=== PATIENT | female | born 1965 | race Caucasian/White ===

== ENCOUNTER → 2017-08-23 09:25 | Outpatient (REF) | payer MEDICARE, MEDICAID, SELFPAY ==
[2017-08-23 14:19] LABS: Amphetamine/Metha Screen,Urine Negative ng/mL (<1000); Barbiturates Screen,Urine Negative ng/mL (<200); Benzodiazepines Screen,Urine Positive ng/mL (200); Cannabinoid Screen,Urine Negative ng/mL (<50); Cocaine Screen,Urine Negative ng/g (<300); Methadone Screen,Urine Negative ng/mL (<300); Opiate Screen,Urine Negative ng/mL (<300); Phencyclidine Screen,Urine Negative ng/mL (<25)
== END ==
LOC: LAB 09:25
PROVIDERS: Visit Provider Nurse Practitioner Family
DX: Z79.899 Other long term (current) drug therapy (principal)
CPT/HCPCS: 80305

== ENCOUNTER 2017-09-03 10:09 | Emergency (ER) | payer MEDICARE, MEDICAID, SELFPAY ==
[2017-09-03 10:27] VITALS: BP 138/75; PULSE 74; RESP 18; TEMP 37; O2SAT 98; BMI 36.0
--- NOTE | 2017-09-03 10:56 | HMH.EDUTC ---
[facility] [place] Clinical Impression: URI (upper respiratory infection) Qualifiers: URI type: unspecified URI Qualified Code(s): J06.9 - Acute upper respiratory infection, unspecified Disposition: Home, Self-Care Condition on Discharge: Good Instructions: DI for Cough -- Adult, DI for Sinusitis, Sore Throat, DI for Ear Pain-Adult Additional Instructions: * Monitor Temp. Tylenol and/or Ibuprofen as needed. ER if fever is no less than 101 despite alternating Tylenol and Ibuprofen * Encourage fluids, water, Gatorade, powerade, pedialyte if infant/toddler/or child * Warm salt water gargles for throat irritation *Warm fluids *Sore throat lozenges *Sleep elevated *humidifier or vaporizer Lots of rest Increase fluids, water, Gatorade, powerade *Your throat swab was sent to lab for culture. Those results area typically sent to your primary care physician. Be sure to follow up in 2-3 days if no improvement so they can review those results and treat if necessary If you dont have primary care I recommend you get one, but in the mean time you will have to return to a walk in clinic Follow up IMMEDIATELY for new or worsening of symptoms OR no noticeable improvement over the next 48-72 hours. 911 immediately for any life threatening symptoms such as chest pain or difficulty breathing Prescriptions: Dextromethorphan Polistirex [Delsym] 10 ml PO Q12H PRN #250 josesito.er.12h PRN Reason: Cough Guaifenesin/Dextromethorphan [Mucinex Dm ER 1,200-60 mg Tab] 1 each PO Q12H #20 tab.er.12h Referrals: Keith Santana MD [Primary Care Provider] - Time of Disposition: 11:07 Medical Decision Making - Medical Records Medical records reviewed: Yes: I reviewed the patient's medical records. Vital Signs: 09/03/17 10:27 Temperature 98.6 F Temperature Source Temporal Artery Scan Pulse Rate [Right] 74 Respiratory Rate 18 Blood Pressure [Right Arm] 138/75 Blood Pressure Mean [Right Arm] 96 Blood Pressure Source [Right Arm] Automatic Cuff Blood Pressure Position [Right Arm] Sitting 02 Sat by Pulse Oximetry 98 Oxygen Delivery Method Room Air - Abdirashid Inquiry Pt receiving controlled substance: No Abdirashid was queried for this patient: No [facility] [place] - General Stated complaint: sinus problems Mode of Arrival: Ambulatory Source of Information: Patient Limitations: No Limitations Description of Symptoms (Recalled from Triage Doc. by RN): SINUS CONGESTION, RECENT ABX FOR SAME HEENT Symptoms (Recalled from RN notes): Yes Resp Symptoms (Recalled from RN notes): No Skin Symptoms (Recalled from RN notes): No MS Symptoms (Recalled from RN notes): No Functional Status (Recalled from RN notes): N - History of Present Illness Provider Complaint: Patient state that was recently seen and treated for sinus infection State that she is having thick yellowish green drainage from her sinuses, earache, sore throat and not feeling well State that she was worried that it was coming back and she wanted to get in before it got bad - Related Data Home Medications Medication Instructions Recorded Confirmed aspirin 81 mg chewable tablet 81 mg PO QDAY 08/23/17 atorvastatin 80 mg tablet 80 mg PO QDAY 08/23/17 cholecalciferol (vitamin D3) 50,000 unit PO QWEEK 08/23/17 50,000 unit capsule multivitamin tablet 1 tab PO QAM 08/23/17 Previous Rx's Medication Instructions Recorded alprazolam 1 mg tablet 1 mg PO TID #90 tab 08/23/17 atenolol 50 mg tablet 50 mg PO QDAY #30 tab 08/23/17 atorvastatin 80 mg tablet 80 mg PO QDAY #30 tab 08/23/17 escitalopram 10 mg tablet 20 mg PO QDAY #30 tab 08/23/17 estradiol 0.075 mg/24 hr 1 patch TRANSDERMA QWEEK #4 patch 08/23/17 semiweekly transdermal patch fluticasone 50 mcg/actuation nasal 1 spray INTRANASAL QDAY 30 Days 08/23/17 spray,suspension #9.9 g omeprazole 40 mg capsule,delayed 40 mg PO QDAY #30 cap 08/23/17 release polyethylene glycol 3350 17 17 g PO QDAY PRN #30 each 08/23/17 gram/dose oral powder
--- NOTE | 2017-09-03 11:04 | ED_ITS ---
[facility] [place]position Clinical Impression: URI (upper respiratory infection) Qualifiers: URI type: unspecified URI Qualified Code(s): J06.9 - Acute upper respiratory infection, unspecified Disposition: Home, Self-Care Condition on Discharge: Good Instructions: DI for Cough -- Adult, DI for Sinusitis, Sore Throat, DI for Ear Pain-Adult Additional Instructions: * Monitor Temp. Tylenol and/or Ibuprofen as needed. ER if fever is no less than 101 despite alternating Tylenol and Ibuprofen * Encourage fluids, water, Gatorade, powerade, pedialyte if infant/toddler/or child * Warm salt water gargles for throat irritation *Warm fluids *Sore throat lozenges *Sleep elevated *humidifier or vaporizer Lots of rest Increase fluids, water, Gatorade, powerade *Your throat swab was sent to lab for culture. Those results area typically sent to your primary care physician. Be sure to follow up in 2-3 days if no improvement so they can review those results and treat if necessary If you don? t have primary care I recommend you get one, but in the mean time you will have to return to a walk in clinic Follow up IMMEDIATELY for new or worsening of symptoms OR no noticeable improvement over the next 48-72 hours. 911 immediately for any life threatening symptoms such as chest pain or difficulty breathing Prescriptions: Dextromethorphan Polistirex [Delsym] 10 ml PO Q12H PRN #250 josesito.er.12h PRN Reason: Cough Guaifenesin/Dextromethorphan [Mucinex Dm ER 1,200-60 mg Tab] 1 each PO Q12H #20 tab.er.12h Referrals: Keith Santana MD [Primary Care Provider] - Time of Disposition: 11:07 Medical Decision Making - Medical Records Medical records reviewed: Yes: I reviewed the patient's medical records. Vital Signs: 09/03/17 10:27 Temperature 98.6 F Temperature Source Temporal Artery Scan Pulse Rate [Right] 74 Respiratory Rate 18 Blood Pressure [Right Arm] 138/75 Blood Pressure Mean [Right Arm] 96 Blood Pressure Source [Right Arm] Automatic Cuff Blood Pressure Position [Right Arm] Sitting 02 Sat by Pulse Oximetry 98 Oxygen Delivery Method Room Air - Abdirashid Inquiry Pt receiving controlled substance: No Abdirashid was queried for this patient: No [facility] [place] HPI - General Stated complaint: sinus problems Mode of Arrival: Ambulatory Source of Information: Patient Limitations: No Limitations Description of Symptoms (Recalled from Triage Doc. by RN): SINUS CONGESTION, RECENT ABX FOR SAME HEENT Symptoms (Recalled from RN notes): Yes Resp Symptoms (Recalled from RN notes): No Skin Symptoms (Recalled from RN notes): No MS Symptoms (Recalled from RN notes): No Functional Status (Recalled from RN notes): N - History of Present Illness Provider Complaint: Patient state that was recently seen and treated for sinus infection State that she is having thick yellowish green drainage from her sinuses, earache, sore throat and not feeling well State that she was worried that it was coming back and she wanted to get in before it got bad - Related Data Home Medications Medication Instructions Recorded Confirmed aspirin 81 mg chewable tablet 81 mg PO QDAY 08/23/17 atorvastatin 80 mg tablet 80 mg PO QDAY 08/23/17 cholecalciferol (vitamin D3) 50,000 unit PO QWEEK 08/23/17 50,000 unit capsule multivitamin tablet 1 tab PO QAM 08/23/17 Previous Rx's Medication Instructions Recorded alprazolam 1 mg ta
[2017-09-03 11:30] VITALS: BP 142/90; PULSE 82; RESP 18; TEMP 37
== END 2017-09-03 11:33 | disposition home or self-care (01) ==
PROVIDERS: Emergency Provider Nurse Practitioner; Family Provider Emergency Medicine; PCP Emergency Medicine
DX: J06.9 Acute upper respiratory infection, unspecified (principal); Z72.0 Tobacco use
CPT/HCPCS: 96372; 99201

== ENCOUNTER 2017-10-12 17:35 | Emergency (ER) | payer MEDICARE, MEDICAID, SELFPAY ==
[2017-10-12 17:54] VITALS: BP 121/85; PULSE 78; RESP 20; TEMP 37.1; O2SAT 96; BMI 31.3
--- NOTE | 2017-10-12 18:07 | HMH.EDUTC ---
[facility] – [place] Disposition Referrals: Keith Santana MD [Primary Care Provider] - Medical Decision Making Vital Signs: 10/12/17 17:54 Temperature 98.8 F Temperature Source Temporal Artery Scan Pulse Rate [Left Radial] 78 Respiratory Rate 20 Blood Pressure [Right Arm] 121/85 Blood Pressure Mean [Right Arm] 97 02 Sat by Pulse Oximetry 96 Oxygen Delivery Method Room Air [facility] [place] HPI - General Stated complaint: ao [id number] @0930@home Injured r side Mode of Arrival: Family Vehicle Source of Information: Patient Limitations: No Limitations Description of Symptoms (Recalled from Triage Doc. by RN): PT STATES SHE FELL YESTERDAY DOWN STEPS AND INJURED RIGHT ANKLE,KNEE,BACK, NECK, AND FACE. HEENT Symptoms (Recalled from RN notes): No Resp Symptoms (Recalled from RN notes): No Skin Symptoms (Recalled from RN notes): No MS Symptoms (Recalled from RN notes): Yes (RIGHT ANKLE, KNEE,BACK, NECK AND FACE PAIN FROM FALL) Functional Status (Recalled from RN notes): NA - Related Data Home Medications Medication Instructions Recorded Confirmed aspirin 81 mg chewable tablet 81 mg PO QDAY 08/23/17 atorvastatin 80 mg tablet 80 mg PO QDAY 08/23/17 cholecalciferol (vitamin D3) 50,000 unit PO QWEEK 08/23/17 50,000 unit capsule multivitamin tablet 1 tab PO QAM 08/23/17 Previous Rx's Medication Instructions Recorded alprazolam 1 mg tablet 1 mg PO TID #90 tab 08/23/17 atenolol 50 mg tablet 50 mg PO QDAY #30 tab 08/23/17 atorvastatin 80 mg tablet 80 mg PO QDAY #30 tab 08/23/17 escitalopram 10 mg tablet 20 mg PO QDAY #30 tab 08/23/17 estradiol 0.075 mg/24 hr 1 patch TRANSDERMA QWEEK #4 patch 08/23/17 semiweekly transdermal patch omeprazole 40 mg capsule,delayed 40 mg PO QDAY #30 cap 08/23/17 release polyethylene glycol 3350 17 17 g PO QDAY PRN #30 each 08/23/17 gram/dose oral powder tizanidine 4 mg capsule 4 mg PO Q8H #90 cap 08/23/17 trazodone 100 mg tablet 100 mg PO BID #60 tab 08/23/17 Dextromethorphan Polistirex 10 ml PO Q12H PRN #250 josesito.er.12h 09/03/17 [Delsym] Guaifenesin/Dextromethorphan 1 each PO Q12H #20 tab.er.12h 09/03/17 [Mucinex Dm ER 1,200-60 mg Tab] hydrochlorothiazide 12.5 mg tablet 12.5 mg PO QAM #30 tab 10/01/17 Allergies Allergy/AdvReac Type Severity Reaction Status Date / Time No Known Allergies Allergy Verified 10/01/17 09:05 - Worker's Comp Is this a Worker's Comp case?: No [facility] History Medical History: Reports:: Anxiety, Hyperlipidemia, Hypertension Denies:: Cancer, Diabetes Mellitus Type 1, Diabetes Mellitus Type 2, MRSA Other Surgeries: Yes: Cancer Surgery, Colonoscopy, , Hysterectomy-Total Amputation: No Fractures: No Comment: Eye surgery for glycoma, Heart Cath, Breast Biopsy - Social History Smoking Status: Current every day smoker Tobacco Type: cigarettes Alcohol Intake: never Substance Use Type: denies use Occupational Status: disabled - Psychiatric History Expresses thoughts of harming self/others: None Suicide Plan Description: No Plan Pschychiatric History:: Reports:: Anxiety Family Hx:: Stroke, Heart Attack Comment: Osteoporosis
--- NOTE | 2017-10-12 18:14 | ED_ITS ---
[facility] [place] Referrals: Keith Santana MD [Primary Care Provider] - Medical Decision Making Vital Signs: 10/12/17 17:54 Temperature 98.8 F Temperature Source Temporal Artery Scan Pulse Rate [Left Radial] 78 Respiratory Rate 20 Blood Pressure [Right Arm] 121/85 Blood Pressure Mean [Right Arm] 97 02 Sat by Pulse Oximetry 96 Oxygen Delivery Method Room Air [facility] [place] - General Stated complaint: ao [id number] @0930@home Injured r side Mode of Arrival: Family Vehicle Source of Information: Patient Limitations: No Limitations Description of Symptoms (Recalled from Triage Doc. by RN): PT STATES SHE FELL YESTERDAY DOWN STEPS AND INJURED RIGHT ANKLE,KNEE,BACK, NECK, AND FACE. HEENT Symptoms (Recalled from RN notes): No Resp Symptoms (Recalled from RN notes): No Skin Symptoms (Recalled from RN notes): No MS Symptoms (Recalled from RN notes): Yes (RIGHT ANKLE, KNEE,BACK, NECK AND FACE PAIN FROM FALL) Functional Status (Recalled from RN notes): NA - Related Data Home Medications Medication Instructions Recorded Confirmed aspirin 81 mg chewable tablet 81 mg PO QDAY 08/23/17 atorvastatin 80 mg tablet 80 mg PO QDAY 08/23/17 cholecalciferol (vitamin D3) 50,000 unit PO QWEEK 08/23/17 50,000 unit capsule multivitamin tablet 1 tab PO QAM 08/23/17 Previous Rx's Medication Instructions Recorded alprazolam 1 mg tablet 1 mg PO TID #90 tab 08/23/17 atenolol 50 mg tablet 50 mg PO QDAY #30 tab 08/23/17 atorvastatin 80 mg tablet 80 mg PO QDAY #30 tab 08/23/17 escitalopram 10 mg tablet 20 mg PO QDAY #30 tab 08/23/17 estradiol 0.075 mg/24 hr 1 patch TRANSDERMA QWEEK #4 patch 08/23/17 semiweekly transdermal patch omeprazole 40 mg capsule,delayed 40 mg PO QDAY #30 cap 08/23/17 release polyethylene glycol 3350 17 17 g PO QDAY PRN #30 each 08/23/17 gram/dose oral powder tizanidine 4 mg capsule 4 mg PO Q8H #90 cap 08/23/17 trazodone 100 mg tablet 100 mg PO BID #60 tab 08/23/17 Dextromethorphan Polistirex 10 ml PO Q12H PRN #250 josesito.er.12h 09/03/17 [Delsym] Guaifenesin/Dextromethorphan 1 each PO Q12H #20 tab.er.12h 09/03/17 [Mucinex Dm ER 1,200-60 mg Tab] hydrochlorothiazide 12.5 mg tablet 12.5 mg PO QAM #30 tab 10/01/17 Allergies Allergy/AdvReac Type Severity Reaction Status Date / Time No Known Allergies Allergy Verified 10/01/17 09:05 - Worker's Comp Is this a Worker's Comp case?: No [facility] History Medical History: Reports:: Anxiety, Hyperlipidemia, Hypertension Denies:: Cancer, Diabetes Mellitus Type 1, Diabetes Mellitus Type 2, MRSA Other Surgeries: Yes: Cancer Surgery, Colonoscopy, , Hysterectomy-Total Amputation: No Fractures: No Comment: Eye surgery for glycoma, Heart Cath, Breast Biopsy - Social History Smoking Status: Current every day smoker Tobacco Type: cigarettes Alcohol Intake: never Substance Use Type: denies use Occupational Status: disabled - Psychiatric History Expresses thoughts of harming self/others: None Suicide Plan Description: No Plan Pschychiatric History:: Reports:: Anxiety Family Hx:: Stroke, Heart Attack Comment: Osteoporosis
--- NOTE | 2017-10-12 18:14 | PC.NURSE ---
Pt reporting she fell down approx 8-10 hardwood steps yesterday. Not sure how she fell. + LOC I believe . Doesn't know how long she was on the floor at the bottom of the steps just remember coming too, wondering how I got there and not being able to get up. I called my kids . Kids were 7 miles away and when they got there, she was still on the floor with right ankle and knee swollen and painful. Son wrapped both. today severe headache, posterior neck pain, back pain, right knee pain and right ankle pain. Pt aware of my concerns regarding extent of injuries and LOC. Agreeable to transfer to ER. I wanted to start there and they told me to come here at registration . Report called to CC in ER. Bed 10 available.
[2017-10-12 18:17] VITALS: BP 153/91; PULSE 68; RESP 16; TEMP 36.9; O2SAT 97; BMI 31.3
--- NOTE | 2017-10-12 18:29 | XR_ITS ---
XR ankle RT min 3V COMPARISON: None HISTORY: Right ankle pain after a fall TECHNIQUE: AP lateral and oblique views FINDINGS: There is no fracture or dislocation. The ankle mortise appears normal. The soft tissues are normal. There is a small spur of the calcaneus at insertion of plantar tendon. IMPRESSION: Right ankle negative for fracture
--- NOTE | 2017-10-12 18:29 | CT_ITS ---
CT cervical spine wo con COMPARISON: None HISTORY: Neck pain after a fall TECHNIQUE: Multiple axial scans of cervical spine were obtained. Sagittal and coronal reformats were evaluated as well. FINDINGS: There is some slight straightening of normal curvature suggesting mild muscle spasm. C1-C7 appear intact and is no significant degenerative change seen. There is no fracture or subluxation. The spinal canal is normal size throughout. The prevertebral soft tissues are normal. There is mild arthritic change of the atlantooccipital joint. IMPRESSION: Negative for acute fracture, question mild muscle spasm basically agree with the [facility] report
--- NOTE | 2017-10-12 18:29 | XR_ITS ---
XR pelvis 1-2V COMPARISON: None HISTORY: Pelvic pain after a fall TECHNIQUE: AP pelvis FINDINGS: The iliac bones and pubic bones appear intact. Both hips are normally articulated with no evidence of fracture. The SI joints and symphysis pubis per normal. IMPRESSION: Negative AP pelvis
--- NOTE | 2017-10-12 18:29 | CT_ITS ---
CT head/brain wo con INDICATION: Patient fell down stairs yesterday but has no memory of the fall Routine axial images for brain followed by additional post-processing axial bone window images. Axial CT scanning from the base of the skull through the vertex to evaluate the brain was performed. Subsequent post processing 2-D CT bone windows were submitted to PACS and are useful to evaluate calvarium, visualize portions of paranasal sinuses, mastoids and base of skull. Multiaxial scans are obtained from the base of the skull to the vertex and performed without contrast. The base of the skull appeared normal. The ventricular system was normal. There was no ischemic infarct or bleed and there were no extra-axial fluid collections. The bony calvarium appeared intact. IMPRESSION: Negative noncontrast CT scan of the brain.
--- NOTE | 2017-10-12 18:29 | XR_ITS ---
XR knee RT 3V COMPARISON: None HISTORY: Right knee pain after a fall TECHNIQUE: AP lateral and oblique views FINDINGS: There is no fracture or dislocation and is no degenerative change. The soft tissues are normal and is no effusion. IMPRESSION: Negative right knee
--- NOTE | 2017-10-12 18:42 | XR_ITS ---
XR ribs RT min 3V w CXR1V COMPARISON: PA and lateral chest same date HISTORY: Right chest wall pain after a fall TECHNIQUE: Oblique views right rib FINDINGS: All the right ribs 1 through 12 are visualized and appear intact with no fracture seen. Right lung field is clear and there is no pneumothorax. IMPRESSION: Negative right ribs 1 through 12
--- NOTE | 2017-10-12 18:45 | HMH.EDFALL ---
ED Disposition Clinical Impression: Fracture of spinous process of cervical vertebra, Knee contusion, Contusion of ankle, right, Maxillary sinusitis, acute, Tobacco use Disposition: Home, Self-Care Condition on Discharge: Fair Instructions: Sinusitis Additional Instructions: 1- stop smoking. 2- start abx 3- mobic prn. 4- follow up with pcp on final x ray reports and untill you feel better. Prescriptions: Amoxicillin [Amoxicillin 500mg Cap] 500 mg PO TID #30 cap Meloxicam [Mobic 7.5mg Tab] 7.5 mg PO BID PRN #20 tab PRN Reason: Moderate To Severe Pain Referrals: Keith Santana MD [Primary Care Provider] - - Critical Care Critical Care Time: No Attestation: On 10/12/17, the high probability of a clinically significant, sudden or life threatening deterioration of the following system(s) required my full and direct attention, intervention and personal management. The time I documented below is in addition to time spent performing reported procedures but includes the following listed in this critical care notation. Medical Decision Making - Abdirashid Inquiry Pt receiving controlled substance: No Abdirashid was queried for this patient: No Vital Signs: 10/12/17 17:54 10/12/17 18:17 10/12/17 20:19 Temperature 98.8 F 98.4 F Temperature Source Temporal Artery Scan Oral Pulse Rate 81 Pulse Rate [Left Radial] 78 68 Respiratory Rate 20 16 Blood Pressure [Right Arm] 121/85 153/91 Blood Pressure Mean [Right Arm] 97 111 Blood Pressure Source [Right Arm] Automatic Cuff Blood Pressure Position [Right Arm] Supine 02 Sat by Pulse Oximetry 96 97 Oxygen Delivery Method Room Air 10/12/17 20:21 Temperature Temperature Source Pulse Rate 83 Pulse Rate [Left Radial] Respiratory Rate Blood Pressure [Right Arm] Blood Pressure Mean [Right Arm] Blood Pressure Source [Right Arm] Blood Pressure Position [Right Arm] 02 Sat by Pulse Oximetry Oxygen Delivery Method Orders (Tests/Meds): ED MEDICATIONS Discontinued Medications Generic Name Dose Route Start Last Admin Trade Name Freq PRN Reason Stop Dose Admin Albuterol Sulfate 2.5 mg 10/12/17 18:52 10/12/17 19:10 Albuterol 0.083% 2.5mg/3ml Neb IH 10/12/17 18:53 2.5 mg ONCE ONE Administration Ketorolac Tromethamine 60 mg 10/12/17 18:52 10/12/17 19:40 Toradol 60mg/2ml Vial IM 10/12/17 18:53 60 mg ONCE ONE Administration - Radiology Data #1 Image(s): Chest, Knee, Ankle Image Reviewed: Yes I reviewed the patient's radiology image Preliminary Findings: Normal/NAD - CT Data CT Scan: Head, C-Spine, L-Spine Time Received: 20:[address] Reviewed: Yes: I have viewed the radiologist's interpretation Preliminary Findings: Abnormal Findings Narrative: The patient did have a questionable subtle stable oblique fracture of the spinous process of C6, no retropulsion. Medical Decision Narrative: I discussed the CT reports finding with the patient I told her that the fractures are stable and there is no compromise of the spinal cord as per the radiology report. He did not have any other injuries including ribs knee or ankle. Did feel better after Toradol injection. Fall HPI - General Chief Complaint: Fall Stated Complaint: ao [id number] @0930@home Injured r side Time Seen by Provider: 10/12/17 18:00 Mode of Arrival: Ambulatory Source of Information: Patient Limitations: Physical Limitations Description of Symptoms (Recalled from ER Triage Doc. by RN): REPORTS FALLING DOWN STAIRS YESTERDAY. REPORTS PAIN IN RIGHT ANKLE, RIGHT KNEE, LUMBAR SPINE, RIGHT HIP, C SPINE, RIGHT SHOULDER. PT ALSO WANTS TO BE SEEN FO R . SINUS PROBLEMS. REPORTS RODRIGUEZ. - History of Present Illness HPI Narrative: 52 years old white female smoker with degenerative joint disease. She claims that on October 11 at 9:30 PM she slipped on 7 steps covered with carpet at home, landed on the right side of the body with no direct head injury
--- NOTE | 2017-10-12 18:48 | ED_ITS ---
ED Disposition Clinical Impression: Fracture of spinous process of cervical vertebra, Knee contusion, Contusion of ankle, right, Maxillary sinusitis, acute, Tobacco use Disposition: Home, Self-Care Condition on Discharge: Fair Instructions: Sinusitis Additional Instructions: 1- stop smoking. 2- start abx 3- mobic prn. 4- follow up with pcp on final x ray reports and untill you feel better. Prescriptions: Amoxicillin [Amoxicillin 500mg Cap] 500 mg PO TID #30 cap Meloxicam [Mobic 7.5mg Tab] 7.5 mg PO BID PRN #20 tab PRN Reason: Moderate To Severe Pain Referrals: Keith Santana MD [Primary Care Provider] - - Critical Care Critical Care Time: No Attestation: On 10/12/17, the high probability of a clinically significant, sudden or life threatening deterioration of the following system(s) required my full and direct attention, intervention and personal management. The time I documented below is in addition to time spent performing reported procedures but includes the following listed in this critical care notation. Medical Decision Making - Abdirashid Inquiry Pt receiving controlled substance: No Abdirashid was queried for this patient: No Vital Signs: 10/12/17 17:54 10/12/17 18:17 10/12/17 20:19 Temperature 98.8 F 98.4 F Temperature Source Temporal Artery Scan Oral Pulse Rate 81 Pulse Rate [Left Radial] 78 68 Respiratory Rate 20 16 Blood Pressure [Right Arm] 121/85 153/91 Blood Pressure Mean [Right Arm] 97 111 Blood Pressure Source [Right Arm] Automatic Cuff Blood Pressure Position [Right Arm] Supine 02 Sat by Pulse Oximetry 96 97 Oxygen Delivery Method Room Air 10/12/17 20:21 Temperature Temperature Source Pulse Rate 83 Pulse Rate [Left Radial] Respiratory Rate Blood Pressure [Right Arm] Blood Pressure Mean [Right Arm] Blood Pressure Source [Right Arm] Blood Pressure Position [Right Arm] 02 Sat by Pulse Oximetry Oxygen Delivery Method Orders (Tests/Meds): ED MEDICATIONS Discontinued Medications Generic Name Dose Route Start Last Admin Trade Name Freq PRN Reason Stop Dose Admin Albuterol Sulfate 2.5 mg 10/12/17 18:52 10/12/17 19:10 Albuterol 0.083% 2.5mg/3ml Neb IH 10/12/17 18:53 2.5 mg ONCE ONE Administration Ketorolac Tromethamine 60 mg 10/12/17 18:52 10/12/17 19:40 Toradol 60mg/2ml Vial IM 10/12/17 18:53 60 mg ONCE ONE Administration - Radiology Data #1 Image(s): Chest, Knee, Ankle Image Reviewed: Yes I reviewed the patient's radiology image Preliminary Findings: Normal/NAD - CT Data CT Scan: Head, C-Spine, L-Spine Time Received: 20:[address] Reviewed: Yes: I have viewed the radiologist's interpretation Preliminary Findings: Abnormal Findings Narrative: The patient did have a questionable subtle stable oblique fracture of the spinous process of C6, no retropulsion. Medical Decision Narrative: I discussed the CT reports finding with the patient I told her that the fractures are stable and there is no compromise of the spinal cord as per the radiology report. He did not have any other injuries including ribs knee or ankle. Did feel better after Toradol injection. Fall HPI - Genera
--- NOTE | 2017-10-12 18:50 | PC.NURSE ---
PATIENT TAKEN TO CT.
--- NOTE | 2017-10-12 18:52 | XR_ITS ---
XR chest 2V INDICATION: Chest pain after a fall COMPARISON: PA and lateral chest 04/06/2015 FINDINGS: The cardiovascular structures are unremarkable. No mediastinal shift or hilar mass is evident. The lungs are well expanded and clear bilaterally. The costophrenic sulci are sharp. No significant bony anomalies are apparent. IMPRESSION: Negative chest.
--- NOTE | 2017-10-12 19:04 | CT_ITS ---
CT lumbar spine wo con COMPARISON: None HISTORY: Low back pain after a fall TECHNIQUE: Multiple axial scans of the lumbar spine were obtained. Sagittal and coronal reformats were evaluated as well. FINDINGS: There is normal curvature and alignment. All lumbar vertebrae appear intact. Disc spaces are well maintained throughout. The spinal canal is normal in size throughout and is no abnormal disc protrusion. There are prominent hypertrophic facet changes at the L4-5 level bilaterally. The transverse processes all appear intact. IMPRESSION Hypertrophic facet changes L4-4-5, no acute pathology identified.
[2017-10-12 20:19] VITALS: PULSE 81
[2017-10-12 20:21] VITALS: PULSE 83
[2017-10-12 21:01] VITALS: BP 148/94; PULSE 92; RESP 16; TEMP 37; O2SAT 94
== END 2017-10-12 21:06 | disposition home or self-care (01) ==
LOC: UTC 17:45 → ER 18:14
PROVIDERS: Emergency Provider Nurse Practitioner Family; Family Provider Emergency Medicine; PCP Emergency Medicine
DX: S12.9XXA Fracture of neck, unspecified, initial encounter (principal); S80.01XA Contusion of right knee, initial encounter; S90.01XA Contusion of right ankle, initial encounter; J01.00 Acute maxillary sinusitis, unspecified; E78.5 Hyperlipidemia, unspecified; I10 Essential (primary) hypertension; F17.210 Nicotine dependence, cigarettes, uncomplicated; Z79.82 Long term (current) use of aspirin; W10.9XXA Fall (on) (from) unspecified stairs and steps, initial encounter; Y92.019 Unspecified place in single-family (private) house as the place of occurrence of the external cause
CPT/HCPCS: 70450; 71046; 71101; 72125; 72131; 72170; 73562; 73610; 96372; 99283

== ENCOUNTER → 2017-10-17 09:41 | Outpatient (REF) | payer MEDICARE, MEDICAID, SELFPAY ==
[2017-10-17 13:39] LABS: Amphetamine/Metha Screen,Urine Negative ng/mL (<1000); Barbiturates Screen,Urine Negative ng/mL (<200); Benzodiazepines Screen,Urine Positive ng/mL (200); Cannabinoid Screen,Urine Negative ng/mL (<50); Cocaine Screen,Urine Negative ng/g (<300); Methadone Screen,Urine Negative ng/mL (<300); Opiate Screen,Urine Negative ng/mL (<300); Phencyclidine Screen,Urine Negative ng/mL (<25)
== END ==
LOC: LAB 09:41
PROVIDERS: Visit Provider Nurse Practitioner Family
DX: Z79.899 Other long term (current) drug therapy (principal)
CPT/HCPCS: 80305

== ENCOUNTER 2017-12-05 08:30 | Outpatient (RCR) | payer MEDICARE, MEDICAID, SELFPAY ==
--- NOTE | 2017-11-05 15:08 | HMH.PTOPEV ---
Rehab Outpatient Evaluation Rehab OP Evaluation Start: 11/05/17 14:26 Freq: Status: Active Protocol: Document 11/05/17 14:27 FARAZ (Rec: 11/05/17 15:08 FARAZ [id number]) Electronically Signed By Rufino Dee, PT 11/05/17 14:27 Outpatient Therapy Subjective History Subjective History Pt reports acute injury to neck and low back on 10/11/17. Pt reports 'blacking out' while walking up steps, falling down, and 'coming to' at the bottom of the steps. Pt reports significant R sided neck pain and RODRIGUEZ's, with radicular s/s into R SH area since the fall. Pt also reports h/o DDD in the lumbar spine was severely exacerbated with fall as well, causing constant bilateral LBP. Chief Complaint Pain Spasms Stiff Clicks Symptom Type Ache Throb Sharp Dull Stabbing Burning Symptoms Relieved By Rest/Positioning Heat Symptoms Aggravated By Physical Activity Lifting Prior Functional Limitations None Current Functional Limitations Reaching Lifting Housework Standing Sitting Walking Stairs Symptom Description Constant but Variable Level of pain today (0-10) 5 Pain scale - at its best (0-10) 4 Pain scale - at its worst (0-10) 10 Cervical Eval Palpation Cervical Muscles R Cervical Paraspinal R Suboccipital R SCM R CT Junction L CT Junction R Upper Trapezius Cervical/Thoracic Palpation Findings Tenderness Spasm Trigger Point Muscle Guarding Posture Head/C-Spine Posture Sitting Position Flexed Head/C-Spine Posture Standing Position Flexed Flexibility Deficits Upper Trapezius Muscle Length (R) Moderate Tightness Scalene Lima
== END 2017-12-05 08:31 | disposition home or self-care (01) ==
LOC: PT 08:30
PROVIDERS: Family Provider Emergency Medicine; PCP Emergency Medicine; Visit Provider Nurse Practitioner Family
DX: M54.2 Cervicalgia (principal); M54.9 Dorsalgia, unspecified
CPT/HCPCS: 97010; 97014; 97035; 97110; 97140; G0283

== ENCOUNTER → 2017-12-31 12:46 | Outpatient (CLI) | payer MEDICARE, MEDICAID, SELFPAY ==
[2017-12-31 15:15] LABS: Anion Gap 14.3 mEq/L (5-15); Blood Urea Nitrogen 18 mg/dL (7-18); Calcium 9.7 mg/dL (8.5-10.1); Carbon Dioxide 27 mmol/L (21.0-32.0); Chloride 102 mmol/L (98-107); Creatinine,Serum 1.04 mg/dL (0.55-1.02); Estimated Glomerular Filt Rate 56 ml/min (>60); GFR (African American) 67 ML/MIN (>60); Glucose 105 mg/dL (74-106); Potassium 3.3 mmoL/L (3.5-5.1); Sodium 140 mmol/L (136-145)
== END ==
PROVIDERS: Visit Provider Physician Assistant
DX: I10 Essential (primary) hypertension (principal); I45.10 Unspecified right bundle-branch block
CPT/HCPCS: 36415; 80048

== ENCOUNTER → 2018-01-08 12:24 | Outpatient (CLI) | payer MEDICARE, MEDICAID, SELFPAY ==
[2018-01-08 14:07] LABS: Anion Gap 14.4 mEq/L (5-15); Blood Urea Nitrogen 22 mg/dL (7-18); Calcium 9.7 mg/dL (8.5-10.1); Carbon Dioxide 31 mmol/L (21.0-32.0); Chloride 99 mmol/L (98-107); Creatinine,Serum 1.08 mg/dL (0.55-1.02); Estimated Glomerular Filt Rate 53 ml/min (>60); GFR (African American) 64 ML/MIN (>60); Glucose 171 mg/dL (74-106); Potassium 3.4 mmoL/L (3.5-5.1); Sodium 141 mmol/L (136-145)
== END ==
PROVIDERS: Visit Provider Physician Assistant
DX: I20.9 Angina pectoris, unspecified (principal); I45.10 Unspecified right bundle-branch block; E78.5 Hyperlipidemia, unspecified; I10 Essential (primary) hypertension
CPT/HCPCS: 36415; 80048

== ENCOUNTER → 2018-01-14 09:27 | Outpatient (REF) | payer MEDICARE, MEDICAID, SELFPAY ==
[2018-01-14 23:02] LABS: Amphetamine/Metha Screen,Urine Negative ng/mL (<1000); Barbiturates Screen,Urine Negative ng/mL (<200); Benzodiazepines Screen,Urine Positive ng/mL (200); Cannabinoid Screen,Urine Negative ng/mL (<50); Cocaine Screen,Urine Negative ng/g (<300); Methadone Screen,Urine Negative ng/mL (<300); Opiate Screen,Urine Negative ng/mL (<300); Phencyclidine Screen,Urine Negative ng/mL (<25)
== END ==
LOC: LAB 09:27
PROVIDERS: Visit Provider Nurse Practitioner Family
DX: Z79.899 Other long term (current) drug therapy (principal); R53.83 Other fatigue
CPT/HCPCS: 80305

== ENCOUNTER → 2018-01-22 09:20 | Outpatient (CLI) | payer MEDICARE, MEDICAID, SELFPAY ==
[2018-01-22 11:14] LABS: Anion Gap 14.8 mEq/L (5-15); Blood Urea Nitrogen 17 mg/dL (7-18); Calcium 9.2 mg/dL (8.5-10.1); Carbon Dioxide 26 mmol/L (21.0-32.0); Chloride 103 mmol/L (98-107); Creatinine,Serum 1.15 mg/dL (0.55-1.02); Estimated Glomerular Filt Rate 50 ml/min (>60); GFR (African American) 60 ML/MIN (>60); Glucose 106 mg/dL (74-106); Potassium 3.8 mmoL/L (3.5-5.1); Sodium 140 mmol/L (136-145)
== END ==
PROVIDERS: Visit Provider Internal Medicine
DX: I10 Essential (primary) hypertension (principal)
CPT/HCPCS: 36415; 80048

== ENCOUNTER → 2018-01-30 11:10 | Outpatient (REF) | payer MEDICARE, MEDICAID, SELFPAY | LOC: LAB 11:10 | PROVIDERS: Visit Provider Physician Assistant | DX: R10.9 Unspecified abdominal pain (principal) | CPT/HCPCS: 87086 ==

== ENCOUNTER → 2018-02-06 09:43 | Outpatient (REF) | payer MEDICARE, MEDICAID, SELFPAY | LOC: LAB 09:43 | PROVIDERS: Visit Provider Physician Assistant | DX: N39.0 Urinary tract infection, site not specified (principal) | CPT/HCPCS: 87086; 87088; 87186 ==

== ENCOUNTER → 2018-02-10 09:55 | Outpatient (CLI) | payer MEDICARE, MEDICAID, SELFPAY ==
--- NOTE | 2018-02-10 09:56 | CT_ITS ---
CT abdomen pelvis wo/w con CLINICAL HISTORY: Hematuria for 2 months TECHNIQUE: Axial images obtained with sagittal and coronal reformats. All CT scans at this facility use one or more dose reduction techniques, viz.: automated exposure control; ma/kV adjustment per patient size (including targeted exams where dose is matched to indication; i.e. head) or iterative reconstruction technique. COMPARISON: None PROCEDURE: Precontrast scans were obtained following the repeat scans after injection of IV contrast. No oral contrast was given.. FINDINGS: Lung bases: Clear and is no pleural fluid ABDOMEN: Liver: No masses or biliary dilatation. Gallbladder: Nondistended. No radio opaque stones. Pancreas: No masses or peripancreatic fluid collections. Spleen: Unremarkable. Adrenals: Both adrenal glands are slightly enlarged but maintain their adreniform shape suggesting possible mild adrenal hyperplasia. Kidneys/ureters: No renal calculi. No hydronephrosis. No perinephric fluid collections. No ureteral dilatation or obvious ureteral calculi. The kidneys show symmetrical function following injection of IV contrast. Is a tiny benign-appearing exophytic cortical cyst midpole left kidney. 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 PELVIS: Reproductive: The patient is post hysterectomy Bladder: The urinary bladder is partially collapsed showing a diffusely thickened wall likely due to lack of distention, but bladder not adequately evaluated due to the almost complete decompression. Appendix: A do not definite identify the appendix but there are no pericecal inflammatory changes. ABDOMEN & PELVIS: Stomach bowel: Nondistended. No obvious mass or thickening. The small bowel appears grossly normal. There is scattered stool and gas throughout the colon. Peritoneum: No abnormal fluid collections. No obvious inflammatory changes. Lymph nodes: No enlarged lymph nodes apparent. Vasculature: No evidence of abdominal aortic aneurysm. No retroperitoneal hemorrhage evident. Bones: Unremarkable appearing bony structures. No lytic or blastic changes. No obvious fractures. IMPRESSION: Grossly normal-appearing kidneys bilaterally, urinary bladder not adequately evaluated due to the decompression but no obvious bladder masses identified. No other significant abdominal or pelvic pathology identified.
== END ==
PROVIDERS: Family Provider Emergency Medicine; PCP Emergency Medicine; Visit Provider Physician Assistant
DX: R10.9 Unspecified abdominal pain (principal); R31.9 Hematuria, unspecified; N30.01 Acute cystitis with hematuria
CPT/HCPCS: 74170; 74178; Q9967

== ENCOUNTER → 2018-04-15 09:09 | Outpatient (REF) | payer MEDICARE, MEDICAID, SELFPAY ==
[2018-04-15 14:17] LABS: Amphetamine/Metha Screen,Urine Negative ng/mL (<1000); Barbiturates Screen,Urine Negative ng/mL (<200); Benzodiazepines Screen,Urine Positive ng/mL (<200); Cannabinoid Screen,Urine Negative ng/mL (<50); Cocaine Screen,Urine Negative ng/mL (<300); Methadone Screen,Urine Negative ng/mL (<300); Opiate Screen,Urine Negative ng/mL (<300); Phencyclidine Screen,Urine Negative ng/mL (<25)
== END ==
LOC: LAB 09:09
PROVIDERS: PCP Nurse Practitioner Family; Visit Provider Nurse Practitioner Family
DX: Z79.899 Other long term (current) drug therapy (principal); R31.9 Hematuria, unspecified
CPT/HCPCS: 80305; 87086; 87210

== ENCOUNTER → 2018-05-02 11:09 | Outpatient (REF) | payer MEDICARE, MEDICAID, SELFPAY | LOC: LAB 11:09 | PROVIDERS: Visit Provider Nurse Practitioner Family | DX: R30.0 Dysuria (principal) | CPT/HCPCS: 87086 ==

== ENCOUNTER → 2018-07-14 13:23 | Outpatient (CLI) | payer MEDICARE, MEDICAID, SELFPAY ==
[2018-07-14 14:14] LABS: Amphetamine/Metha Screen,Urine Negative ng/mL (<1000); Barbiturates Screen,Urine Negative ng/mL (<200); Benzodiazepines Screen,Urine Positive ng/mL (<200); Cannabinoid Screen,Urine Negative ng/mL (<50); Cocaine Screen,Urine Negative ng/mL (<300); Methadone Screen,Urine Negative ng/mL (<300); Opiate Screen,Urine Negative ng/mL (<300); Phencyclidine Screen,Urine Negative ng/mL (<25)
== END ==
PROVIDERS: Visit Provider Physician Assistant
DX: M54.5 Low back pain (principal)
CPT/HCPCS: 80305

== ENCOUNTER → 2018-10-08 13:53 | Outpatient (CLI) | payer MEDICARE, MEDICAID, SELFPAY ==
[2018-10-08 14:06] LABS: Basophils # 0.1 K/mm3 (0-0.2); Basophils % 0.7 % (0.1-2.0); Eosinophils # 0.1 K/mm3 (0.0-0.4); Eosinophils % 1.5 % (0.1-12.0); Monocytes # 0.6 K/mm3 (0.1-1.0)
[2018-10-08 14:14] LABS: Hematocrit 54.3 % (37.0-47.0); Lymphocytes % 34.9 % (10-50); Mean Corpuscular HGB Conc 33.5 g/dL (31.8-35.4); Mean Corpuscular Volume 92.5 fl (81-99); Mean Platelet Volume 10.1 fl (7.4-10.4); Monocytes % 6.7 % (1.7-9.3); Neutrophils # 4.8 K/mm3 (1.8-7.8); Neutrophils % 56.2 % (37.0-80.0); Platelet Count 212 K/mm3 (142-424); Red Blood Count 5.88 M/mm3 (4.20-5.40); White Blood Count 8.6 K/mm3 (4.8-10.8)
[2018-10-08 14:26] LABS: Hemoglobin 18.2 g/dL (12.2-16.2)
[2018-10-08 16:18] LABS: Alanine Aminotransferase 37 U/L (12-78); Albumin Level 3.9 gm/dL (3.4-5.0); Albumin/Globulin Ratio 1.1 (1.1-1.8); Alkaline Phosphatase 74 U/L (46-116); Anion Gap 12.4 mEq/L (5-15); Aspartate Amino Transferase 20 U/L (15-37); Bilirubin,Total 0.3 mg/dL (0.2-1.0); Blood Urea Nitrogen 15 mg/dL (7-18); Calcium 9.6 mg/dL (8.5-10.1); Carbon Dioxide 30 mmol/L (21.0-32.0); Chloride 103 mmol/L (98-107); Chol/HDL Ratio 4.1 (1-3.5); Cholesterol 147 mg/dL (140-200); Creatinine,Serum 1.08 mg/dL (0.55-1.02); Estimated Glomerular Filt Rate 53 ml/min (>60); GFR (African American) 64 ML/MIN (>60); Globulin 3.4 gm/dl (1.3-3.2); Glucose 106 mg/dL (74-106); HDL Cholesterol 36 mg/dL (29-89); LDL Cholesterol 78 mg/dL (0-130); Potassium 4.4 mmoL/L (3.5-5.1); Sodium 141 mmol/L (136-145); T4 (Thyroxine) 6.7 ug/dl (4.7-13.3); Thyroid Stimulating Hormone 1.88 uIU/ml (0.358-3.740); Total Protein,Serum 7.3 gm/dL (6.4-8.2); Triglycerides 165 mg/dL (30-200); VLDL Cholesterol 33 mg/dL (0-40)
[2018-10-09 09:23] LABS: Vitamin D 25 Hydroxy 65.6 ng/mL (30.0-100.0)
== END ==
PROVIDERS: Visit Provider Physician Assistant
DX: I10 Essential (primary) hypertension (principal); E78.5 Hyperlipidemia, unspecified; F17.210 Nicotine dependence, cigarettes, uncomplicated
CPT/HCPCS: 80053; 80061; 82652; 84436; 84443; 85025

== ENCOUNTER → 2018-10-28 12:13 | Outpatient (CLI) | payer MEDICARE, MEDICAID, SELFPAY ==
--- NOTE | 2018-10-28 12:19 | XR_ITS ---
XR chest 2V HISTORY: ITS.REASON: Near syncope, Tobacco use ORDERING PHYSICIAN: SUSAN Ewing PATIENT AGE: 53 years COMPARISON: PA and lateral chest 10/12/2017 FINDINGS: The cardiomediastinal silhouette and pulmonary vascularity are within normal limits. The lungs are clear without infiltrates, suspicious nodules, or pleural effusions. No acute bony abnormalities. Is a tiny calcified granuloma right lower lobe IMPRESSION: Negative chest, no acute finding
[2018-10-28 12:57] LABS: Basophils # 0.1 K/mm3 (0-0.2); Basophils % 0.6 % (0.1-2.0); Eosinophils # 0.1 K/mm3 (0.0-0.4); Eosinophils % 1.3 % (0.1-12.0); Hemoglobin 17.7 g/dL (12.2-16.2); Lymphocytes # 3.2 K/mm3 (0.7-4.5); Lymphocytes % 31.8 % (10-50); Mean Corpuscular HGB Conc 34.6 g/dL (31.8-35.4); Mean Corpuscular Hemoglobin 30.9 pg (27.0-31.2); Mean Corpuscular Volume 89.2 fl (81-99); Mean Platelet Volume 8.6 fl (7.4-10.4); Monocytes # 0.6 K/mm3 (0.1-1.0); Monocytes % 6.4 % (1.7-9.3); Neutrophils % 59.8 % (37.0-80.0); Platelet Count 222 K/mm3 (142-424); Red Blood Count 5.71 M/mm3 (4.20-5.40); Red Cell Distribution Width 13.8 % (11.5-17.5)
[2018-10-28 13:45] VITALS: BP 132/80; PULSE 55; RESP 18; TEMP 36.7; O2SAT 98
[2018-10-28 14:20] VITALS: BP 129/86; PULSE 52; RESP 18; O2SAT 98
== END ==
PROVIDERS: PCP Emergency Medicine; Visit Provider Physician Assistant
DX: I45.10 Unspecified right bundle-branch block (principal); J44.9 Chronic obstructive pulmonary disease, unspecified; R55 Syncope and collapse; D75.1 Secondary polycythemia
CPT/HCPCS: 36415; 71046; 85025; 99195

== ENCOUNTER → 2018-11-04 11:16 | Outpatient (CLI) | payer MEDICARE, MEDICAID, SELFPAY ==
--- NOTE | 2018-11-04 11:22 | CA_ITS ---
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 Left atrium is normal size, left ventricle is normal size, there is no concentric left ventricular hypertrophy, visually estimated ejection fraction of 55% with no regional wall motion abnormality. 2. Right atrium and right ventricle are normal size and contractility. 3. The aortic valve is minimally thickened and fibrosed. 4. The mitral and tricuspid valvular grossly normal. 5. The pulmonic valve is poorly present. 6. No significant pericardial effusion noted. DOPPLER INTERROGATION: Doppler interrogation of the aortic, mitral and tricuspid valvular presence of mild mitral and tricuspid regurgitation, tricuspid regurgitation jet velocity is inadequate for calculation of the right ventricular systolic pressure, diastolic parameters are within normal range. CONCLUSION: 1. Normal left ventricular size, preserved left ventricular systolic function, visually estimated ejection fraction 55% with no regional wall motion abnormality, diastolic parameters are within normal range. 2. Mild mitral and tricuspid regurgitation 3. No significant pericardial effusion noted.
--- NOTE | 2018-11-04 11:33 | NM_ITS ---
CARDIOLITE SPECT MYOCARDIAL PERFUSION LEXISCAN, REST AND STRESS: [facility] REVIEW QGS EF AND WALL MOTION EVALUATION: QPS - PERFUSION EVALUATION HISTORY: CORINNE, NEAR SYNCOPE DOSE: 10.46 mCi technetium 99m mibi intravenously at rest followed by 29.7 mCi technetium 99m mibi following the intravenous ministration of 0.4 mg of Lexiscan. Resting blood pressure is 139/78. Stress blood pressure 120/68. FINDINGS: Ejection fraction is calculated to be 54. Stress images reveal severely decreased activity in the anterior and septal johnson rest images reveal diminished activity but improved. IMPRESSION: Previous nontransmural myocardial infarction involving the anterior wall with significant reversible ischemia with normal ejection fraction normal wall motion High risk abnormal stress test
--- NOTE | 2018-11-04 15:31 | HMH.ITSHM ---
Current Home Medications as stated by this patient Laura Hodge or employee's representative. [] asa atenolol estradiol trazodone alprazolam
== END ==
PROVIDERS: PCP Emergency Medicine; Visit Provider Physician Assistant
DX: I25.10 Atherosclerotic heart disease of native coronary artery without angina pectoris (principal); I10 Essential (primary) hypertension; I45.10 Unspecified right bundle-branch block; R55 Syncope and collapse
CPT/HCPCS: 78452; 93017; 93306; A9502; J2785

== ENCOUNTER 2018-11-11 10:52 | Outpatient (CLI) | payer MEDICARE, MEDICAID, SELFPAY ==
[2018-11-11 10:51] VITALS: BMI 36.0
[2018-11-11 11:23] LABS: MANUAL DIFFERENTIAL MANUAL DIFFERENTIAL (MANUAL DIFF)
[2018-11-11 11:30] LABS: Basophils # 0.1 K/mm3 (0-0.2); Basophils % 0.8 % (0.1-2.0); Eosinophils # 0.1 K/mm3 (0.0-0.4); Hematocrit 44.3 % (37.0-47.0); Hemoglobin 15.3 g/dL (12.2-16.2); Lymphocytes # 3.3 K/mm3 (0.7-4.5); Lymphocytes % 37.9 % (10-50); Mean Corpuscular HGB Conc 34.6 g/dL (31.8-35.4); Mean Corpuscular Volume 89.5 fl (81-99); Monocytes # 0.6 K/mm3 (0.1-1.0); Monocytes % 7.1 % (1.7-9.3); Neutrophils # 4.7 K/mm3 (1.8-7.8); Neutrophils % 53.1 % (37.0-80.0); Platelet Count 180 K/mm3 (142-424); Red Blood Count 4.95 M/mm3 (4.20-5.40); Red Cell Distribution Width 13.6 % (11.5-17.5); White Blood Count 8.8 K/mm3 (4.8-10.8)
--- NOTE | 2018-11-11 11:44 | PC.NURSE ---
VS 115/63, pulse 49, O2 sat 97% room air, resp 18, temp 98.0. Pt here for therapeutic phlebotomy. Phlebotomy not needed today due to stable lab results H&H 15.3/44.3. Pt discharged home/stable.
[2018-11-11 11:46] VITALS: BP 115/63; PULSE 49; RESP 18; TEMP 36.7; O2SAT 97
[2018-11-11 12:21] LABS: Eosinophils % 3 % (0-3); Lymphocytes % 34 % (10-50); Monocytes % 8 % (2-9); Neutrophils % 54 % (42-76); Total Cells Counted 100
[2018-11-11 12:22] LABS: Platelet Estimate Normal; RBC Morphology Normal
== END 2018-11-11 11:46 | disposition home or self-care (01) ==
LOC: INF 10:52
PROVIDERS: Visit Provider Physician Assistant
DX: R55 Syncope and collapse (principal); D45 Polycythemia vera; Z72.0 Tobacco use; I45.19 Other right bundle-branch block
CPT/HCPCS: 85007; 85014; 85018; 85048; 85049

== ENCOUNTER 2018-11-25 08:59 | Outpatient (CLI) | payer MEDICARE, MEDICAID, SELFPAY ==
[2018-11-25 08:59] VITALS: BMI 36.0
[2018-11-25 09:19] LABS: Basophils # 0.1 K/mm3 (0-0.2); Basophils % 0.7 % (0.1-2.0); Eosinophils # 0.1 K/mm3 (0.0-0.4); Eosinophils % 1.1 % (0.1-12.0); Hematocrit 50.8 % (37.0-47.0); Hemoglobin 17.9 g/dL (12.2-16.2); Lymphocytes # 3.2 K/mm3 (0.7-4.5); Lymphocytes % 27.9 % (10-50); Mean Corpuscular HGB Conc 35.3 g/dL (31.8-35.4); Mean Corpuscular Hemoglobin 31.1 pg (27.0-31.2); Mean Corpuscular Volume 88.2 fl (81-99); Mean Platelet Volume 8.3 fl (7.4-10.4); Monocytes # 0.8 K/mm3 (0.1-1.0); Monocytes % 6.8 % (1.7-9.3); Neutrophils # 7.2 K/mm3 (1.8-7.8); Neutrophils % 63.6 % (37.0-80.0); Platelet Count 225 K/mm3 (142-424); Red Blood Count 5.77 M/mm3 (4.20-5.40); Red Cell Distribution Width 13.6 % (11.5-17.5); White Blood Count 11.3 K/mm3 (4.8-10.8)
[2018-11-25 09:40] VITALS: BP 125/84; PULSE 60; RESP 18; TEMP 36.6; O2SAT 98
[2018-11-25 09:55] VITALS: BP 123/81; PULSE 64; RESP 18; O2SAT 97
== END 2018-11-25 09:55 | disposition home or self-care (01) ==
LOC: INF 08:59
PROVIDERS: Visit Provider Physician Assistant
DX: D45 Polycythemia vera (principal); R55 Syncope and collapse; I45.10 Unspecified right bundle-branch block; Z72.0 Tobacco use
CPT/HCPCS: 36415; 85025; 99195

== ENCOUNTER → 2018-12-01 09:14 | Outpatient (CLI) | payer MEDICARE, MEDICAID, SELFPAY ==
[2018-12-01 11:01] LABS: Anion Gap 10.7 mEq/L (5-15); Blood Urea Nitrogen 19 mg/dL (7-18); Calcium 10.3 mg/dL (8.5-10.1); Carbon Dioxide 35 mmol/L (21.0-32.0); Chloride 99 mmol/L (98-107); Creatinine,Serum 1.23 mg/dL (0.55-1.02); Estimated Glomerular Filt Rate 46 ml/min (>60); GFR (African American) 55 ML/MIN (>60); Glucose 99 mg/dL (74-106); Potassium 3.7 mmoL/L (3.5-5.1); Sodium 141 mmol/L (136-145)
== END ==
PROVIDERS: Visit Provider Internal Medicine
DX: D75.1 Secondary polycythemia (principal); R53.83 Other fatigue; I10 Essential (primary) hypertension; E78.2 Mixed hyperlipidemia
CPT/HCPCS: 36415; 80048

== ENCOUNTER 2018-12-09 08:19 | Outpatient (CLI) | payer MEDICARE, MEDICAID, SELFPAY ==
[2018-12-09 08:19] VITALS: BMI 36.0
[2018-12-09 09:10] VITALS: BP 122/74; PULSE 68; RESP 20; TEMP 36.9; O2SAT 95
[2018-12-09 09:13] LABS: Basophils # 0.1 K/mm3 (0-0.2); Basophils % 0.5 % (0.1-2.0); Eosinophils # 0.1 K/mm3 (0.0-0.4); Eosinophils % 1.6 % (0.1-12.0); Hematocrit 41.4 % (37.0-47.0); Lymphocytes # 2.6 K/mm3 (0.7-4.5); Lymphocytes % 29.4 % (10-50); Mean Corpuscular HGB Conc 33.8 g/dL (31.8-35.4); Mean Corpuscular Hemoglobin 31.2 pg (27.0-31.2); Mean Corpuscular Volume 92.4 fl (81-99); Mean Platelet Volume 8.8 fl (7.4-10.4); Monocytes # 0.5 K/mm3 (0.1-1.0); Monocytes % 5.6 % (1.7-9.3); Neutrophils # 5.6 K/mm3 (1.8-7.8); Neutrophils % 62.8 % (37.0-80.0); Platelet Count 183 K/mm3 (142-424); Red Blood Count 4.48 M/mm3 (4.20-5.40); Red Cell Distribution Width 14.2 % (11.5-17.5)
--- NOTE | 2018-12-09 12:18 | PC.NURSE ---
PT WAS HERE FOR LABS AND THERAPUTIC PHLEBOTOMY IF NEEDED; LABS WERE CHECKED AND HGB WAS 14 SO NO PHLEBOTOMY WAS NEEDED AT THIS TIME; PT WILL RETURN TO CLINIC IN 2 WEEKS FOR RECHECK; NO OTHER ISSUES TO REPORT AT THIS TIME; PT VERBALIZED UNDERSTANDING
== END 2018-12-09 09:30 | disposition home or self-care (01) ==
LOC: INF 08:20
PROVIDERS: PCP Emergency Medicine; Visit Provider Physician Assistant
DX: D45 Polycythemia vera; E78.2 Mixed hyperlipidemia; G47.9 Sleep disorder, unspecified; I10 Essential (primary) hypertension; I25.10 Atherosclerotic heart disease of native coronary artery without angina pectoris; J43.9 Emphysema, unspecified; R06.83 Snoring; R53.83 Other fatigue; Z87.891 Personal history of nicotine dependence; R40.0 Somnolence; G47.30 Sleep apnea, unspecified; G47.33 Obstructive sleep apnea (adult) (pediatric)
CPT/HCPCS: 36415; 85025; G0399

== ENCOUNTER → 2018-12-16 08:39 | Outpatient (CLI) | payer MEDICARE, MEDICAID, SELFPAY ==
[2018-12-16 08:56] LABS: Basophils # 0.1 K/mm3 (0-0.2); Basophils % 0.6 % (0.1-2.0); Eosinophils # 0.2 K/mm3 (0.0-0.4); Hematocrit 46.8 % (37.0-47.0); Hemoglobin 15.7 g/dL (12.2-16.2); Lymphocytes # 2.7 K/mm3 (0.7-4.5); Lymphocytes % 31.3 % (10-50); Mean Corpuscular HGB Conc 33.6 g/dL (31.8-35.4); Mean Corpuscular Hemoglobin 30.7 pg (27.0-31.2); Mean Corpuscular Volume 91.2 fl (81-99); Mean Platelet Volume 8.7 fl (7.4-10.4); Monocytes # 0.5 K/mm3 (0.1-1.0); Monocytes % 5.2 % (1.7-9.3); Neutrophils # 5.2 K/mm3 (1.8-7.8); Neutrophils % 60.9 % (37.0-80.0); Platelet Count 201 K/mm3 (142-424); Red Blood Count 5.13 M/mm3 (4.20-5.40); Red Cell Distribution Width 14.3 % (11.5-17.5); White Blood Count 8.6 K/mm3 (4.8-10.8)
[2018-12-16 09:04] LABS: Anion Gap 11.8 mEq/L (5-15); Blood Urea Nitrogen 16 mg/dL (7-18); Calcium 9.3 mg/dL (8.5-10.1); Carbon Dioxide 30 mmol/L (21.0-32.0); Chloride 103 mmol/L (98-107); Creatinine,Serum 1.13 mg/dL (0.55-1.02); Estimated Glomerular Filt Rate 50 ml/min (>60); GFR (African American) 61 ML/MIN (>60); Glucose 102 mg/dL (74-106); Potassium 3.8 mmoL/L (3.5-5.1); Sodium 141 mmol/L (136-145)
== END ==
PROVIDERS: Nurse Practitioner Family; Visit Provider Internal Medicine
DX: D75.1 Secondary polycythemia (principal); E78.2 Mixed hyperlipidemia; G47.00 Insomnia, unspecified; G47.9 Sleep disorder, unspecified; I10 Essential (primary) hypertension; I25.10 Atherosclerotic heart disease of native coronary artery without angina pectoris; J43.9 Emphysema, unspecified; R06.83 Snoring; R53.83 Other fatigue
CPT/HCPCS: 36415; 80048; 85025

== ENCOUNTER 2018-12-23 09:10 | Outpatient (CLI) | payer MEDICARE, MEDICAID, SELFPAY ==
[2018-12-23 08:55] VITALS: BMI 36.0
[2018-12-23 09:09] VITALS: BMI 36.0
[2018-12-23 09:58] LABS: Basophils # 0.1 K/mm3 (0-0.2); Basophils % 0.5 % (0.1-2.0); Eosinophils # 0.2 K/mm3 (0.0-0.4); Eosinophils % 1.4 % (0.1-12.0); Hematocrit 42.6 % (37.0-47.0); Hemoglobin 14.8 g/dL (12.2-16.2); Lymphocytes # 2.8 K/mm3 (0.7-4.5); Lymphocytes % 24.1 % (10-50); Mean Corpuscular HGB Conc 34.8 g/dL (31.8-35.4); Mean Corpuscular Hemoglobin 31.5 pg (27.0-31.2); Mean Corpuscular Volume 90.5 fl (81-99); Mean Platelet Volume 9.2 fl (7.4-10.4); Monocytes # 0.9 K/mm3 (0.1-1.0); Monocytes % 7.7 % (1.7-9.3); Neutrophils # 7.7 K/mm3 (1.8-7.8); Neutrophils % 66.3 % (37.0-80.0); Platelet Count 179 K/mm3 (142-424); Red Blood Count 4.71 M/mm3 (4.20-5.40); Red Cell Distribution Width 14.1 % (11.5-17.5); White Blood Count 11.7 K/mm3 (4.8-10.8)
[2018-12-23 10:15] VITALS: BP 132/68; PULSE 50; RESP 18; TEMP 36.2; O2SAT 96
--- NOTE | 2018-12-23 10:39 | PC.NURSE ---
Patients labs drawn and HGB 14.8, HCT-42.6 PLT-179. Labs not in range for therapeutic treatment at this time . Patient to return in 2 weeks
== END 2018-12-23 10:45 | disposition home or self-care (01) ==
LOC: INF 09:10
PROVIDERS: Visit Provider Physician Assistant
DX: D45 Polycythemia vera (principal)
CPT/HCPCS: 85025; 96523

== ENCOUNTER 2019-01-06 09:00 | Outpatient (CLI) | payer MEDICARE, MEDICAID, SELFPAY ==
[2019-01-06 09:01] VITALS: BMI 34.4
[2019-01-06 09:24] LABS: Basophils # 0.1 K/mm3 (0-0.2); Basophils % 0.7 % (0.1-2.0); Eosinophils # 0.1 K/mm3 (0.0-0.4); Eosinophils % 1.3 % (0.1-12.0); Hematocrit 47.8 % (37.0-47.0); Hemoglobin 15.3 g/dL (12.2-16.2); Lymphocytes # 2.7 K/mm3 (0.7-4.5); Lymphocytes % 29.4 % (10-50); Mean Corpuscular Hemoglobin 28.7 pg (27.0-31.2); Mean Corpuscular Volume 89.6 fl (81-99); Mean Platelet Volume 9.1 fl (7.4-10.4); Monocytes # 0.7 K/mm3 (0.1-1.0); Monocytes % 7.3 % (1.7-9.3); Neutrophils # 5.7 K/mm3 (1.8-7.8); Neutrophils % 61.3 % (37.0-80.0); Platelet Count 199 K/mm3 (142-424); Red Blood Count 5.33 M/mm3 (4.20-5.40); Red Cell Distribution Width 13.8 % (11.5-17.5); White Blood Count 9.3 K/mm3 (4.8-10.8)
== END 2019-01-06 09:25 | disposition home or self-care (01) ==
LOC: INF 09:00
PROVIDERS: Visit Provider Physician Assistant
DX: C45.0 Mesothelioma of pleura (principal); R55 Syncope and collapse; I45.10 Unspecified right bundle-branch block; Z72.0 Tobacco use; D45 Polycythemia vera
CPT/HCPCS: 85025

== ENCOUNTER 2019-01-20 08:47 | Outpatient (CLI) | payer MEDICARE, MEDICAID, SELFPAY ==
[2019-01-20 08:48] VITALS: BMI 34.4
[2019-01-20 09:04] LABS: Basophils # 0.1 K/mm3 (0-0.2); Basophils % 0.6 % (0.1-2.0); Eosinophils # 0.1 K/mm3 (0.0-0.4); Eosinophils % 1.4 % (0.1-12.0); Hematocrit 47.5 % (37.0-47.0); Hemoglobin 15.3 g/dL (12.2-16.2); Lymphocytes # 3.2 K/mm3 (0.7-4.5); Mean Corpuscular HGB Conc 32.2 g/dL (31.8-35.4); Mean Corpuscular Volume 93.4 fl (81-99); Mean Platelet Volume 9.6 fl (7.4-10.4); Monocytes # 0.6 K/mm3 (0.1-1.0); Monocytes % 6.6 % (1.7-9.3); Neutrophils # 5.4 K/mm3 (1.8-7.8); Neutrophils % 57.5 % (37.0-80.0); Platelet Count 195 K/mm3 (142-424); Red Blood Count 5.09 M/mm3 (4.20-5.40); Red Cell Distribution Width 13.7 % (11.5-17.5); White Blood Count 9.5 K/mm3 (4.8-10.8)
--- NOTE | 2019-01-20 09:25 | PC.NURSE ---
0925-pt's hgb 15.3,no phlebotomy for pt. pt discharged home.
== END 2019-01-20 09:25 | disposition home or self-care (01) ==
LOC: INF 08:47
PROVIDERS: Visit Provider Physician Assistant
DX: D45 Polycythemia vera (principal)
CPT/HCPCS: 36415; 85025

== ENCOUNTER 2019-02-03 08:23 | Outpatient (CLI) | payer MEDICARE, MEDICAID, SELFPAY ==
[2019-02-03 08:24] VITALS: BMI 34.4
[2019-02-03 08:43] LABS: Basophils # 0.1 K/mm3 (0-0.2); Basophils % 0.7 % (0.1-2.0); Eosinophils # 0.1 K/mm3 (0.0-0.4); Eosinophils % 1.6 % (0.1-12.0); Hemoglobin 15.7 g/dL (12.2-16.2); Lymphocytes # 3.3 K/mm3 (0.7-4.5); Lymphocytes % 37.5 % (10-50); Mean Corpuscular HGB Conc 32.7 g/dL (31.8-35.4); Mean Corpuscular Hemoglobin 30.8 pg (27.0-31.2); Mean Corpuscular Volume 94.3 fl (81-99); Mean Platelet Volume 9.2 fl (7.4-10.4); Monocytes # 0.5 K/mm3 (0.1-1.0); Monocytes % 5.6 % (1.7-9.3); Neutrophils # 4.7 K/mm3 (1.8-7.8); Neutrophils % 54.7 % (37.0-80.0); Platelet Count 180 K/mm3 (142-424); Red Cell Distribution Width 13.4 % (11.5-17.5); White Blood Count 8.7 K/mm3 (4.8-10.8)
== END 2019-02-03 09:00 | disposition home or self-care (01) ==
LOC: INF 08:23
PROVIDERS: Visit Provider Physician Assistant
DX: D45 Polycythemia vera (principal)
CPT/HCPCS: 85025

== ENCOUNTER → 2019-02-03 13:53 | Outpatient (CLI) | payer MEDICARE, MEDICAID, SELFPAY ==
[2019-02-03 15:01] LABS: Amphetamine/Metha Screen,Urine Negative ng/mL (<1000); Barbiturates Screen,Urine Negative ng/mL (<200); Benzodiazepines Screen,Urine Positive ng/mL (<200); Cannabinoid Screen,Urine Negative ng/mL (<50); Cocaine Screen,Urine Negative ng/mL (<300); Methadone Screen,Urine Negative ng/mL (<300); Opiate Screen,Urine Negative ng/mL (<300); Phencyclidine Screen,Urine Negative ng/mL (<25)
== END ==
PROVIDERS: Visit Provider Nurse Practitioner Family
DX: Z79.899 Other long term (current) drug therapy (principal)
CPT/HCPCS: 80305; 85025

== ENCOUNTER → 2019-02-04 08:26 | Outpatient (CLI) | payer MEDICARE, MEDICAID, SELFPAY ==
--- NOTE | 2019-02-04 08:28 | US_ITS ---
US Arterial Lower Ext Rest History: Claudication, rest pain, smoker, hypertension ORDERING PHYSICIAN: Aida Fisher APRN PATIENT AGE: 53 years TECHNIQUE: Segmental pressures obtained of both right and left leg. These are compared to brachial blood pressure to yield index at each level sampled including summary REBECCA. The data sheets from the procedure are available in PACS FINDINGS Rest study only performed today No prior studies available for comparison. Blood pressures reported are in millimeters mercury. RIGHT LEG REBECCA = 1.07. RIGHT LEG TBI=1.04 Brachial BP: 109 Thigh BP: 110 Calf BP: 125 Ankle PT: 127 Ankle DP : 122 Digit =124 LEFT LEG REBECCA = 1.09 LEFT LEG TBI= 0.91 Brachial BPD: 119 Thigh BP: 129 Calf BP: 134 Ankle PT:130 Ankle DP: 115 Digit = 108 Pulses and waveforms: Normal IMPRESSION: The ABIs and the TBIs as reported above are within normal limits. Waveforms and pulses are also unremarkable.
== END ==
PROVIDERS: PCP Emergency Medicine; Visit Provider Urology
DX: I25.10 Atherosclerotic heart disease of native coronary artery without angina pectoris (principal); M79.605 Pain in left leg; M79.604 Pain in right leg; I70.213 Atherosclerosis of native arteries of extremities with intermittent claudication, bilateral legs
CPT/HCPCS: 93923

== ENCOUNTER → 2019-02-05 20:12 | Outpatient (CLI) | payer MEDICARE, MEDICAID, SELFPAY | PROVIDERS: PCP Emergency Medicine; Visit Provider Physician Assistant | DX: G47.9 Sleep disorder, unspecified (principal); G47.00 Insomnia, unspecified; R06.83 Snoring; R53.83 Other fatigue; R40.0 Somnolence | CPT/HCPCS: 95810 ==

== ENCOUNTER 2019-02-17 08:12 | Outpatient (CLI) | payer MEDICARE, MEDICAID, SELFPAY ==
[2019-02-17 08:13] VITALS: BMI 34.4
[2019-02-17 08:30] LABS: Basophils # 0.1 K/mm3 (0-0.2); Basophils % 0.6 % (0.1-2.0); Eosinophils # 0.1 K/mm3 (0.0-0.4); Eosinophils % 1.5 % (0.1-12.0); Hematocrit 47.2 % (37.0-47.0); Hemoglobin 15.7 g/dL (12.2-16.2); Lymphocytes # 3.1 K/mm3 (0.7-4.5); Lymphocytes % 32.3 % (10-50); Mean Corpuscular HGB Conc 33.2 g/dL (31.8-35.4); Mean Corpuscular Hemoglobin 29.4 pg (27.0-31.2); Mean Corpuscular Volume 88.5 fl (81-99); Mean Platelet Volume 8.8 fl (7.4-10.4); Monocytes # 0.7 K/mm3 (0.1-1.0); Monocytes % 7.5 % (1.7-9.3); Neutrophils # 5.6 K/mm3 (1.8-7.8); Neutrophils % 58.1 % (37.0-80.0); Platelet Count 194 K/mm3 (142-424); Red Blood Count 5.33 M/mm3 (4.20-5.40); Red Cell Distribution Width 13.5 % (11.5-17.5); White Blood Count 9.6 K/mm3 (4.8-10.8)
--- NOTE | 2019-02-17 08:37 | PC.NURSE ---
0837-pt here for lab check, hgb 15.7 so pt does not need therapeutic phlebotomy today will return in 2 weeks.
== END 2019-02-17 08:37 | disposition home or self-care (01) ==
LOC: INF 08:12
PROVIDERS: Visit Provider Physician Assistant
DX: D45 Polycythemia vera (principal)
CPT/HCPCS: 36415; 85025

== ENCOUNTER 2019-03-03 08:04 | Outpatient (CLI) | payer MEDICARE, MEDICAID, SELFPAY ==
[2019-03-03 08:05] VITALS: BMI 34.4
[2019-03-03 08:36] LABS: Basophils # 0.1 K/mm3 (0-0.2); Basophils % 0.7 % (0.1-2.0); Eosinophils # 0.2 K/mm3 (0.0-0.4); Eosinophils % 1.9 % (0.1-12.0); Hematocrit 46.2 % (37.0-47.0); Hemoglobin 15.5 g/dL (12.2-16.2); Lymphocytes # 3.1 K/mm3 (0.7-4.5); Lymphocytes % 36.9 % (10-50); Mean Corpuscular HGB Conc 33.6 g/dL (31.8-35.4); Mean Corpuscular Hemoglobin 30.9 pg (27.0-31.2); Monocytes # 0.6 K/mm3 (0.1-1.0); Monocytes % 7.2 % (1.7-9.3); Neutrophils # 4.5 K/mm3 (1.8-7.8); Neutrophils % 53.2 % (37.0-80.0); Platelet Count 194 K/mm3 (142-424); Red Blood Count 5.02 M/mm3 (4.20-5.40); Red Cell Distribution Width 13.5 % (11.5-17.5); White Blood Count 8.4 K/mm3 (4.8-10.8)
--- NOTE | 2019-03-03 08:40 | PC.NURSE ---
0840-pt had cbc done, hgb 15.5. pt does not need therapeutic phlebotomy today.
== END 2019-03-03 08:40 | disposition home or self-care (01) ==
PROVIDERS: PCP Emergency Medicine; Visit Provider Physician Assistant
DX: D45 Polycythemia vera (principal)
CPT/HCPCS: 36415; 85025

== ENCOUNTER 2019-03-17 08:07 | Outpatient (CLI) | payer MEDICARE, MEDICAID, SELFPAY ==
[2019-03-17 08:08] VITALS: BMI 34.4
[2019-03-17 08:27] LABS: Basophils # 0.1 K/mm3 (0-0.2); Basophils % 0.6 % (0.1-2.0); Eosinophils # 0.1 K/mm3 (0.0-0.4); Eosinophils % 1.3 % (0.1-12.0); Hematocrit 48.6 % (37.0-47.0); Lymphocytes % 29.9 % (10-50); Mean Corpuscular HGB Conc 32.9 g/dL (31.8-35.4); Mean Corpuscular Hemoglobin 30.2 pg (27.0-31.2); Mean Corpuscular Volume 91.6 fl (81-99); Mean Platelet Volume 8.4 fl (7.4-10.4); Monocytes # 0.7 K/mm3 (0.1-1.0); Monocytes % 6.9 % (1.7-9.3); Neutrophils # 6.2 K/mm3 (1.8-7.8); Neutrophils % 61.3 % (37.0-80.0); Platelet Count 200 K/mm3 (142-424); Red Cell Distribution Width 13.6 % (11.5-17.5); White Blood Count 10.1 K/mm3 (4.8-10.8)
--- NOTE | 2019-03-17 08:30 | PC.NURSE ---
0830-pt's hgb was 16 pt will not need phlebotomy today; rescheduled for 2 weeks
== END 2019-03-17 08:30 | disposition home or self-care (01) ==
LOC: INF 08:07
PROVIDERS: Visit Provider Physician Assistant
DX: D45 Polycythemia vera (principal); R55 Syncope and collapse; I45.10 Unspecified right bundle-branch block; Z72.0 Tobacco use
CPT/HCPCS: 36415; 85025

== ENCOUNTER 2019-03-31 08:02 | Outpatient (CLI) | payer MEDICARE, MEDICAID, SELFPAY ==
[2019-03-31 08:03] VITALS: BMI 34.4
[2019-03-31 08:17] LABS: Hematocrit 46.9 % (37.0-47.0); Hemoglobin 15.7 g/dL (12.2-16.2)
--- NOTE | 2019-03-31 08:35 | PC.NURSE ---
0835-pt here to get hemoglobin checked for possible therapeutic phlebotomy.pt's hemoglobin 15.7 pt does not receive therapeutic phlebotomy today will be back in 2weeks for recheck.
== END 2019-03-31 08:35 | disposition home or self-care (01) ==
LOC: INF 08:02
PROVIDERS: Visit Provider Physician Assistant
DX: D45 Polycythemia vera (principal); R55 Syncope and collapse; I45.10 Unspecified right bundle-branch block; Z72.0 Tobacco use
CPT/HCPCS: 36415; 85014; 85018

== ENCOUNTER 2019-04-14 08:39 | Outpatient (CLI) | payer MEDICARE, MEDICAID, SELFPAY ==
[2019-04-14 08:39] VITALS: BMI 34.4
[2019-04-14 08:55] LABS: Basophils % 0.5 % (0.1-2.0); Eosinophils # 0.2 K/mm3 (0.0-0.4); Eosinophils % 2.1 % (0.1-12.0); Hematocrit 48.8 % (37.0-47.0); Hemoglobin 16.3 g/dL (12.2-16.2); Lymphocytes # 2.6 K/mm3 (0.7-4.5); Lymphocytes % 32.8 % (10-50); Mean Corpuscular HGB Conc 33.4 g/dL (31.8-35.4); Mean Corpuscular Hemoglobin 30.2 pg (27.0-31.2); Mean Corpuscular Volume 90.3 fl (81-99); Mean Platelet Volume 8.5 fl (7.4-10.4); Monocytes # 0.7 K/mm3 (0.1-1.0); Monocytes % 8.3 % (1.7-9.3); Neutrophils # 4.4 K/mm3 (1.8-7.8); Neutrophils % 56.2 % (37.0-80.0); Platelet Count 196 K/mm3 (142-424); Red Cell Distribution Width 13.6 % (11.5-17.5); White Blood Count 7.8 K/mm3 (4.8-10.8)
[2019-04-14 10:27] VITALS: BP 112/74; PULSE 68; RESP 20; TEMP 36.9; O2SAT 95
== END 2019-04-14 10:30 | disposition home or self-care (01) ==
LOC: INF 08:39
PROVIDERS: PCP Emergency Medicine; Visit Provider Physician Assistant
DX: D45 Polycythemia vera (principal); R55 Syncope and collapse; Z72.0 Tobacco use; I45.10 Unspecified right bundle-branch block
CPT/HCPCS: 36415; 85025

== ENCOUNTER 2019-04-28 08:19 | Outpatient (CLI) | payer MEDICARE, MEDICAID, SELFPAY ==
[2019-04-28 08:16] VITALS: BMI 34.4
[2019-04-28 08:33] LABS: Basophils # 0.1 K/mm3 (0-0.2); Basophils % 0.7 % (0.1-2.0); Eosinophils # 0.1 K/mm3 (0.0-0.4); Eosinophils % 1.3 % (0.1-12.0); Hematocrit 48.3 % (37.0-47.0); Hemoglobin 15.4 g/dL (12.2-16.2); Lymphocytes # 3.1 K/mm3 (0.7-4.5); Lymphocytes % 31.7 % (10-50); Mean Corpuscular HGB Conc 31.9 g/dL (31.8-35.4); Mean Corpuscular Hemoglobin 29.4 pg (27.0-31.2); Mean Platelet Volume 9.4 fl (7.4-10.4); Monocytes # 0.9 K/mm3 (0.1-1.0); Monocytes % 8.8 % (1.7-9.3); Neutrophils # 5.5 K/mm3 (1.8-7.8); Neutrophils % 57.5 % (37.0-80.0); Platelet Count 172 K/mm3 (142-424); Red Blood Count 5.25 M/mm3 (4.20-5.40); Red Cell Distribution Width 14.4 % (11.5-17.5); White Blood Count 9.6 K/mm3 (4.8-10.8)
[2019-04-28 08:35] VITALS: BP 112/74; PULSE 68; RESP 20; TEMP 36.9; O2SAT 95
== END 2019-04-28 08:35 | disposition home or self-care (01) ==
LOC: INF 08:19
PROVIDERS: Visit Provider Physician Assistant
DX: D45 Polycythemia vera (principal); R55 Syncope and collapse; Z72.0 Tobacco use; I45.10 Unspecified right bundle-branch block
CPT/HCPCS: 36415; 85025

== ENCOUNTER → 2019-05-12 08:10 | Outpatient (CLI) | payer MEDICARE, MEDICAID, SELFPAY ==
[2019-05-12 08:12] VITALS: BMI 34.4
[2019-05-12 08:28] LABS: Basophils # 0.1 K/mm3 (0-0.2); Basophils % 0.6 % (0.1-2.0); Eosinophils # 0.2 K/mm3 (0.0-0.4); Eosinophils % 1.7 % (0.1-12.0); Hematocrit 50.6 % (37.0-47.0); Hemoglobin 15.8 g/dL (12.2-16.2); Lymphocytes # 3.1 K/mm3 (0.7-4.5); Lymphocytes % 31.8 % (10-50); Mean Corpuscular HGB Conc 31.3 g/dL (31.8-35.4); Mean Corpuscular Hemoglobin 29.6 pg (27.0-31.2); Mean Corpuscular Volume 94.5 fl (81-99); Mean Platelet Volume 8.9 fl (7.4-10.4); Monocytes # 0.9 K/mm3 (0.1-1.0); Monocytes % 9.5 % (1.7-9.3); Neutrophils # 5.6 K/mm3 (1.8-7.8); Neutrophils % 56.5 % (37.0-80.0); Platelet Count 191 K/mm3 (142-424); Red Blood Count 5.35 M/mm3 (4.20-5.40); Red Cell Distribution Width 14.6 % (11.5-17.5); White Blood Count 9.9 K/mm3 (4.8-10.8)
--- NOTE | 2019-05-12 08:40 | PC.NURSE ---
0840- pt's hgb 15.8 pt does not need therapeutic phlebotomy.
== END ==
PROVIDERS: Visit Provider Physician Assistant
DX: D45 Polycythemia vera (principal)
CPT/HCPCS: 36415; 85025

== ENCOUNTER → 2019-05-20 09:36 | Outpatient (CLI) | payer MEDICARE, MEDICAID, SELFPAY ==
--- NOTE | 2019-05-20 09:40 | XR_ITS ---
PROCEDURE: XR CHEST 2V CLINICAL HISTORY: dyspnea Shortness of breath COMPARISON: CXR2V XR chest 2V from 10/12/2017 [id number] XR ribs RT min 3V w CXR1V from 10/12/2017 CXR2V XR chest 2V from 10/28/2018 FINDINGS: The cardiomediastinal silhouette and pulmonary vascularity are within normal limits. The lungs are clear without infiltrates, suspicious nodules, or pleural effusions. No acute bony abnormalities. IMPRESSION: No acute findings. Dictated by: Gagan Elam MD 05/20/2019 11:52 Electronically signed by Gagan Elam MD in [place] 05/20/2019 11:52
== END ==
PROVIDERS: PCP Emergency Medicine; Visit Provider Urology
DX: D75.1 Secondary polycythemia (principal); E78.5 Hyperlipidemia, unspecified; I10 Essential (primary) hypertension; I25.10 Atherosclerotic heart disease of native coronary artery without angina pectoris; I51.89 Other ill-defined heart diseases; R06.00 Dyspnea, unspecified; R07.9 Chest pain, unspecified; R20.8 Other disturbances of skin sensation; R55 Syncope and collapse; Z72.0 Tobacco use
CPT/HCPCS: 71046

== ENCOUNTER 2019-05-26 08:15 | Outpatient (CLI) | payer MEDICARE, MEDICAID, SELFPAY ==
[2019-05-26 08:16] VITALS: BMI 34.4
[2019-05-26 08:48] LABS: Basophils # 0.1 K/mm3 (0-0.2); Eosinophils # 0.2 K/mm3 (0.0-0.4); Eosinophils % 1.8 % (0.1-12.0); Hematocrit 47.8 % (37.0-47.0); Hemoglobin 15.8 g/dL (12.2-16.2); Lymphocytes # 2.9 K/mm3 (0.7-4.5); Lymphocytes % 31.7 % (10-50); Mean Corpuscular HGB Conc 33.1 g/dL (31.8-35.4); Mean Corpuscular Hemoglobin 30.8 pg (27.0-31.2); Mean Corpuscular Volume 93.2 fl (81-99); Mean Platelet Volume 9.8 fl (7.4-10.4); Monocytes # 0.6 K/mm3 (0.1-1.0); Monocytes % 6.6 % (1.7-9.3); Neutrophils # 5.3 K/mm3 (1.8-7.8); Neutrophils % 58.9 % (37.0-80.0); Platelet Count 183 K/mm3 (142-424); Red Blood Count 5.13 M/mm3 (4.20-5.40)
--- NOTE | 2019-05-26 08:55 | PC.NURSE ---
0855-pt here for labs and possible therapeutic phlebotomy; pt's hemoglobin 15.8 per standing order pt does not need phlebotomy today will return in 2 weeks to recheck labs.
== END 2019-05-26 08:55 | disposition home or self-care (01) ==
LOC: INF 08:15
PROVIDERS: Visit Provider Physician Assistant
DX: D45 Polycythemia vera (principal)
CPT/HCPCS: 36415; 85025

== ENCOUNTER 2019-06-09 08:07 | Outpatient (CLI) | payer MEDICARE, MEDICAID, SELFPAY ==
[2019-06-09 08:08] VITALS: BMI 34.4
[2019-06-09 08:41] LABS: Basophils # 0.1 K/mm3 (0-0.2); Basophils % 0.9 % (0.1-2.0); Eosinophils # 0.5 K/mm3 (0.0-0.4); Eosinophils % 4.7 % (0.1-12.0); Hemoglobin 15.9 g/dL (12.2-16.2); Lymphocytes # 2.7 K/mm3 (0.7-4.5); Lymphocytes % 26.4 % (10-50); Mean Corpuscular HGB Conc 32.4 g/dL (31.8-35.4); Mean Corpuscular Hemoglobin 31.1 pg (27.0-31.2); Mean Corpuscular Volume 95.9 fl (81-99); Mean Platelet Volume 9.1 fl (7.4-10.4); Monocytes # 0.7 K/mm3 (0.1-1.0); Monocytes % 6.7 % (1.7-9.3); Neutrophils # 6.3 K/mm3 (1.8-7.8); Neutrophils % 61.4 % (37.0-80.0); Platelet Count 182 K/mm3 (142-424); Red Blood Count 5.11 M/mm3 (4.20-5.40); White Blood Count 10.3 K/mm3 (4.8-10.8)
--- NOTE | 2019-06-09 08:55 | PC.NURSE ---
06/09/19 Patient here to check CBC/possible therapeutic phlebotomy. 0825 CBC drawn per GARY Khan/transported to lab. 0845 Hgb 15.9/Hct 49.0, pt does not need phlebotomy today. Pt discharged home.
== END 2019-06-09 08:54 | disposition home or self-care (01) ==
LOC: INF 08:07
PROVIDERS: Visit Provider Physician Assistant
DX: D45 Polycythemia vera (principal)
CPT/HCPCS: 85025

== ENCOUNTER 2019-06-23 08:04 | Outpatient (CLI) | payer MEDICARE, MEDICAID, SELFPAY ==
[2019-06-23 08:06] VITALS: BMI 34.4
[2019-06-23 08:23] LABS: Basophils # 0.1 K/mm3 (0-0.2); Basophils % 0.9 % (0.1-2.0); Eosinophils # 0.5 K/mm3 (0.0-0.4); Eosinophils % 5.3 % (0.1-12.0); Hematocrit 48.1 % (37.0-47.0); Hemoglobin 15.7 g/dL (12.2-16.2); Lymphocytes # 2.9 K/mm3 (0.7-4.5); Lymphocytes % 29.4 % (10-50); Mean Corpuscular HGB Conc 32.6 g/dL (31.8-35.4); Mean Corpuscular Hemoglobin 31.6 pg (27.0-31.2); Mean Corpuscular Volume 97.1 fl (81-99); Mean Platelet Volume 8.7 fl (7.4-10.4); Monocytes # 0.8 K/mm3 (0.1-1.0); Monocytes % 7.8 % (1.7-9.3); Neutrophils # 5.6 K/mm3 (1.8-7.8); Neutrophils % 56.7 % (37.0-80.0); Platelet Count 203 K/mm3 (142-424); Red Blood Count 4.95 M/mm3 (4.20-5.40); Red Cell Distribution Width 13.9 % (11.5-17.5); White Blood Count 9.9 K/mm3 (4.8-10.8)
--- NOTE | 2019-06-23 08:35 | PC.NURSE ---
0835-pt here for cbc and possible therapeutic phlebotomy;pt hgb 15.7;pt does not need phlebotomy today.
== END 2019-06-23 08:35 | disposition home or self-care (01) ==
LOC: INF 08:04
PROVIDERS: Visit Provider Physician Assistant
DX: D45 Polycythemia vera (principal)
CPT/HCPCS: 36415; 85025

== ENCOUNTER 2019-07-20 08:11 | Outpatient (CLI) | payer MEDICARE, MEDICAID, SELFPAY ==
[2019-07-20 08:13] VITALS: BMI 34.4
[2019-07-20 08:30] LABS: Basophils # 0.1 K/mm3 (0-0.2); Basophils % 0.7 % (0.1-2.0); Eosinophils # 0.2 K/mm3 (0.0-0.4); Eosinophils % 2.2 % (0.1-12.0); Hematocrit 48.3 % (37.0-47.0); Lymphocytes # 2.5 K/mm3 (0.7-4.5); Lymphocytes % 27.3 % (10-50); Mean Corpuscular HGB Conc 33.2 g/dL (31.8-35.4); Mean Corpuscular Hemoglobin 31.1 pg (27.0-31.2); Mean Corpuscular Volume 93.9 fl (81-99); Mean Platelet Volume 8.6 fl (7.4-10.4); Monocytes # 0.5 K/mm3 (0.1-1.0); Monocytes % 5.4 % (1.7-9.3); Neutrophils # 5.8 K/mm3 (1.8-7.8); Neutrophils % 64.4 % (37.0-80.0); Platelet Count 200 K/mm3 (142-424); Red Blood Count 5.15 M/mm3 (4.20-5.40); Red Cell Distribution Width 13.7 % (11.5-17.5); White Blood Count 9.1 K/mm3 (4.8-10.8)
--- NOTE | 2019-07-20 09:16 | PC.NURSE ---
0820 H&H drawn for possible therapeutic phlebotomy. Today's result H&H 16.0/48.3. No therapeutic phlebotomy needed today due to Hgb not greater than 17. VSS BP 100/64, pulse 69, resp 18, O2 sat 97%, temp 97.5.
== END 2019-07-20 08:50 | disposition home or self-care (01) ==
LOC: INF 08:11
PROVIDERS: Visit Provider Nurse Practitioner Family
DX: D45 Polycythemia vera (principal); R55 Syncope and collapse
CPT/HCPCS: 85025

== ENCOUNTER → 2019-08-10 13:46 | Outpatient (CLI) | payer MEDICARE, MEDICAID, SELFPAY ==
[2019-08-10 14:13] LABS: Alanine Aminotransferase 29 U/L (12-78); Albumin Level 3.8 gm/dL (3.4-5.0); Albumin/Globulin Ratio 1.2 (1.1-1.8); Alkaline Phosphatase 64 U/L (46-116); Aspartate Amino Transferase 14 U/L (15-37); Bilirubin,Total 0.5 mg/dL (0.2-1.0); Carbon Dioxide 27 mmol/L (21.0-32.0); Chloride 101 mmol/L (98-107); Chol/HDL Ratio 3.6 (1-3.5); Cholesterol 160 mg/dL (140-200); Creatinine,Serum 1.04 mg/dL (0.55-1.02); Estimated Glomerular Filt Rate 55 ml/min (>60); GFR (African American) 67 ML/MIN (>60); Globulin 3.1 gm/dl (1.3-3.2); Glucose 99 mg/dL (74-106); HDL Cholesterol 44 mg/dL (29-89); LDL Cholesterol 85 mg/dL (0-130); Sodium 139 mmol/L (136-145); T4 (Thyroxine) 6.9 ug/dl (4.7-13.3); Total Protein,Serum 6.9 gm/dL (6.4-8.2); Triglycerides 154 mg/dL (30-200); VLDL Cholesterol 31 mg/dL (0-40)
[2019-08-10 14:18] LABS: Blood Urea Nitrogen 15 mg/dL (7-18); Calcium 9.3 mg/dL (8.5-10.1)
[2019-08-10 14:19] LABS: Basophils # 0.1 K/mm3 (0-0.2); Basophils % 0.6 % (0.1-2.0); Eosinophils # 0.2 K/mm3 (0.0-0.4); Eosinophils % 1.9 % (0.1-12.0); Hematocrit 50.5 % (37.0-47.0); Hemoglobin 15.8 g/dL (12.2-16.2); Lymphocytes % 33.1 % (10-50); Mean Corpuscular HGB Conc 31.2 g/dL (31.8-35.4); Mean Corpuscular Volume 96.3 fl (81-99); Mean Platelet Volume 10.1 fl (7.4-10.4); Monocytes # 0.7 K/mm3 (0.1-1.0); Neutrophils # 5.1 K/mm3 (1.8-7.8); Neutrophils % 56.4 % (37.0-80.0); Platelet Count 229 K/mm3 (142-424); Red Blood Count 5.25 M/mm3 (4.20-5.40); Red Cell Distribution Width 14.2 % (11.5-17.5)
[2019-08-12 07:40] LABS: Vitamin D 25 Hydroxy 60.2 ng/mL (30.0-100.0)
== END ==
PROVIDERS: Visit Provider Physician Assistant
DX: E78.5 Hyperlipidemia, unspecified (principal); I10 Essential (primary) hypertension; R55 Syncope and collapse; R06.00 Dyspnea, unspecified; R07.9 Chest pain, unspecified
CPT/HCPCS: 80053; 80061; 82652; 84436; 84443; 85025

== ENCOUNTER 2019-08-17 08:07 | Outpatient (CLI) | payer MEDICARE, MEDICAID, SELFPAY ==
[2019-08-17 08:09] VITALS: BMI 34.4
[2019-08-17 08:29] LABS: Basophils # 0.1 K/mm3 (0-0.2); Basophils % 0.6 % (0.1-2.0); Eosinophils # 0.2 K/mm3 (0.0-0.4); Eosinophils % 1.9 % (0.1-12.0); Hemoglobin 16.1 g/dL (12.2-16.2); Lymphocytes # 2.7 K/mm3 (0.7-4.5); Lymphocytes % 31.3 % (10-50); Mean Corpuscular HGB Conc 32.8 g/dL (31.8-35.4); Mean Corpuscular Hemoglobin 30.7 pg (27.0-31.2); Mean Corpuscular Volume 93.5 fl (81-99); Mean Platelet Volume 8.4 fl (7.4-10.4); Monocytes # 0.6 K/mm3 (0.1-1.0); Monocytes % 6.9 % (1.7-9.3); Neutrophils % 59.2 % (37.0-80.0); Platelet Count 197 K/mm3 (142-424); Red Blood Count 5.24 M/mm3 (4.20-5.40); Red Cell Distribution Width 13.1 % (11.5-17.5); White Blood Count 8.5 K/mm3 (4.8-10.8)
[2019-08-17 08:45] VITALS: BP 111/67; PULSE 83; RESP 18; TEMP 36.4; O2SAT 98
--- NOTE | 2019-08-17 12:33 | PC.NURSE ---
08-17-2019 0840 H&H 16.1/49.0. Pt does not need therapeutic phlebotomy today based on Hgb 16.1. Pt discharged home/stable.
== END 2019-08-17 08:45 | disposition home or self-care (01) ==
LOC: INF 08:07
PROVIDERS: Visit Provider Nurse Practitioner Family
DX: R55 Syncope and collapse (principal)
CPT/HCPCS: 36415; 85025

== ENCOUNTER → 2019-08-18 09:42 | Outpatient (CLI) | payer MEDICARE, MEDICAID, SELFPAY ==
[2019-08-18 10:30] VITALS: PULSE 52; PULSE 56
== END ==
PROVIDERS: PCP Emergency Medicine; Visit Provider Physician Assistant
DX: J44.9 Chronic obstructive pulmonary disease, unspecified (principal)
CPT/HCPCS: 94060; 94640; 94726; 94729

== ENCOUNTER 2019-09-14 08:05 | Outpatient (CLI) | payer MEDICARE, MEDICAID, SELFPAY ==
[2019-09-14 08:06] VITALS: BMI 34.4
[2019-09-14 08:26] LABS: Basophils % 0.5 % (0.1-2.0); Eosinophils # 0.1 K/mm3 (0.0-0.4); Eosinophils % 1.5 % (0.1-12.0); Hematocrit 52.1 % (37.0-47.0); Hemoglobin 17.2 g/dL (12.2-16.2); Lymphocytes # 2.3 K/mm3 (0.7-4.5); Lymphocytes % 26.7 % (10-50); Mean Corpuscular Hemoglobin 31.2 pg (27.0-31.2); Mean Corpuscular Volume 94.5 fl (81-99); Mean Platelet Volume 8.5 fl (7.4-10.4); Monocytes # 0.5 K/mm3 (0.1-1.0); Monocytes % 5.4 % (1.7-9.3); Neutrophils # 5.7 K/mm3 (1.8-7.8); Neutrophils % 65.8 % (37.0-80.0); Platelet Count 184 K/mm3 (142-424); Red Blood Count 5.51 M/mm3 (4.20-5.40); Red Cell Distribution Width 13.2 % (11.5-17.5); White Blood Count 8.7 K/mm3 (4.8-10.8)
[2019-09-14 09:05] VITALS: BP 133/84; PULSE 55; RESP 18; TEMP 36.6; O2SAT 97
[2019-09-14 09:35] VITALS: BP 123/67; PULSE 58; RESP 18; TEMP 36.6; O2SAT 97
== END 2019-09-14 09:35 | disposition home or self-care (01) ==
LOC: INF 08:05
PROVIDERS: Visit Provider Nurse Practitioner Family
DX: D45 Polycythemia vera (principal); R55 Syncope and collapse
CPT/HCPCS: 36415; 85025; 99195

== ENCOUNTER 2019-10-12 08:06 | Outpatient (CLI) | payer MEDICARE, MEDICAID, SELFPAY ==
[2019-10-12 08:07] VITALS: BMI 34.4
[2019-10-12 08:42] LABS: Basophils # 0.1 K/mm3 (0-0.2); Basophils % 0.5 % (0.1-2.0); Eosinophils # 0.2 K/mm3 (0.0-0.4); Eosinophils % 1.8 % (0.1-12.0); Hematocrit 47.5 % (37.0-47.0); Lymphocytes # 2.7 K/mm3 (0.7-4.5); Mean Corpuscular HGB Conc 33.7 g/dL (31.8-35.4); Mean Corpuscular Hemoglobin 31.1 pg (27.0-31.2); Mean Corpuscular Volume 92.3 fl (81-99); Mean Platelet Volume 8.9 fl (7.4-10.4); Monocytes # 0.6 K/mm3 (0.1-1.0); Monocytes % 6.8 % (1.7-9.3); Neutrophils # 5.3 K/mm3 (1.8-7.8); Neutrophils % 59.9 % (37.0-80.0); Platelet Count 189 K/mm3 (142-424); Red Blood Count 5.14 M/mm3 (4.20-5.40); Red Cell Distribution Width 13.2 % (11.5-17.5); White Blood Count 8.8 K/mm3 (4.8-10.8)
--- NOTE | 2019-10-12 08:45 | PC.NURSE ---
0845-pt in infusion department for cbc check for possible therapeutic phlebotomy if hgb > 17;pt's hgb 16 pt does not need phlebotomy per md order;pt to return in 1 month.
== END 2019-10-12 08:45 | disposition home or self-care (01) ==
LOC: INF 08:06
PROVIDERS: Visit Provider Nurse Practitioner Family
DX: R55 Syncope and collapse (principal)
CPT/HCPCS: 36415; 85025

== ENCOUNTER 2019-11-06 09:10 | Emergency (ER) | payer MEDICARE, MEDICAID, SELFPAY ==
--- NOTE | 2019-11-06 09:10 | ECG_ITS ---
APPROVED REPORT Exam: Resting ECG HR:50 bpm ECG Measurements Heart Rate 50 AXES NE 130 P 39 QRSd 134 QRS 83 QT 488 T 13 QTc 444 <Conclusion> Sinus bradycardia Right bundle branch block T wave abnormality, consider lateral ischemia Abnormal ECG Electronically signed by : Nikita Salas, 11/06/2019 14:31:43
[2019-11-06 09:13] VITALS: BP 122/59; PULSE 53; RESP 18; TEMP 36.5; O2SAT 100; BMI 36.0
--- NOTE | 2019-11-06 09:18 | CT_ITS ---
PROCEDURE: CT ANGIO CHEST CLINCIAL INDICATION: Concern for dissection Mid chest pain, evaluate for dissection, right arm and left neck pain COMPARISON: No exams were available for comparison TECHNIQUE: IV Contrast: 70 mL Omnipaque 350 Axial images obtained with sagittal and coronal reformats. All CT scans at the facility use one or more dose reduction, viz: automated exposure control, ma/kV adjustment per patient size (including targeted exams where dose is matched to indication, i.e. head), or iterative reconstruction technique. FINDINGS: HEART AND MEDIASTINAL STRUCTURES: No evidence aortic aneurysm or dissection. No evidence of pulmonary embolus. Normal heart size. LUNGS AND PLEURAL SPACES: There is a 3 mm noncalcified nodule in the right upper lobe posteriorly series 3, image 33 nonspecific too small to categorize. No lobar consolidation or collapse.. 3 mm nodule left upper lobe laterally image 35 series 3. Ground-glass nodules present in the left upper lobe centrally at 6 mm image 34 series 3 BONY STRUCTURES: Degenerative changes thoracic spine UPPER ABDOMEN: Unremarkable. ADDITIONAL FINDINGS: No other significant abnormalities. IMPRESSION: 1. No acute finding. No evidence of aortic aneurysm, dissection, or pulmonary embolus. 2. Small bilateral pulmonary nodules measuring up to 6 mm in the left upper lobe. Recommend six-month follow-up Dictated by: Gagan Elam MD 11/06/2019 10:45 Electronically signed by Gagan Elam MD in [facility] 11/06/2019 10:45
--- NOTE | 2019-11-06 09:18 | XR_ITS ---
PROCEDURE: XR CHEST 2V CLINICAL HISTORY: chest pain COMPARISON: CXR2V XR chest 2V from 10/12/2017 CXR2V XR chest 2V from 10/28/2018 XR CHEST 2V from 05/20/2019 FINDINGS: The cardiomediastinal silhouette and pulmonary vascularity are within normal limits. The lungs are clear without infiltrates, suspicious nodules, or pleural effusions. No acute bony abnormalities. IMPRESSION: No acute findings. Dictated by: Gagan Elam MD 11/06/2019 10:19 Electronically signed by Gagan Elam MD in [facility] 11/06/2019 10:19
--- NOTE | 2019-11-06 09:26 | HMH.EDGENADL ---
ED Disposition Clinical Impression: Chest pain Qualifiers: Chest pain type: unspecified Qualified Code(s): R07.9 - Chest pain, unspecified Disposition: Home, Self-Care Condition on Discharge: Good Instructions: DI for Atypical Chest Pain Additional Instructions: After reviewing your labs and radiology, and discussing her care with cardiology we are discharging you home at this time. Recommend that you continue your isosorbide and atenolol, discontinue your verapamil, increase your Ranexa to 100 mg twice a day. We recommend that you follow-up with cardiology in the next 1 to 2 weeks as suggested by the cardiology renewals representative who evaluated you today. We recommend that you follow-up with your primary care physician within the next 3 to 5 days. Should your symptoms worsen please return to the emergency department for further evaluation. Referrals: Provider,Referral, [Primary Care Provider] - - Critical Care Critical Care Time: No Attestation: On , the high probability of a clinically significant, sudden or life threatening deterioration of the following system(s) required my full and direct attention, intervention and personal management. The time I documented below is in addition to time spent performing reported procedures but includes the following listed in this critical care notation. Medical Decision Making - Abdirashid Inquiry Pt receiving controlled substance: No Abdirashid was queried for this patient: No Vital Signs: 11/06/19 09:13 11/06/19 09:43 11/06/19 14:08 Temperature 97.7 F 98.2 F Temperature Source Oral Oral Pulse Rate 54 L Pulse Rate [Right Radial] 53 L 59 L Respiratory Rate 18 20 17 Blood Pressure 154/78 H Blood Pressure [Right Arm] 122/59 L 130/71 Blood Pressure Mean [Right Arm] 80 90 Blood Pressure Source [Right Arm] Automatic Cuff Automatic Cuff Blood Pressure Position [Right Arm] Sitting 02 Sat by Pulse Oximetry 100 99 Oxygen Delivery Method Room Air Room Air Room Air - Lab Data Lab Results 11/06/19 09:24: WBC 8.8, RBC 5.15, Hgb 15.6, Hct 47.3 H, MCV 91.9, MCH 30.3, MCHC 33.0, RDW 13.1, Plt Count 184, MPV 8.4, Neut % (Auto) 60.7, Lymph % (Auto) 30.4, [place] % (Auto) 7.0, Eos % (Auto) 1.3, Baso % (Auto) 0.6, Neut # (Auto) 5.4, Lymph # (Auto) 2.7, [place] # (Auto) 0.6, Eos # (Auto) 0.1, Baso # (Auto) 0.1 11/06/19 09:24: PT 10.3, INR 0.99, APTT 27.4 11/06/19 09:24: Sodium 139, Potassium 3.8, Chloride 103, Carbon Dioxide 30, Anion Gap 9.8, BUN 17, Creatinine 1.10 H, Estimated Creat Clear 96, Estimated GFR 52 L, Est GFR ( Amer) 63, Glucose 113 H, Calcium 9.8, Total Bilirubin 0.5, AST 31, ALT 32, Alkaline Phosphatase 61, Troponin I < 0.01, Total Protein 7.8, Albumin 4.5, Globulin 3.3 H, Albumin/Globulin Ratio 1.4 11/06/19 11:55: Troponin I < 0.01 Result diagrams: 11/06/19 09:24 11/06/19 09:24 Orders (Tests/Meds): ED MEDICATIONS Discontinued Medications Generic Name Dose Route Start Last Admin Trade Name Katja PRN Reason Stop Dose Admin Aspirin 243 mg 11/06/19 09:38 11/06/19 09:40 Aspirin 81mg Chewable Tablet PO 11/06/19 09:39 243 mg ONCE ONE Administration Sodium Chloride 1,000 mls @ 999 mls/hr 11/06/19 09:45 11/06/19 09:41 Sod Chlor 0.9% 1000ml Bag IV 11/06/19 10:45 999 mls/hr .Q1H1M LELO Administration Iohexol 100 ml 11/06/19 10:17 11/06/19 10:18 Rad-Omnipaque 350 100ml Bottle IV 11/06/19 10:18 100 ml ONCE ONE Administration Nitroglycerin 0.4 mg 11/06/19 09:38 11/06/19 09:40 Nitrostat 0.4mg Sl Tablet SL 11/06/19 09:39 0.4 mg ONCE ONE Administration Nitroglycerin 0.4 mg 11/06/19 12:40 11/06/19 13:58 Nitrostat 0.4mg Sl Tablet SL 11/06/19 12:41 Not Given ONCE ONE Sodium Chloride 50 ml 11/06/19 10:17 11/06/19 10:18 Rad-Ns 50ml Vial IV 11/06/19 10:18 50 ml ONCE ONE Administration Sodium Chloride 10 ml 11/06/19 10:17 11/06/19 10:18 Rad-Saline Flush 10ml Syringe IV 11/06/19 10:18 10 ml ON
[2019-11-06 09:33] LABS: Basophils # 0.1 K/mm3 (0-0.2); Basophils % 0.6 % (0.1-2.0); Eosinophils # 0.1 K/mm3 (0.0-0.4); Eosinophils % 1.3 % (0.1-12.0); Hematocrit 47.3 % (37.0-47.0); Hemoglobin 15.6 g/dL (12.2-16.2); Lymphocytes # 2.7 K/mm3 (0.7-4.5); Lymphocytes % 30.4 % (10-50); Mean Corpuscular Hemoglobin 30.3 pg (27.0-31.2); Mean Corpuscular Volume 91.9 fl (81-99); Mean Platelet Volume 8.4 fl (7.4-10.4); Monocytes # 0.6 K/mm3 (0.1-1.0); Neutrophils # 5.4 K/mm3 (1.8-7.8); Neutrophils % 60.7 % (37.0-80.0); Platelet Count 184 K/mm3 (142-424); Red Blood Count 5.15 M/mm3 (4.20-5.40); Red Cell Distribution Width 13.1 % (11.5-17.5); White Blood Count 8.8 K/mm3 (4.8-10.8)
[2019-11-06 09:36] LABS: Chloride 103 mmol/L (98-107); Sodium 139 mmol/L (136-145)
[2019-11-06 09:37] LABS: Potassium 3.8 mmoL/L (3.5-5.1)
[2019-11-06 09:39] LABS: Alanine Aminotransferase 32 U/L (12-78); Alkaline Phosphatase 61 U/L (38-126); Anion Gap 9.8 mEq/L (5-15); Aspartate Amino Transferase 31 U/L (14-36); Bilirubin,Total 0.5 mg/dl (0.2-1.3); Blood Urea Nitrogen 17 mg/dl (7-17); Calcium 9.8 mg/dl (8.4-10.2); Carbon Dioxide 30 mmol/L (22.0-30.0); Creatinine Clearance Estimated 96 mL/min (50-200); Estimated Glomerular Filt Rate 52 ml/min (>60); GFR (African American) 63 ML/MIN (>60); Glucose 113 mg/dl (74-100)
[2019-11-06 09:40] LABS: Albumin Level 4.5 g/dl (3.5-5.0); Albumin/Globulin Ratio 1.4 (1.1-1.8); Globulin 3.3 g/dL (1.3-3.2); Total Protein,Serum 7.8 g/dl (6.3-8.2)
[2019-11-06 09:42] LABS: Activated Partial Thrombo Time 27.4 seconds (23.6-34.0); INR 0.99 (0.9-1.1); Prothrombin Time 10.3 seconds (9.4-11.8)
[2019-11-06 09:43] VITALS: BP 130/71; PULSE 59; RESP 20; O2SAT 99
--- NOTE | 2019-11-06 09:50 | PC.NURSE ---
pt very anxious and upset her son is on meth and she is scared for him
[2019-11-06 09:57] LABS: Troponin I < 0.01 ng/ml (0.00-0.034)
[2019-11-06 12:28] LABS: Troponin I < 0.01 ng/ml (0.00-0.034)
--- NOTE | 2019-11-06 12:38 | CA_ITS ---
APPROVED REPORT EXAM: Comprehensive 2D, Doppler, and color-flow Echocardiogram Heating Mechanic: Katherine Stanley RVT Ht: 5 ft 7 in Wt: 230lbs BSA: 2.15 BP: 122/59 mmHg Indications: CP,CAD,HTN,HLD,SMOKER,DD,RBBB,SOA 2D Dimensions LVOT 2.44 cm (M/F) 1.5-2.5 M-Mode Dimensions RVDd 2.75 cm (0.9-2.6) LVDd 5.29 cm (3.5-5.7) LVDs 3.25 cm (3.5-5.7) IVSd 0.84 cm (0.6-1.1) PWd 0.47 cm (0.6-1.1) EF (Teich) 68.50% FS 38.60% EDV (Teich) 134.80 mL ESV (Teich) 42.50 mL LV Diastology E/A Ratio 1.15 Mitral Valve MV A Velocity 59.00 (40-130 cm/s) Left Ventricle Left atrium is mildly enlarged, left ventricle is normal size, mild concentric left ventricular hypertrophy, visually estimated ejection fraction 50% with no regional wall motion abnormality, endocardial surfaces are poorly visualized, grade 1 diastolic dysfunction seen without tissue Doppler evidence of raise left atrial pressure. Right Ventricle Right atrium and right ventricle are mildly enlarged with normal contractility. Aortic Valve Aortic valve is minimally thickened and fibrosed, there is no aortic stenosis or aortic insufficiency. Mitral Valve Mitral valve is grossly normal, there is mild mitral regurgitation. Tricuspid Valve Tricuspid valve is grossly normal, there is mild tricuspid regurgitation, tricuspid regurgitation jet velocity is inadequate for calculation of the right ventricular systolic pressure. Pulmonic Valve Pulmonic valve is poorly visualized. Great Vessels Aortic root is normal size. Pericardium No significant pericardial effusion noted. Conclusion 1. Normal left ventricular size, visually estimated ejection fraction 50% with no regional wall motion abnormality, endocardial surfaces are poorly visualized, grade 1 diastolic dysfunction seen without tissue Doppler evidence of raise left atrial pressure. 2. Mildly enlarged right ventricle with normal contractility. 3. Mild mitral and tricuspid regurgitation. 4. No significant pericardial effusion noted. Electronically signed by : Ryan Pennington, 11/09/2019 11:18:19
--- NOTE | 2019-11-06 13:03 | HMH.CNCARD ---
History of Present Illness Consult date: 11/06/19 Requesting physician: Keith Santana Consult reason: chest pain Chief complaint: chest pain Additional Medical History:: 1. CAD A. [facility], 10/2018, ANGIOGRAPHIC RESULTS: 1. The left main artery normal 2. The left anterior descending artery is a small caliber vessel but free of atherosclerotic disease throughout its entire course 3. The circumflex artery is a codominant vessel and free of atherosclerotic disease but small caliber vessel 4. The right coronary artery is codominant and has proximal tandem 30% stenoses and multiple mid vessel 30% stenoses 5. The DOHERTY ventriculogram reveals slightly hyperdynamic at 75 mmHg 6. The left ventricular end-diastolic pressure elevated at 25 mmHg IMPRESSION: 1. Small caliber LAD and circumflex artery which are free of angiographic atherosclerotic plaque 2. Mild to moderate diffuse nonflow limiting stenoses throughout the codominant right coronary artery 3. Hyperdynamic ejection fraction consistent with diastolic dysfunction and or hypertensive heart disease 4. Moderate to severely elevated LVEDP consistent with diastolic dysfunction and or hypertensive heart disease PLAN: 1. Medical management for coronary artery disease with standard therapy 2. Patient would benefit from verapamil or diltiazem possibly combined with a beta doris if she can tolerate along with low-dose diuretics in order to decrease LVEDP 3. Recommend sleep study 4. Risk factor modification 2. Tobacco use, discontinued 2 weeks ago A. COPD 3. Emotional stress in dealing with son with drug addiction A. History of anxiety/depression 4. Hypertension 5. Hyperlipidemia 6. Bradycardia, likely secondary to combination of atenolol and verapamil used for hypertensive heart disease. 7. Right bundle branch block on EKG without syncope or near syncopal symptoms History of present illness: 54-year-old white female with known mild to moderate coronary artery disease by cardiac cath 1 year ago, hypertensive heart disease, tobacco use and hyperlipidemia presented to the emergency department for chest discomfort with radiation to the neck and arm during emotional conflict with her meth addicted son. Patient states she has been dealing with him for the past 3 days and today the chest discomfort was severe enough to prompt her to come to the ER for further evaluation. Once patient was able to calm down in the ER symptoms did seem to resolve but after being told she could go home chest discomfort returned. Chest discomfort has eased with additional sublingual nitroglycerin. EKG shows sinus rhythm with right bundle branch block, unchanged from previous tracings. Patient has recently been placed on Ranexa in addition to her isosorbide, atenolol and verapamil for coronary artery disease, hypertensive heart disease and presumed coronary spasm exacerbated by tobacco use and emotional discord. Cardiology consulted for evaluation recommendation. Echocardiogram is in progress. [facility] History Medical History: Reports:: Anxiety, Atherosclerotic Heart Disease, Cancer, Chronic Obstructive Pulmonary Disease (COPD), Coronary Artery Disease, Depression, Hyperlipidemia, Hypertension Denies:: Diabetes Mellitus Type 1, Diabetes Mellitus Type 2, Internal Pacemaker, MRSA, Seizures *Have you ever received a pneumonia vaccine?: No *Have you received a flu vaccine this season?: No Other Medical History: Reports: Arthritis Other Surgeries: Yes: No Previous Surgery, Cancer Surgery, Cardiac Catheterization, Colonoscopy, , EGD, Hysterectomy-Total, Skin Cancer Excision, Other. No: Pacemaker Amputation: No Fractures: Yes - *Social History Smoking Status: Current every day smoker Tobacco Type: cigarettes # Packs/Day (cigarettes): 1 #Yrs smoked (if former smoker): 30 Alcohol Intake: never Alcohol Intake Frequency:: other Substance Use Type: denies use *Occupational Status:: other Housing:
[2019-11-06 14:08] VITALS: BP 154/78; PULSE 54; RESP 17; TEMP 36.8; O2SAT 99
== END 2019-11-06 14:13 | disposition home or self-care (01) ==
PROVIDERS: Emergency Provider Emergency Medicine
DX: R07.9 Chest pain, unspecified (principal); I25.10 Atherosclerotic heart disease of native coronary artery without angina pectoris; Z63.72 Alcoholism and drug addiction in family; Z62.820 Parent-biological child conflict; R06.02 Shortness of breath; R53.1 Weakness; Z79.899 Other long term (current) drug therapy; Z79.51 Long term (current) use of inhaled steroids; Z88.8 Allergy status to other drugs, medicaments and biological substances; J44.9 Chronic obstructive pulmonary disease, unspecified; I10 Essential (primary) hypertension; Z85.828 Personal history of other malignant neoplasm of skin; F41.9 Anxiety disorder, unspecified; F32.9 Major depressive disorder, single episode, unspecified; E78.5 Hyperlipidemia, unspecified; Z72.0 Tobacco use
CPT/HCPCS: 71046; 71275; 80053; 84484; 85025; 85610; 85730; 93005; 93306; 96365; 99283; Q9967

== ENCOUNTER 2019-11-09 08:07 | Outpatient (CLI) | payer MEDICARE, MEDICAID, SELFPAY ==
[2019-11-09 08:08] VITALS: BMI 34.4
[2019-11-09 08:26] LABS: Basophils # 0.1 K/mm3 (0-0.2); Basophils % 0.7 % (0.1-2.0); Eosinophils # 0.2 K/mm3 (0.0-0.4); Eosinophils % 1.5 % (0.1-12.0); Hematocrit 46.2 % (37.0-47.0); Hemoglobin 15.4 g/dL (12.2-16.2); Lymphocytes # 2.9 K/mm3 (0.7-4.5); Lymphocytes % 29.5 % (10-50); Mean Corpuscular HGB Conc 33.3 g/dL (31.8-35.4); Mean Corpuscular Hemoglobin 31.1 pg (27.0-31.2); Mean Corpuscular Volume 93.2 fl (81-99); Mean Platelet Volume 8.6 fl (7.4-10.4); Monocytes # 0.7 K/mm3 (0.1-1.0); Monocytes % 7.6 % (1.7-9.3); Neutrophils # 5.9 K/mm3 (1.8-7.8); Neutrophils % 60.7 % (37.0-80.0); Platelet Count 192 K/mm3 (142-424); Red Blood Count 4.96 M/mm3 (4.20-5.40); Red Cell Distribution Width 13.2 % (11.5-17.5); White Blood Count 9.7 K/mm3 (4.8-10.8)
--- NOTE | 2019-11-09 08:33 | PC.NURSE ---
0833-pt came to infusion for cbc to check hemoglobin for possible therapeutic phlebotomy; hgb 15.4 no phlebotomy today pt will come back for labs in a month.
== END 2019-11-09 08:33 | disposition home or self-care (01) ==
LOC: INF 08:07
PROVIDERS: Visit Provider Nurse Practitioner Family
DX: D45 Polycythemia vera (principal)
CPT/HCPCS: 36415; 85025

== ENCOUNTER 2019-12-07 08:08 | Outpatient (CLI) | payer MEDICARE, MEDICAID, SELFPAY ==
[2019-12-07 08:09] VITALS: BMI 34.4
[2019-12-07 08:25] LABS: Basophils # 0.1 K/mm3 (0-0.2); Basophils % 0.7 % (0.1-2.0); Eosinophils # 0.1 K/mm3 (0.0-0.4); Eosinophils % 1.3 % (0.1-12.0); Hematocrit 46.6 % (37.0-47.0); Hemoglobin 15.6 g/dL (12.2-16.2); Lymphocytes # 2.6 K/mm3 (0.7-4.5); Mean Corpuscular HGB Conc 33.4 g/dL (31.8-35.4); Mean Corpuscular Hemoglobin 30.2 pg (27.0-31.2); Mean Corpuscular Volume 90.4 fl (81-99); Mean Platelet Volume 8.9 fl (7.4-10.4); Monocytes # 0.8 K/mm3 (0.1-1.0); Monocytes % 9.4 % (1.7-9.3); Neutrophils # 5.1 K/mm3 (1.8-7.8); Neutrophils % 58.6 % (37.0-80.0); Platelet Count 235 K/mm3 (142-424); Red Blood Count 5.16 M/mm3 (4.20-5.40); Red Cell Distribution Width 13.6 % (11.5-17.5); White Blood Count 8.7 K/mm3 (4.8-10.8)
--- NOTE | 2019-12-07 08:34 | PC.NURSE ---
0834- pt here for lab check for possible therapeutic phlebotomy; hgb 15.6. [facility]
== END 2019-12-07 08:34 | disposition home or self-care (01) ==
LOC: INF 08:08
PROVIDERS: Visit Provider Nurse Practitioner Family
DX: D45 Polycythemia vera (principal); R55 Syncope and collapse
CPT/HCPCS: 36415; 85025

== ENCOUNTER → 2019-12-09 13:35 | Outpatient (CLI) | payer MEDICARE, MEDICAID, SELFPAY ==
--- NOTE | 2019-12-09 13:40 | MM_ITS ---
PROCEDURE: MM DIG MAMM BI DX W/CAD Digital Breast Tomosynthesis Included CLINICAL INDICATION: right breast lump COMPARISON: DMDB DIG MAMM-DX NOHEMY from 06/15/2014 BR US BREAST-RT COMPLETE W/AXILLA from 02/16/2015 DMDB DIG MAMM-DX NOHEMY from 03/01/2015 DMDXUWAL DIG MAMM-DX UNI LT W ADD VIEW from 06/10/2015 DMSB DIG MAMM-SCREEN NOHEMY from 02/27/2016 DMDXUL DIG MAMM-DX UNI-LT W/CAD from 10/26/2016 US BREAST RT COMPLETE from 12/09/2019 TECHNIQUE: Standard CC and MLO images and 3D Tomosynthesis was obtained. R2 CAD reviewed. FINDINGS: There is average fibroglandular tissue. A marker is placed in the right breast to denote an area of palpable concern in the upper inner aspect of the Marie areolar region. No discrete mass noted on mammogram. There are scattered benign nodular opacities noted in both breasts. Postsurgical changes with clip in the lower inner aspect of the left breast. Scattered benign-appearing nodular densities and benign-appearing calcifications. Asymmetric density superior left breast probably unchanged given difference in technique. Greg images suggest this is summation density from overlying tissues. Short-term follow-up suggested Right breast ultrasound: There are scattered small simple and complicated cyst throughout the right breast. In the area of palpable concern there is heterogeneous echogenicity with scattered small areas of decreased echogenicity with small cyst and areas of increased echogenicity suggesting fibrocystic changes. No discrete mass apparent. Probably benign findings. Recommend short-term follow-up IMPRESSION: Probably benign findings bilaterally with an area of heterogeneous echogenicity at the area of palpable concern in the right breast at 12 o'clock. Suggest short-term sonographic follow-up in 3 months. Asymmetry in the superior left breast probably benign. Recommend short-term follow-up with spot compression views in 3 months. BI-RAD Category: 3 Probably Benign Finding Short Term Follow-up FOLLOW-UP: 3M 3 Month Follow-up (A letter has been sent to the patient regarding results of the study.) Dictated by: Gagan Elam MD 12/16/2019 13:20 Electronically signed by Gagan Elam MD in [place] 12/16/2019 13:20
== END ==
PROVIDERS: PCP Physician Assistant; Visit Provider Physician Assistant
DX: N63.10 Unspecified lump in the right breast, unspecified quadrant (principal); R92.8 Other abnormal and inconclusive findings on diagnostic imaging of breast
CPT/HCPCS: 76641; 77062; 77066; G0279

== ENCOUNTER 2020-01-04 08:02 | Outpatient (CLI) | payer MEDICARE, MEDICAID, SELFPAY ==
[2020-01-04 08:03] VITALS: BMI 34.4
[2020-01-04 08:23] LABS: Basophils # 0.1 K/mm3 (0-0.2); Basophils % 0.6 % (0.1-2.0); Eosinophils # 0.2 K/mm3 (0.0-0.4); Hematocrit 48.6 % (37.0-47.0); Hemoglobin 16.2 g/dL (12.2-16.2); Lymphocytes # 2.6 K/mm3 (0.7-4.5); Lymphocytes % 27.6 % (10-50); Mean Corpuscular HGB Conc 33.3 g/dL (31.8-35.4); Mean Corpuscular Hemoglobin 31.7 pg (27.0-31.2); Mean Corpuscular Volume 95.1 fl (81-99); Mean Platelet Volume 8.8 fl (7.4-10.4); Monocytes # 0.6 K/mm3 (0.1-1.0); Monocytes % 6.4 % (1.7-9.3); Neutrophils % 63.4 % (37.0-80.0); Platelet Count 174 K/mm3 (142-424); Red Blood Count 5.11 M/mm3 (4.20-5.40); Red Cell Distribution Width 13.3 % (11.5-17.5); White Blood Count 9.4 K/mm3 (4.8-10.8)
--- NOTE | 2020-01-04 08:30 | PC.NURSE ---
0830-pt here to have cbc checked and possible therapeutic phlebotomy if hgb is greater than 17; hbg is 16.2 so pt will not be getting therapeutic phlebotomy today, pt will return in one month.
== END 2020-01-04 08:30 | disposition home or self-care (01) ==
LOC: INF 08:02
PROVIDERS: Visit Provider Nurse Practitioner Family
DX: R55 Syncope and collapse (principal)
CPT/HCPCS: 36415; 85025

== ENCOUNTER 2020-02-01 08:05 | Outpatient (CLI) | payer MEDICARE, MEDICAID, SELFPAY ==
[2020-02-01 08:06] VITALS: BMI 34.4
[2020-02-01 08:30] LABS: Basophils # 0.1 K/mm3 (0-0.2); Basophils % 0.8 % (0.1-2.0); Eosinophils # 0.1 K/mm3 (0.0-0.4); Eosinophils % 1.3 % (0.1-12.0); Hematocrit 45.2 % (37.0-47.0); Hemoglobin 15.5 g/dL (12.2-16.2); Lymphocytes # 2.5 K/mm3 (0.7-4.5); Lymphocytes % 30.3 % (10-50); Mean Corpuscular HGB Conc 34.3 g/dL (31.8-35.4); Mean Corpuscular Hemoglobin 31.2 pg (27.0-31.2); Mean Corpuscular Volume 90.7 fl (81-99); Monocytes # 0.6 K/mm3 (0.1-1.0); Monocytes % 6.9 % (1.7-9.3); Neutrophils # 5.1 K/mm3 (1.8-7.8); Neutrophils % 60.6 % (37.0-80.0); Platelet Count 184 K/mm3 (142-424); Red Blood Count 4.98 M/mm3 (4.20-5.40); Red Cell Distribution Width 13.6 % (11.5-17.5); White Blood Count 8.4 K/mm3 (4.8-10.8)
--- NOTE | 2020-02-01 08:39 | PC.NURSE ---
0839-pt in infusion department for labs to check hgb for possible therapeutic phlebotomy;pt doesn't need phlebotomy today d/t hgb 15.5. pt will return in 4 weeks.
== END 2020-02-01 08:39 | disposition home or self-care (01) ==
LOC: INF 08:05
PROVIDERS: Visit Provider Nurse Practitioner Family
DX: R55 Syncope and collapse (principal)
CPT/HCPCS: 36415; 85025

== ENCOUNTER → 2020-02-18 07:11 | Outpatient (CLI) | payer MEDICARE, MEDICAID, SELFPAY ==
--- NOTE | 2020-02-18 | CA_ITS ---
APPROVED REPORT Exam: Pharmacologic Technologist: Dinorah Hernandez, Ht: 5 ft 7 in Wt: 230 lbs BSA: 2.15 m2 HR: 49 bpm BP: 119/60 mmHg Rhythm: SINUS SOTERO,RBBB Medical History Medical History: HTN,, Hyperlipidemia Medications: Alprazolam,,,,, Atenolol,,,,, Asa,,,,, Atorvastatin,,,,, Lasix,,,,, BusIPIRNE,,,,, Cardiac Risk Factors: HTN, Hyperlipidemia, FHX of CAD, Smoking Stress Test Details Test: LEXISCAN HR Resting HR: 50 bpm Max Heart Rate (APMHR): 166 bpm Max HR Achieved: 79 bpm Target HR (85% APMHR): 141 bpm % of APMHR: 47 Recovery HR: 66 bpm BP Resting BP: 119.0/60.0 mmHg Max BP: 124.0/55.0 mmHg Recovery BP: 118.0/69.0 mmHg ECG Resting ECG: SINUS SOTERO,RBBB Recovery ST Deviation: 6 mm Clinical Exercise duration: 04:24 min Highest Stage Achieved: Stress ECG Conclusion DURING INFUSION PATIENT HAD NAUSEA,MILD SOA AND HEADACHE. NO CP. NO ARRHYTHMIAS/ECTOPY. NO SIGNIFICANT ST-T CHANGES. UNREMARKABLE LEXISCAN STRESS. MYOVIEW IMAGES REPORTED SEPARATELY. Electronically signed by : Ryan Pennington, 02/19/2020 10:19:55
--- NOTE | 2020-02-18 07:15 | NM_ITS ---
APPROVED REPORT Exam: Nuclear Stress Test Indication: obesity, htn, hyperlipidemia, tob use, fm hx, c.p., sob, fatigue Patient Location: Outpatient Stress Tech: Kimber Hernandez [place] Tech:Anne-Marie Lane, ARRT RT(R)(N) Ht: 5 ft 7 in Wt: 230 lbs Bra Size: 36D HR: 49 bpm BP: 119/60 mmHg BSA: 2.15 m2 BMI: 36.0 History: obesity, htn, hyperlipidemia, tob use, fm hx, c.p., sob, fatigue Procedure: Patient received a 0.4 mg of intravenous Lexiscan, resting heart rate 49 bpm, resting blood pressure 119/60 mmHg, with Lexiscan maximum heart rate achived was 78 bpm which is Less than 85 % of the maximum predicted heart rate and blood pressure was 124/55 mmHg. With Lexiscan, patient denied any complaint of chest pain. Electrocardiogram Resting electrocardiogram showed sinus bradycardia right ventricular conduction delay, with Lexiscan there is less than 1.[address] segment depression noted from the baseline EKG. The EKG portion of the Lexiscan Myoview is nondiagnostic. Cardiac Stress and Resting SPECT Images: Cardiac Stress and Resting SPECT images were obtained using technetium 99m Myoview 31.0 mCi stress and 10.86 mCi at rest. Gated SPECT for the analysis of segmental wall motion and calculation of the ejection fraction also done. Cardiac stress and rest SPECT images show a fixed defect involving anteroapically and anteroseptally with normal karena gated SPECT is likely secondary to soft tissue attenuation, no reversible ischemia seen. Computer derived ejection fraction 57% with no segmental wall motion abnormality, right ventricle is normal size and contractility. Conclusion: 1. The EKG portion of the Lexiscan Myoview is nondiagnostic. 2. No scintigraphic evidence of reversible ischemia seen, a fixed defect anteroapically and anteroseptal is likely secondary to soft tissue attenuation, computer derived ejection fraction is 57% with no segmental wall motion abnormality, right ventricle is normal size and contractility. 3. Likely normal Lexiscan Myoview study. Electronically signed by : Ryan Pennington, 02/19/2020 10:23:25
--- NOTE | 2020-02-18 10:40 | HMH.ITSHM ---
Current Home Medications as stated by this patient Laura Hodge or medical center representative. [] trazodone tizanidine furosemide buspirone busirone
== END ==
PROVIDERS: PCP Physician Assistant; Visit Provider Urology
DX: E78.2 Mixed hyperlipidemia (principal); F41.9 Anxiety disorder, unspecified; I10 Essential (primary) hypertension; I25.10 Atherosclerotic heart disease of native coronary artery without angina pectoris; I45.10 Unspecified right bundle-branch block; J43.9 Emphysema, unspecified; R06.09 Other forms of dyspnea; R07.9 Chest pain, unspecified; R42 Dizziness and giddiness; Z72.0 Tobacco use
CPT/HCPCS: 78452; 93017; A9502; J2785

== ENCOUNTER 2020-02-29 10:10 | Outpatient (CLI) | payer MEDICARE, MEDICAID, SELFPAY ==
[2020-02-29 10:12] VITALS: BMI 34.4
--- NOTE | 2020-02-29 10:21 | PC.NURSE ---
lab staff casey at to obtain cbc.
[2020-02-29 10:35] LABS: Basophils # 0.1 K/mm3 (0-0.2); Basophils % 0.7 % (0.1-2.0); Eosinophils # 0.1 K/mm3 (0.0-0.4); Eosinophils % 1.3 % (0.1-12.0); Hematocrit 43.8 % (37.0-47.0); Hemoglobin 15.4 g/dL (12.2-16.2); Lymphocytes # 2.4 K/mm3 (0.7-4.5); Lymphocytes % 32.2 % (10-50); Mean Corpuscular HGB Conc 35.3 g/dL (31.8-35.4); Mean Corpuscular Hemoglobin 32.8 pg (27.0-31.2); Mean Corpuscular Volume 93.2 fl (81-99); Mean Platelet Volume 8.6 fl (7.4-10.4); Monocytes # 0.5 K/mm3 (0.1-1.0); Monocytes % 6.4 % (1.7-9.3); Neutrophils # 4.5 K/mm3 (1.8-7.8); Neutrophils % 59.4 % (37.0-80.0); Platelet Count 178 K/mm3 (142-424); Red Cell Distribution Width 13.4 % (11.5-17.5); White Blood Count 7.6 K/mm3 (4.8-10.8)
== END 2020-02-29 10:40 | disposition home or self-care (01) ==
LOC: INF 10:10
PROVIDERS: Visit Provider Nurse Practitioner Family
DX: D45 Polycythemia vera (principal)
CPT/HCPCS: 85025

== ENCOUNTER → 2020-03-01 13:35 | Outpatient (CLI) | payer MEDICARE, MEDICAID, SELFPAY ==
--- NOTE | 2020-03-01 13:46 | MM_ITS ---
PROCEDURE: MM DIG MAMM DX UNILAT LT CAD Digital Breast Tomosynthesis Included CLINICAL INDICATION: 3 mth f/u Follow-up abnormal mammogram and ultrasound COMPARISON: MG DIG MAMM-DX UNILATERAL-LT from 02/03/2013 MG DMDB DIG MAMM-DX NOHEMY from 06/15/2014 MG DMSB DIG MAMM-SCREEN NOHEMY from 02/27/2016 MG DMDXUL DIG MAMM-DX UNI-LT W/CAD from 10/26/2016 MG MM DIG MAMM BI DX W/CAD from 12/09/2019 US US BREAST RT COMPLETE from 12/09/2019 US US BREAST LT COMPLETE from 03/01/2020 US US BREAST RT COMPLETE from 03/01/2020 TECHNIQUE: Standard images performed with 3D tomography spot compression views and bilateral breast ultrasound FINDINGS: Average fibroglandular tissue. Benign-appearing calcifications noted of the left breast. Asymmetric density in the superior left breast does appear to compress out as fibroglandular tissue. No malignant appearing mass or malignant-appearing microcalcification. Greg images show a benign-appearing nodular density in the superior left breast at 5 mm. There is an additional 9 by 4 mm nodular opacity in the inferior aspect of the left breast which is demonstrated on the tomosynthesis. This may been present dating back to 02/27/2016. No sonographic correlate evident. Biopsy clip is present in the inferior aspect of the left breast. Suggest 6 month follow-up regarding the asymmetric density in the inferior left breast Left breast ultrasound: 5 mm cyst at 11 o'clock Right breast ultrasound: 5 mm complex cyst at 12 o'clock unchanged. 6 mm complex cyst at 12 o'clock near the nipple unchanged. 5 mm complex cyst at 1 o'clock unchanged. 5 mm complex cyst at 4 o'clock unchanged. 5 x 4 mm complex cyst at 6 o'clock unchanged. 5 mm cyst at 9 o'clock. 5 mm cyst at 11 o'clock. No suspicious solid lesions IMPRESSION: Probably benign findings of the left breast. No change in the multiple complex cysts of the right breast. BI-RAD Category: 3 Probably Benign Finding Short Term Follow-up FOLLOW-UP: 6M 6Month Follow-up (A letter has been sent to the patient regarding results of the study.) Dictated b Gagan Elam MD 03/04/2020 08:34 Gagan Elam MD in [place] 03/04/2020 08:34
== END ==
PROVIDERS: PCP Physician Assistant; Visit Provider Physician Assistant
DX: R92.8 Other abnormal and inconclusive findings on diagnostic imaging of breast (principal)
CPT/HCPCS: 76641; 77061; 77065; G0279

== ENCOUNTER 2020-03-28 08:05 | Outpatient (CLI) | payer MEDICARE, MEDICAID, SELFPAY ==
[2020-03-28 08:08] VITALS: BMI 34.4
--- NOTE | 2020-03-28 08:25 | PC.NURSE ---
0825-pt here for possible therapeutic phlebotomy; pt's hgb 16.5 pt does not need phlebotomy today. pt will return in one month for lab recheck.
[2020-03-28 08:28] LABS: Basophils # 0.1 K/mm3 (0-0.2); Basophils % 0.8 % (0.1-2.0); Eosinophils # 0.2 K/mm3 (0.0-0.4); Hematocrit 46.2 % (37.0-47.0); Hemoglobin 16.5 g/dL (12.2-16.2); Lymphocytes # 2.8 K/mm3 (0.7-4.5); Mean Corpuscular HGB Conc 35.7 g/dL (31.8-35.4); Mean Corpuscular Hemoglobin 32.2 pg (27.0-31.2); Mean Corpuscular Volume 90.4 fl (81-99); Mean Platelet Volume 8.8 fl (7.4-10.4); Monocytes # 0.7 K/mm3 (0.1-1.0); Monocytes % 6.9 % (1.7-9.3); Neutrophils # 5.8 K/mm3 (1.8-7.8); Neutrophils % 61.4 % (37.0-80.0); Platelet Count 182 K/mm3 (142-424); Red Blood Count 5.11 M/mm3 (4.20-5.40); Red Cell Distribution Width 13.6 % (11.5-17.5); White Blood Count 9.5 K/mm3 (4.8-10.8)
== END 2020-03-28 08:30 | disposition home or self-care (01) ==
LOC: INF 08:07
PROVIDERS: Visit Provider Nurse Practitioner Family
DX: D45 Polycythemia vera (principal)
CPT/HCPCS: 36415; 85025

== ENCOUNTER → 2020-04-21 14:35 | Outpatient (CLI) | payer MEDICARE, MEDICAID, SELFPAY | PROVIDERS: Visit Provider Physician Assistant | DX: N39.0 Urinary tract infection, site not specified (principal) | CPT/HCPCS: 87086; 87088; 87186 ==

== ENCOUNTER 2020-04-25 08:00 | Outpatient (CLI) | payer MEDICARE, MEDICAID, SELFPAY ==
[2020-04-25 08:08] VITALS: BMI 35.6
[2020-04-25 09:05] LABS: Basophils % 0.8 % (0.1-2.0); Eosinophils % 1.5 % (0.1-12.0); Hematocrit 49.8 % (37.0-47.0); Hemoglobin 16.8 g/dL (12.2-16.2); Lymphocytes % 29.4 % (10-50); Mean Corpuscular HGB Conc 33.7 g/dL (31.8-35.4); Mean Corpuscular Hemoglobin 32.1 pg (27.0-31.2); Mean Corpuscular Volume 95.1 fl (81-99); Mean Platelet Volume 8.7 fl (7.4-10.4); Monocytes % 9.5 % (1.7-9.3); Neutrophils % 58.8 % (37.0-80.0); Platelet Count 168 K/mm3 (142-424); Red Blood Count 5.24 M/mm3 (4.20-5.40); White Blood Count 8.6 K/mm3 (4.8-10.8)
--- NOTE | 2020-04-25 09:05 | PC.NURSE ---
0905-pt here for possible therapeutic phlebotomy, pt's hgb 16.8; pt does not need to have phlebotomy today, she will return in a month for labs recheck.
[2020-04-25 09:06] LABS: Basophils # 0.1 K/mm3 (0-0.2); Eosinophils # 0.1 K/mm3 (0.0-0.4); Lymphocytes # 2.5 K/mm3 (0.7-4.5); Monocytes # 0.8 K/mm3 (0.1-1.0)
== END 2020-04-25 09:05 | disposition home or self-care (01) ==
LOC: INF 08:06
PROVIDERS: Visit Provider Nurse Practitioner Family
DX: D45 Polycythemia vera (principal); R55 Syncope and collapse
CPT/HCPCS: 85025

== ENCOUNTER → 2020-05-02 10:46 | Outpatient (CLI) | payer MEDICARE, MEDICAID, SELFPAY ==
--- NOTE | 2020-05-02 | CT_ITS ---
PROCEDURE: CT HEAD/BRAIN WO CON CLINICAL INDICATION: HEADACHE COMPARISON: CT HEADWO CT head/brain wo con from 10/12/2017 TECHNIQUE: Axial images obtained. All CT scans at the facility use one or more dose reduction, viz: automated exposure control, ma/kV adjustment per patient size (including targeted exams where dose is matched to indication, i.e. head), or iterative reconstruction technique. FINDINGS: No midline shift, mass effect, intracranial hemorrhage, hydrocephalus, or extra-axial fluid collection is evident. The calvarium has an unremarkable appearance. No mastoid effusion. No sinus air-fluid level. IMPRESSION: No acute intracranial finding Dictated by: Gagan Elam MD 05/02/2020 11:52 Gagan Elam MD in [place] 05/02/2020 11:52
== END ==
PROVIDERS: PCP Physician Assistant; Visit Provider Physician Assistant
DX: R51.9 Headache, unspecified (principal)
CPT/HCPCS: 70450

== ENCOUNTER → 2020-05-17 15:50 | Outpatient (CLI) | payer MEDICARE, MEDICAID, SELFPAY | PROVIDERS: Visit Provider Physician Assistant | DX: R30.9 Painful micturition, unspecified (principal) | CPT/HCPCS: 87086; 87088; 87186 ==

== ENCOUNTER 2020-05-23 08:11 | Outpatient (CLI) | payer MEDICARE, MEDICAID, SELFPAY ==
[2020-05-23 08:14] VITALS: BMI 34.4
[2020-05-23 08:59] LABS: Basophils % 0.6 % (0.1-2.0); Eosinophils # 0.1 K/mm3 (0.0-0.4); Eosinophils % 1.3 % (0.1-12.0); Hematocrit 38.8 % (37.0-47.0); Hemoglobin 17.7 g/dL (12.2-16.2); Lymphocytes # 2.1 K/mm3 (0.7-4.5); Lymphocytes % 27.9 % (10-50); Mean Corpuscular Volume 95.3 fl (81-99); Mean Platelet Volume 8.7 fl (7.4-10.4); Monocytes # 0.6 K/mm3 (0.1-1.0); Monocytes % 8.2 % (1.7-9.3); Neutrophils # 4.7 K/mm3 (1.8-7.8); Neutrophils % 62.1 % (37.0-80.0); Platelet Count 180 K/mm3 (142-424); Red Blood Count 4.07 M/mm3 (4.20-5.40); Red Cell Distribution Width 13.8 % (11.5-17.5); White Blood Count 7.5 K/mm3 (4.8-10.8)
[2020-05-23 09:08] LABS: Mean Corpuscular HGB Conc 45.7 g/dL (31.8-35.4); Mean Corpuscular Hemoglobin 43.6 pg (27.0-31.2)
[2020-05-23 09:30] VITALS: BP 143/78; PULSE 52; RESP 18; TEMP 36.6; O2SAT 97
[2020-05-23 09:50] VITALS: BP 106/73; PULSE 50; RESP 18; O2SAT 98
== END 2020-05-23 09:50 | disposition home or self-care (01) ==
LOC: INF 08:11
PROVIDERS: Visit Provider Nurse Practitioner Family
DX: D75.1 Secondary polycythemia (principal); R55 Syncope and collapse
CPT/HCPCS: 36415; 85025; 99195

== ENCOUNTER 2020-06-20 08:07 | Outpatient (CLI) | payer MEDICARE, MEDICAID, SELFPAY ==
[2020-06-20 08:07] VITALS: BMI 34.4
[2020-06-20 08:20] VITALS: BP 122/74; PULSE 68; RESP 20; TEMP 36.9; O2SAT 95
[2020-06-20 08:26] LABS: Basophils # 0.1 K/mm3 (0-0.2); Basophils % 0.9 % (0.1-2.0); Eosinophils # 0.1 K/mm3 (0.0-0.4); Eosinophils % 1.7 % (0.1-12.0); Hematocrit 51.9 % (37.0-47.0); Hemoglobin 17.1 g/dL (12.2-16.2); Lymphocytes % 27.7 % (10-50); Mean Corpuscular HGB Conc 32.9 g/dL (31.8-35.4); Mean Corpuscular Hemoglobin 31.8 pg (27.0-31.2); Mean Corpuscular Volume 96.7 fl (81-99); Mean Platelet Volume 8.8 fl (7.4-10.4); Monocytes # 0.6 K/mm3 (0.1-1.0); Monocytes % 8.1 % (1.7-9.3); Neutrophils # 4.5 K/mm3 (1.8-7.8); Neutrophils % 61.6 % (37.0-80.0); Platelet Count 202 K/mm3 (142-424); Red Blood Count 5.37 M/mm3 (4.20-5.40); Red Cell Distribution Width 13.5 % (11.5-17.5); White Blood Count 7.3 K/mm3 (4.8-10.8)
== END 2020-06-20 09:00 | disposition home or self-care (01) ==
LOC: INF 08:07
PROVIDERS: Visit Provider Nurse Practitioner Family
DX: D75.1 Secondary polycythemia (principal)
CPT/HCPCS: 36415; 85025; 99195

== ENCOUNTER 2020-07-18 08:04 | Outpatient (CLI) | payer MEDICARE, MEDICAID, SELFPAY ==
[2020-07-18 08:06] VITALS: BMI 78.3
[2020-07-18 08:26] LABS: Basophils # 0.1 K/mm3 (0-0.2); Basophils % 0.6 % (0.1-2.0); Eosinophils # 0.1 K/mm3 (0.0-0.4); Eosinophils % 1.4 % (0.1-12.0); Hemoglobin 16.3 g/dL (12.2-16.2); Lymphocytes # 2.3 K/mm3 (0.7-4.5); Lymphocytes % 25.5 % (10-50); Mean Corpuscular HGB Conc 33.3 g/dL (31.8-35.4); Mean Corpuscular Hemoglobin 31.8 pg (27.0-31.2); Mean Corpuscular Volume 95.4 fl (81-99); Mean Platelet Volume 8.7 fl (7.4-10.4); Monocytes # 0.6 K/mm3 (0.1-1.0); Monocytes % 6.5 % (1.7-9.3); Neutrophils # 6.1 K/mm3 (1.8-7.8); Platelet Count 213 K/mm3 (142-424); Red Blood Count 5.13 M/mm3 (4.20-5.40); Red Cell Distribution Width 13.7 % (11.5-17.5); White Blood Count 9.2 K/mm3 (4.8-10.8)
--- NOTE | 2020-07-18 08:26 | PC.NURSE ---
0815 lab staff at to obtain blood for cbc.
== END 2020-07-18 08:40 | disposition home or self-care (01) ==
LOC: INF 08:04
PROVIDERS: Visit Provider Physician Assistant
DX: D45 Polycythemia vera (principal)
CPT/HCPCS: 85025

== ENCOUNTER 2020-08-15 08:07 | Outpatient (CLI) | payer MEDICARE, MEDICAID, SELFPAY ==
[2020-08-15 08:08] VITALS: BMI 34.4
[2020-08-15 08:33] LABS: Basophils # 0.1 K/mm3 (0-0.2); Basophils % 1.3 % (0.1-2.0); Eosinophils # 0.2 K/mm3 (0.0-0.4); Eosinophils % 1.6 % (0.1-12.0); Hematocrit 53.1 % (37.0-47.0); Hemoglobin 17.2 g/dL (12.2-16.2); Lymphocytes # 2.6 K/mm3 (0.7-4.5); Mean Corpuscular HGB Conc 32.4 g/dL (31.8-35.4); Mean Corpuscular Volume 98.7 fl (81-99); Mean Platelet Volume 12.4 fl (7.4-10.4); Monocytes # 0.7 K/mm3 (0.1-1.0); Monocytes % 7.1 % (1.7-9.3); Neutrophils # 5.7 K/mm3 (1.8-7.8); Platelet Count 184 K/mm3 (142-424); Red Blood Count 5.38 M/mm3 (4.20-5.40); Red Cell Distribution Width 14.2 % (11.5-17.5); White Blood Count 9.2 K/mm3 (4.8-10.8)
--- NOTE | 2020-08-15 08:55 | PC.NURSE ---
0855-pt in infusion department for therapeutic phlebotomy for hgb > 17; pt's hgb is 17.; pt to have 250ml of blood drawn off
--- NOTE | 2020-08-15 09:05 | PC.NURSE ---
0905-pt finished with phlebotomy; pt states she had 2 sharp chest pains and that she is dizzy and just doesn't feel good;collected labs with [employer];
[2020-08-15 09:10] VITALS: BP 140/78; PULSE 55; RESP 18
--- NOTE | 2020-08-15 09:10 | PC.NURSE ---
0910-pt to er for chest pains; in wheelchair accompanied by rn
== END 2020-08-15 09:10 | disposition home or self-care (01) ==
LOC: INF 08:07
PROVIDERS: Visit Provider Nurse Practitioner Family
DX: R07.89 Other chest pain (principal)
CPT/HCPCS: 36415; 85025; 99195

== ENCOUNTER 2020-08-15 09:19 | Emergency (ER) | payer MEDICARE, MEDICAID, SELFPAY ==
[2020-08-15] VITALS (7 sets, daily range): BP systolic 113–134; BP diastolic 60–75; PULSE 49–52; RESP 12–25; TEMP 36.8; O2SAT 92–98; BMI 34.4
--- NOTE | 2020-08-15 09:26 | ECG_ITS ---
APPROVED REPORT Exam: Resting ECG HR:51 bpm ECG Measurements Heart Rate 51 AXES NH 144 P 58 QRSd 132 QRS 85 QT 514 T 40 QTc 473 Conclusion Sinus bradycardia Right bundle branch block Abnormal ECG Electronically signed by : Shane Malhotra, 08/15/2020 19:36:41
--- NOTE | 2020-08-15 09:35 | XR_ITS ---
PROCEDURE: XR CHEST PORTABLE CLINICAL HISTORY: cough Cough and chest pain COMPARISON: DX CXR2V XR chest 2V from 10/28/2018 CR XR CHEST 2V from 05/20/[address] ANGIO CHEST from 11/06/2019 CR XR CHEST 2V from 11/06/2019 FINDINGS: The cardiomediastinal silhouette and pulmonary vascularity are within normal limits. There is some vague increased density in the right lower lobe. While this could be related overlying soft tissue attenuation, faint ground-glass infiltrate is not excluded. Upright PA and lateral chest may provide further evaluation. No acute bony abnormalities. IMPRESSION: Possible ground-glass infiltrate right lower lung zone medially versus overlying soft tissue attenuation Dictated by: Gagan Elam MD 08/15/2020 09:55 Gagan Elam MD in [place] 08/15/2020 09:55
--- NOTE | 2020-08-15 09:39 | PC.NURSE ---
notified lab pt had blood drawn while in the infusion department, to use that blood for current orders. Spoke with Rand, states she has pts specimens
--- NOTE | 2020-08-15 09:39 | PC.NURSE ---
Rad at bedside.
--- NOTE | 2020-08-15 09:40 | PC.NURSE ---
rad at BS for portable xray
[2020-08-15 09:42] LABS: Alanine Aminotransferase 27 U/L (12-78); Albumin Level 4.5 g/dl (3.5-5.0); Albumin/Globulin Ratio 1.5 (1.1-1.8); Alkaline Phosphatase 88 U/L (38-126); Anion Gap 10.6 mEq/L (5-15); Aspartate Amino Transferase 28 U/L (14-36); Bilirubin,Total 0.6 mg/dl (0.2-1.3); Blood Urea Nitrogen 14 mg/dl (7-17); Calcium 9.4 mg/dl (8.4-10.2); Carbon Dioxide 29 mmol/L (22.0-30.0); Chloride 100 mmol/L (98-107); Creatinine Clearance Estimated 111 mL/min (50-200); Estimated Glomerular Filt Rate 65 ml/min (>60); GFR (African American) 79 ML/MIN (>60); Globulin 3.1 g/dL (1.3-3.2); Glucose 128 mg/dl (74-100); Potassium 3.6 mmoL/L (3.5-5.1); Sodium 136 mmol/L (136-145); Total Protein,Serum 7.6 g/dl (6.3-8.2)
[2020-08-15 09:43] LABS: Basophils # 0.1 K/mm3 (0-0.2); Basophils % 1.1 % (0.1-2.0); Eosinophils # 0.1 K/mm3 (0.0-0.4); Eosinophils % 1.1 % (0.1-12.0); Hematocrit 52.6 % (37.0-47.0); Hemoglobin 17.1 g/dL (12.2-16.2); Lymphocytes # 2.6 K/mm3 (0.7-4.5); Lymphocytes % 30.7 % (10-50); Mean Corpuscular HGB Conc 32.5 g/dL (31.8-35.4); Mean Corpuscular Hemoglobin 31.8 pg (27.0-31.2); Mean Corpuscular Volume 97.9 fl (81-99); Mean Platelet Volume 12.4 fl (7.4-10.4); Monocytes # 0.6 K/mm3 (0.1-1.0); Monocytes % 6.9 % (1.7-9.3); Neutrophils # 5.1 K/mm3 (1.8-7.8); Neutrophils % 60.3 % (37.0-80.0); Platelet Count 194 K/mm3 (142-424); Red Blood Count 5.37 M/mm3 (4.20-5.40); Red Cell Distribution Width 14.3 % (11.5-17.5); White Blood Count 8.5 K/mm3 (4.8-10.8)
[2020-08-15 09:45] LABS: Troponin I < 0.01 ng/ml (0.00-0.034)
[2020-08-15 09:51] LABS: INR 0.98 (0.9-1.1); Prothrombin Time 10.9 seconds (9.4-11.8)
[2020-08-15 10:00] LABS: Coronavirus 19 IgG Antibody Negative (Negative); Coronavirus 19 IgM Antibody Negative (Negative)
--- NOTE | 2020-08-15 10:02 | HMH.EDCP ---
ED Disposition Clinical Impression: Atypical chest pain Disposition: Home, Self-Care Condition on Discharge: Good Instructions: DI for Atypical Chest Pain Referrals: Neeta Venegas PA [Primary Care Provider] - - Critical Care Critical Care Time: No Attestation: On 08/15/20, the high probability of a clinically significant, sudden or life threatening deterioration of the following system(s) required my full and direct attention, intervention and personal management. The time I documented below is in addition to time spent performing reported procedures but includes the following listed in this critical care notation. Medical Decision Making - Medical Records Medical records reviewed: Yes: I reviewed the patient's medical records. - Abdirashid Inquiry Pt receiving controlled substance: No Vital Signs: 08/15/20 09:20 08/15/20 10:20 08/15/20 10:30 Temperature 98.2 F Temperature Source Oral Pulse Rate [Apical] 51 L 49 L 50 L Respiratory Rate 18 20 21 Blood Pressure [Right Arm] 128/75 134/72 114/70 Blood Pressure Mean [Right Arm] 92 92 84 Blood Pressure Source [Right Arm] Automatic Cuff Automatic Cuff Automatic Cuff Blood Pressure Position [Right Arm] Sitting Sitting Sitting 02 Sat by Pulse Oximetry 96 97 97 Oxygen Delivery Method Room Air Room Air Room Air 08/15/20 11:00 08/15/20 11:30 08/15/20 12:00 Temperature Temperature Source Pulse Rate [Apical] 51 L 52 L 50 L Respiratory Rate 25 H 24 12 Blood Pressure [Right Arm] 130/60 116/60 113/68 Blood Pressure Mean [Right Arm] 83 78 83 Blood Pressure Source [Right Arm] Automatic Cuff Automatic Cuff Automatic Cuff Blood Pressure Position [Right Arm] Sitting Sitting Sitting 02 Sat by Pulse Oximetry 95 96 92 L Oxygen Delivery Method Room Air Room Air Room Air - Lab Data Lab Results 08/15/20 09:00: WBC 8.5, RBC 5.37, Hgb 17.1 H, Hct 52.6 H, MCV 97.9, MCH 31.8 H, MCHC 32.5, RDW 14.3, Plt Count 194, MPV 12.4 H, Neut % (Auto) 60.3, Lymph % (Auto) 30.7, [place] % (Auto) 6.9, Eos % (Auto) 1.1, Baso % (Auto) 1.1, Neut # (Auto) 5.1, Lymph # (Auto) 2.6, [place] # (Auto) 0.6, Eos # (Auto) 0.1, Baso # (Auto) 0.1 08/15/20 09:00: PT 10.9, INR 0.98, APTT 26.0 08/15/20 09:00: Sodium 136, Potassium 3.6, Chloride 100, Carbon Dioxide 29, Anion Gap 10.6, BUN 14, Creatinine 0.90, Estimated Creat Clear 111, Estimated GFR 65, Est GFR ( Amer) 79, Glucose 128 H, Calcium 9.4, Total Bilirubin 0.6, AST 28, ALT 27, Alkaline Phosphatase 88, Troponin I < 0.01, Total Protein 7.6, Albumin 4.5, Globulin 3.1, Albumin/Globulin Ratio 1.5 08/15/20 09:00: SARS-CoV-2 IgG Ab (Rapid) Negative, SARS-CoV-2 IgM Ab (Rapid) Negative 08/15/20 09:52: Urine Color Yellow, Urine Appearance Clear, Urine pH 6.0, Ur Specific [place] 1.010, Urine Protein Negative, Urine Glucose (UA) Negative, Urine Ketones Negative, Urine Blood 1+, Urine Nitrate Negative, Urine Bilirubin Negative, Urine Urobilinogen 0.2, Ur Leukocyte Esterase Negative, Ur Squamous Epith Cells Occasional 08/15/20 11:55: Troponin I < 0.01 Result diagrams: 08/15/20 09:00 08/15/20 09:00 Orders (Tests/Meds): ED MEDICATIONS Discontinued Medications Generic Name Dose Route Start Last Admin Trade Name Freq PRN Reason Stop Dose Admin Acetaminophen 650 mg 08/15/20 09:36 08/15/20 09:57 Acetaminophen 325mg Tab PO 08/15/20 09:37 650 mg ONCE ONE Administration Sodium Chloride 1,000 mls @ 999 mls/hr 08/15/20 09:45 08/15/20 09:58 Sod Chlor 0.9% 1000ml Bag IV 08/15/20 10:45 999 mls/hr .[id number] LELO Administration ORDERS Category Date Time Status Covid-19 Nasal PCR Sendout P&C Stat Lab 08/15/20 11:51 Received Troponin I Q3H Lab 08/15/20 15:45 Ordered - ECG Data Tracing #1 Ventricular rate of 51 bpm, normal CA interval, normal QTC. Sinus bradycardia with right bundle branch block, nonspecific changes. ECG initial impression date: 08/15/20 ECG initial impression time: 09:28 - Reevaluation(s) Ti
[2020-08-15 10:20] LABS: Microscopic, Urine URINE MICROSCOPIC (MICROSCOPIC)
[2020-08-15 10:23] LABS: Appearance,Urine CLEAR (Clear); Bilirubin,Urine Negative (Negative); Blood, Urine 1+ (Negative); Color,Urine YELLOW (Yellow); Glucose,Urine (UA) Negative (Negative); Ketones,Urine Negative (Negative); Leukocyte Esterase,Urine Negative (Negative); Nitrate,Urine Negative (Negative); Protein,Urine Negative (Negative); Urobilinogen,Urine 0.2 EU/dl (0.2)
[2020-08-15 10:31] LABS: Squamous Epithelial Cell,Urine Occasional #/hpf (0-5)
--- NOTE | 2020-08-15 11:11 | PC.NURSE ---
covid swab sent to lab at this time.
--- NOTE | 2020-08-15 11:16 | PC.NURSE ---
repeat trop @ [id number] Storm
--- NOTE | 2020-08-15 11:18 | PC.NURSE ---
lab called of [id number] trop
[2020-08-15 12:27] LABS: Troponin I < 0.01 ng/ml (0.00-0.034)
[2020-08-16 09:53] LABS: Covid-19 Nasal PCR Sendout P&C NEGATIVE
== END 2020-08-15 13:20 | disposition home or self-care (01) ==
PROVIDERS: Emergency Provider Emergency Medicine; PCP Physician Assistant
DX: Z20.822 Contact with and (suspected) exposure to COVID-19 (principal); R07.89 Other chest pain; D75.1 Secondary polycythemia; I25.10 Atherosclerotic heart disease of native coronary artery without angina pectoris; J44.9 Chronic obstructive pulmonary disease, unspecified; E78.5 Hyperlipidemia, unspecified; I10 Essential (primary) hypertension; Z01.84 Encounter for antibody response examination; F17.210 Nicotine dependence, cigarettes, uncomplicated; Z79.899 Other long term (current) drug therapy
CPT/HCPCS: 36415; 71045; 80053; 81001; 84484; 85025; 85610; 85730; 86328; 93005; 99195; 99284; U0004

== ENCOUNTER 2020-08-31 09:00 | Outpatient (CLI) | payer MEDICARE, MEDICAID, SELFPAY ==
[2020-08-31 09:11] VITALS: BMI 34.4
[2020-08-31 09:26] LABS: Basophils # 0.1 K/mm3 (0-0.2); Eosinophils # 0.1 K/mm3 (0.0-0.4); Eosinophils % 1.4 % (0.1-12.0); Hematocrit 53.5 % (37.0-47.0); Hemoglobin 17.5 g/dL (12.2-16.2); Lymphocytes # 2.6 K/mm3 (0.7-4.5); Lymphocytes % 30.1 % (10-50); Mean Corpuscular HGB Conc 32.8 g/dL (31.8-35.4); Mean Corpuscular Hemoglobin 31.1 pg (27.0-31.2); Monocytes # 0.5 K/mm3 (0.1-1.0); Monocytes % 5.9 % (1.7-9.3); Neutrophils # 5.3 K/mm3 (1.8-7.8); Neutrophils % 61.5 % (37.0-80.0); Platelet Count 215 K/mm3 (142-424); Red Blood Count 5.63 M/mm3 (4.20-5.40); Red Cell Distribution Width 14.3 % (11.5-17.5); White Blood Count 8.6 K/mm3 (4.8-10.8)
== END 2020-08-31 10:20 | disposition home or self-care (01) ==
LOC: INF 09:12
PROVIDERS: PCP Physician Assistant; Visit Provider Urology
DX: D45 Polycythemia vera (principal)
CPT/HCPCS: 85025; 99195

== ENCOUNTER → 2020-09-02 13:00 | Outpatient (CLI) | payer MEDICARE, MEDICAID, SELFPAY ==
--- NOTE | 2020-09-02 13:11 | US_ITS ---
PROCEDURE: MM DIG MAMM DX UNILAT LT CAD Digital Breast Tomosynthesis Included CLINICAL INDICATION: abnormal mammogram. 6 mth f/u. Follow-up abnormal mammogram COMPARISON: MG DMDXUL DIG MAMM-DX UNI-LT W/CAD from 10/26/2016 MG MM DIG MAMM BI DX W/CAD from 12/09/2019 MG MM DIG MAMM DX UNILAT LT CAD from 03/01/2020 US US BREAST LT COMPLETE from 03/01/2020 US US BREAST RT COMPLETE from 03/01/2020 US US BREAST LT COMPLETE from 09/02/2020 US US BREAST RT COMPLETE from 09/02/2020 TECHNIQUE: Standard CC and MLO images and 3D Tomosynthesis was obtained. R2 CAD reviewed. FINDINGS: There is average fibroglandular tissue. Benign-appearing calcifications and benign-appearing breast nodules are once again noted. No malignant appearing mass or malignant-appearing microcalcification. Left breast ultrasound: There is a 5 mm cyst at 10 o'clock and a 3 mm cyst at 11 o'clock. No suspicious nodules are evident. 3 mm cyst is present at 9 o'clock. Right breast ultrasound: Multiple complicated cysts are once again noted including a 4 mm cyst at 12 o'clock, 4 mm cyst at 3 o'clock, 5 mm complicated cyst at 6 o'clock. 6 mm cyst at 9 o'clock, 4 mm cyst at 11 o'clock. No suspicious nodules are evident. IMPRESSION: Stable benign-appearing findings. Suggest resume bilateral screening mammogram in November 2020 BI-RAD Category: 2 Benign Finding(s) FOLLOW-UP: Screening mammogram November 2020 (A letter has been sent to the patient regarding results of the study.) Dictated by: Gagan Elam MD 09/09/2020 13:31 Gagan Elam MD in [place] 09/09/2020 13:31
== END ==
PROVIDERS: PCP Physician Assistant; Visit Provider Emergency Medicine
DX: R92.8 Other abnormal and inconclusive findings on diagnostic imaging of breast (principal)
CPT/HCPCS: 76641; 77061; 77065; G0279

== ENCOUNTER → 2020-09-05 18:01 | Outpatient (CLI) | payer MEDICARE, MEDICAID, SELFPAY ==
[2020-09-05 18:53] LABS: Amphetamine/Metha Screen,Urine Negative ng/ml (<1000)
[2020-09-05 18:54] LABS: Barbiturates Screen,Urine Negative ng/ml (<200); Benzodiazepines Screen,Urine Positive ng/ml (<200)
[2020-09-05 18:55] LABS: Cannabinoid Screen,Urine Negative ng/ml (<50)
[2020-09-05 18:56] LABS: Cocaine Screen,Urine Negative ng/ml (<300)
[2020-09-05 18:57] LABS: Methadone Screen,Urine Negative ng/ml (<300); Opiate Screen,Urine Negative ng/ml (<300)
[2020-09-05 18:58] LABS: Phencyclidine Screen,Urine Negative ng/ml (<25)
== END ==
PROVIDERS: Visit Provider Physician Assistant
DX: Z79.899 Other long term (current) drug therapy (principal); B96.20 Unspecified Escherichia coli [E. coli] as the cause of diseases classified elsewhere; N39.0 Urinary tract infection, site not specified
CPT/HCPCS: 80305; 87086; 87088; 87186

== ENCOUNTER 2020-09-12 06:35 | Outpatient (CLI) | payer MEDICARE, MEDICAID, SELFPAY ==
--- NOTE | 2020-09-12 06:36 | CA_ITS ---
APPROVED REPORT Exam: Pharmacologic Technologist: [facility] Ht: 5 ft 7 in Wt: 220 lbs BSA: 2.11 m2 HR: 64 bpm BP: 122/62 mmHg Indications: Chest Pain Medical History Medications: Alprazolam,,,,, Furosemide (LASIX),,,,, Aspirin,,,,, Atenolol,,,,, Vitamin D3,,,,, Atorvastatin,,,,, Escitalopram,,,,, Buspirone,,,,, TopIRAMATE,,,,, Albuterol,,,,, Estradiol,,,,, ProMETHAZINE,,,,, Stress Test Details Test: LEXISCAN HR Resting HR: 60 bpm Max Heart Rate (APMHR): 165 bpm Max HR Achieved: 95 bpm Target HR (85% APMHR): 140 bpm % of APMHR: 57 Recovery HR: 74 bpm BP Resting BP: 122.0/62.0 mmHg Max BP: 141.0/72.0 mmHg Recovery BP: 122.0/71.0 mmHg ECG Resting ECG: Normal sinus rhythm, right bundle branch block Clinical Reason for Termination: Completed Protocol Exercise duration: 04:00 min Highest Stage Achieved: Exercise capacity: 1.0 METs Stress ECG Conclusion Symptoms: Shortness of air. No chest pain. Arrhythmias/Ectopy: None ST-T Changes: < 1.[address] segment changes. Conclusion: Non-diagnostic Lexiscan stress test. Patient received the infusion without chest pain, ST segment changes or arrhythmias. See the nuclear report for further information. Electronically signed by : Ryan Pennington, 09/12/2020 21:20:29
--- NOTE | 2020-09-12 06:36 | NM_ITS ---
APPROVED REPORT Exam: Nuclear Stress Test Indication: Chest pain, SOB, CAD, HTN, High cholesterol, Tobacco use Patient Location: Outpatient Stress Tech: [facility] NM Tech:Lauren Henderson, ARRT, RT (R)(N) Ht: 5 ft 7 in Wt: 220 lbs Bra Size: 38C HR: 64 bpm BP: 122/62 mmHg BSA: 2.11 m2 BMI: 34.4 History: Chest pain, SOB, CAD, HTN, High cholesterol, Tobacco use Procedure: Patient received a 0.4 mg of intravenous Lexiscan, resting heart rate 64 bpm, resting blood pressure 122/62 mmHg, with Lexiscan maximum heart rate achived was 91 bpm which is Less than 85 % of the maximum predicted heart rate and blood pressure was 139/74 mmHg. With Lexiscan, patient denied any complaint of chest pain. Electrocardiogram Resting electrocardiogram showed sinus rhythm, with Lexiscan there is less than 1.[address] segment depression noted from the baseline EKG. The EKG portion of the Lexiscan is nondiagnostic. Cardiac Stress and Resting SPECT Images: Cardiac Stress and Resting SPECT images were obtained using technetium 99m Myoview 32.9 mCi stress and 10.93 mCi at rest. Gated SPECT for analysis of segmental wall motion and calculation of the ejection fraction also done. Prone images were also obtained. Cardiac stress and resting SPECT images show uniform myocardial activity without segmental perfusion abnormality, computer derived ejection fraction is 59% with no regional wall motion abnormality, right ventricle is normal size and contractility. Conclusion: 1. The EKG portion of the Lexiscan is nondiagnostic. 2. No scintigraphic evidence of reversible ischemia seen, computer derived ejection fraction is 59% with no regional wall motion abnormality, right ventricle is normal size and contractility. 3. Normal Lexiscan Myoview study. Electronically signed by : Ryan Pennington, 09/12/2020 21:28:11
--- NOTE | 2020-09-12 08:23 | HMH.ITSHM ---
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 []ESCITALOPRAM VITAMIN D3 TOPIRAMATE TIZANIDINE ROTIGOTINE LEVOFLOXACIN FLUTICASONE ESTRADIOL BUSPIRONE ATORVASTATIN ATENOLOL ASA ALPRAZOLAM ALBUTEROL TRAZODONE SUMATRIPTAN RANDAZINE PRMETHAZINE POTASSIUM NITRO LINZESS FUROSEMIDE
[2020-09-12 09:34] VITALS: BMI 34.4
--- NOTE | 2020-09-12 09:39 | PC.NURSE ---
pt returned from outpt stress test with nuclear, pt here today for lab check and possible phlebotomy. pt had iv to sl in lt ac from procedure. iv accessed and blood drawn for labs as ordered. will await results to see if pt needs phlebotomy today. pt drinking coffee, no c/o noted at this time.
[2020-09-12 09:45] LABS: Basophils # 0.1 K/mm3 (0-0.2); Basophils % 0.8 % (0.1-2.0); Eosinophils # 0.2 K/mm3 (0.0-0.4); Eosinophils % 2.1 % (0.1-12.0); Hematocrit 46.6 % (37.0-47.0); Hemoglobin 15.7 g/dL (12.2-16.2); Lymphocytes % 33.3 % (10-50); Mean Corpuscular HGB Conc 33.8 g/dL (31.8-35.4); Mean Corpuscular Hemoglobin 31.7 pg (27.0-31.2); Mean Corpuscular Volume 93.8 fl (81-99); Mean Platelet Volume 8.4 fl (7.4-10.4); Monocytes # 0.6 K/mm3 (0.1-1.0); Monocytes % 6.8 % (1.7-9.3); Neutrophils # 5.2 K/mm3 (1.8-7.8); Neutrophils % 57.1 % (37.0-80.0); Platelet Count 188 K/mm3 (142-424); Red Blood Count 4.97 M/mm3 (4.20-5.40); Red Cell Distribution Width 13.5 % (11.5-17.5); White Blood Count 9.1 K/mm3 (4.8-10.8)
== END 2020-09-12 09:59 | disposition home or self-care (01) ==
LOC: RAD 06:36
PROVIDERS: PCP Physician Assistant; Visit Provider Urology
DX: D75.1 Secondary polycythemia (principal); E78.2 Mixed hyperlipidemia; I10 Essential (primary) hypertension; I20.9 Angina pectoris, unspecified; R06.09 Other forms of dyspnea; Z72.0 Tobacco use
CPT/HCPCS: 78452; 85025; 93017; A9502; J2785

== ENCOUNTER → 2020-09-26 08:10 | Outpatient (CLI) | payer MEDICARE, MEDICAID, SELFPAY ==
[2020-09-26 08:13] VITALS: BMI 34.4
[2020-09-26 08:35] LABS: Basophils # 0.1 K/mm3 (0-0.2); Basophils % 0.7 % (0.1-2.0); Eosinophils # 0.1 K/mm3 (0.0-0.4); Eosinophils % 1.2 % (0.1-12.0); Hemoglobin 16.2 g/dL (12.2-16.2); Lymphocytes # 2.6 K/mm3 (0.7-4.5); Lymphocytes % 28.6 % (10-50); Mean Corpuscular HGB Conc 33.1 g/dL (31.8-35.4); Mean Corpuscular Hemoglobin 30.6 pg (27.0-31.2); Mean Corpuscular Volume 92.5 fl (81-99); Mean Platelet Volume 8.4 fl (7.4-10.4); Monocytes # 0.6 K/mm3 (0.1-1.0); Monocytes % 7.1 % (1.7-9.3); Neutrophils # 5.5 K/mm3 (1.8-7.8); Neutrophils % 62.3 % (37.0-80.0); Platelet Count 198 K/mm3 (142-424); Red Cell Distribution Width 13.5 % (11.5-17.5); White Blood Count 8.9 K/mm3 (4.8-10.8)
[2020-09-26 08:40] LABS: Chloride 104 mmol/L (98-107); Potassium 3.8 mmoL/L (3.5-5.1); Sodium 139 mmol/L (136-145)
[2020-09-26 08:43] LABS: Anion Gap 10.8 mEq/L (5-15); Blood Urea Nitrogen 20 mg/dl (7-17); Carbon Dioxide 28 mmol/L (22.0-30.0); Creatinine Clearance Estimated 91 mL/min (50-200); Estimated Glomerular Filt Rate 52 ml/min (>60); GFR (African American) 62 ML/MIN (>60)
[2020-09-26 08:44] LABS: Glucose 109 mg/dl (74-100)
--- NOTE | 2020-09-26 09:42 | PC.NURSE ---
Patient does not need therapeutic phlebotomy today per lab results H&H 16.. Next appointment scheduled for 10/10/20 at 0830. Patient discharged home/stable with no complaints.
== END ==
PROVIDERS: Visit Provider Internal Medicine
DX: D45 Polycythemia vera (principal)
CPT/HCPCS: 36415; 80048; 85025

== ENCOUNTER → 2020-10-10 08:23 | Outpatient (CLI) | payer MEDICARE, MEDICAID, SELFPAY ==
[2020-10-10 08:24] VITALS: BMI 34.4
--- NOTE | 2020-10-10 08:36 | PC.NURSE ---
lab staff at chair side to draw blood for cbc
[2020-10-10 08:46] LABS: Basophils % 0.4 % (0.1-2.0); Eosinophils # 0.1 K/mm3 (0.0-0.4); Eosinophils % 1.1 % (0.1-12.0); Hematocrit 49.4 % (37.0-47.0); Hemoglobin 16.3 g/dL (12.2-16.2); Lymphocytes # 2.5 K/mm3 (0.7-4.5); Lymphocytes % 25.8 % (10-50); Mean Platelet Volume 8.6 fl (7.4-10.4); Monocytes # 0.6 K/mm3 (0.1-1.0); Monocytes % 6.1 % (1.7-9.3); Neutrophils # 6.4 K/mm3 (1.8-7.8); Neutrophils % 66.5 % (37.0-80.0); Platelet Count 176 K/mm3 (142-424); Red Blood Count 5.25 M/mm3 (4.20-5.40); Red Cell Distribution Width 13.6 % (11.5-17.5); White Blood Count 9.6 K/mm3 (4.8-10.8)
== END ==
PROVIDERS: Visit Provider Urology
DX: D45 Polycythemia vera (principal)
CPT/HCPCS: 36415; 85025

== ENCOUNTER → 2020-10-14 11:39 | Outpatient (CLI) | payer MEDICARE, MEDICAID, SELFPAY ==
[2020-10-14 12:28] LABS: Basophils # 0.1 K/mm3 (0-0.2); Basophils % 0.7 % (0.1-2.0); Eosinophils # 0.1 K/mm3 (0.0-0.4); Eosinophils % 0.9 % (0.1-12.0); Hematocrit 51.9 % (37.0-47.0); Hemoglobin 16.8 g/dL (12.2-16.2); Lymphocytes # 2.6 K/mm3 (0.7-4.5); Lymphocytes % 29.6 % (10-50); Mean Corpuscular HGB Conc 32.3 g/dL (31.8-35.4); Mean Corpuscular Volume 96.1 fl (81-99); Mean Platelet Volume 8.5 fl (7.4-10.4); Monocytes # 0.5 K/mm3 (0.1-1.0); Monocytes % 5.8 % (1.7-9.3); Neutrophils # 5.5 K/mm3 (1.8-7.8); Neutrophils % 62.9 % (37.0-80.0); Platelet Count 174 K/mm3 (142-424); Red Cell Distribution Width 13.1 % (11.5-17.5); White Blood Count 8.7 K/mm3 (4.8-10.8)
[2020-10-14 12:43] LABS: Chloride 107 mmol/L (98-107); Sodium 141 mmol/L (136-145)
[2020-10-14 12:44] LABS: Potassium 4.1 mmoL/L (3.5-5.1)
[2020-10-14 12:46] LABS: Alanine Aminotransferase 27 U/L (12-78); Albumin Level 4.8 g/dl (3.5-5.0); Albumin/Globulin Ratio 1.8 (1.1-1.8); Alkaline Phosphatase 82 U/L (38-126); Anion Gap 11.1 mEq/L (5-15); Aspartate Amino Transferase 26 U/L (14-36); Bilirubin,Total 0.7 mg/dl (0.2-1.3); Blood Urea Nitrogen 13 mg/dl (7-17); Carbon Dioxide 27 mmol/L (22.0-30.0); Estimated Glomerular Filt Rate 58 ml/min (>60); GFR (African American) 70 ML/MIN (>60); Globulin 2.7 g/dL (1.3-3.2); Total Protein,Serum 7.5 g/dl (6.3-8.2)
[2020-10-14 12:47] LABS: Glucose 138 mg/dl (74-100)
[2020-10-17 20:15] LABS: Carbon Monoxide, Whole Blood 11.1 % (0.0-3.6); Erythropoietin 8.3 mIU/mL (2.6-18.5)
== END ==
PROVIDERS: Visit Provider Internal Medicine Medical Oncology
DX: D75.1 Secondary polycythemia (principal); Z87.891 Personal history of nicotine dependence
CPT/HCPCS: 36415; 80053; 81270; 82375; 82668; 85025

== ENCOUNTER 2020-10-24 08:05 | Outpatient (CLI) | payer MEDICARE, MEDICAID, SELFPAY ==
[2020-10-24 08:12] VITALS: BMI 34.7
[2020-10-24 08:34] LABS: Basophils # 0.1 K/mm3 (0-0.2); Basophils % 0.5 % (0.1-2.0); Eosinophils # 0.1 K/mm3 (0.0-0.4); Hematocrit 46.8 % (37.0-47.0); Hemoglobin 15.6 g/dL (12.2-16.2); Lymphocytes # 2.7 K/mm3 (0.7-4.5); Lymphocytes % 24.5 % (10-50); Mean Corpuscular HGB Conc 33.3 g/dL (31.8-35.4); Mean Corpuscular Hemoglobin 30.6 pg (27.0-31.2); Mean Corpuscular Volume 91.7 fl (81-99); Mean Platelet Volume 8.5 fl (7.4-10.4); Monocytes # 0.7 K/mm3 (0.1-1.0); Monocytes % 6.3 % (1.7-9.3); Neutrophils # 7.5 K/mm3 (1.8-7.8); Neutrophils % 67.6 % (37.0-80.0); Platelet Count 206 K/mm3 (142-424); Red Cell Distribution Width 13.3 % (11.5-17.5); White Blood Count 11.1 K/mm3 (4.8-10.8)
--- NOTE | 2020-10-24 08:45 | PC.NURSE ---
0845-pt here to have cbc checked for possible therapeutic phlebotomy if hgb > 17; pt hgb 15.6. pt will return for recheck in 2 weeks.
== END 2020-10-24 08:45 | disposition home or self-care (01) ==
LOC: INF 08:10
PROVIDERS: Urology; Visit Provider Nurse Practitioner Family
DX: D75.1 Secondary polycythemia (principal)
CPT/HCPCS: 36415; 85025

== ENCOUNTER → 2020-10-27 14:10 | Outpatient (CLI) | payer MEDICARE, MEDICAID, SELFPAY | PROVIDERS: PCP Physician Assistant; Visit Provider Internal Medicine Medical Oncology | DX: G47.33 Obstructive sleep apnea (adult) (pediatric) (principal); Z72.0 Tobacco use | CPT/HCPCS: G0399 ==

== ENCOUNTER → 2020-11-03 14:47 | Outpatient (CLI) | payer MEDICARE, MEDICAID, SELFPAY ==
--- NOTE | 2020-11-03 14:50 | CT_ITS ---
PROCEDURE: CT LUNG SCREENING CLINICAL INDICATION: HX OF NICOTINE USE Current smoker 30 pack year smoking history COMPARISON: CT CT ANGIO CHEST from 11/06/2019 TECHNIQUE: The exam was performed on a GE Light Speed [address] scanner using 2.90 mGy CTDI. A low dose helical CT CHEST was performed on a multi-detector scanner. All CT scans at the facility use one or more dose reduction, viz: automated exposure control, ma/kV adjustment per patient size (including targeted exams where dose is matched to indication, i.e. head), or iterative reconstruction technique. The LDCT was performed in a facility that meets the criteria for the screening program. Data regarding this exam was submitted to ACR which is an approved registry. The order for this exam indicates that it came as a result of a lung cancer screening counseling shard decision-making visit that included all the elements required of such a visit including smoking cessation. The radiologist interpreting this exam meets the CMS criteria for the LDCT lung cancer screening program. The exam is reported using the Lung-RADS classification scale and reported to the ACR registry. NOTE: This study was performed for the specific purposes of lung cancer screening and is not an alternative to diagnostic chest CT. RADIATION DOSE: CTDI vol(CT dose Index-volume) = 2.90mG DLP (Dose Length Product) = 109.68 mGcm FINDINGS: COPD changes. No suspicious nodules are evident. There are stable 3 mm nodules in the right upper lobe anteriorly in the left upper lobe laterally. 5 mm nodular opacity previously described likely represents a small area of bronchiectasis in the left perihilar region OTHER FINDINGS: Coronary artery calcifications. Stable enlarged adrenal glands maintaining an adrenal form shape. Incompletely imaged exophytic isodense the projects off the lateral aspect of the left kidney suggesting a cyst IMPRESSION: Lung-RADS Category 2 Benign Appearance or Behavior Follow-up: Continue annual screening with LDCT in 12 months Dictated by: Gagan Elam MD 11/06/2020 10:56 Gagan Elam MD in [place] 11/06/2020 10:56
== END ==
PROVIDERS: PCP Physician Assistant; Visit Provider Internal Medicine Medical Oncology
DX: Z87.891 Personal history of nicotine dependence (principal); Z12.2 Encounter for screening for malignant neoplasm of respiratory organs
CPT/HCPCS: 71271

== ENCOUNTER 2020-11-07 08:09 | Outpatient (CLI) | payer MEDICARE, MEDICAID, SELFPAY ==
[2020-11-07 08:11] VITALS: BMI 34.4
[2020-11-07 08:30] LABS: Basophils # 0.1 K/mm3 (0-0.2); Basophils % 0.8 % (0.1-2.0); Eosinophils # 0.1 K/mm3 (0.0-0.4); Eosinophils % 1.1 % (0.1-12.0); Hematocrit 47.2 % (37.0-47.0); Lymphocytes # 3.1 K/mm3 (0.7-4.5); Lymphocytes % 28.9 % (10-50); Mean Corpuscular HGB Conc 33.9 g/dL (31.8-35.4); Mean Corpuscular Hemoglobin 31.1 pg (27.0-31.2); Mean Corpuscular Volume 91.7 fl (81-99); Mean Platelet Volume 8.3 fl (7.4-10.4); Monocytes # 0.7 K/mm3 (0.1-1.0); Monocytes % 6.2 % (1.7-9.3); Neutrophils # 6.7 K/mm3 (1.8-7.8); Neutrophils % 62.9 % (37.0-80.0); Platelet Count 192 K/mm3 (142-424); Red Blood Count 5.15 M/mm3 (4.20-5.40); Red Cell Distribution Width 13.7 % (11.5-17.5); White Blood Count 10.7 K/mm3 (4.8-10.8)
--- NOTE | 2020-11-07 08:41 | PC.NURSE ---
H&H today 16.0/47.2, no phlebotomy needed based on lab results. 2 week appt scheduled for Sat11/21/20 at 0830
== END 2020-11-07 08:43 | disposition home or self-care (01) ==
LOC: INF 08:09
PROVIDERS: Visit Provider Urology
DX: D45 Polycythemia vera (principal)
CPT/HCPCS: 36415; 85025

== ENCOUNTER 2020-11-21 08:10 | Outpatient (CLI) | payer MEDICARE, MEDICAID, SELFPAY ==
[2020-11-21 08:12] VITALS: BMI 34.4
[2020-11-21 08:41] LABS: Basophils # 0.1 K/mm3 (0-0.2); Basophils % 0.8 % (0.1-2.0); Eosinophils # 0.1 K/mm3 (0.0-0.4); Eosinophils % 1.3 % (0.1-12.0); Hematocrit 47.2 % (37.0-47.0); Hemoglobin 15.5 g/dL (12.2-16.2); Lymphocytes # 2.8 K/mm3 (0.7-4.5); Lymphocytes % 27.5 % (10-50); Mean Corpuscular HGB Conc 32.8 g/dL (31.8-35.4); Mean Corpuscular Hemoglobin 30.7 pg (27.0-31.2); Mean Corpuscular Volume 93.6 fl (81-99); Mean Platelet Volume 8.8 fl (7.4-10.4); Monocytes # 0.6 K/mm3 (0.1-1.0); Monocytes % 5.9 % (1.7-9.3); Neutrophils # 6.7 K/mm3 (1.8-7.8); Neutrophils % 64.6 % (37.0-80.0); Platelet Count 194 K/mm3 (142-424); Red Blood Count 5.04 M/mm3 (4.20-5.40); Red Cell Distribution Width 13.6 % (11.5-17.5); White Blood Count 10.4 K/mm3 (4.8-10.8)
== END 2020-11-21 08:53 | disposition home or self-care (01) ==
LOC: INF 08:10
PROVIDERS: Visit Provider Internal Medicine
DX: D75.1 Secondary polycythemia (principal)
CPT/HCPCS: 36415; 85025

== ENCOUNTER → 2020-11-22 13:25 | Outpatient (CLI) | payer MEDICARE, MEDICAID, SELFPAY ==
--- NOTE | 2020-11-22 13:25 | MM_ITS ---
PROCEDURE: MM DIG MAMM BI DX W/CAD Digital Breast Tomosynthesis Included CLINICAL INDICATION: 6 mth f/u Follow-up abnormal mammogram mid COMPARISON: MG DMDB DIG MAMM-DX NOHEMY from 03/01/2015 MG DMDXUWAL DIG MAMM-DX UNI LT W ADD VIEW from 06/10/2015 MG DMSB DIG MAMM-SCREEN NOHEMY from 02/27/2016 MG DMDXUL DIG MAMM-DX UNI-LT W/CAD from 10/26/2016 MG MM DIG MAMM BI DX W/CAD from 12/09/2019 MG MM DIG MAMM DX UNILAT LT CAD from 03/01/2020 MG MM DIG MAMM DX UNILAT LT CAD from 09/02/2020 TECHNIQUE: Standard CC and MLO images and 3D Tomosynthesis was obtained. R2 CAD reviewed. FINDINGS: Average fibroglandular tissue. Scattered benign-appearing calcifications and benign-appearing nodules. Stable areas of asymmetry. No malignant appearing mass or malignant-appearing microcalcification. A clip is present in the lower inner portion of the left breast. IMPRESSION: BI-RAD Category: 2 Benign Finding(s) FOLLOW-UP: 1YR 1 Year Follow-up (A letter has been sent to the patient regarding results of the study.) Dictated by: Gagan Elam MD 11/30/2020 10:08 Gagan Elam MD in [place] 11/30/2020 10:08
== END ==
PROVIDERS: PCP Physician Assistant; Visit Provider Emergency Medicine
DX: R92.8 Other abnormal and inconclusive findings on diagnostic imaging of breast (principal)
CPT/HCPCS: 77062; 77066; G0279

== ENCOUNTER 2020-12-05 08:05 | Outpatient (CLI) | payer MEDICARE, MEDICAID, SELFPAY ==
[2020-12-05 08:06] VITALS: BMI 35.5
--- NOTE | 2020-12-05 08:40 | PC.NURSE ---
Addendum entered by Es Velazquez RN 12/05/20 09:00: PT IN DEPARTMENT FOR LAB CHECK FOR POSSIBLE THERAPEUTIC PHLEBOTOMY IF HGB >17; HGB 16.9 PT DIDN'T HAVE TO HAVE THERAPEUTIC PHLEBOTOMY; PT TO RETURN IN 2 WEEKS FOR REPEAT LABS Original Note: 1429
[2020-12-05 08:44] LABS: Basophils # 0.1 K/mm3 (0-0.2); Basophils % 0.7 % (0.1-2.0); Eosinophils # 0.2 K/mm3 (0.0-0.4); Eosinophils % 1.6 % (0.1-12.0); Hematocrit 50.2 % (37.0-47.0); Hemoglobin 16.9 g/dL (12.2-16.2); Lymphocytes # 3.1 K/mm3 (0.7-4.5); Lymphocytes % 32.2 % (10-50); Mean Corpuscular HGB Conc 33.6 g/dL (31.8-35.4); Mean Corpuscular Hemoglobin 30.9 pg (27.0-31.2); Mean Platelet Volume 8.7 fl (7.4-10.4); Monocytes # 0.8 K/mm3 (0.1-1.0); Monocytes % 8.2 % (1.7-9.3); Neutrophils # 5.5 K/mm3 (1.8-7.8); Neutrophils % 57.2 % (37.0-80.0); Platelet Count 196 K/mm3 (142-424); Red Blood Count 5.46 M/mm3 (4.20-5.40); Red Cell Distribution Width 13.9 % (11.5-17.5); White Blood Count 9.7 K/mm3 (4.8-10.8)
== END 2020-12-05 08:45 | disposition home or self-care (01) ==
LOC: INF 08:05
PROVIDERS: Internal Medicine Medical Oncology; Visit Provider Internal Medicine
DX: D75.1 Secondary polycythemia (principal)
CPT/HCPCS: 36415; 82375; 85025

== ENCOUNTER 2020-12-19 08:12 | Outpatient (CLI) | payer MEDICARE, MEDICAID, SELFPAY ==
[2020-12-19 08:12] VITALS: BMI 34.4
[2020-12-19 08:40] LABS: Basophils # 0.1 K/mm3 (0-0.2); Basophils % 0.8 % (0.1-2.0); Eosinophils # 0.2 K/mm3 (0.0-0.4); Eosinophils % 1.8 % (0.1-12.0); Hematocrit 44.2 % (37.0-47.0); Hemoglobin 15.2 g/dL (12.2-16.2); Lymphocytes # 2.9 K/mm3 (0.7-4.5); Lymphocytes % 36.1 % (10-50); Mean Corpuscular HGB Conc 34.4 g/dL (31.8-35.4); Mean Corpuscular Hemoglobin 31.4 pg (27.0-31.2); Mean Corpuscular Volume 91.1 fl (81-99); Mean Platelet Volume 8.7 fl (7.4-10.4); Monocytes # 0.6 K/mm3 (0.1-1.0); Monocytes % 7.3 % (1.7-9.3); Neutrophils # 4.4 K/mm3 (1.8-7.8); Platelet Count 172 K/mm3 (142-424); Red Blood Count 4.85 M/mm3 (4.20-5.40); Red Cell Distribution Width 13.7 % (11.5-17.5); White Blood Count 8.1 K/mm3 (4.8-10.8)
--- NOTE | 2020-12-19 09:08 | PC.NURSE ---
12/19/20 0835 Therapeutic phlebotomy not needed today based on H&H results hgb 15.2, hct 44.2. Patient discharged home/stable
== END 2020-12-19 08:45 | disposition home or self-care (01) ==
LOC: INF 08:12
PROVIDERS: Visit Provider Internal Medicine
DX: D45 Polycythemia vera (principal)
CPT/HCPCS: 36415; 85025

== ENCOUNTER 2021-01-02 08:05 | Outpatient (CLI) | payer MEDICARE, MEDICAID, SELFPAY ==
[2021-01-02 08:06] VITALS: BMI 34.4
[2021-01-02 08:30] LABS: Basophils # 0.1 K/mm3 (0-0.2); Basophils % 0.5 % (0.1-2.0); Eosinophils # 0.1 K/mm3 (0.0-0.4); Eosinophils % 1.4 % (0.1-12.0); Hematocrit 37.3 % (37.0-47.0); Hemoglobin 15.9 g/dL (12.2-16.2); Lymphocytes # 3.3 K/mm3 (0.7-4.5); Lymphocytes % 33.3 % (10-50); Mean Corpuscular Hemoglobin 33.8 pg (27.0-31.2); Mean Corpuscular Volume 79.3 fl (81-99); Mean Platelet Volume 18.7 fl (7.4-10.4); Monocytes # 0.7 K/mm3 (0.1-1.0); Monocytes % 7.3 % (1.7-9.3); Neutrophils # 5.6 K/mm3 (1.8-7.8); Neutrophils % 57.4 % (37.0-80.0); Platelet Count 111 K/mm3 (142-424); White Blood Count 9.8 K/mm3 (4.8-10.8)
[2021-01-02 09:00] LABS: Mean Corpuscular HGB Conc 42.7 g/dL (31.8-35.4); Red Cell Distribution Width 30.2 % (11.5-17.5)
== END 2021-01-02 09:05 | disposition home or self-care (01) ==
LOC: INF 08:05
PROVIDERS: Visit Provider Nurse Practitioner Family
DX: D75.1 Secondary polycythemia (principal)
CPT/HCPCS: 36415; 85025

== ENCOUNTER 2021-01-30 12:00 | Outpatient (CLI) | payer MEDICARE, MEDICAID, SELFPAY ==
[2021-01-30 12:04] VITALS: BMI 35.5
[2021-01-30 12:10] VITALS: BP 131/71; PULSE 64; RESP 18; TEMP 36.3; O2SAT 97
--- NOTE | 2021-01-30 12:14 | PC.NURSE ---
lab staff chad bishop at pt's chairside to obtain blood for labs as ordered per . awaiting results to see if pt will need phlebotomy today.
[2021-01-30 12:19] LABS: Basophils # 0.1 K/mm3 (0-0.2); Basophils % 0.7 % (0.1-2.0); Eosinophils # 0.1 K/mm3 (0.0-0.4); Eosinophils % 1.6 % (0.1-12.0); Hematocrit 45.2 % (37.0-47.0); Hemoglobin 15.4 g/dL (12.2-16.2); Lymphocytes # 2.6 K/mm3 (0.7-4.5); Lymphocytes % 30.5 % (10-50); Mean Corpuscular HGB Conc 34.1 g/dL (31.8-35.4); Mean Corpuscular Hemoglobin 31.4 pg (27.0-31.2); Mean Platelet Volume 8.4 fl (7.4-10.4); Monocytes # 0.6 K/mm3 (0.1-1.0); Neutrophils # 5.1 K/mm3 (1.8-7.8); Neutrophils % 60.2 % (37.0-80.0); Platelet Count 189 K/mm3 (142-424); Red Blood Count 4.91 M/mm3 (4.20-5.40); Red Cell Distribution Width 13.1 % (11.5-17.5); White Blood Count 8.4 K/mm3 (4.8-10.8)
== END 2021-01-30 12:38 | disposition home or self-care (01) ==
LOC: INF 12:00
PROVIDERS: Visit Provider Nurse Practitioner Family
DX: D45 Polycythemia vera (principal)
CPT/HCPCS: 36415; 85025

== ENCOUNTER → 2021-02-22 09:32 | Outpatient (CLI) | payer MEDICARE, MEDICAID, SELFPAY ==
[2021-02-22 19:28] LABS: Amphetamine/Metha Screen,Urine Negative ng/ml (<1000); Barbiturates Screen,Urine Negative ng/ml (<200)
[2021-02-22 19:29] LABS: Benzodiazepines Screen,Urine Negative ng/ml (<200)
[2021-02-22 19:30] LABS: Cannabinoid Screen,Urine Negative ng/ml (<50); Cocaine Screen,Urine Negative ng/ml (<300)
[2021-02-22 19:31] LABS: Methadone Screen,Urine Negative ng/ml (<300)
[2021-02-22 19:32] LABS: Opiate Screen,Urine Negative ng/ml (<300); Phencyclidine Screen,Urine Negative ng/ml (<25)
== END ==
PROVIDERS: Visit Provider Physician Assistant
DX: N89.8 Other specified noninflammatory disorders of vagina (principal); Z79.899 Other long term (current) drug therapy
CPT/HCPCS: 80305; 87210

== ENCOUNTER 2021-03-02 08:14 | Outpatient (CLI) | payer MEDICARE, MEDICAID, SELFPAY ==
[2021-03-02 08:16] VITALS: BMI 34.4
[2021-03-02 08:42] LABS: Basophils # 0.1 K/mm3 (0-0.2); Basophils % 1.1 % (0.1-2.0); Eosinophils # 0.1 K/mm3 (0.0-0.4); Eosinophils % 1.5 % (0.1-12.0); Hematocrit 47.9 % (37.0-47.0); Hemoglobin 16.1 g/dL (12.2-16.2); Lymphocytes # 2.7 K/mm3 (0.7-4.5); Lymphocytes % 31.8 % (10-50); Mean Corpuscular HGB Conc 33.6 g/dL (31.8-35.4); Mean Corpuscular Volume 92.5 fl (81-99); Mean Platelet Volume 8.6 fl (7.4-10.4); Monocytes # 0.5 K/mm3 (0.1-1.0); Monocytes % 6.2 % (1.7-9.3); Neutrophils # 5.1 K/mm3 (1.8-7.8); Neutrophils % 59.4 % (37.0-80.0); Platelet Count 170 K/mm3 (142-424); Red Blood Count 5.18 M/mm3 (4.20-5.40); Red Cell Distribution Width 13.8 % (11.5-17.5); White Blood Count 8.6 K/mm3 (4.8-10.8)
--- NOTE | 2021-03-02 10:17 | PC.NURSE ---
0855 No therapeutic phlebotomy needed today based on Hgb 16.1. Patient denies complaints. Next appointment scheduled for 04/04/21.
== END 2021-03-02 08:55 | disposition home or self-care (01) ==
LOC: INF 08:14
PROVIDERS: Visit Provider Nurse Practitioner Family
DX: D45 Polycythemia vera (principal)
CPT/HCPCS: 36415; 85025

== ENCOUNTER → 2021-03-14 08:59 | Outpatient (POV) | payer MEDICARE, MEDICAID, SELFPAY | PROVIDERS: Visit Provider Dermatology | DX: Z00.00 Encounter for general adult medical examination without abnormal findings (principal) ==

== ENCOUNTER → 2021-03-17 14:15 | Outpatient (CLI) | payer MEDICARE, MEDICAID, SELFPAY | PROVIDERS: Visit Provider Orthopaedic Surgery | DX: Z01.812 Encounter for preprocedural laboratory examination (principal); Z11.52 Encounter for screening for COVID-19 | CPT/HCPCS: U0003 ==

== ENCOUNTER 2021-04-04 07:43 | Outpatient (CLI) | payer MEDICARE, MEDICAID, SELFPAY ==
[2021-04-04 08:06] VITALS: BMI 35.5
[2021-04-04 08:24] LABS: Basophils # 0.1 K/mm3 (0-0.2); Basophils % 0.8 % (0.1-2.0); Eosinophils # 0.1 K/mm3 (0.0-0.4); Eosinophils % 1.2 % (0.1-12.0); Hematocrit 46.3 % (37.0-47.0); Hemoglobin 15.8 g/dL (12.2-16.2); Lymphocytes % 26.9 % (10-50); Mean Corpuscular HGB Conc 34.1 g/dL (31.8-35.4); Mean Corpuscular Hemoglobin 32.4 pg (27.0-31.2); Mean Corpuscular Volume 95.2 fl (81-99); Mean Platelet Volume 8.8 fl (7.4-10.4); Monocytes # 0.8 K/mm3 (0.1-1.0); Neutrophils # 7.1 K/mm3 (1.8-7.8); Neutrophils % 64.1 % (37.0-80.0); Platelet Count 203 K/mm3 (142-424); Red Blood Count 4.86 M/mm3 (4.20-5.40); Red Cell Distribution Width 13.2 % (11.5-17.5); White Blood Count 11.1 K/mm3 (4.8-10.8)
--- NOTE | 2021-04-04 08:35 | PC.NURSE ---
0835-pt here for lab check for possible therapeutic phlebotomy if hgb > 17; pt hgb 15.8 today, pt will return in a month for lab recheck.
== END 2021-04-04 08:35 | disposition home or self-care (01) ==
LOC: INF 07:44
PROVIDERS: PCP Physician Assistant; Visit Provider Nurse Practitioner Family
DX: D75.1 Secondary polycythemia (principal)
CPT/HCPCS: 36415; 85025

== ENCOUNTER 2021-05-08 08:01 | Outpatient (CLI) | payer MEDICARE, MEDICAID, SELFPAY ==
[2021-05-08 08:10] VITALS: BMI 34.4
[2021-05-08 08:31] LABS: Basophils # 0.1 K/mm3 (0-0.2); Basophils % 1.2 % (0.1-2.0); Eosinophils # 0.1 K/mm3 (0.0-0.4); Eosinophils % 1.1 % (0.1-12.0); Hematocrit 49.8 % (37.0-47.0); Hemoglobin 16.7 g/dL (12.2-16.2); Lymphocytes # 2.9 K/mm3 (0.7-4.5); Lymphocytes % 30.3 % (10-50); Mean Corpuscular HGB Conc 33.5 g/dL (31.8-35.4); Mean Corpuscular Hemoglobin 32.2 pg (27.0-31.2); Mean Corpuscular Volume 96.1 fl (81-99); Monocytes # 0.6 K/mm3 (0.1-1.0); Monocytes % 6.6 % (1.7-9.3); Neutrophils # 5.8 K/mm3 (1.8-7.8); Neutrophils % 60.8 % (37.0-80.0); Platelet Count 181 K/mm3 (142-424); Red Blood Count 5.18 M/mm3 (4.20-5.40); Red Cell Distribution Width 13.2 % (11.5-17.5); White Blood Count 9.6 K/mm3 (4.8-10.8)
--- NOTE | 2021-05-08 08:45 | PC.NURSE ---
0845-pt here for lab check if hgb >17 pt needs therapeutic phlebotomy; today pt hgb is 16.7 pt will return in a month for lab recheck
== END 2021-05-08 08:45 | disposition home or self-care (01) ==
LOC: INF 08:03
PROVIDERS: PCP Physician Assistant; Visit Provider Nurse Practitioner Family
DX: D45 Polycythemia vera (principal)
CPT/HCPCS: 36415; 85025

== ENCOUNTER 2021-06-05 08:00 | Outpatient (CLI) | payer MEDICARE, MEDICAID, SELFPAY ==
[2021-06-05 08:08] VITALS: BMI 34.4
[2021-06-05 08:34] LABS: Basophils # 0.1 K/mm3 (0-0.2); Basophils % 0.8 % (0.1-2.0); Eosinophils # 0.2 K/mm3 (0.0-0.4); Eosinophils % 1.4 % (0.1-12.0); Hematocrit 48.1 % (37.0-47.0); Hemoglobin 16.1 g/dL (12.2-16.2); Lymphocytes % 27.8 % (10-50); Mean Corpuscular HGB Conc 33.6 g/dL (31.8-35.4); Mean Corpuscular Hemoglobin 32.5 pg (27.0-31.2); Mean Corpuscular Volume 96.8 fl (81-99); Mean Platelet Volume 8.2 fl (7.4-10.4); Monocytes # 0.7 K/mm3 (0.1-1.0); Monocytes % 6.5 % (1.7-9.3); Neutrophils # 6.7 K/mm3 (1.8-7.8); Neutrophils % 63.5 % (37.0-80.0); Platelet Count 201 K/mm3 (142-424); Red Blood Count 4.96 M/mm3 (4.20-5.40); Red Cell Distribution Width 13.3 % (11.5-17.5); White Blood Count 10.6 K/mm3 (4.8-10.8)
--- NOTE | 2021-06-05 09:00 | PC.NURSE ---
0900-pt here for lab draw for possible therapeutic phlebotomy if pt hgb >17; today pt hgb 16.1 pt will return in 1 month for lab recheck.
== END 2021-06-05 09:00 | disposition home or self-care (01) ==
LOC: INF 08:01
PROVIDERS: PCP Physician Assistant; Visit Provider Nurse Practitioner Family
DX: D75.1 Secondary polycythemia (principal)
CPT/HCPCS: 36415; 85025

== ENCOUNTER → 2021-06-07 08:48 | Outpatient (CLI) | payer MEDICARE, MEDICAID, SELFPAY ==
--- NOTE | 2021-06-07 08:53 | XR_ITS ---
PROCEDURE: XR DEXA AXIAL SKELETON CLINICAL HISTORY: post menopausal smoker COMPARISON: No exams were available for comparison FINDINGS: The right hip BMD is 0.853 with a T-score of 0. The left hip BMD is 0.864 with a T-score of 0.1. The lumbar spine BMD is 1.207 with a T-score of 1 point. IMPRESSION: This patient is considered normal according to the World Health Organization criteria. Fracture risk is low. Based on these results a follow-up exam is recommended in 2 year. Dictated by: Gagan Elam MD 06/07/2021 15:38 Gagan Elam MD in [place] 06/07/2021 15:38
== END ==
PROVIDERS: PCP Physician Assistant; Visit Provider Physician Assistant
DX: Z78.0 Asymptomatic menopausal state (principal)
CPT/HCPCS: 77080

== ENCOUNTER 2021-07-03 08:06 | Outpatient (CLI) | payer MEDICARE, MEDICAID, SELFPAY ==
[2021-07-03 08:10] VITALS: BMI 34.4
[2021-07-03 08:49] LABS: Basophils # 0.1 K/mm3 (0-0.2); Basophils % 0.8 % (0.1-2.0); Eosinophils # 0.2 K/mm3 (0.0-0.4); Eosinophils % 2.3 % (0.1-12.0); Hematocrit 46.5 % (37.0-47.0); Hemoglobin 16.2 g/dL (12.2-16.2); Lymphocytes # 2.5 K/mm3 (0.7-4.5); Lymphocytes % 27.1 % (10-50); Mean Corpuscular HGB Conc 34.9 g/dL (31.8-35.4); Mean Corpuscular Hemoglobin 32.1 pg (27.0-31.2); Mean Corpuscular Volume 92.2 fl (81-99); Mean Platelet Volume 8.2 fl (7.4-10.4); Monocytes # 0.7 K/mm3 (0.1-1.0); Monocytes % 7.5 % (1.7-9.3); Neutrophils # 5.7 K/mm3 (1.8-7.8); Neutrophils % 62.3 % (37.0-80.0); Platelet Count 202 K/mm3 (142-424); Red Blood Count 5.04 M/mm3 (4.20-5.40); Red Cell Distribution Width 13.4 % (11.5-17.5); White Blood Count 9.2 K/mm3 (4.8-10.8)
--- NOTE | 2021-07-03 09:00 | PC.NURSE ---
0900-pt here for lab check for possible therapeutic phlebotomy if hgb >17; pt to return in one month for recheck no phlebotomy today hgb 16.2.
== END 2021-07-03 09:00 | disposition home or self-care (01) ==
LOC: INF 08:08
PROVIDERS: PCP Physician Assistant; Visit Provider Nurse Practitioner Family
DX: D75.1 Secondary polycythemia (principal)
CPT/HCPCS: 85025

== ENCOUNTER → 2021-07-24 10:41 | Outpatient (POV) | payer MEDICARE, MEDICAID, SELFPAY ==
[2021-07-24 11:01] VITALS: BP 131/76; PULSE 71; RESP 20; TEMP 36.6; O2SAT 96; BMI 35.7
--- NOTE | 2021-07-24 11:16 | HMH.PMCON ---
Assessment and Plan (1) Degenerative disc disease, lumbar Status: Acute Category: Medical Code(s): M51.36 - Other intervertebral disc degeneration, lumbar region (2) Degenerative disc disease, cervical Status: Acute Category: Medical Code(s): M50.30 - Other cervical disc degeneration, unspecified cervical region (3) Lumbar radiculopathy Status: Acute Category: Medical Code(s): M54.16 - Radiculopathy, lumbar region (4) Cervical radiculopathy Status: Acute Category: Medical Code(s): M54.12 - Radiculopathy, cervical region - Assessment and plan all Dx Assessment and Plan for all problems:: We will order x-rays of the cervical spine and lumbar spine for further evaluation to determine the extent of her facet arthropathy. I discussed with the patient that she will benefit from cervical facet joint/medial branch block injections at C5-C6 and C6-C7 on the left. I also discussed with her she may potentially benefit from lumbar facet joint/medial branch block injections at L4-L5 and L5-S1 bilaterally in the future. For now, I will schedule her for cervical facet joint/medial branch block injections at C5-C6 and C6-C7 on the left under fluoroscopy #1. HPI - Data of Consult Consult date: 07/24/21 Requesting Physician: Vanessa Hedrick APRN - Consult Narrative Reason for consult: neck pain and low back pain History of present illness: Ms. Hodge is a 56 year old female who presents today for initial evaluation of her chronic neck pain and chronic low back pain. She states she has recently undergone two-level cervical fusion 3 months ago and she states that her arm pain has significantly improved since undergoing surgery. However, she continues to experience chronic neck pain that is worse with neck range of motion especially with looking down. She states that this is worsened since undergoing surgery. She denies any radiation of pain at this time into her arms. She describes the pain as a dull aching pain. She has trialed tramadol 50 mg 1 tablet p.o. twice daily and she states that this does not adequately control her pain. She is also trialed home exercise program for this greater than 6 weeks with minimal pain relief. In regards to her chronic low back pain she states that she has been experiencing this pain for quite some time now and it is gradually worsening in nature. 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 She denies any pain rating into her legs. She describes the pain as a dull aching pain with sharp shooting exacerbations occasionally. She has trialed tramadol 50 mg 1 tablet p.o. twice daily and she states that this does not adequately control her pain. She is also trialed home exercise program for this greater than 6 weeks with minimal pain relief. She rates her pain in her neck and her low back as a 7 out of 10. CC: Vanessa Hedrick APRN [facility] History I have reviewed the patient's past medical history: Yes Medical History: Reports:: Anxiety, Atherosclerotic Heart Disease, Chronic Obstructive Pulmonary Disease (COPD), Coronary Artery Disease, Depression, Heart Murmur, Hyperlipidemia, Hypertension, Migraine, Seizures Denies:: Cancer, Diabetes Mellitus Type 1, Diabetes Mellitus Type 2, Internal Pacemaker, MRSA *Have you ever received a pneumonia vaccine?: No *Have you received a flu vaccine this season?: No Other Medical History: Reports: Arthritis, Glaucoma Laterality Cases: Left: Breast Biopsy Other Surgeries: Yes: No Previous Surgery, Cancer Surgery, Cardiac Catheterization, Colonoscopy, , EGD, Hysterectomy-Total, Skin Cancer Excision, Other. No: Pacemaker Amputation: No Fractures: Yes - *Social History Smoking Status: Current every day smoker Tobacco Type: cigarettes # Packs/Day (cigarettes): 1 #Yrs smoked (if former smoker): 30 Alcohol Intake: never Alcohol
== END ==
PROVIDERS: Visit Provider Family Medicine
DX: M51.16 Intervertebral disc disorders with radiculopathy, lumbar region (principal); M50.10 Cervical disc disorder with radiculopathy, unspecified cervical region
CPT/HCPCS: 99202; G0463

== ENCOUNTER → 2021-07-24 11:34 | Outpatient (CLI) | payer MEDICARE, MEDICAID, SELFPAY ==
--- NOTE | 2021-07-24 11:38 | XR_ITS ---
PROCEDURE: XR MULTIPLE SPINE 6+V CLINICAL INDICATION: LOW BACK PAIN, NECK PAIN COMPARISON: No exams were available for comparison FINDINGS: Normal alignment. No fracture or dislocation. No lytic or blastic change. Prior anterior cervical disc fusion at C5, C6, and C7. There is mild uncovertebral hypertrophy with foraminal narrowing on the right at C3-C4 and on the left at C3-C4. Mild facet arthritic changes at C5, C6, and C7 IMPRESSION: Prior anterior cervical disc fusion at C5, C6, and C7. Facet arthritic changes Uncovertebral hypertrophic changes with mild bilateral foraminal narrowing at C3-C4. Dictated by: Gagan Elam MD 07/24/2021 13:56 Gagan Elam MD in [place] 07/24/2021 13:56
== END ==
PROVIDERS: PCP Emergency Medicine; Visit Provider Clinical Nurse Specialist Family Health
DX: M54.2 Cervicalgia (principal); M54.50 Low back pain, unspecified
CPT/HCPCS: 72084; 99202; G0463

== ENCOUNTER → 2021-08-11 14:33 | Day surgery (SDC) | payer MEDICARE, MEDICAID, SELFPAY ==
[2021-08-11 14:40] VITALS: BP 158/79; PULSE 70; RESP 20; TEMP 36.1; O2SAT 98; BMI 35.5
--- NOTE | 2021-08-11 14:48 | P.PCN_ITS ---
- Procedure Date: 08/11/21 Time: 14:48 Anesthesiologist:: Ebony Harper MD Complications:: None Pre-procedure Diagnosis:: Degenerative disease of the cervical spine, cervical facet arthropathy, cervical spondylosis Post-procedure Diagnosis:: Same Indications for Procedure:: Patient is a very pleasant 56-year-old white female who presents today with chronic neck pain related to the above diagnosis. She has tried and failed conservative treatment including oral pain medications and home stretching program for greater than 6 weeks. Note, the patient has previously undergone a 2 level cervical fusion. The plan for today is for the patient to undergo diagnostic cervical facet joint/medial branch block injections at C5-C6 and C6- C7 on the left number 1. Procedure Details:: Informed consent was obtained and the risk and benefits of the procedure was explained to the patient. The patient was into the procedure room and placed prone on the procedure table. The neck was prepped using ChloraPrep. C-arm fluoroscopy was used to view the cervical spine. The skin and subcutaneous tissues were anesthetized lidocaine. I placed 22-gauge spinal needles into the facet joints of C5-6, C6-7 left needle placement was confirmed with dye. After this I injected 1 mL lidocaine 1.5% and Depo-Medrol 13 mg into each facet joint/medial branch of C5-6, C6-7 left. We used a total of 80 mg of Medrol for all 2 levels bilaterally. Patient tolerated the procedure well with no complications. Plan and Disposition:: We will follow-up with this patient in 2 weeks. Will reevaluate pain symptoms at that time. It has been previously discussed with the patient that she may potentially benefit from lumbar facet joint/medial branch block injections at L4-L5 and L5-S1 bilaterally in the future. We will continue to closely monitor at the next visit to determine whether she will still need these injections.
[2021-08-11 14:57] VITALS: BP 147/80; PULSE 57; RESP 18; O2SAT 98
[2021-08-11 14:59] VITALS: PULSE 58; RESP 18; O2SAT 99
[2021-08-11 15:11] VITALS: BP 141/99; PULSE 60; RESP 20; O2SAT 99
== END ==
PROVIDERS: PCP Emergency Medicine; Visit Provider Anesthesiology Pain Medicine
DX: M47.892 Other spondylosis, cervical region (principal); M50.30 Other cervical disc degeneration, unspecified cervical region; M54.02 Panniculitis affecting regions of neck and back, cervical region; R56.9 Unspecified convulsions; G43.909 Migraine, unspecified, not intractable, without status migrainosus; I25.10 Atherosclerotic heart disease of native coronary artery without angina pectoris; E78.5 Hyperlipidemia, unspecified; I10 Essential (primary) hypertension; J44.9 Chronic obstructive pulmonary disease, unspecified; F32.A Depression, unspecified; Z72.0 Tobacco use; Z88.8 Allergy status to other drugs, medicaments and biological substances
CPT/HCPCS: 64493; 64494; J1040; Q9966

== ENCOUNTER → 2021-08-16 15:30 | Outpatient (CLI) | payer MEDICARE, MEDICAID, SELFPAY | PROVIDERS: Visit Provider Nurse Practitioner Family | DX: U07.1 COVID-19 (principal) | CPT/HCPCS: C9803; U0003; U0005 ==

== ENCOUNTER 2021-08-20 13:12 | Emergency (ER) | payer MEDICARE, MEDICAID, SELFPAY ==
[2021-08-20 15:20] VITALS: BP 137/99; PULSE 66; RESP 18; TEMP 36.9; O2SAT 97; BMI 35.5
--- NOTE | 2021-08-20 15:26 | HMH.EDUTC ---
[facility] [place] Clinical Impression: Encounter for laboratory testing for COVID-19 virus Disposition: Home, Self-Care Condition on Discharge: Good Instructions: DI for COVID-19 (Suspected or Confirmed ), Cough (Alternative Therapy) Additional Instructions: *Monitor Temp, Over the counter Motrin or Tylenol as directed/as needed Tylenol every 4 hours and Motrin every 6 hours (as long as your family doctor has told you that you can take it) for fever or pain. and straight to ER if unable to lower temp less than 101.0 after medication given *Warm salt water gargles may help to soothe the throat *Throat Lozenges *Warm fluids like tea with honey may help to soothe the throat *Sleep elevated *Humidifier/Vaporizer Follow up IMMEDIATELY for new or worsening symptoms or no Noticeable improvement over the next 48-72 hours. 911 for difficulty breathing or swallowing You were tested for today for COVID19 your test result should be back in the next 24-48 hours, you may check your results on the [facility] Portal if you have trouble logging on you may call [employer] support for assistance You was given a handout with instructions for Self Quarantine and Self isolation for while you wait on test results and what to do if they are positive If you are positive the Health Dept will be contacting you also Make sure to take your Vitamins Vit. C Vit D and Zinc if you can take them Referrals: Keith Santana MD [Primary Care Provider] - As needed Time of Disposition: 15:29 Medical Decision Making - Abdirashid Inquiry Pt receiving controlled substance: No Abdirashid was queried for this patient: No Vital Signs: 08/20/21 15:20 Temperature 98.4 F Temperature Source Oral Pulse Rate [Left Radial] 66 Respiratory Rate 18 Blood Pressure [Right Arm] 137/99 H Blood Pressure Mean [Right Arm] 111 Blood Pressure Source [Right Arm] Automatic Cuff Blood Pressure Position [Right Arm] Sitting 02 Sat by Pulse Oximetry 97 Oxygen Delivery Method Room Air [facility] [place] - General Stated complaint: covid exposed, test Time Seen by Provider: 08/20/21 15:27 Mode of Arrival: Ambulatory Source of Information: Patient Limitations: No Limitations Description of Symptoms (Recalled from Triage Doc. by RN): RODRIGUEZ, cough and congestion for 2 weeks HEENT Symptoms (Recalled from RN notes): Yes Resp Symptoms (Recalled from RN notes): No Skin Symptoms (Recalled from RN notes): No MS Symptoms (Recalled from RN notes): No Functional Status (Recalled from RN notes): na - History of Present Illness Provider Complaint: Patient states that she has been having headache cough and congestion for about 2 weeks on and off States that she was recenty exposed to someone that was positive for COVID so she came in wanting to get tested - Related Data Home Medications Medication Instructions Recorded Confirmed Cholecalciferol (Vitamin D3) 50,000 units PO DIRECTED 05/23/20 08/16/21 [Vitamin D3 50,000 unit Cap] Nitroglycerin 0.4 mg SUBLINGUAL Q5MINP PRN 05/23/20 08/16/21 timolol maleate 0.5 % eye drops 1 drp OPHTHALMIC DAILY ml 12/14/20 08/16/21 Atogepant [Qulipta] 60 mg PO DAILY 07/24/21 08/16/21 Atorvastatin Calcium [Lipitor 80mg 80 mg PO HS 07/24/21 08/16/21 Tablet*] estradioL [Estradiol (Once Weekly)] See Rx Instructions .ROUTE .COMPLEX 07/24/21 08/16/21 Previous Rx's Medication Instructions Recorded rotigotine 4 mg/24 hour 4 mg TRANSDERMA DAILY #30 each 02/08/21 transdermal 24 hour patch albuterol sulfate 90 mcg/actuation 1 inh INHALATION Q6H PRN #6.7 g 02/22/21 aerosol inhaler zolpidem 5 mg tablet 5 mg PO HS PRN #15 tab MDD 5 mg 06/15/21 diclofenac potassium 25 mg capsule 50 mg PO BID #120 cap 07/19/21 alprazolam 0.5 mg tablet 0.5 mg PO TIDP PRN #90 tab 08/16/21 aspirin 81 mg chewable tablet 81 mg PO QDAY #90 tab 08/16/21 atenolol 25 mg tablet 25 mg PO DAILY #90 tab 08/16/21 azithromycin 250 mg tablet See Rx Instructions PO .COMPLEX #6 08/16/21 tab benzon
[2021-08-20 15:29] VITALS: BP 137/99; PULSE 66; RESP 18; TEMP 36.9; O2SAT 97
== END 2021-08-20 15:30 | disposition home or self-care (01) ==
PROVIDERS: Emergency Provider Nurse Practitioner; PCP Emergency Medicine
DX: U07.1 COVID-19 (principal); J44.9 Chronic obstructive pulmonary disease, unspecified; F41.8 Other specified anxiety disorders; I10 Essential (primary) hypertension; E78.5 Hyperlipidemia, unspecified; F17.210 Nicotine dependence, cigarettes, uncomplicated; Z79.899 Other long term (current) drug therapy
CPT/HCPCS: G0463; 99202; C9803; U0003; U0005

== ENCOUNTER 2021-08-28 08:31 | Outpatient (CLI) | payer MEDICARE, MEDICAID, SELFPAY ==
[2021-08-28 08:36] VITALS: BMI 34.4
--- NOTE | 2021-08-28 08:47 | PC.NURSE ---
Labs drawn and taken to lab. Awaiting results.
[2021-08-28 08:50] LABS: Basophils # 0.2 K/mm3 (0-0.2); Basophils % 1.5 % (0.1-2.0); Eosinophils # 0.1 K/mm3 (0.0-0.4); Eosinophils % 0.7 % (0.1-12.0); Hematocrit 53.9 % (37.0-47.0); Hemoglobin 17.5 g/dL (12.2-16.2); Lymphocytes # 2.6 K/mm3 (0.7-4.5); Lymphocytes % 21.1 % (10-50); Mean Corpuscular HGB Conc 32.5 g/dL (31.8-35.4); Mean Corpuscular Hemoglobin 31.7 pg (27.0-31.2); Mean Corpuscular Volume 97.6 fl (81-99); Mean Platelet Volume 8.6 fl (7.4-10.4); Monocytes # 0.5 K/mm3 (0.1-1.0); Monocytes % 3.8 % (1.7-9.3); Neutrophils # 8.9 K/mm3 (1.8-7.8); Neutrophils % 72.8 % (37.0-80.0); Platelet Count 252 K/mm3 (142-424); Red Blood Count 5.52 M/mm3 (4.20-5.40); White Blood Count 12.2 K/mm3 (4.8-10.8)
[2021-08-28 09:17] VITALS: BP 138/49; PULSE 59; RESP 16; TEMP 36.6; O2SAT 97
[2021-08-28 09:44] VITALS: BP 132/70; PULSE 57; RESP 16; TEMP 36.6; O2SAT 97
== END 2021-08-28 09:44 | disposition home or self-care (01) ==
LOC: INF 08:32
PROVIDERS: PCP Physician Assistant; Visit Provider Urology
DX: D75.1 Secondary polycythemia (principal)
CPT/HCPCS: 85025; 99195

== ENCOUNTER → 2021-09-04 09:49 | Outpatient (POV) | payer MEDICARE, MEDICAID, SELFPAY ==
[2021-09-04 10:06] VITALS: BP 152/92; PULSE 76; RESP 18; O2SAT 99; BMI 35.5
--- NOTE | 2021-09-04 11:59 | HMH.PAINSOAP ---
[facility] Pain Management SOAP Note Subjective:: Patient is a 56-year-old white female who presents today for follow-up. She recently had a attempt at a medial branch block/facet joint injection C5-C6 C6-C7 number 1 injection. Patient rates her pain an [address] Harper was unable to proceed with the procedure due to the patient's intolerance of the procedure. She says she does not want to proceed with further injective therapy. Patient was reading one of the sounds on the wall for the [email or web address] device which is a TENS unit medical grade. She would like to try this. Patient has tried epidural steroid injections in the past with minimal relief. She is also had surgery to her cervical spine in the past. She does continue to have low back pain as well. Per Dr. Harper's note she wanted to do medial branch block/facet joint injections at L4-L5 L5-S1 bilaterally, however, the patient was not able to tolerate the injections to the cervical spine. She does not seem interested in pursuing the injections to the lumbar spine since she was not happy with cervical spine procedure. She is interested in possible intrathecal therapy versus spinal cord stimulation, however, she is reporting today a new fecal and urine incontinence which started approximately 1 month ago. She is also having numbness in her groin area. The pain is in the low back, bilateral lower extremities and feet. Patient says Dr. Michele did her neck surgery in the past she has tried conservative therapies of home stretching, physical therapy and oral medications. Review of Systems General: No recent weight changes, no fever, no sleep disturbances Respiratory: No cough, no shortness of air, no recurring pulmonary infections Cardiovascular/peripheral vascular: No chest pain, no palpitations, no edema, no shortness of breath Gastrointestinal: New onset incontinence Genitourinary: New onset incontinence Musculoskeletal: Chronic neck pain with radiation into upper extremities, chronic low back pain with radiation into bilateral legs and feet Psychiatric: [Normal mood/affect] Neurological: [Denies weakness in extremities], [denies balance issues] Objective:: Physical exam General: Alert and oriented x3, no acute distress, pleasant and cooperative Lungs: Respirations even and unlabored, symmetrical chest expansion Eyes: PERRL Musculoskeletal: Flexion and extension of lumbar and cervical [spine] somewhat guarded secondary to pain, [antalgic gait noted] Neurological: Speech clear, no gross sensory deficit Assessment:: New onset incontinence, degenerative disc disease cervical lumbar spine, lumbar and cervical radiculopathy symptoms Plan:: Patient is having new onset numbness and tingling in her groin area along with new onset per patient of bladder and bowel incontinence. We will schedule an MRI of lumbar spine and will plan for neurosurgical evaluation. She was given educational information today regarding spinal cord stimulation and intrathecal therapy. She has requested a [employer]nex device. We will order the device for the patient and the company will be in contact with the patient. We will see her back after her MRI lumbar spine to discuss a further plan of care. In the meantime we will order a neurosurgical consult. Patient has been instructed to contact the clinic with any concerns before the next appointment. Dr. Garcia has reviewed this note and agrees with this plan of care. This note was dictated using voice recognition software and make contain errors or omissions. [facility] History I have reviewed the patient's past medical history: Yes Medical History: Reports:: Anxiety, Atherosclerotic Heart Disease, Cancer (skin), Chronic Obstructive Pulmonary Disease (COPD), Coronary Artery Disease, Depression, Heart Murmur, Hyperlipidemia, Hypertension, Migraine, Seizures Denies:: Diabetes Mellitus Type 1, Diabetes Mellitus Type 2, Internal Pacemaker, MRSA *Have you ever received a pne
== END ==
PROVIDERS: Visit Provider Clinical Nurse Specialist Family Health
DX: R32 Unspecified urinary incontinence (principal); M50.10 Cervical disc disorder with radiculopathy, unspecified cervical region; M54.16 Radiculopathy, lumbar region
CPT/HCPCS: 99212; G0463

== ENCOUNTER → 2021-09-07 07:04 | Outpatient (CLI) | payer MEDICARE, MEDICAID, SELFPAY ==
--- NOTE | 2021-09-07 07:27 | MR_ITS ---
FINAL REPORT CLINICAL HISTORY: LOW BACK PAIN. LBP XYRS. INTERMITTENT RT LEG PAIN, NUMBNESS, AND TINGLING. NO INJURY OR TRAUMA. PRIOR CT 10-12-17 FINDINGS: Multiplanar MR imaging of the lumbar spine was performed without contrast. On the sagittal T2-weighted images, disc degeneration is seen at multiple levels. There is mild anterolisthesis of L4 on 5 measuring approximately 2 mm. There is no evidence of fracture. The conus has an unremarkable appearance. L1-2: An annular bulge is present. There is no significant canal stenosis or neural foraminal narrowing. L2-3: An annular bulge and facet arthropathy are present. There is mild right neural foraminal narrowing. L3-4: An annular bulge and facet arthropathy are present. There is mild bilateral neural foraminal narrowing. L4-5: An annular bulge and facet arthropathy are present. There is mild left neural foraminal narrowing. L5-S1: An annular bulge and facet arthropathy are present. There is a small central disc protrusion with moderate right and mild left neural foraminal narrowing. IMPRESSION: Multilevel degenerative disc disease and spondylosis. Small central disc protrusion at L5-S1. Reviewed, Interpreted and Dictated by Ozzy Petersen III, MD Transcribed by Meri Barrios Authenticated by Ozzy Petersen III, MD on 09/07/2021 09:06:33 AM [facility]
== END ==
PROVIDERS: PCP Physician Assistant; Visit Provider Clinical Nurse Specialist Family Health
DX: M54.50 Low back pain, unspecified (principal)
CPT/HCPCS: 72148; 76376

== ENCOUNTER 2021-09-15 11:41 | Emergency (ER) | payer MEDICARE, MEDICAID, SELFPAY ==
[2021-09-15 11:55] VITALS: BP 109/67; PULSE 67; RESP 21; TEMP 36.8; O2SAT 96; BMI 35.5
--- NOTE | 2021-09-15 12:11 | HMH.EDUTC ---
[facility] Disposition Clinical Impression: Bronchitis Sinusitis Qualifiers: Sinusitis location: unspecified location Chronicity: unspecified Qualified Code(s): J32.9 - Chronic sinusitis, unspecified Disposition: Home, Self-Care Condition on Discharge: Good Instructions: DI for Cough -- Adult, Prednisone, Azithromycin Additional Instructions: ? Start azithromycin antibiotic today. But start Cefdinir tomorrow Be sure to complete entire prescription even if feeling better ? Monitor temp. Tylenol every 4 hours as needed and / or ibuprofen every 6 hours as needed ( As long as your primary care physician has told you that it ok to take both. For fever/aches/pains ER if no less than 101 despite Tylenol or Motrin ? Humidifier/vaporizer or hot steamy shower ? Inhaler as you was prescribed ? Mucinex for your congestion *Tessalon Perles will not cause drowsiness but use at bedtime to help stop cough so that you may get some rest. *Start steroid tomorrow. Helps with inflammation therefore, cough and wheezing. Follow directions on the package. Reviewed side effects. Patient reports taking them before. Follow up IMMEDIATELY for new or worsening of symptoms OR no noticeable improvement over the next 48-72 hours. 911 immediately for any life threatening symptoms such as chest pain or difficulty breathing Prescriptions: Benzonatate [Benzonatate 100mg cap] 100 mg PO Q8HP PRN #15 cap PRN Reason: Cough Transmission Status: Received by [facility] guaiFENesin [Mucinex 600mg tablet] 600 mg PO Q12HP PRN #20 tab PRN Reason: Congestion Transmission Status: Received by [facility] Cefdinir [Omnicef 300mg Capsule] 300 mg PO BID #20 cap Transmission Status: Received by [facility] predniSONE [Prednisone 20mg Tab] 20 mg PO BID 5 Days #10 tab Transmission Status: Received by [facility] Azithromycin [Z-Ernie 250mg Tab] 250 mg PO DIRECTED #6 tab Transmission Status: Received by [facility] Referrals: Neeta Venegas PA [Primary Care Provider] - As needed Time of Disposition: 12:56 Medical Decision Making - Abdirashid Inquiry Pt receiving controlled substance: No Abdirashid was queried for this patient: No Vital Signs: 09/15/21 11:55 09/15/21 12:42 Temperature 98.2 F 98.2 F Temperature Source Oral Pulse Rate 67 Pulse Rate [Right Brachial] 67 Respiratory Rate 21 21 Blood Pressure 109/67 L Blood Pressure [Right Arm] 109/67 L Blood Pressure Mean [Right Arm] 81 Blood Pressure Source [Right Arm] Automatic Cuff Blood Pressure Position [Right Arm] Sitting 02 Sat by Pulse Oximetry 96 Oxygen Delivery Method Room Air - Lab Data Lab Results 09/15/21 12:01: Influenza Type A Ag Negative, Influenza Type B Ag Negative Orders (Tests/Meds): ED MEDICATIONS Discontinued Medications Generic Name Dose Route Start Last Admin Trade Name Freq PRN Reason Stop Dose Admin Ceftriaxone Sodium 1 gm 09/15/21 12:21 09/15/21 12:40 Ceftriaxone 1gm Vial IM 09/15/21 12:22 1 gm ONCE ONE Administration Lidocaine HCl 0 ml 09/15/21 12:21 09/15/21 12:40 Lidocaine 1% 5ml Pf Vial IM 09/15/21 12:22 2 ml ONCE ONE Administration Methylprednisolone Sodium Succinate 125 mg 09/15/21 12:21 09/15/21 12:41 Methylprednisolone Sod Succ 125mg Vial IM 09/15/21 12:22 125 mg ONCE ONE Administration Medical Decision Narrative: Patient states that she has taken azithromycin and prednisone in the past without complications or reactions [facility] HPI - General Stated complaint: chills, cough, h/a, congestion, body aches Time Seen by Provider: 09/15/21 12:11 Mode of Arrival: Ambulatory Source of Information: Patient Limitations: No Limitations Description of Symptoms (Recalled from Triage Doc. by RN): PATIENT C/O SOA, COUGH, CHILLS, AND FEVER. RECENTLY HAD COVID 1 MONTH AGO HEENT Symptoms (Recalled from RN notes): No Resp Symptoms (Recalled from RN notes): Yes Skin Sym
[2021-09-15 12:31] LABS: UTC Influenza A Antigen Negative (Negative); UTC Influenza B Antigen Negative (Negative)
[2021-09-15 12:42] VITALS: BP 109/67; PULSE 67; RESP 21; TEMP 36.8; O2SAT 96
== END 2021-09-15 12:59 | disposition home or self-care (01) ==
PROVIDERS: Emergency Provider Nurse Practitioner; PCP Physician Assistant
DX: J20.9 Acute bronchitis, unspecified (principal); J32.9 Chronic sinusitis, unspecified
CPT/HCPCS: G0463; 87804; 96372; 99202; J0696

== ENCOUNTER → 2021-09-21 09:19 | Outpatient (POV) | payer MEDICARE, MEDICAID, SELFPAY ==
[2021-09-21 10:17] VITALS: BP 158/91; PULSE 74; RESP 18; O2SAT 95; BMI 35.5
--- NOTE | 2021-09-21 11:05 | P.CONS_ITS ---
[facility] Pain Management SOAP Note Subjective:: Patient is a very pleasant 56-year-old white female who presents today for follow-up. She is currently being treated for degenerative disc disease of the cervical spine with cervical facet arthropathy, spondylosis, cervical radiculopathy as well as degenerative disc disease of the lumbar spine with l umbar radiculopathy. She was scheduled to undergo cervical facet joint/medial branch block injections of C5-C6 and C6-C7 #1 but unfortunately the procedure had to be aborted as the patient was unable to tolerate the procedure due to pain. She is not interested in any further injection therapy at this time. She continues to experience significant pain and rates her pain as a 7 out of 10 today. She states that she is currently taking Tylenol 3 that only provides minimal relief for her chronic pain symptoms. Objective:: General: Alert and oriented x3, no acute distress, pleasant and cooperative Lungs: Resps E/U, symmetric chest expansion Eyes: PERRL Musculoskeletal: limited flexion and extension of the lumbar spine secondary to pain. Deep tendon reflexes were normal in bilateral lower extremities. Motor exam was grossly intact in the bilateral lower extremities, antalgic gait noted. Tenderness to palpation over the lower cervical facet joints. Straight leg raise on the right Neurological: Speech is clear, ase master mechanic equal, no gross sensory deficits Assessment:: Degenerative disease of cervical spine with cervical radiculopathy, cervical facet arthropathy, cervical spondylosis Generative disease of lumbar spine with lumbar radiculopathy Plan:: I discussed with the patient that we will start gabapentin 300 mg 1 tablet p.o. 3 times daily and I gave the patient detailed instructions on gradual up titration of the medication to prevent side effects such as fatigue, sedation, and lethargy. We had previously discussed intrathecal therapy spinal cord stimulation; however, the patient states she does not want to undergo any further procedures or surgeries at this time. Of note, the patient is also taking alprazolam 0.5 mg 3 times a day that is prescribed by Olaf Cutler. Abdirashid #[id number] was reviewed and appropriate. We will follow-up with this patient in 1 month for reassessment of her chronic pain symptoms and medication refills. [facility] History Medical History: Reports:: Anxiety, Atherosclerotic Heart Disease, Cancer (skin), Chronic Obstructive Pulmonary Disease (COPD), Coronary Artery Disease, Depression, Heart Murmur, Hyperlipidemia, Hypertension, Migraine, Seizures Denies:: Diabetes Mellitus Type 1, Diabetes Mellitus Type 2, Internal Pace maker, MRSA *Have you ever received a pneumonia vaccine?: No *Have you received a flu vaccine this season?: No Other Medical History: Reports: Arthritis, Glaucoma Laterality Cases: Left: Breast Biopsy Other Surgeries: Yes: No Previous Surgery, Cancer Surgery, Cardiac Cathete rization, Colonoscopy, , EGD, Hysterectomy-Total, Skin Cancer Excision, Other. No: Pacemaker Amputation: No Fractures: Yes - *Social History Smoking Status: Current every day smoker Tobacco Type: cigarettes # Packs/Day (cigarettes): 1 #Yrs smoked (if former smoker): 30 Alcohol Intake: never Alcohol Intake Frequency:: a few times a month Substance Use Type: denies use *Occupational Status:: unemployed Housing: house Household Members: spouse *Travel in the last 8 weeks: None - Psychiatric History Pschychiatric History:: Reports:: Anxiety, Depression Family Hx:: Other
== END ==
PROVIDERS: Visit Provider Anesthesiology Pain Medicine
DX: M50.10 Cervical disc disorder with radiculopathy, unspecified cervical region (principal); M54.02 Panniculitis affecting regions of neck and back, cervical region; M47.812 Spondylosis without myelopathy or radiculopathy, cervical region
CPT/HCPCS: 99212; G0463

== ENCOUNTER → 2021-10-19 08:53 | Outpatient (POV) | payer MEDICARE, MEDICAID, SELFPAY ==
[2021-10-19 09:26] VITALS: BP 146/81; PULSE 73; RESP 20; TEMP 36.7; O2SAT 99; BMI 35.5
--- NOTE | 2021-10-19 10:45 | HMH.PAINSOAP ---
[facility] Pain Management SOAP Note Subjective:: Patient is a pleasant 56-year-old female who is here for medication refill and follow-up. Patient is currently being treated for degenerative disc disease of the cervical spine with cervical radiculopathy symptoms, cervical facet arthropathy, spondylosis. Patient is being managed with gabapentin 300 mg 3 times a day. Patient denies any side effects from the medications. Patient denies any changes to the location and type of pain. Patient states that this is adequately helping manage their pain. Patient states that she had a recent neck surgery that is not helping a lot of her discomfort. Rates pain as 9 out of 10. [facility] number [id number] with an active morphine equivalent 0. Drug screens have been reviewed and appropriate. General: No recent weight changes, no fever, no sleep disturbances Respiratory: No cough, no shortness of air, no recurring pulmonary infections Cardiovascular/peripheral vascular: No chest pain, no palpitations, no edema, no shortness of breath Gastrointestinal: No new onset incontinence, normal bowel movements reported Genitourinary: No new onset incontinence Musculoskeletal: Neck pain Psychiatric: [Normal mood/affect] Neurological: [Denies weakness in extremities], [denies balance issues] Objective:: General: Alert and oriented x3, no acute distress, pleasant and cooperative, [on room air] Lungs: Respirations even and unlabored, symmetrical chest expansion Eyes: PERRL Musculoskeletal: Flexion and extension of cervical [spine] somewhat guarded secondary to pain, [antalgic gait noted] Neurological: Speech clear, no gross sensory deficit Assessment:: Degenerative disc disease of the cervical spine with cervical radiculopathy symptoms Plan:: We will continue the patient's gabapentin 300 mg 3 times a day. We will provide the patient with 3 months of refills. We would like to see the patient back in 3 months for follow-up and reevaluation of chronic pain syndrome. Patient has been advised of risks of oversedation with the prescribed medication. Narcan has been offered to the patient in the event of oversedation. Patient has been advised that a family member should also be educated regarding administration of Narcan. Patient has been instructed to contact the clinic with any concerns before the next appointment. Dr. Garcia has reviewed this note and agrees with this plan of care. This note was dictated using voice recognition software and make contain errors or omissions. [facility] History Medical History: Reports:: Anxiety, Atherosclerotic Heart Disease, Cancer, Chronic Obstructive Pulmonary Disease (COPD), Coronary Artery Disease, Depression, Heart Murmur, Hyperlipidemia, Hypertension, Migraine, Seizures Denies:: Diabetes Mellitus Type 1, Diabetes Mellitus Type 2, Internal Pacemaker, MRSA *Have you ever received a pneumonia vaccine?: No *Have you received a flu vaccine this season?: No Other Medical History: Reports: Arthritis, Glaucoma Laterality Cases: Left: Breast Biopsy Other Surgeries: Yes: No Previous Surgery, Cancer Surgery, Cardiac Catheterization, Colonoscopy, , EGD, Hysterectomy-Total, Skin Cancer Excision, Other. No: Pacemaker Amputation: No Fractures: Yes - *Social History Smoking Status: Current every day smoker Tobacco Type: cigarettes # Packs/Day (cigarettes): 1 #Yrs smoked (if former smoker): 30 Alcohol Intake: current Alcohol Intake Frequency:: a few times a month Substance Use Type: denies use *Occupational Status:: other Housing: house Household Members: spouse *Travel in the last 8 weeks: None - Psychiatric History Pschychiatric History:: Reports:: Anxiety, Depression Family Hx:: Other
== END ==
PROVIDERS: Visit Provider Student in an Organized Health Care Education/Training Program
DX: M50.10 Cervical disc disorder with radiculopathy, unspecified cervical region (principal)
CPT/HCPCS: 99212; G0463

== ENCOUNTER 2021-10-30 08:08 | Outpatient (CLI) | payer MEDICARE, MEDICAID, SELFPAY ==
[2021-10-30 08:16] VITALS: BMI 34.4
[2021-10-30 08:44] LABS: Basophils # 0.1 K/mm3 (0-0.2); Basophils % 0.8 % (0.1-2.0); Eosinophils # 0.1 K/mm3 (0.0-0.4); Eosinophils % 1.1 % (0.1-12.0); Hematocrit 47.1 % (37.0-47.0); Hemoglobin 15.7 g/dL (12.2-16.2); Lymphocytes # 2.8 K/mm3 (0.7-4.5); Lymphocytes % 31.9 % (10-50); Mean Corpuscular HGB Conc 33.4 g/dL (31.8-35.4); Mean Corpuscular Hemoglobin 33.1 pg (27.0-31.2); Mean Corpuscular Volume 99.1 fl (81-99); Mean Platelet Volume 9.1 fl (7.4-10.4); Monocytes # 0.6 K/mm3 (0.1-1.0); Monocytes % 6.9 % (1.7-9.3); Neutrophils # 5.1 K/mm3 (1.8-7.8); Neutrophils % 59.3 % (37.0-80.0); Platelet Count 176 K/mm3 (142-424); Red Blood Count 4.76 M/mm3 (4.20-5.40); Red Cell Distribution Width 13.4 % (11.5-17.5); White Blood Count 8.6 K/mm3 (4.8-10.8)
--- NOTE | 2021-10-30 14:25 | PC.NURSE ---
0830 Patient here for possible therapeutic phlebotomy. CBC collected. H&H 15.7/47.1. No phlebotomy needed today. Next appointment scheduled for 2 months as ordered
== END 2021-10-30 09:00 | disposition home or self-care (01) ==
LOC: INF 08:10
PROVIDERS: PCP Physician Assistant; Visit Provider Physician Assistant
DX: D45 Polycythemia vera (principal)
CPT/HCPCS: 85025

== ENCOUNTER → 2021-12-08 07:40 | Outpatient (CLI) | payer MEDICARE, MEDICAID, SELFPAY ==
--- NOTE | 2021-12-08 07:44 | MM_ITS ---
PROCEDURE INFORMATION: Exam: MG Bilateral Screening 3D Mammography Exam date and time: 12/08/2021 7:56 AM Age: 56 years old Clinical indication: Screening examination TECHNIQUE: Imaging protocol: Bilateral Screening tomosynthesis and 2D mammography including computer-aided detection (CAD) when performed. COMPARISON: 1. MG MM DIG MAMM BI DX W/CAD 11/22/2020 1:27 PM 2. MG MM DIG MAMM DX UNILAT LT CAD 09/02/2020 1:37 PM FINDINGS: MAMMOGRAPHY: Breast composition: The breasts are heterogeneously dense, which may obscure small masses. Mass: None. Architectural distortion: None. Calcifications: No suspicious calcifications. Asymmetric density: None. Skin thickening: None. Axillary adenopathy: None. IMPRESSION: No mammographic evidence of malignancy. Annual screening is recommended unless otherwise clinically indicated. ASSESSMENT: BI-RADS Category 1: Negative
== END ==
PROVIDERS: PCP Physician Assistant; Visit Provider Physician Assistant
DX: Z12.31 Encounter for screening mammogram for malignant neoplasm of breast (principal)
CPT/HCPCS: 77063; 77067

== ENCOUNTER → 2021-12-14 13:14 | Outpatient (CLI) | payer MEDICARE, MEDICAID, SELFPAY ==
[2021-12-14 17:25] LABS: Amphetamine/Metha Screen,Urine Negative ng/ml (<1000)
[2021-12-14 17:26] LABS: Barbiturates Screen,Urine Negative ng/ml (<200)
[2021-12-14 17:27] LABS: Benzodiazepines Screen,Urine Positive ng/ml (<200); Cocaine Screen,Urine Negative ng/ml (<300)
[2021-12-14 17:28] LABS: Cannabinoid Screen,Urine Negative ng/ml (<50); Methadone Screen,Urine Negative ng/ml (<300)
[2021-12-14 17:29] LABS: Opiate Screen,Urine Negative ng/ml (<300)
[2021-12-14 17:30] LABS: Phencyclidine Screen,Urine Negative ng/ml (<25)
[2021-12-14 17:38] LABS: Alanine Aminotransferase 32 U/L (12-78); Albumin Level 4.4 g/dl (3.5-5.0); Albumin/Globulin Ratio 1.7 (1.1-1.8); Alkaline Phosphatase 77 U/L (38-126); Anion Gap 12.1 mEq/L (5-15); Aspartate Amino Transferase 33 U/L (14-36); Bilirubin,Total 0.3 mg/dl (0.2-1.3); Blood Urea Nitrogen 18 mg/dl (7-17); Calcium 9.6 mg/dl (8.4-10.2); Carbon Dioxide 28 mmol/L (22.0-30.0); Chloride 104 mmol/L (98-107); Chol/HDL Ratio 3.8 (1-3.5); Cholesterol 169 mg/dl (140-200); Estimated Glomerular Filt Rate 51 ml/min (>60); GFR (African American) 62 ML/MIN (>60); Globulin 2.6 g/dL (1.3-3.2); Glucose 96 mg/dl (74-100); HDL Cholesterol 44 mg/dl (40-60); Potassium 4.1 mmoL/L (3.5-5.1); Sodium 140 mmol/L (136-145); Triglycerides 323 mg/dl (30-150); VLDL Cholesterol 65 mg/dL (0-40)
[2021-12-14 17:46] LABS: Basophils # 0.1 K/mm3 (0-0.2); Basophils % 0.9 % (0.1-2.0); Eosinophils # 0.1 K/mm3 (0.0-0.4); Eosinophils % 1.1 % (0.1-12.0); Hemoglobin 16.9 g/dL (12.2-16.2); Lymphocytes # 2.8 K/mm3 (0.7-4.5); Lymphocytes % 24.1 % (10-50); Mean Corpuscular HGB Conc 33.9 g/dL (31.8-35.4); Mean Corpuscular Hemoglobin 33.3 pg (27.0-31.2); Mean Corpuscular Volume 98.2 fl (81-99); Mean Platelet Volume 10.7 fl (7.4-10.4); Monocytes # 0.9 K/mm3 (0.1-1.0); Monocytes % 7.6 % (1.7-9.3); Neutrophils # 7.6 K/mm3 (1.8-7.8); Neutrophils % 66.3 % (37.0-80.0); Platelet Count 190 K/mm3 (142-424); Red Blood Count 5.09 M/mm3 (4.20-5.40); Red Cell Distribution Width 13.3 % (11.5-17.5); White Blood Count 11.5 K/mm3 (4.8-10.8)
[2021-12-14 17:49] LABS: Direct LDL Cholesterol 77.01 mg/dL (100-129)
[2021-12-14 17:55] LABS: 25-OH Vitamin D, Total 67.9 ng/mL (30-100)
[2021-12-14 18:08] LABS: Thyroid Stimulating Hormone 1.33 uIU/mL (0.465-4.68)
== END ==
PROVIDERS: PCP Physician Assistant; Visit Provider Physician Assistant
DX: Z79.899 Other long term (current) drug therapy (principal); N39.0 Urinary tract infection, site not specified; Z00.00 Encounter for general adult medical examination without abnormal findings; R53.83 Other fatigue; R07.89 Other chest pain; E66.9 Obesity, unspecified; Z68.35 Body mass index [BMI] 35.0-35.9, adult
CPT/HCPCS: 80053; 80061; 80305; 82306; 84443; 85025; 87086

== ENCOUNTER → 2021-12-20 08:22 | Outpatient (CLI) | payer MEDICARE, MEDICAID, SELFPAY ==
--- NOTE | 2021-12-20 08:23 | CA_ITS ---
APPROVED REPORT EXAM: Comprehensive 2D, Doppler, and color-flow Echocardiogram Contract Associate Manager: Joceline Bermudez RT(R) Ht: 5 ft 7 in Wt: 226lbs BSA: 2.13 BP: 140/80 mmHg Indications: edema, COPD, murmur, smoker, edema, HTN, hyperlipidemia, CAD, RBBB 2D Dimensions LVOT 2.04 cm (M/F) 1.5-2.5 LA Volume 25.70 mL LA Volume Index 12.06 mL/m2 (M/F) 16-34 M-Mode Dimensions RVDd 2.11 cm (0.9-2.6) LA Diam 2.90 cm (1.9-4.0) LVDd 4.87 cm (3.5-5.7) Ao Diam 2.67 cm (2.0-3.7) LVDs 3.09 cm (3.5-5.7) IVSd 0.79 cm (0.6-1.1) PWd 0.87 cm (0.6-1.1) EF (Teich) 66.20% FS 36.60% EDV (Teich) 111.20 mL ESV (Teich) 37.60 mL LV Diastology E Decel Time 150.00 (160-240 msec) E/A Ratio 1.2 MED E' 8.90 (< 7 cm/sec) E'/MED E' Ratio 10.76 (>14) LAT E' 9.10 (<10 cm/sec) E/LAT E' Ratio 10.53 (>14) Mitral Valve MV E Max Charli. 96.00 (40-130 cm/s) MV A Velocity 79.00 (40-130 cm/s) E/A Ratio 1.21 MV Decel. Time 150.00 (160-240 ms) MV PHT 44.00 ms Left Ventricle Left atrium is mildly enlarged, left ventricle is normal size, mild concentric left ventricular hypertrophy, estimated ejection fraction 55% with no regional wall motion abnormality, diastolic parameters are inconclusive. Right Ventricle Right atrium and right ventricle are mildly enlarged with normal contractility. Aortic Valve Aortic valve is minimally thickened and fibrosed, there is no aortic stenosis or aortic insufficiency. Mitral Valve Mitral valve is grossly normal, there is trace mitral regurgitation. Tricuspid Valve Tricuspid valve grossly normal, there is trace tricuspid regurgitation, tricuspid regurgitation jet velocity is inadequate for calculation of the right ventricular systolic pressure. Pulmonic Valve Pulmonic valve is poorly visualized. Great Vessels Aortic root is normal size. Inferior vena cava is mildly dilated with normal inspiratory collapse. Pericardium No significant pericardial effusion noted. Conclusion 1. Mild biatrial enlargement, normal left ventricular size, mild concentric left ventricular hypertrophy, estimated ejection fraction 55% with no regional wall motion abnormality, diastolic parameters are inconclusive. 2. Mildly enlarged right ventricle with normal contractility. 3. Trace mitral and tricuspid regurgitation. 4. Inferior vena cava is mildly dilated with normal inspiratory collapse. 5. No significant pericardial effusion noted. Electronically signed by : Ryan Pennington MD 12/21/2021 06:10:33
--- NOTE | 2021-12-20 08:55 | XR_ITS ---
FINAL REPORT CLINICAL HISTORY: . dyspnea COMPARISON: August 15, 2020 FINDINGS: PA and lateral views of the chest were obtained. The cardiac and mediastinal silhouettes are within normal limits. The lungs are clear. There is no pleural effusion or pneumothorax. No acute osseous abnormality is identified. IMPRESSION: No radiographic evidence of acute cardiac or pulmonary disease. Reviewed, Interpreted and Dictated by Lauryn Thrasher MD Transcribed by Sofía Hart Authenticated by Lauryn Thrasher MD on 12/20/2021 01:18:[address] [facility]
== END ==
PROVIDERS: PCP Physician Assistant; Visit Provider Physician Assistant
DX: R60.9 Edema, unspecified (principal); Z79.899 Other long term (current) drug therapy; R06.00 Dyspnea, unspecified
CPT/HCPCS: 71046; 93306

== ENCOUNTER 2022-01-01 09:03 | Outpatient (CLI) | payer MEDICARE, MEDICAID, SELFPAY ==
[2022-01-01 09:08] VITALS: BMI 34.4
--- NOTE | 2022-01-01 09:10 | PC.NURSE ---
0910-collected labs via peripheral stick will wait on results.
[2022-01-01 09:24] LABS: Basophils # 0.2 K/mm3 (0-0.2); Basophils % 1.9 % (0.1-2.0); Eosinophils # 0.1 K/mm3 (0.0-0.4); Eosinophils % 1.7 % (0.1-12.0); Hematocrit 48.2 % (37.0-47.0); Hemoglobin 16.4 g/dL (12.2-16.2); Lymphocytes # 2.5 K/mm3 (0.7-4.5); Lymphocytes % 29.4 % (10-50); Mean Corpuscular Hemoglobin 32.7 pg (27.0-31.2); Mean Corpuscular Volume 96.4 fl (81-99); Mean Platelet Volume 8.4 fl (7.4-10.4); Monocytes # 0.5 K/mm3 (0.1-1.0); Monocytes % 5.9 % (1.7-9.3); Neutrophils # 5.1 K/mm3 (1.8-7.8); Neutrophils % 61.2 % (37.0-80.0); Platelet Count 180 K/mm3 (142-424); Red Cell Distribution Width 13.4 % (11.5-17.5); White Blood Count 8.4 K/mm3 (4.8-10.8)
--- NOTE | 2022-01-01 09:33 | PC.NURSE ---
0933-pt here for lab draw if hgb >17 will need therapeutic phlebotomy;today hgb 16.4; pt ok to d/c home and return in 2 months.
== END 2022-01-01 09:33 | disposition home or self-care (01) ==
LOC: INF 09:04
PROVIDERS: PCP Physician Assistant; Visit Provider Physician Assistant
DX: D75.1 Secondary polycythemia (principal)
CPT/HCPCS: 36415; 85025

== ENCOUNTER → 2022-01-05 08:42 | Outpatient (CLI) | payer MEDICARE, MEDICAID, SELFPAY ==
--- NOTE | 2022-01-05 08:44 | CT_ITS ---
FINAL REPORT CLINICAL HISTORY: dyspnea/cp/wheezing. COMPARISON: November 03, 2020 FINDINGS: CT CHEST WITH AND WITHOUT CONTRAST TECHNIQUE: Axial images through the chest were performed by computed tomography before and after the administration of IV contrast. This study was performed with techniques to keep radiation doses as low as reasonably achievable, (ALARA). Individualized dose reduction techniques using automated exposure control or adjustment of mA and/or kV according to the patient's size were employed. FINDINGS: There is no axillary adenopathy. There is no hilar or mediastinal adenopathy. The heart size is normal. There is no pericardial or pleural effusion. Limited images of the upper abdomen demonstrate bilateral adrenal gland enlargement, favor adenomas or hyperplasia. There is a 7 mm fat attenuation nodule in the right adrenal gland which likely represents a small myelolipoma. There are mild emphysematous changes. There are several stable less than 5 mm pulmonary nodules bilaterally. There is no new mass or nodule identified. IMPRESSION: Stable current findings without acute process. Reviewed, Interpreted and Dictated by Ozzy Petersen III, MD Transcribed by Ina Arias Authenticated and [facility] [place]
== END ==
PROVIDERS: PCP Physician Assistant; Visit Provider Urology
DX: D75.1 Secondary polycythemia (principal); G25.81 Restless legs syndrome; G47.00 Insomnia, unspecified; G47.33 Obstructive sleep apnea (adult) (pediatric); I10 Essential (primary) hypertension; I25.10 Atherosclerotic heart disease of native coronary artery without angina pectoris; R07.9 Chest pain, unspecified; R51.9 Headache, unspecified; Z99.89 Dependence on other enabling machines and devices
CPT/HCPCS: 71270; Q9967

== ENCOUNTER → 2022-01-15 08:16 | Outpatient (POV) | payer MEDICARE, MEDICAID, SELFPAY ==
[2022-01-15 08:29] VITALS: BP 150/79; PULSE 62; RESP 20; TEMP 36.3; O2SAT 98; BMI 34.4
--- NOTE | 2022-01-15 08:42 | HMH.PAINSOAP ---
[facility] Pain Management SOAP Note Subjective:: Patient is a pleasant 56-year-old white female who is here for medication refill and follow-up. Patient is currently being treated for degenerative disc disease of the cervical spine with cervical radiculopathy symptoms. Patient is being managed with gabapentin 300 mg TID. Patient denies any side effects from the medications. Patient states her pain is a 7 out of 10 this morning. She states she recently had a emergency where she had to carry her 60 pound dog and possibly strained her neck. She states she did go to her surgeon who recently performed neck surgery and stated everything looked good. She states that the gabapentin does not seem to be helping as well as it previously had. She requests an increase if possible in medication dose. She states pain is all cervical and low back pain. [facility] number is [id number]. Drug screens have been reviewed and appropriate. Review of Systems: General: No recent weight changes, no fever, no sleep disturbances Respiratory: No cough, no shortness of air, no recurring pulmonary infections Cardiovascular/peripheral vascular: No chest pain, no palpitations, no edema, no shortness of breath Gastrointestinal: No new onset incontinence, normal bowel movements reported Genitourinary: No new onset incontinence Musculoskeletal: Neck pain Psychiatric: [Normal mood/affect] Neurological: [Denies weakness in extremities], [denies balance issues] Objective:: Physical Exam: General: Alert and oriented x3, no acute distress, pleasant and cooperative Lungs: Respirations even and unlabored, symmetrical chest expansion Eyes: PERRL Musculoskeletal: Flexion and extension of cervical [spine] somewhat guarded secondary to pain, [antalgic gait noted] Neurological: Speech clear, no gross sensory deficit Assessment:: Degenerative disc disease of the cervical spine with cervical radiculopathy symptoms. Plan:: Patient's pain has increased over the last month. We will increase her gabapentin from 300 mg 3 times a day to 400 mg 3 times a day. We will provide 3 months of refills. Patient will return to clinic for follow-up in 3 months. Patient has been instructed to contact the clinic with any concerns before the next appointment. Dr. Garcia has reviewed this note and agrees with this plan of care. This note was dictated using voice recognition software and make contain errors or omissions. [facility] History I have reviewed the patient's past medical history: Yes Medical History: Reports:: Anxiety, Atherosclerotic Heart Disease, Cancer, Chronic Obstructive Pulmonary Disease (COPD), Coronary Artery Disease, Depression, Heart Murmur, Hyperlipidemia, Hypertension, Migraine, Seizures Denies:: Diabetes Mellitus Type 1, Diabetes Mellitus Type 2, Internal Pacemaker, MRSA *Have you ever received a pneumonia vaccine?: No *Have you received a flu vaccine this season?: No Other Medical History: Reports: Arthritis, Glaucoma Laterality Cases: Left: Breast Biopsy Other Surgeries: Yes: No Previous Surgery, Cancer Surgery, Cardiac Catheterization, Colonoscopy, , EGD, Hysterectomy-Total, Skin Cancer Excision, Other. No: Pacemaker Amputation: No Fractures: Yes - *Social History Smoking Status: Current every day smoker Tobacco Type: cigarettes # Packs/Day (cigarettes): 1 #Yrs smoked (if former smoker): 30 Alcohol Intake: current Alcohol Intake Frequency:: a few times a month Substance Use Type: denies use *Occupational Status:: other Housing: house Household Members: spouse *Travel in the last 8 weeks: None - Psychiatric History Pschychiatric History:: Reports:: Anxiety, Depression Family Hx:: Other
== END ==
PROVIDERS: Visit Provider Student in an Organized Health Care Education/Training Program
DX: M50.10 Cervical disc disorder with radiculopathy, unspecified cervical region (principal)
CPT/HCPCS: 99212; G0463

== ENCOUNTER → 2022-01-16 10:13 | Outpatient (CLI) | payer MEDICARE, MEDICAID, SELFPAY ==
--- NOTE | 2022-01-16 10:14 | CT_ITS ---
FINAL REPORT TECHNIQUE: Axial CT images of the abdomen and pelvis were obtained before and after the administration of IV contrast. This study was performed with techniques to keep radiation doses as low as reasonably achievable (ALARA). Individualized dose reduction techniques using automated exposure control or adjustment of mA and/or kV according to the patient''s size were employed. CLINICAL HISTORY: hematuria COMPARISON: February 10, 2018 FINDINGS: Abdomen: There is mild atelectasis or scarring in the lung bases. The heart is normal in size. The liver has an unremarkable appearance, without evidence of mass or biliary duct dilatation. . The spleen is unremarkable. There is bilateral adrenal gland enlargement which is stable and consistent with adenomas. The pancreas has an unremarkable appearance. There is no evidence of renal stone. There is a mass in the lateral left kidney which measures 19 mm, was 16 mm. This has the imaging characteristics consistent with a simple cyst. The aorta is normal in caliber. There is no free fluid or adenopathy. No other mass or abnormal fluid collection is seen. Pelvis: The appendix is not well visualized. The urinary bladder is unremarkable. There is no evidence of mass or adenopathy. There is no evidence of bowel obstruction. The patient is status post hysterectomy. There are scattered sigmoid diverticula. IMPRESSION: Bilateral adrenal gland enlargement consistent with adenomas. Lateral left kidney mass with imaging characteristics consistent with a simple cyst. No evidence of renal stones. Reviewed, Interpreted and Dictated by Ozzy Petersen III, MD Transcribed by Ina Arias Authenticated and [facility]
[2022-01-16 10:54] LABS: Blood Urea Nitrogen 15 mg/dl (7-17); Estimated Glomerular Filt Rate 57 ml/min (>60); GFR (African American) 69 ML/MIN (>60)
== END ==
PROVIDERS: PCP Physician Assistant; Visit Provider Urology
DX: N28.89 Other specified disorders of kidney and ureter (principal); R31.9 Hematuria, unspecified; R06.09 Other forms of dyspnea
CPT/HCPCS: 36415; 74178; 82565; 84520; 94762; Q9967

== ENCOUNTER → 2022-01-31 10:04 | Outpatient (CLI) | payer MEDICARE, MEDICAID, SELFPAY | PROVIDERS: PCP Physician Assistant; Visit Provider Urology | DX: R31.9 Hematuria, unspecified (principal); Z01.812 Encounter for preprocedural laboratory examination; Z20.822 Contact with and (suspected) exposure to COVID-19 | CPT/HCPCS: C9803; U0003; U0005 ==

== ENCOUNTER 2022-02-02 07:12 | Day surgery (SDC) | payer MEDICARE, MEDICAID, SELFPAY ==
[2022-01-31 13:32] VITALS: BMI 34.4
[2022-02-02 07:32] VITALS: BP 141/81; PULSE 56; RESP 18; TEMP 36.3; O2SAT 97
[2022-02-02 09:25] VITALS: BP 117/78; PULSE 51; RESP 18; TEMP 36.3; O2SAT 96
--- NOTE | 2022-02-02 13:25 | P.OP_ITS ---
Date of procedure: 02/02/22 Pre-op Diagnosis:: Gross hematuria Post-op Diagnosis:: Gross hematuria Procedure performed:: Cystoscopy Surgeon:: Luis Goodman MD Anesthesia: local Estimated blood loss (mL): 0 Clinical Note:: 56-year-old white female with recent episodic blood on tissue after wiping as well as noticing some blood in the toilet bowl. She returns today for cysto scopic evaluation. CT scan showed no evidence of stones, masses or obstruction. She does have a small left simple renal cysts. Operative findings:: Bladder showed no evidence of tumor, stones or other mucosal abnormalities. Urethra was within normal limits. Operative note:: Patient taken to the cystoscopy suite after informed consent was obtained. She was kept on the stretcher in the supine position and prepped and draped in the standard surgical fashion. 2% lidocaine placed into the urethra. After 5 minutes the flexible cystoscope introduced into the urethral meatus. Passed into the bladder without difficulty and the bladder examined in a systematic fashion. There is no evidence of bladder tumors, mucosal abnormalities, stones, trabeculation, diverticula or cellule formation. The ureteral orifices in their normal anatomic position with clear efflux of urine. Scope was retroflexed showing a normal bladder neck. The urethra was within normal limits as well. Vaginal examination was then performed showing no evidence of external lesions or nidus for bleeding. Patient tolerated procedure well. We discussed the abnormal findings today as well as the normal CT scan. Patient was reassured there is no evidence of any suspicious abnormalities. I am going to place her on a course of estrogen cream twice a week or some atrophic vaginitis. Condition: stable Disposition: same day Specimens:: None Complications:: None
== END 2022-02-02 09:25 | disposition home or self-care (01) ==
PROVIDERS: PCP Physician Assistant; Visit Provider Urology
DX: R31.0 Gross hematuria (principal); J44.9 Chronic obstructive pulmonary disease, unspecified; I25.10 Atherosclerotic heart disease of native coronary artery without angina pectoris; F41.9 Anxiety disorder, unspecified; F32.A Depression, unspecified; I10 Essential (primary) hypertension; Z72.0 Tobacco use
CPT/HCPCS: 52000

== ENCOUNTER 2022-02-26 07:51 | Outpatient (CLI) | payer MEDICARE, MEDICAID, SELFPAY ==
[2022-02-26 08:10] VITALS: BMI 34.4
--- NOTE | 2022-02-26 08:17 | PC.NURSE ---
0817-pt here for therapeutic phlebotomy if hgb >17; collected cbc via venipuncture stick will wait on results
[2022-02-26 08:27] LABS: Basophils # 0.1 K/mm3 (0-0.2); Basophils % 1.7 % (0.1-2.0); Eosinophils # 0.2 K/mm3 (0.0-0.4); Eosinophils % 1.9 % (0.1-12.0); Hematocrit 48.4 % (37.0-47.0); Hemoglobin 15.9 g/dL (12.2-16.2); Lymphocytes # 2.5 K/mm3 (0.7-4.5); Lymphocytes % 30.3 % (10-50); Mean Corpuscular HGB Conc 32.9 g/dL (31.8-35.4); Mean Corpuscular Hemoglobin 32.1 pg (27.0-31.2); Mean Corpuscular Volume 97.5 fl (81-99); Mean Platelet Volume 8.6 fl (7.4-10.4); Monocytes # 0.7 K/mm3 (0.1-1.0); Monocytes % 8.2 % (1.7-9.3); Neutrophils # 4.8 K/mm3 (1.8-7.8); Neutrophils % 57.9 % (37.0-80.0); Platelet Count 181 K/mm3 (142-424); Red Blood Count 4.96 M/mm3 (4.20-5.40); Red Cell Distribution Width 13.6 % (11.5-17.5); White Blood Count 8.2 K/mm3 (4.8-10.8)
--- NOTE | 2022-02-26 08:35 | PC.NURSE ---
0835-pt hgb 15.9; pt will return for labs in 2 months
== END 2022-02-26 08:35 | disposition home or self-care (01) ==
LOC: INF 07:52
PROVIDERS: PCP Physician Assistant; Visit Provider Physician Assistant
DX: D75.1 Secondary polycythemia (principal)
CPT/HCPCS: 36415; 85025

== ENCOUNTER → 2022-03-14 09:49 | Outpatient (CLI) | payer MEDICARE, MEDICAID, SELFPAY ==
[2022-03-14 10:30] VITALS: PULSE 70; PULSE 74
== END ==
PROVIDERS: PCP Physician Assistant; Visit Provider Internal Medicine Pulmonary Disease
DX: R06.00 Dyspnea, unspecified (principal)
CPT/HCPCS: 94060; 94618; 94640; 94727; 94729

== ENCOUNTER → 2022-04-17 08:11 | Outpatient (POV) | payer MEDICARE, MEDICAID, SELFPAY ==
[2022-04-17 08:22] VITALS: BP 150/76; PULSE 69; RESP 20; O2SAT 97; BMI 35.2
--- NOTE | 2022-04-17 08:41 | EXP.PAIN.SOA ---
[facility] Pain Management SOAP Note Subjective:: Patient is a pleasant 56-year-old female who presents today for medication refill and follow-up. We are currently treating the patient for degenerative disc disease of cervical spine and cervical radiculopathy symptoms. Today the patient rates her pain a 8 out of 10. She states the pain is in her neck, back and right hip. Patient describes this as a sharp, achy, throbbing sensation that is worse with increased activity. She also states that the pain in her back and hip is a shooting, sharp sensation. Patient denies any new trauma or injury. She denies any change of location or type of pain she experiences. Patient states that in the past she has been told that she has arthritis and degenerative disease of her low back and hip. She is currently managed with gabapentin 400 mg 3 times a day. Patient denies any side effects from this medication. She states that this medication has helped a little however she has not noticed significant improvement. She is requesting a refill at today's visit. Patient has had a injection in the past however she states it did not go good. She states she was receiving a cervical epidural however they were never able to get her numb so the injection was never completed. Her Abdirashid is [id number]. Its been reviewed and appropriate. Review of systems: General: No recent weight changes, no fever, no sleep disturbances Respiratory: No cough, no shortness of air, no recurring pulmonary infections Cardiovascular/peripheral vascular: No chest pain, no palpitations, no edema, no shortness of breath Gastrointestinal: No new incontinence, normal bowel movements reported Genitourinary: No new incontinence Musculoskeletal: Neck pain, back pain, right hip pain Psychiatric: Normal mood/affect Neurological: Denies weakness in the extremities, denies balance issues Objective:: Physical exam: General: alert and oriented x3, no acute distress, pleasant and cooperative Lungs: Respiration even and unlabored, symmetrical chest expansion Eyes: PERRL Musculoskeletal: Flexion and extension of cervical and lumbar spine somewhat guarded secondary to pain, antalgic gait noted Neurologic: Speech clear no gross sensory deficit Assessment:: Degenerative disc disease of cervical spine with cervical radiculopathy symptoms, low back pain, right hip pain Plan:: Patient still is experiencing significant pain in her neck, low back and right hip. I will refill the patient's gabapentin 400 mg 3 times a day and provide a 3-month supply of this medication. I have discussed with the patient injections that may be beneficial for her symptoms however at this time the patient is not interested. I will order a x-ray of her right hip and send her for a Ortho referral regarding this issue. Patient will follow-up in 3 months. Patient will return to clinic for reevaluation of symptoms, medication refill and follow-up. [facility] Medical History (Updated 04/12/22 @ 15:08 by Luna Gillespie MD) Chronic cough Chronic obstructive lung disease Constipation Dyspnea on exertion Flank pain, acute Hematuria History of polycythemia Osteoarthritis Polycythemia secondary to smoking Pulmonary emphysema Right bundle branch block (RBBB) Right bundle branch block (RBBB) RLS (restless legs syndrome) Screening for lung cancer Shortness of breath Smoking greater than 30 pack years UTI (urinary tract infection) Surgical History (Updated 04/12/22 @ 09:32 by Frances Burton RT) History of breast biopsy History of cardiac cath Family History (Updated 04/12/22 @ 09:34 by RT Emily) Other Osteoporosis Social History Smoking Status: Current every day smoker tobacco type: cigarettes packs per day: 1 second hand exposure: No alcohol intake: never substance use type: denies use current occupational status: other Travel in the last 8 weeks: None household members:
== END ==
PROVIDERS: PCP Physician Assistant; Visit Provider Nurse Anesthetist, Certified Registered
DX: M50.10 Cervical disc disorder with radiculopathy, unspecified cervical region (principal); Z72.0 Tobacco use
CPT/HCPCS: 99212; G0463

== ENCOUNTER 2022-04-23 07:47 | Outpatient (CLI) | payer MEDICARE, MEDICAID, SELFPAY ==
[2022-04-23 08:11] VITALS: BMI 33.6
--- NOTE | 2022-04-23 08:15 | PC.NURSE ---
0815-collected labs via peripheral stick will wait on results;if hgb >17 pt to get therapeutic phlebotomy.
[2022-04-23 08:23] LABS: Basophils # 0.1 K/mm3 (0-0.2); Eosinophils # 0.2 K/mm3 (0.0-0.4); Eosinophils % 1.7 % (0.1-12.0); Hematocrit 47.1 % (37.0-47.0); Hemoglobin 15.3 g/dL (12.2-16.2); Lymphocytes # 2.3 K/mm3 (0.7-4.5); Lymphocytes % 27.1 % (10-50); Mean Corpuscular HGB Conc 32.6 g/dL (31.8-35.4); Mean Corpuscular Hemoglobin 32.5 pg (27.0-31.2); Mean Corpuscular Volume 99.6 fl (81-99); Mean Platelet Volume 8.5 fl (7.4-10.4); Monocytes # 0.7 K/mm3 (0.1-1.0); Monocytes % 7.7 % (1.7-9.3); Neutrophils # 5.3 K/mm3 (1.8-7.8); Neutrophils % 62.6 % (37.0-80.0); Platelet Count 204 K/mm3 (142-424); Red Blood Count 4.73 M/mm3 (4.20-5.40); Red Cell Distribution Width 13.3 % (11.5-17.5); White Blood Count 8.5 K/mm3 (4.8-10.8)
--- NOTE | 2022-04-23 08:30 | PC.NURSE ---
0830-pt hgb 15.3 pt to return in 2 months.
== END 2022-04-23 08:30 | disposition home or self-care (01) ==
PROVIDERS: Internal Medicine; PCP Physician Assistant; Referring Provider Anesthesiology; Visit Provider Anesthesiology
DX: D45 Polycythemia vera (principal); M25.551 Pain in right hip; Z79.899 Other long term (current) drug therapy
CPT/HCPCS: 36415; 85025

== ENCOUNTER → 2022-04-30 10:20 | Outpatient (CLI) | payer MEDICARE, MEDICAID, SELFPAY ==
--- NOTE | 2022-04-30 10:24 | XR_ITS ---
FINAL REPORT CLINICAL HISTORY: RT HIP PAIN FINDINGS: RIGHT HIP 2 views were obtained. There is no acute fracture or dislocation. Mild degenerative changes are seen in both hips in the lower lumbar spine. There is an ossification adjacent to the superior inferior femoral neck of uncertain significance which could represent sequela of prior injury. There is a 12 mm linear foreign body in the inferomedial gluteal region. IMPRESSION: Mild degenerative changes. 12 mm linear foreign body in the inferomedial gluteal region. Reviewed, Interpreted and Dictated by Ozzy Petersen III, MD Transcribed by Rina Garrido Authenticated and [facility]
[2022-04-30 11:34] LABS: Amphetamine/Metha Screen,Urine Negative ng/ml (<1000); Barbiturates Screen,Urine Negative ng/ml (<200)
[2022-04-30 11:35] LABS: Benzodiazepines Screen,Urine Negative ng/ml (<200)
[2022-04-30 11:36] LABS: Cannabinoid Screen,Urine Negative ng/ml (<50)
[2022-04-30 11:37] LABS: Cocaine Screen,Urine Negative ng/ml (<300); Methadone Screen,Urine Negative ng/ml (<300)
[2022-04-30 11:39] LABS: Opiate Screen,Urine Negative ng/ml (<300); Phencyclidine Screen,Urine Negative ng/ml (<25)
[2022-04-30 16:05] LABS: Amphetamine/Metha Screen,Urine Negative ng/ml (<1000); Barbiturates Screen,Urine Negative ng/ml (<200)
[2022-04-30 16:06] LABS: Benzodiazepines Screen,Urine Positive ng/ml (<200)
[2022-04-30 16:07] LABS: Cannabinoid Screen,Urine Negative ng/ml (<50)
[2022-04-30 16:08] LABS: Cocaine Screen,Urine Negative ng/ml (<300)
[2022-04-30 16:09] LABS: Methadone Screen,Urine Negative ng/ml (<300)
[2022-04-30 16:10] LABS: Opiate Screen,Urine Negative ng/ml (<300); Phencyclidine Screen,Urine Negative ng/ml (<25)
[2022-05-07 08:09] LABS: Opiates Negative (Cutoff=100)
== END ==
PROVIDERS: Student in an Organized Health Care Education/Training Program; PCP Physician Assistant; Referring Provider Nurse Practitioner Family; Visit Provider Physician Assistant
DX: F41.9 Anxiety disorder, unspecified (principal); M79.10 Myalgia, unspecified site; Z79.891 Long term (current) use of opiate analgesic; M25.551 Pain in right hip
CPT/HCPCS: 73502; 80305; 80361; 80365; G0480

== ENCOUNTER → 2022-04-30 15:56 | Outpatient (CLI) | payer MEDICARE, MEDICAID, SELFPAY | PROVIDERS: PCP Emergency Medicine; Visit Provider Emergency Medicine | DX: I10 Essential (primary) hypertension (principal) ==

== ENCOUNTER 2022-06-25 08:05 | Outpatient (CLI) | payer MEDICARE, MEDICAID, SELFPAY ==
[2022-06-25 08:11] VITALS: BMI 33.6
--- NOTE | 2022-06-25 08:17 | PC.NURSE ---
0817-collected labs via peripheral stick; will wait for resuts;if hgb>17 pt to receive therapeutic phlebotomy.
[2022-06-25 08:28] LABS: Basophils # 0.1 K/mm3 (0-0.2); Basophils % 0.9 % (0.1-2.0); Eosinophils # 0.1 K/mm3 (0.0-0.4); Eosinophils % 1.3 % (0.1-12.0); Hematocrit 50.2 % (37.0-47.0); Hemoglobin 16.4 g/dL (12.2-16.2); Lymphocytes # 2.4 K/mm3 (0.7-4.5); Lymphocytes % 24.8 % (10-50); Mean Corpuscular HGB Conc 32.7 g/dL (31.8-35.4); Mean Corpuscular Hemoglobin 32.2 pg (27.0-31.2); Mean Corpuscular Volume 98.6 fl (81-99); Mean Platelet Volume 8.3 fl (7.4-10.4); Monocytes # 0.6 K/mm3 (0.1-1.0); Monocytes % 5.7 % (1.7-9.3); Neutrophils # 6.6 K/mm3 (1.8-7.8); Neutrophils % 67.3 % (37.0-80.0); Platelet Count 194 K/mm3 (142-424); Red Blood Count 5.09 M/mm3 (4.20-5.40); Red Cell Distribution Width 13.1 % (11.5-17.5); White Blood Count 9.8 K/mm3 (4.8-10.8)
--- NOTE | 2022-06-25 08:41 | PC.NURSE ---
0841-pt ok to d/c home hgb 16.4.
== END 2022-06-25 08:41 | disposition home or self-care (01) ==
PROVIDERS: PCP Physician Assistant; Visit Provider Internal Medicine
DX: D75.1 Secondary polycythemia (principal)
CPT/HCPCS: 36415; 85025

== ENCOUNTER → 2022-07-17 11:13 | Outpatient (POV) | payer MEDICARE, MEDICAID, SELFPAY ==
--- NOTE | 2022-07-17 11:27 | EXP.PAIN.PRO ---
Procedure Date: 07/17/22 Time: 11:30 Anesthesiologist:: Elton Herman CRNA Complications:: None
--- NOTE | 2022-07-17 11:45 | A.OFFVIS_ITS ---
[facility] Pain Management SOAP Note Subjective:: This patient is a pleasant 56-year-old female that comes to our clinic today for follow-up visit. Patient continues with slight complaint of right hip pain. However, very tolerable. Patient's main complaint today is cervical neck pain. She describes cervical neck pain as constant, dull, aching. She rates the pain 8/10. Patient has difficulty with left and right rotation as well as flexion and extension. Patient is status post ACDF 3 years ago. She denies radicular symptoms. I discussed in detail with the patient regarding medial branch block/facet blocks C5-6, C6-7 bilaterally. She wishes to proceed. We currently prescribed the patient gabapentin 400 mg 1 p.o. 3 times daily. However, patient reports today this medication is not helping. Patient recently received a small prescription of tramadol 50 mg 1 p.o. 3 times daily from her PCP after a fall. Patient reports this medication has helped her significantly. She is requesting us to prescribe this for her on a continuous basis. I think this is reasonable. We will prescribe tramadol 50 mg 1 p.o. 3 times daily. We will discontinue the gabapentin. This is at the patient's request. Objective:: Patient is awake alert [place] x3. In no acute distress. Flexion-extension cervical spine very guarded secondary to pain. Deep tendon reflexes upper lower extremities normal. Motor strength upper and lower extremities normal. There is no gross sensory deficit. Gait is normal. Assessment:: Degenerative disc disease cervical spine multilevels. Cervical facet arthropathy. Cervical spondylosis. Post fusion syndrome cervical spine. Degenerative disc disease lumbar spine multilevels. Lumbar radiculopathy. Plan:: Due to the axial pain in the cervical spine I suggest bilateral medial branch block/facet block cervical spine C5-6, C6-7. Also, we will prescribe tramadol 50 mg 1 p.o. 3 times daily. Patient's Abdirashid #[id number] is been reviewed and appropriate. [facility] Disclaimer: The information contained in this section may have been updated after the patient was seen, as this information can be updated by other users. Medical History Angina pectoris Anxiety and depression Burning sensation of feet Chest pain Chronic cough Chronic obstructive lung disease Constipation Dyspnea on exertion Elevated left ventricular end-diastolic pressure (LVEDP) Flank pain, acute Fracture of spinous process of cervical vertebra GERD (gastroesophageal reflux disease) Hematuria History of polycythemia Osteoarthritis Polycythemia secondary to smoking Pulmonary emphysema Right bundle branch block (RBBB) RLS (restless legs syndrome) Screening for lung cancer Shortness of breath Smoking greater than 30 pack years UTI (urinary tract infection) UTI (urinary tract infection) Surgical History History of breast biopsy History of cardiac cath Family History Other Osteoporosis Social History Smoking Status: Current every day smoker tobacco type: cigarettes packs per day: 1 second hand exposure: No alcohol intake: never substance use type: denies use current occupational status: other Travel in the last 8 weeks: None household members: spouse housing: house current occupational exposures/hazards: No caffeine: Yes
[2022-07-17 11:58] VITALS: BP 155/92; PULSE 66; RESP 20; O2SAT 99; BMI 34.4
== END | disposition home or self-care (01) ==
PROVIDERS: PCP Physician Assistant; Visit Provider Nurse Anesthetist, Certified Registered
DX: M50.123 Cervical disc disorder at C6-C7 level with radiculopathy (principal); M51.16 Intervertebral disc disorders with radiculopathy, lumbar region; F17.210 Nicotine dependence, cigarettes, uncomplicated
CPT/HCPCS: 99212; G0463

== ENCOUNTER 2022-07-27 09:38 | Day surgery (SDC) | payer MEDICARE, MEDICAID, SELFPAY ==
[2022-07-27 09:48] VITALS: BP 138/79; PULSE 62; RESP 18; TEMP 36.8; O2SAT 98; BMI 34.4
--- NOTE | 2022-07-27 10:11 | P.PCN_ITS ---
Procedure Date: 07/27/22 Time: 09:50 Anesthesiologist:: Elton Herman CRNA Complications:: None Pre-procedure Diagnosis:: Degenerative disc disease cervical spine multilevels. Cervical radiculopathy. Cervical facet arthropathy. Multilevel facet spondylosis. Post-procedure Diagnosis:: Same. Indications for Procedure:: Patient is a very pleasant 57-year-old female that comes our clinic today for cervical facet blocks C5-6, C6-7 bilaterally. Patient reports cervical neck pain as constant, dull, aching. She rates the pain 8/10. Patient has difficulty with flexion, extension, left and right rotation. Procedure Details:: Informed consent was obtained and the risk and benefits of the procedure was explained to the patient. Patient was taken to the procedure room where noninvasive monitors were placed, including noninvasive blood pressure cuff as well as pulse oximeter. The area over the posterior cervical spine was cleansed using chlorhexidine as a cleansing solution. I anesthetized the skin and subcutaneous tissues with 1% Lidocaine. I placed 25 -gauge spinal needles into the facet joint/ medial branches of C5-6, C6-7 bilaterally. Needle placement was confirmed with fluoroscopy. After confirmation of needle placement, each site was injected with 1 mL of 1% lidocaine and 0.25 % Marcaine and 10 mg of Depo- Medrol. A total of 20 mg of depo medrol was used for bilateral medial branch blocks of C5-6, C6-7 bilaterally. Patient tolerated the procedure without difficulty. There were no complications. Plan and Disposition:: Patient asking for a different type of pain medication. She takes tramadol 50 mg 1 p.o. 3 times daily. She had a 10-day prescription. Patient reports this makes her nauseous. However, I mention to the patient we would not write her anything stronger. She requested a refill. We will add Zofran 4 mg 1 p.o. as needed for nausea. Patient was discharged without incident.
[2022-07-27 10:16] VITALS: BP 121/69; PULSE 57; RESP 20; O2SAT 98
== END 2022-07-27 10:17 | disposition home or self-care (01) ==
PROVIDERS: PCP Physician Assistant; Visit Provider Nurse Anesthetist, Certified Registered
DX: M50.123 Cervical disc disorder at C6-C7 level with radiculopathy (principal); M47.892 Other spondylosis, cervical region
CPT/HCPCS: 64490; 64491; J1040

== ENCOUNTER 2022-08-20 08:27 | Outpatient (CLI) | payer MEDICARE, MEDICAID, SELFPAY ==
[2022-08-20 08:34] VITALS: BMI 35.0
--- NOTE | 2022-08-20 08:45 | PC.NURSE ---
0840 pt here for blood to be checked to determine if pt needs phlebotomy today. pt accessed per lt ac using butterfly needle and blood obtained for specimen, specimen sent to lab for analysis. site secured with 2x2 gauze and coban once needle was withdrawn. will await results to determine if phlebotomy is needed today.
[2022-08-20 08:50] LABS: Basophils # 0.1 K/mm3 (0-0.2); Eosinophils # 0.2 K/mm3 (0.0-0.4); Hemoglobin 15.2 g/dL (12.2-16.2); Lymphocytes % 31.4 % (10-50); Mean Corpuscular HGB Conc 33.8 g/dL (31.8-35.4); Mean Corpuscular Hemoglobin 31.9 pg (27.0-31.2); Mean Corpuscular Volume 94.3 fl (81-99); Mean Platelet Volume 8.4 fl (7.4-10.4); Monocytes # 0.7 K/mm3 (0.1-1.0); Monocytes % 7.2 % (1.7-9.3); Neutrophils # 5.6 K/mm3 (1.8-7.8); Neutrophils % 58.4 % (37.0-80.0); Platelet Count 177 K/mm3 (142-424); Red Blood Count 4.77 M/mm3 (4.20-5.40); Red Cell Distribution Width 13.5 % (11.5-17.5); White Blood Count 9.5 K/mm3 (4.8-10.8)
== END 2022-08-20 08:58 | disposition home or self-care (01) ==
LOC: INF 08:27
PROVIDERS: PCP Physician Assistant; Visit Provider Nurse Practitioner
DX: D45 Polycythemia vera (principal)
CPT/HCPCS: 36415; 85025

== ENCOUNTER → 2022-09-26 15:49 | Outpatient (CLI) | payer MEDICARE, MEDICAID, SELFPAY | PROVIDERS: PCP Nurse Practitioner Family; Visit Provider Nurse Practitioner Family | DX: N39.0 Urinary tract infection, site not specified (principal) | CPT/HCPCS: 87086 ==

== ENCOUNTER 2022-10-15 09:19 | Outpatient (CLI) | payer MEDICARE, MEDICAID, SELFPAY ==
[2022-10-15 09:23] VITALS: BMI 33.6
[2022-10-15 09:40] LABS: Basophils # 0.1 K/mm3 (0-0.2); Basophils % 1.1 % (0.1-2.0); Eosinophils # 0.1 K/mm3 (0.0-0.4); Eosinophils % 1.5 % (0.1-12.0); Hematocrit 48.9 % (37.0-47.0); Lymphocytes # 2.8 K/mm3 (0.7-4.5); Lymphocytes % 34.7 % (10-50); Mean Corpuscular HGB Conc 32.7 g/dL (31.8-35.4); Mean Corpuscular Hemoglobin 31.7 pg (27.0-31.2); Mean Platelet Volume 8.6 fl (7.4-10.4); Monocytes # 0.6 K/mm3 (0.1-1.0); Monocytes % 6.9 % (1.7-9.3); Neutrophils # 4.5 K/mm3 (1.8-7.8); Neutrophils % 55.8 % (37.0-80.0); Platelet Count 204 K/mm3 (142-424); Red Blood Count 5.04 M/mm3 (4.20-5.40)
--- NOTE | 2022-10-15 10:01 | PC.NURSE ---
10/15/22 0925 blood drawn for labs using butterfly needle to pts lt ac. specimen sent to lab for analysis. will await results to determine poc.
== END 2022-10-15 10:09 | disposition home or self-care (01) ==
LOC: INF 09:20
PROVIDERS: PCP Physician Assistant; Visit Provider Nurse Practitioner
DX: D75.1 Secondary polycythemia (principal)
CPT/HCPCS: 36415; 85025

== ENCOUNTER 2022-12-17 07:52 | Outpatient (CLI) | payer MEDICARE, MEDICAID, SELFPAY ==
[2022-12-17 08:11] VITALS: BMI 33.6
--- NOTE | 2022-12-17 08:18 | PC.NURSE ---
0818-collected labs via venipuncture stick;will wait for results.
[2022-12-17 08:27] LABS: Basophils # 0.1 K/mm3 (0-0.2); Basophils % 0.6 % (0.1-2.0); Eosinophils # 0.2 K/mm3 (0.0-0.4); Hematocrit 44.4 % (37.0-47.0); Hemoglobin 14.8 g/dL (12.2-16.2); Lymphocytes # 2.7 K/mm3 (0.7-4.5); Lymphocytes % 26.5 % (10-50); Mean Corpuscular HGB Conc 33.3 g/dL (31.8-35.4); Mean Corpuscular Hemoglobin 31.8 pg (27.0-31.2); Mean Corpuscular Volume 95.5 fl (81-99); Monocytes # 0.6 K/mm3 (0.1-1.0); Monocytes % 5.5 % (1.7-9.3); Neutrophils # 6.7 K/mm3 (1.8-7.8); Neutrophils % 65.4 % (37.0-80.0); Platelet Count 179 K/mm3 (142-424); Red Blood Count 4.65 M/mm3 (4.20-5.40); Red Cell Distribution Width 13.4 % (11.5-17.5); White Blood Count 10.2 K/mm3 (4.8-10.8)
== END 2022-12-17 08:35 | disposition home or self-care (01) ==
LOC: INF 07:53
PROVIDERS: PCP Physician Assistant; Visit Provider Nurse Practitioner
DX: D75.1 Secondary polycythemia (principal)
CPT/HCPCS: 36415; 85025

== ENCOUNTER → 2023-01-21 13:10 | Outpatient (CLI) | payer MEDICARE, MEDICAID, SELFPAY ==
[2023-01-21 12:46] LABS: Basophils % 0.3 % (0.1-2.0); Eosinophils # 0.1 K/mm3 (0.0-0.4); Eosinophils % 1.8 % (0.1-12.0); Hematocrit 48.8 % (37.0-47.0); Hemoglobin 15.5 g/dL (12.2-16.2); Lymphocytes % 26.7 % (10-50); Mean Corpuscular HGB Conc 31.8 g/dL (31.8-35.4); Mean Corpuscular Hemoglobin 31.1 pg (27.0-31.2); Monocytes # 0.6 K/mm3 (0.1-1.0); Monocytes % 8.2 % (1.7-9.3); Neutrophils # 4.6 K/mm3 (1.8-7.8); Neutrophils % 62.9 % (37.0-80.0); Platelet Count 163 K/mm3 (142-424); Red Blood Count 4.98 M/mm3 (4.20-5.40); Red Cell Distribution Width 13.4 % (11.5-17.5); White Blood Count 7.4 K/mm3 (4.8-10.8)
[2023-01-21 13:04] LABS: Alanine Aminotransferase 26 U/L (12-78); Albumin Level 4.2 g/dl (3.5-5.0); Albumin/Globulin Ratio 1.6 (1.1-1.8); Alkaline Phosphatase 76 U/L (38-126); Aspartate Amino Transferase 24 U/L (14-36); Bilirubin,Total 0.5 mg/dl (0.2-1.3); Blood Urea Nitrogen 15 mg/dl (7-17); Calcium 9.3 mg/dl (8.4-10.2); Carbon Dioxide 27 mmol/L (22.0-30.0); Chloride 104 mmol/L (98-107); Chol/HDL Ratio 3.8 (1-3.5); Cholesterol 170 mg/dl (140-200); Estimated Glomerular Filt Rate 65 ml/min (>60); GFR (African American) 78 ML/MIN (>60); Globulin 2.6 g/dL (1.3-3.2); Glucose 105 mg/dl (74-100); HDL Cholesterol 45 mg/dl (40-60); Sodium 142 mmol/L (136-145); Total Protein,Serum 6.8 g/dl (6.3-8.2); Triglycerides 242 mg/dl (30-150); VLDL Cholesterol 48 mg/dL (0-40)
[2023-01-21 13:15] LABS: Direct LDL Cholesterol 80.14 mg/dL (100-129)
[2023-01-21 13:20] LABS: 25-OH Vitamin D, Total 43.8 ng/mL (30-100)
[2023-01-21 13:34] LABS: Thyroid Stimulating Hormone 1.83 uIU/mL (0.465-4.68)
[2023-01-21 13:53] LABS: Vitamin B12 568 pg/mL (239-931)
== END ==
PROVIDERS: PCP Physician Assistant; Visit Provider Physician Assistant
DX: Z72.0 Tobacco use (principal); R53.83 Other fatigue; E78.2 Mixed hyperlipidemia; F41.9 Anxiety disorder, unspecified; E55.9 Vitamin D deficiency, unspecified
CPT/HCPCS: 80053; 80061; 82306; 82607; 84443; 85025

== ENCOUNTER → 2023-02-07 13:35 | Outpatient (CLI) | payer MEDICARE, MEDICAID, SELFPAY ==
--- NOTE | 2023-02-07 13:36 | MR_ITS ---
FINAL REPORT CLINICAL HISTORY: low back pain BLE radiculopathy. NO INJURY OR TRAUMA. COMPARISON: 09/07/2021 FINDINGS: Multiplanar MR imaging of the lumbar spine was performed without contrast. On the sagittal T2-weighted images, disc degeneration is seen at multiple levels. There is mild anterolisthesis of L4 on L5. Several Schmorl's nodes are noted in the lumbar region. There is no evidence of fracture. No bony mass is identified. The conus has an unremarkable appearance. T12-L1: No evidence of canal or neural foraminal stenosis. L1-2: An annular bulge is present. There is no significant canal stenosis or neural foraminal narrowing. L2-3: An annular bulge is present. There is a small right foraminal disc protrusion and mild right neuroforaminal narrowing, stable since the prior MRI examination. L3-4: An annular bulge is present with anterior osteophyte formation. There is no significant canal stenosis or neural foraminal narrowing. L4-5: An annular bulge is present with mild anterior osteophyte formation. There is mild right neural foraminal narrowing. L5-S1: An annular bulge is present with a small central disc protrusion, stable since the prior MRI. There is a broad-based right foraminal disc protrusion, also stable. There is mild bilateral neural foraminal narrowing. IMPRESSION: Multilevel degenerative disc disease and spondylosis as described, most prominent at the L2-3 and L5-S1 levels. Reviewed, Interpreted and Dictated by Ozzy Petersen III, MD Transcribed by Tanya Brown Authenticated and [facility]
--- NOTE | 2023-02-07 13:36 | MR_ITS ---
FINAL REPORT CLINICAL HISTORY: neck pain. HISTORY NECK SURGERY 3 YEARS AGO. HEADACHE. RIGHT ARM NUMBNESS AND TINGLING. COMPARISON: 10/12/2017 CT of the cervical spine FINDINGS: Multiplanar MR imaging of the cervical spine was performed without contrast. On the sagittal T2-weighted images, disc degeneration is seen at several levels. Since the CT exam of 2018 the patient has undergone fusion at the C5-6 and C6-7 levels. The vertebral alignment is normal. The cervical spinal cord has an unremarkable appearance without evidence of mass, edema or syrinx. No significant canal stenosis is identified. The cervicomedullary junction is normal. C2-3: There is no significant canal stenosis or neural foraminal narrowing. C3-4: Bilateral uncovertebral osteophytes are present, as well as moderate bilateral foraminal narrowing. C4-5: Bilateral uncovertebral osteophytes are present, along with moderate bilateral neural foraminal narrowing. C5-6: The C5-6 level is fused and the metallic instrumentation somewhat obscures the neuroforamen. Uncovertebral osteophytes is present. Despite the partial obscuring of the neural foramen secondary to magnetic susceptibility artifact there appears to be bilateral severe neural foraminal narrowing. C6-7: The C6-7 level is fused, and metallic instrumentation once again produces some magnetic susceptibility artifact. At this level the neuroforaminal narrowing appears to be mild. C7-T1: There is no significant canal stenosis or neural foraminal narrowing. IMPRESSION: Prior C5-6 and C6-7 anterior cervical fusion as described above. Multilevel cervical degenerative change is present. Magnetic susceptibility artifact from the plates and screws used for the fusion somewhat obscures the neural foramen at the C5-6 and C6-7 levels, however the degree of stenosis at the C5-6 level appears to be severe. Reviewed, Interpreted and Dictated by Ozzy Petersen III, MD Transcribed by Tanya Brown Authenticated and [facility]
== END ==
LOC: RAD 13:35
PROVIDERS: PCP Physician Assistant; Visit Provider Physician Assistant
DX: G89.29 Other chronic pain; M54.2 Cervicalgia; M54.50 Low back pain, unspecified
CPT/HCPCS: 72141; 72148; 76376

== ENCOUNTER 2023-02-25 07:55 | Outpatient (CLI) | payer MEDICARE, MEDICAID, SELFPAY ==
[2023-02-25 08:23] VITALS: BMI 34.0
--- NOTE | 2023-02-25 08:27 | PC.NURSE ---
0818-collected labs via peripheral stick with butterfly needle in right hand;will wait on results for possible therapeutic phlebotomy for hgb > 17
[2023-02-25 08:54] LABS: Basophils # 0.1 K/mm3 (0-0.2); Basophils % 0.6 % (0.1-2.0); Eosinophils # 0.2 K/mm3 (0.0-0.4); Eosinophils % 1.9 % (0.1-12.0); Hematocrit 47.3 % (37.0-47.0); Hemoglobin 15.4 g/dL (12.2-16.2); Lymphocytes % 33.3 % (10-50); Mean Corpuscular HGB Conc 32.6 g/dL (31.8-35.4); Mean Corpuscular Hemoglobin 31.2 pg (27.0-31.2); Mean Corpuscular Volume 95.8 fl (81-99); Mean Platelet Volume 9.6 fl (7.4-10.4); Monocytes # 0.6 K/mm3 (0.1-1.0); Monocytes % 6.6 % (1.7-9.3); Neutrophils # 5.1 K/mm3 (1.8-7.8); Neutrophils % 57.5 % (37.0-80.0); Platelet Count 146 K/mm3 (142-424); Red Blood Count 4.94 M/mm3 (4.20-5.40); Red Cell Distribution Width 13.4 % (11.5-17.5); White Blood Count 8.9 K/mm3 (4.8-10.8)
--- NOTE | 2023-02-25 09:00 | PC.NURSE ---
0900-pt d/c home no phlebotomy today; hgb 15.4
== END 2023-02-25 09:00 | disposition home or self-care (01) ==
LOC: INF 07:57
PROVIDERS: PCP Physician Assistant; Visit Provider Nurse Practitioner
DX: D75.1 Secondary polycythemia (principal)
CPT/HCPCS: 36415; 85025

== ENCOUNTER 2023-03-08 08:00 | Outpatient (RCR) | payer MEDICARE, MEDICAID, SELFPAY ==
--- NOTE | 2023-02-05 08:50 | HMH.PTOPEV ---
PT Outpatient Evaluation Rehab PT Outpatient Evaluation Start: 02/05/23 08:30 Freq: Status: Active Protocol: Document 02/05/23 08:33 LAURA (Rec: 02/05/23 08:50 LAURA [id number]) E-signed By Conor Nielson, PT Outpatient Therapy Subjective History Subjective History Patient is a 57 year old female presenting to outpatient PT with reports of chronic cervical and lumbar spine pain, both of insidious onset. Patient underwent C2 cervical fusion approx 3 years ago per patient report. No recent imaging on file to report. Patient was intiailly experiencing LUE radicular symptoms, which were relieved after surgery. She currently experiences intermittent RUE NT. LS onset approx 10 years ago. No previous hx of Rx. Patient report herniated disc in lumbar spine. Comorbidities include hx of DDD, COPD, HTN, HL, sleep apnea and lumpectomy. Chief Complaint Pain,Stiff,Clicks,Paresthesia Symptom Type Ache,Numbness,Shooting Symptoms Relieved By Rest/Positioning,Heat,OTC Meds ,Prescription Meds Symptoms Aggravated By Standing,Bending/Stooping, Physical Activity,Walking, Lifting Prior Functional Limitations Reaching,Lifting,Housework, Sleeping,Standing,Walking, Bending/Stooping Current Functional Limitations Reaching,Lifting,Housework, Sleeping,Standing,Walking, Bending/Stooping Symptom Description Constant but Variable Level of pain today (0-10) 6 Pain scale - at its best (0-10) 4 Pain scale - at its worst (0-10) 6 Cervical Eval Palpation Cervical Muscles L Suboccipital,R CT Junction,L CT Junction,R Upper Trapezius ,L Upper Trapezius Posture Head/C-Spine Posture Sitting Position Extended Head/C-Spine Posture Standing Position Extended Flexibility Deficits Upper Trapezius Muscle Length (R) Moderate Tightness,(L) Moderate Tightness Pectoralis Minor Muscle Length (R) Moderate Tightness,(L) Moderate Tightness Passive Joint
--- NOTE | 2023-03-06 09:23 | HMH.RHREAS ---
Rehab Reassessment Rehab OP Re-assessment Start: 02/05/23 08:30 Freq: Status: Active Protocol: Document 03/06/23 09:17 LAURA (Rec: 03/06/23 09:23 LAURA [id number]) E-signed By Conor Nielson, PT Rehab Re-assessment Subjective Subjective Patient reports 40% improvment since start of care. Objective Objective Notes AROM: -Cervical: flx 33; ext 38; SBr 30; SBl 36; Rr 40; Rl 42 -Lumbar: flx 56; ext 19; SBr 24; SBl 26 MMT: WFL BUE/BLE Neuro: intermittent NT to RLE/ RUE though dec intensity, frequency and duration noted. Assessment Progress Assessment Progressing as Expected Assessment Notes Patient would benefit from continuing with skilled PT services in order to address functional limitations with reaching, lifting and bending activities. Patient goals met STG's Goals Not Met LTG's Revised Goals NA Plan Plan Continue with current POC. Frequency of Therapy 2x/week Duration of therapy 4 weeks Time and Billing Re-Eval Time 15 Re-Eval Billing Units 1 PHYSICIAN CERTIFICATION: I certify the specified therapy services for Laura Hodge are required, authorized, and reviewed every 30 days.
== END 2023-03-08 08:05 | disposition home or self-care (01) ==
LOC: PT 08:00
PROVIDERS: PCP Physician Assistant; Visit Provider Physician Assistant
DX: M54.2 Cervicalgia (principal); M54.50 Low back pain, unspecified; G89.29 Other chronic pain
CPT/HCPCS: 97010; 97012; 97014; 97110; 97163; 97164; 97530; G0283

== ENCOUNTER → 2023-03-21 11:37 | Outpatient (CLI) | payer MEDICARE, MEDICAID, SELFPAY ==
--- NOTE | 2023-03-21 11:38 | NM_ITS ---
APPROVED REPORT Exam: Nuclear Stress Test Indication: Chest pain, SOB, Syncope, Fatigue, HTN, High cholesterol, Tobacco use, Family history Patient Location: Outpatient Stress Tech: Iris CARRANZA Tech:AMINATA Lee RT(R)(N) Ht: 5 ft 7 in Wt: 220 lbs Bra Size: 38D HR: 58 bpm BP: 126/75 mmHg BSA: 2.11 m2 Rhythm: NSR, RBBB TID: 1.18 BMI: 34.4 History: Chest pain, SOB, Syncope, Fatigue, HTN, High cholesterol, Tobacco use, Family history Procedure: Patient received 0.4 mg of intravenous Lexiscan, resting heart rate 58 bpm, resting blood pressure 126/75 mmHg, with Lexiscan maximum heart rate achieved was 82 bpm which is % of the maximum predicted heart rate and blood pressure was 151/78 mmHg. With Lexiscan, patient denied any complaint of chest pain. Cardiac Stress and Resting SPECT Images: Cardiac Stress and Resting SPECT images were obtained using technetium 99m Myoview 32.8 mCi stress and 10.98 mCi at rest. Raw images demonstrate significant overlap of soft tissue with the cardiac borders. This may affect the diagnostic interpretation of the study findings. Resting and stress imaging in supine position demonstrate a medium sized, moderate, fixed perfusion defect in the basal to mid anterior LV wall. This is no longer visualized with prone stress imaging. Findings are suggestive of soft tissue attenuation. Gated imaging demonstrates normal global and regional LV systolic function. LVEF is calculated at 65%. Conclusion: Soft tissue attenuation is present. No definite fixed or reversible perfusion defects. Gated imaging demonstrates normal global and regional LV systolic function. LVEF is calculated at 65%. Electronically signed by : Gisel Andrew, 03/22/2023 22:44:46
--- NOTE | 2023-03-21 12:57 | CA_ITS ---
APPROVED REPORT EXAM: Comprehensive 2D, Doppler, and color-flow Echocardiogram [employer] Detailer: LINDA Espinal, RVS Ht: 5 ft 7 in Wt: 224lbs BSA: 2.12 BP: 149/70 mmHg Indications: CAD, RBBB. COPD, SMOKER, CP EDEMA, MURMUR, HTN, HLD, OBESITY Echo Enhancing Agent Comments: Poor acoustics due to lung impedance/body habitus. 2D Dimensions LVDd 4.39 cm LVEF (Visual) 63.40 % LVDs 2.89 cm LA Volume 32.70 mL Aortic Root 2.79 cm LA Volume Index 15.10 mL/m2 (M/F) 16-34 Left Atrium 3.51 cm LVOT 2.00 cm (M/F) 1.5-2.5 M-Mode Dimensions RVDd 1.72 cm (0.9-2.6) LA Diam 3.05 cm (1.9-4.0) LVDd 4.94 cm (3.5-5.7) Ao Diam 3.01 cm (2.0-3.7) LVDs 3.22 cm (3.5-5.7) IVSd 1.07 cm (0.6-1.1) PWd 0.89 cm (0.6-1.1) EF (Teich) 63.80% EPSs 0.90 cm FS 34.80% EDV (Teich) 115.00 mL TAPSE 1.90 (<1.7) ESV (Teich) 41.60 mL LV Diastology E Decel Time 257.00 (160-240 msec) E/A Ratio 0.82 MED E' 4.60 (< 7 cm/sec) MED A' 8.60 cm/s E'/MED E' Ratio 14.59 (>14) LAT E' 6.70 (<10 cm/sec) LAT A' 7.50 cm/s E/LAT E' Ratio 10.01 (>14) Aortic Valve LVOT Max 92.00 (70-110 cm/s) LVOT VTI 21.78 cm AoV Peak Charli. 103.00 (50-130 cm/s) AO Peak GR. 4.30 mmHg AO Mean GR. 2.10 (<5 mmHg) AO VTI 22.36 (18-25 cm) NIC (VTI) 3.06 (2.5-4.5 cm2) Mitral Valve MV A Velocity 82.00 (40-130 cm/s) E/A Ratio 0.82 MV Decel. Time 257.00 (160-240 ms) Pulmonary Valve PV Peak Velocity 86.00 (50-150 cm/s) Tricuspid Valve TR P. Velocity 203.00 cm/s RAP Estimate 10.00 mmHg RVSP 26.50 mmHg Left Ventricle The left ventricle is normal size. The left ventricular systolic function is normal. The left ventricular ejection fraction is within the normal range. There is increased left ventricular wall thickness. There is normal LV segmental wall motion. THe diastolic function is indeterminate. LVEF is 60%. Right Ventricle The right ventricle is normal size. The right ventricular systolic function is normal. Atria The left atrium size is normal. The right atrium size is normal. There is no Doppler evidence of interatrial shunt. Aortic Valve The aortic valve opens well. There is no aortic valvular stenosis. No aortic regurgitation is present. Mitral Valve The mitral valve is normal in structure. No evidence of mitral valve stenosis. There is no mitral valve regurgitation noted. Tricuspid Valve The tricuspid valve leaflets are thin and pliable. Trace tricuspid regurgitation. RVSP is normal. Pulmonic Valve The pulmonary valve is normal in structure. Trace pulmonic regurgitation. Great Vessels The aortic root is normal in size. The ascending aorta is normal in size. IVC is normal in size and collapses >50% with inspiration. Pericardium There is no pericardial effusion. Other Information Study Quality: Adequate Conclusion Normal biventricular systolic function. No significant valvular disease. Electronically signed by : Gisel Andrew, 03/22/2023 22:05:42
--- NOTE | 2023-03-21 13:21 | CA_ITS ---
APPROVED REPORT Exam: Pharmacologic Technologist: Aicha Benitez, Ht: 5 ft 7 in Wt: 224 lbs BSA: 2.12 m2 HR: 54 bpm BP: 126/75 mmHg Rhythm: NSR Medical History Medications: Alprazolam,,,,, Aspirin,,,,, Atenolol,,,,, Vitamin D3,,,,, Atorvastatin,,,,, Buspirone,,,,, Albuterol,,,,, Estradiol,,,,, Tizanidine,,,,, Nitroglycerin,,,,, Trazodone,,,,, Zofran,,,,, Stress Test Details Test: LEXISCAN Reason for pharmacologic stress test: physical limitation. HR Resting HR: 58 bpm Max Heart Rate (APMHR): 163 bpm Max HR Achieved: 82 bpm Target HR (85% APMHR): 139 bpm % of APMHR: 50 Recovery HR: 60 bpm BP Resting BP: 126/75 mmHg Max BP: 151/78 mmHg Recovery BP: 118.0/74.0 mmHg ECG Resting ECG: sinus bradycardia, RBBB Stress ECG: No change Arrhythmia: None Clinical Exercise duration: 04:00 min Highest Stage Achieved: Stress ECG Conclusion Symptoms: Head discomfort, mild RODRIGUEZ. No CP. Arrhythmias/Ectopy: None ST-T Changes: No significant ST changes Conxlusion: Non-diagnostic Lexiscan stress due to baseline abnormalities. Myoview images reported separately Test Summary REST . . . . . . . Resting REST 02:57 . . 58 . 126/ 75 . . Stage 1 01:00 . . 70 . . . . Stage 2 01:00 . . 75 . 151/ 78 . . Stage 3 01:00 . . 70 . 131/ 79 . . Stage 4 01:00 . . 67 . 129/ 72 . Stop exercise at 04:00 RECOVERY 01:00 . . 62 . 149/ 68 . . RECOVERY 02:00 . . 60 . 125/ 73 . . RECOVERY 03:00 . . 61 . 118/ 74 . . RECOVERY 03:19 . . 60 . 118/ 74 . . Electronically signed by : Gisel Andrew, 03/22/2023 22:41:56
== END ==
PROVIDERS: PCP Physician Assistant; Visit Provider Internal Medicine
DX: I20.8 Other forms of angina pectoris; R42 Dizziness and giddiness; I10 Essential (primary) hypertension; R60.0 Localized edema; E78.5 Hyperlipidemia, unspecified; G47.33 Obstructive sleep apnea (adult) (pediatric); E66.9 Obesity, unspecified; Z68.34 Body mass index [BMI] 34.0-34.9, adult; Z99.89 Dependence on other enabling machines and devices
CPT/HCPCS: 78452; 93017; 93306; A9502; J2785

== ENCOUNTER → 2023-04-17 01:10 | Outpatient (CLI) | payer MEDICARE, MEDICAID, SELFPAY ==
[2023-04-17 20:07] LABS: Amphetamine/Metha Screen,Urine Negative ng/ml (<1000)
[2023-04-17 20:08] LABS: Barbiturates Screen,Urine Negative ng/ml (<200); Benzodiazepines Screen,Urine Negative ng/ml (<200)
[2023-04-17 20:09] LABS: Cannabinoid Screen,Urine Negative ng/ml (<50)
[2023-04-17 20:10] LABS: Cocaine Screen,Urine Negative ng/ml (<300)
[2023-04-17 20:12] LABS: Methadone Screen,Urine Negative ng/ml (<300)
[2023-04-17 20:13] LABS: Opiate Screen,Urine Negative ng/ml (<300); Phencyclidine Screen,Urine Negative ng/ml (<25)
== END ==
PROVIDERS: PCP Physician Assistant; Visit Provider Physician Assistant
DX: M51.36 Other intervertebral disc degeneration, lumbar region (principal); Z79.899 Other long term (current) drug therapy
CPT/HCPCS: 80305

== ENCOUNTER 2023-04-22 10:24 | Outpatient (CLI) | payer MEDICARE, MEDICAID, SELFPAY ==
[2023-04-22 10:31] VITALS: BMI 33.6
[2023-04-22 10:43] LABS: Basophils # 0.1 K/mm3 (0-0.2); Basophils % 0.9 % (0.1-2.0); Eosinophils # 0.2 K/mm3 (0.0-0.4); Eosinophils % 2.1 % (0.1-12.0); Hematocrit 52.4 % (37.0-47.0); Hemoglobin 16.8 g/dL (12.2-16.2); Lymphocytes # 3.3 K/mm3 (0.7-4.5); Lymphocytes % 34.2 % (10-50); Mean Corpuscular HGB Conc 32.1 g/dL (31.8-35.4); Mean Corpuscular Hemoglobin 31.1 pg (27.0-31.2); Mean Corpuscular Volume 96.9 fl (81-99); Mean Platelet Volume 8.7 fl (7.4-10.4); Monocytes # 0.6 K/mm3 (0.1-1.0); Monocytes % 5.9 % (1.7-9.3); Neutrophils # 5.5 K/mm3 (1.8-7.8); Neutrophils % 56.9 % (37.0-80.0); Platelet Count 168 K/mm3 (142-424); Red Cell Distribution Width 13.4 % (11.5-17.5); White Blood Count 9.7 K/mm3 (4.8-10.8)
--- NOTE | 2023-04-22 11:44 | PC.NURSE ---
1037 CBC collected per rn labor and delivery. Patient here for possible therapeutic phlebotomy based on today's lab results.
--- NOTE | 2023-04-22 11:45 | PC.NURSE ---
1140 Hgb 16.8, Hct 52.4. Patient does not need therapeutic phlebotomy today based on Hgb 16.8. Next appointment scheduled for 2 months as ordered 06/24/23. Patient discharged home/stable
== END 2023-04-22 11:40 | disposition home or self-care (01) ==
LOC: INF 10:25
PROVIDERS: PCP Physician Assistant; Visit Provider Nurse Practitioner
DX: D45 Polycythemia vera (principal)
CPT/HCPCS: 85025

== ENCOUNTER → 2023-05-30 10:42 | Outpatient (CLI) | payer MEDICARE, MEDICAID, SELFPAY ==
--- NOTE | 2023-05-30 10:42 | MM_ITS ---
PROCEDURE INFORMATION: Exam: MG Bilateral Screening 3D Mammography Exam date and time: 05/30/2023 10:43 AM Age: 57 years old Clinical indication: Screening examination TECHNIQUE: Imaging protocol: Bilateral Screening tomosynthesis and 2D mammography including computer-aided detection (CAD) when performed. COMPARISON: 1. MG MM DIG SCREENING MAMM BI W/CAD 12/08/2021 7:56 AM 2. MG MM DIG MAMM BI DX W/CAD 11/22/2020 1:27 PM FINDINGS: MAMMOGRAPHY: Breast composition: The breasts are heterogeneously dense, which may obscure small masses. Mass: None. Architectural distortion: None. Calcifications: No suspicious calcifications. Asymmetric density: None. Skin thickening: None. Axillary adenopathy: None. IMPRESSION: No mammographic evidence of malignancy. Annual screening is recommended unless otherwise clinically indicated. ASSESSMENT: BI-RADS Category 1: Negative
== END ==
PROVIDERS: PCP Physician Assistant; Visit Provider Nurse Practitioner Obstetrics & Gynecology
DX: Z12.31 Encounter for screening mammogram for malignant neoplasm of breast (principal)
CPT/HCPCS: 77063; 77067

== ENCOUNTER 2023-06-24 07:57 | Outpatient (CLI) | payer MEDICARE, MEDICAID, SELFPAY ==
[2023-06-24 08:12] VITALS: BMI 34.7
--- NOTE | 2023-06-24 08:14 | PC.NURSE ---
0814-collected labs via venipuncture stick with butterfly in right hand;pt to wait on labs; if hgb>17 pt to have therapeutic phlebotomy.
[2023-06-24 08:30] LABS: Basophils # 0.1 K/mm3 (0-0.2); Basophils % 0.6 % (0.1-2.0); Eosinophils # 0.2 K/mm3 (0.0-0.4); Eosinophils % 2.3 % (0.1-12.0); Hematocrit 43.8 % (37.0-47.0); Hemoglobin 14.3 g/dL (12.2-16.2); Lymphocytes # 2.6 K/mm3 (0.7-4.5); Lymphocytes % 32.9 % (10-50); Mean Corpuscular HGB Conc 32.6 g/dL (31.8-35.4); Mean Corpuscular Hemoglobin 31.7 pg (27.0-31.2); Mean Corpuscular Volume 97.2 fl (81-99); Mean Platelet Volume 9.6 fl (7.4-10.4); Monocytes # 0.5 K/mm3 (0.1-1.0); Monocytes % 6.3 % (1.7-9.3); Neutrophils # 4.6 K/mm3 (1.8-7.8); Platelet Count 143 K/mm3 (142-424); Red Blood Count 4.51 M/mm3 (4.20-5.40); Red Cell Distribution Width 13.3 % (11.5-17.5); White Blood Count 7.9 K/mm3 (4.8-10.8)
--- NOTE | 2023-06-24 08:40 | PC.NURSE ---
0840-pt hgb 14.3 today; pt d/c home and to return in 2 months
== END 2023-06-24 08:40 | disposition home or self-care (01) ==
LOC: INF 07:58
PROVIDERS: PCP Physician Assistant; Visit Provider Nurse Practitioner
DX: D75.1 Secondary polycythemia (principal)
CPT/HCPCS: 36415; 85025

== ENCOUNTER → 2023-07-08 23:07 | Outpatient (CLI) | payer MEDICARE, MEDICAID, SELFPAY ==
[2023-07-08 19:09] LABS: Amphetamine/Metha Screen,Urine Negative ng/ml (<1000); Barbiturates Screen,Urine Negative ng/ml (<200)
[2023-07-08 19:10] LABS: Benzodiazepines Screen,Urine Negative ng/ml (<200)
[2023-07-08 19:11] LABS: Cannabinoid Screen,Urine Negative ng/ml (<50); Cocaine Screen,Urine Negative ng/ml (<300)
[2023-07-08 19:12] LABS: Methadone Screen,Urine Negative ng/ml (<300)
[2023-07-08 19:13] LABS: Opiate Screen,Urine Negative ng/ml (<300); Phencyclidine Screen,Urine Negative ng/ml (<25)
[2023-07-13 00:04] LABS: Alprazolam Negative (Cutoff=100); Benzodiazepines Negative ng/mL (Cutoff=100); Clonazepam Negative (Cutoff=100); Flurazepam Negative (Cutoff=100); Lorazepam Negative (Cutoff=100); Midazolam Negative (Cutoff=100); Temazepam Negative (Cutoff=100); Triazolam Negative (Cutoff=100)
== END ==
PROVIDERS: PCP Physician Assistant; Visit Provider Physician Assistant
DX: F41.9 Anxiety disorder, unspecified (principal); M51.36 Other intervertebral disc degeneration, lumbar region
CPT/HCPCS: 80305; 80346

== ENCOUNTER → 2023-07-09 13:12 | Outpatient (CLI) | payer MEDICARE, MEDICAID, SELFPAY | PROVIDERS: PCP Physician Assistant; Visit Provider Physician Assistant | DX: Z79.899 Other long term (current) drug therapy (principal) | CPT/HCPCS: 80346 ==

== ENCOUNTER → 2023-07-10 10:06 | Outpatient (CLI) | payer MEDICARE, MEDICAID, SELFPAY ==
[2023-07-10 19:51] LABS: Amphetamine/Metha Screen,Urine Negative ng/ml (<1000)
[2023-07-10 19:52] LABS: Barbiturates Screen,Urine Negative ng/ml (<200)
[2023-07-10 22:47] LABS: Cannabinoid Screen,Urine Negative ng/ml (<50)
[2023-07-10 22:48] LABS: Cocaine Screen,Urine Negative ng/ml (<300)
[2023-07-10 22:49] LABS: Benzodiazepines Screen,Urine Positive ng/ml (<200); Opiate Screen,Urine Negative ng/ml (<300)
[2023-07-10 22:50] LABS: Methadone Screen,Urine Negative ng/ml (<300); Phencyclidine Screen,Urine Negative ng/ml (<25)
== END ==
PROVIDERS: PCP Physician Assistant; Visit Provider Physician Assistant
DX: M51.36 Other intervertebral disc degeneration, lumbar region (principal)
CPT/HCPCS: 80305

== ENCOUNTER → 2023-07-24 23:40 | Outpatient (CLI) | payer MEDICARE, MEDICAID, SELFPAY ==
[2023-07-24 19:56] LABS: Barbiturates Screen,Urine Negative ng/ml (<200); Benzodiazepines Screen,Urine Positive ng/ml (<200)
[2023-07-24 19:57] LABS: Amphetamine/Metha Screen,Urine Negative ng/ml (<1000)
[2023-07-24 19:58] LABS: Cocaine Screen,Urine Negative ng/ml (<300); Methadone Screen,Urine Negative ng/ml (<300)
[2023-07-24 19:59] LABS: Cannabinoid Screen,Urine Positive ng/ml (<50)
[2023-07-24 20:00] LABS: Phencyclidine Screen,Urine Negative ng/ml (<25)
[2023-07-24 20:01] LABS: Opiate Screen,Urine Negative ng/ml (<300)
== END ==
PROVIDERS: PCP Physician Assistant; Visit Provider Physician Assistant
DX: M51.16 Intervertebral disc disorders with radiculopathy, lumbar region (principal); Z79.899 Other long term (current) drug therapy
CPT/HCPCS: 80305

== ENCOUNTER 2023-08-12 08:49 | Outpatient (CLI) | payer MEDICARE, MEDICAID, SELFPAY ==
[2023-08-12 08:56] VITALS: BMI 33.6
--- NOTE | 2023-08-12 09:00 | PC.NURSE ---
0900-m.luly johnson collected labs via venipuncture stick in left hand with butterfly needle;pt will wait on results for possible therapeutic phlebotomy if hgb>17.
[2023-08-12 09:08] LABS: Basophils # 0.1 K/mm3 (0-0.2); Basophils % 0.8 % (0.1-2.0); Eosinophils # 0.2 K/mm3 (0.0-0.4); Eosinophils % 2.1 % (0.1-12.0); Hemoglobin 14.9 g/dL (12.2-16.2); Lymphocytes # 3.2 K/mm3 (0.7-4.5); Lymphocytes % 34.4 % (10-50); Mean Corpuscular HGB Conc 33.9 g/dL (31.8-35.4); Mean Corpuscular Hemoglobin 32.8 pg (27.0-31.2); Mean Corpuscular Volume 96.6 fl (81-99); Mean Platelet Volume 9.2 fl (7.4-10.4); Monocytes # 0.6 K/mm3 (0.1-1.0); Monocytes % 6.3 % (1.7-9.3); Neutrophils # 5.2 K/mm3 (1.8-7.8); Neutrophils % 56.4 % (37.0-80.0); Platelet Count 167 K/mm3 (142-424); Red Blood Count 4.56 M/mm3 (4.20-5.40); Red Cell Distribution Width 13.5 % (11.5-17.5); White Blood Count 9.2 K/mm3 (4.8-10.8)
--- NOTE | 2023-08-12 09:35 | PC.NURSE ---
0935-pt d/c home; hgb 14.7 pt does not need therapeutic phlebotomy.
== END 2023-08-12 09:35 | disposition home or self-care (01) ==
LOC: INF 08:50
PROVIDERS: PCP Physician Assistant; Visit Provider Internal Medicine
DX: D75.1 Secondary polycythemia (principal)
CPT/HCPCS: 36415; 85025

== ENCOUNTER 2023-08-14 12:51 | Outpatient (CLI) | payer MEDICARE, MEDICAID, SELFPAY ==
[2023-08-14 14:24] LABS: Amphetamine/Metha Screen,Urine Negative ng/ml (<1000)
[2023-08-14 14:25] LABS: Barbiturates Screen,Urine Negative ng/ml (<200)
[2023-08-14 14:26] LABS: Benzodiazepines Screen,Urine Negative ng/ml (<200); Cannabinoid Screen,Urine Negative ng/ml (<50)
[2023-08-14 14:27] LABS: Cocaine Screen,Urine Negative ng/ml (<300); Methadone Screen,Urine Negative ng/ml (<300)
[2023-08-14 14:28] LABS: Opiate Screen,Urine Negative ng/ml (<300)
[2023-08-14 14:29] LABS: Phencyclidine Screen,Urine Negative ng/ml (<25)
== END 2023-08-14 23:59 ==
LOC: LAB.DROPOF 12:52
PROVIDERS: PCP Physician Assistant; Visit Provider Physician Assistant
DX: Z79.899 Other long term (current) drug therapy (principal)
CPT/HCPCS: 80307

== ENCOUNTER 2023-08-20 10:18 | Day surgery (SDC) | payer MEDICARE, MEDICAID, SELFPAY ==
[2023-08-20] MEDS: LACTATED RINGERS 1000ML 1,000 ML 25 ML IV (10:36)
[2023-08-20 10:44] VITALS: BP 120/84; PULSE 69; RESP 18; TEMP 36.6; O2SAT 95; BMI 34.4
--- NOTE | 2023-08-20 10:52 | P.PNANES_ITS ---
[facility] Disclaimer: The information contained in this section may have been updated after the patient was seen, as this information can be updated by other users. Medical History Angina pectoris Anxiety and depression Burning sensation of feet Chest pain Chronic cough Chronic obstructive lung disease Constipation Dyspnea on exertion Elevated left ventricular end-diastolic pressure (LVEDP) Flank pain, acute Fracture of spinous process of cervical vertebra GERD (gastroesophageal reflux disease) Hematuria History of polycythemia Osteoarthritis Polycythemia secondary to smoking Pulmonary emphysema Right bundle branch block (RBBB) RLS (restless legs syndrome) Screening for lung cancer Shortness of breath Smoking greater than 30 pack years Surgical History H/O total hysterectomy History of breast biopsy History of cardiac cath History of cervical spinal surgery Family History Other Family history of diabetes mellitus Family history of heart disease Osteoporosis Social History Smoking Status: Current every day smoker tobacco type: cigarettes packs per day: 1 second hand exposure: No alcohol intake: never substance use type: denies use current occupational status: disabled and other Travel in the last 8 weeks: None household members: spouse housing: house current occupational exposures/hazards: No caffeine: Yes [facility] Anesthesia Checklist Patient Identification Patient Identification: Arm Band and Verbal (Name & ) Structural Data Admitted From: Home Planned Operative Procedure/s: Colonoscopy Consent for Planned Operative Procedure(s) Verified: Yes NPO Status Verified Time NPO: 00:00 Additional verifications Anesthesia Reactions: No Airway Assessment Mallampati Score:: Class III C-Spine Mobility Assessed: Yes TMJ Mobility Assessed: Yes Dentition: Dentures-poor fitting Neurological Assessment Level of Consciousness: Awake Hx Seizures: No Numbness or tingling in extremities: No Anesthesia Plan Anesthesia Risk discussed: Yes Anesthesia Plan: Verified ASA Class: III Anesthesia Type: MAC
--- NOTE | 2023-08-20 10:58 | P.PCN_ITS ---
Procedure: Date: 08/20/23 Patient Date of :: 1965 Procedure Performed:: Colonoscopy with polypectomy Indications:: History of colon polyps Performing Provider:: Cristian Waite MD Referring Provider:: . Sedation:: Monitored anesthesia care Procedure:: After informed consent was obtained the patient was taken to the endoscopy suite. Sedation ensued after the patient was transferred to the left lateral d ecubitus position. Pulse, blood pressure, and oxygen saturation were monitored throughout the procedure. Digital rectal exam revealed no significant abnormality. The colonoscope was placed in position. The entire colon was evaluated. The colonoscope was carefully removed and the patient was transferred to recovery in stable condition. Please see findings and specimens below for detail. Findings:: Bowel preparation fairly poor Patchy melanosis throughout colon Mild diffuse inflammation/colitis Small hemorrhoidal tags Hemorrhoidal cushions Scattered diverticulosis (mostly sigmoid) Polyps (see specimens) Specimens:: Lobulated sessile splenic flexure polyp (cold snare) Adjacent lobulated sessile polyps at 40 cm (cold snare) Recommendations:: Timing of repeat colonoscopy is pending pathology will likely be around 6-12 months with extended bowel preparation. Complications:: No immediate with the exception of fairly poor bowel preparation Estimated blood obtained (mL): 1 Colonoscopy Component Colonoscopy Component Was a colonoscopy performed during today's procedure?: Yes Recommended follow up colonoscopy of at least 10 years?: No If no, follow up colonoscopy recommended in ___ years?: (See above) Reason for not recommending >/= 10 yr follow-up interval?: (See above)
[2023-08-20 11:05] VITALS: O2SAT 95
[2023-08-20 11:42] VITALS: BP 116/63; PULSE 60; RESP 14; TEMP 36.1; O2SAT 95
[2023-08-20 11:52] VITALS: BP 128/77; PULSE 61; RESP 16; O2SAT 98
[2023-08-20 12:02] VITALS: BP 116/72; PULSE 57; RESP 16; O2SAT 97
[2023-08-20 12:12] VITALS: BP 118/67; PULSE 51; RESP 16; TEMP 36.6; O2SAT 98
== END 2023-08-20 12:13 | disposition home or self-care (01) ==
PROVIDERS: PCP Physician Assistant; Visit Provider Surgery
PROC: 0DJD8ZZ Inspection of Lower Intestinal Tract, Via Natural or Artificial Opening Endoscopic (ICD-10-PCS; CPT 45385; principal; 2023-08-20 11:30)
DX: Z12.11 Encounter for screening for malignant neoplasm of colon (principal); Z86.010 Personal history of colon polyps; D12.3 Benign neoplasm of transverse colon; D12.5 Benign neoplasm of sigmoid colon; K63.89 Other specified diseases of intestine; K52.89 Other specified noninfective gastroenteritis and colitis; K64.4 Residual hemorrhoidal skin tags; K57.30 Diverticulosis of large intestine without perforation or abscess without bleeding
CPT/HCPCS: 45385; 88305; J2704

== ENCOUNTER 2023-10-07 18:01 | Outpatient (CLI) | payer MEDICARE, MEDICAID, SELFPAY ==
[2023-10-07 18:13] LABS: Basophils # 0.1 K/mm3 (0-0.2); Basophils % 1.2 % (0.1-2.0); Eosinophils # 0.1 K/mm3 (0.0-0.4); Eosinophils % 1.4 % (0.1-12.0); Hematocrit 48.2 % (37.0-47.0); Hemoglobin 15.8 g/dL (12.2-16.2); Lymphocytes # 3.4 K/mm3 (0.7-4.5); Lymphocytes % 37.3 % (10-50); Mean Corpuscular HGB Conc 32.8 g/dL (31.8-35.4); Mean Corpuscular Hemoglobin 33.2 pg (27.0-31.2); Mean Corpuscular Volume 101.4 fl (81-99); Mean Platelet Volume 11.1 fl (7.4-10.4); Monocytes # 0.6 K/mm3 (0.1-1.0); Monocytes % 6.6 % (1.7-9.3); Neutrophils # 4.8 K/mm3 (1.8-7.8); Neutrophils % 53.5 % (37.0-80.0); Platelet Count 216 K/mm3 (142-424); Red Blood Count 4.76 M/mm3 (4.20-5.40); Red Cell Distribution Width 13.4 % (11.5-17.5)
[2023-10-07 18:39] LABS: Alanine Aminotransferase 31 U/L (12-78); Albumin Level 4.2 g/dl (3.5-5.0); Albumin/Globulin Ratio 1.6 (1.1-1.8); Alkaline Phosphatase 81 U/L (38-126); Anion Gap 11.6 mEq/L (5-15); Aspartate Amino Transferase 30 U/L (14-36); Bilirubin,Total 0.6 mg/dl (0.2-1.3); Blood Urea Nitrogen 16 mg/dl (7-17); Calcium 9.4 mg/dl (8.4-10.2); Carbon Dioxide 25 mmol/L (22.0-30.0); Chloride 106 mmol/L (98-107); Cholesterol 180 mg/dl (140-200); Estimated Glomerular Filt Rate 64 ml/min (>60); GFR (African American) 78 ML/MIN (>60); Globulin 2.7 g/dL (1.3-3.2); Glucose 134 mg/dl (74-100); HDL Cholesterol 36 mg/dl (40-60); Potassium 3.6 mmoL/L (3.5-5.1); Sodium 139 mmol/L (136-145); Total Protein,Serum 6.9 g/dl (6.3-8.2); Triglycerides 281 mg/dl (30-150); VLDL Cholesterol 56 mg/dL (0-40)
[2023-10-07 18:50] LABS: Direct LDL Cholesterol 91.43 mg/dL (100-129)
[2023-10-07 18:54] LABS: 25-OH Vitamin D, Total 58.6 ng/mL (30-100)
[2023-10-07 19:11] LABS: Thyroid Stimulating Hormone 1.44 uIU/mL (0.465-4.68)
== END 2023-10-07 23:59 ==
LOC: LAB.DROPOF 18:01
PROVIDERS: PCP Physician Assistant; Visit Provider Physician Assistant
DX: E78.2 Mixed hyperlipidemia (principal); E55.9 Vitamin D deficiency, unspecified; I10 Essential (primary) hypertension; Z68.35 Body mass index [BMI] 35.0-35.9, adult; F17.210 Nicotine dependence, cigarettes, uncomplicated
CPT/HCPCS: 80053; 80061; 82306; 84443; 85025

== ENCOUNTER 2024-02-10 07:56 | Outpatient (CLI) | payer MEDICARE, MEDICAID, SELFPAY ==
[2024-02-10 08:12] VITALS: BMI 33.6
[2024-02-10 08:22] LABS: Basophils # 0.1 K/mm3 (0-0.2); Basophils % 0.6 % (0.1-2.0); Eosinophils # 0.2 K/mm3 (0.0-0.4); Hematocrit 45.4 % (37.0-47.0); Lymphocytes # 2.9 K/mm3 (0.7-4.5); Lymphocytes % 31.1 % (10-50); Mean Corpuscular Hemoglobin 32.4 pg (27.0-31.2); Mean Corpuscular Volume 98.1 fl (81-99); Mean Platelet Volume 9.1 fl (7.4-10.4); Monocytes # 0.6 K/mm3 (0.1-1.0); Monocytes % 6.5 % (1.7-9.3); Neutrophils # 5.5 K/mm3 (1.8-7.8); Neutrophils % 59.9 % (37.0-80.0); Platelet Count 175 K/mm3 (142-424); Red Blood Count 4.63 M/mm3 (4.20-5.40); Red Cell Distribution Width 13.6 % (11.5-17.5); White Blood Count 9.2 K/mm3 (4.8-10.8)
--- NOTE | 2024-02-10 08:41 | PC.NURSE ---
0817 CBC collected via venipuncture to L AC x1 stick with butterfly needle. Patient here for possible therapeutic phlebotomy based on lab results. Patient tolerated well
--- NOTE | 2024-02-10 08:42 | PC.NURSE ---
0830 Patient dischraged home/stable. No therapeutic phlebotomy needed today based on Hgb 15.0. Next appointment scheduled 08/10/24 0815 am
== END 2024-02-10 08:35 | disposition home or self-care (01) ==
LOC: INF 07:57
PROVIDERS: PCP Physician Assistant; Visit Provider Nurse Practitioner
DX: D75.1 Secondary polycythemia (principal)
CPT/HCPCS: 36415; 85025

== ENCOUNTER 2024-02-19 08:05 | Day surgery (SDC) | payer MEDICARE, MEDICAID, SELFPAY ==
--- NOTE | 2024-02-05 16:09 | SUR.PREOP ---
Spoke to pt regarding appointment. Went over bowel prep instructions, arrival time, need for a courtesy car driver day of procedure. Verified mailing address and pharmacy for bowel prep to be sent to.
[2024-02-17 14:01] VITALS: BMI 34.5
[2024-02-19 08:42] VITALS: BP 128/46; PULSE 53; RESP 16; TEMP 36.2; O2SAT 98
[2024-02-19] MEDS: LACTATED RINGERS 1000ML 1,000 ML 25 ML IV (08:48)
[2024-02-19 10:03] VITALS: O2SAT 98
--- NOTE | 2024-02-19 10:17 | P.PNANES_ITS ---
[facility] Disclaimer: The information contained in this section may have been updated after the patient was seen, as this information can be updated by other users. Medical History Sleep apnea COPD (chronic obstructive pulmonary disease) Pre-diabetes Anxiety and depression GERD (gastroesophageal reflux disease) Pulmonary emphysema History of polycythemia Screening for lung cancer Smoking greater than 30 pack years Chronic cough Dyspnea on exertion Shortness of breath Constipation RLS (restless legs syndrome) Chest pain Burning sensation of feet Osteoarthritis Elevated left ventricular end-diastolic pressure (LVEDP) Polycythemia secondary to smoking Right bundle branch block (RBBB) Hematuria Flank pain, acute Fracture of spinous process of cervical vertebra Chronic obstructive lung disease Angina pectoris Surgical History History of colonoscopy History of cervical spinal surgery H/O total hysterectomy History of cardiac cath History of breast biopsy Family History Other Family history of diabetes mellitus Family history of heart disease Osteoporosis Social History Smoking Status: Current every day smoker tobacco type: cigarettes packs per day: 1 second hand exposure: No alcohol intake: never substance use type: denies use current occupational status: disabled and other Travel in the last 8 weeks: None household members: spouse housing: house current occupational exposures/hazards: No caffeine: Yes do you feel safe at home: Yes victim of physical abuse: No victim of emotional abuse: No victim of sexual abuse: No would you like helpful sources: No [facility] Anesthesia Checklist Patient Identification Patient Identification: Arm Band Structural Data Admitted From: Home Planned Operative Procedure/s: Colonoscopy Consent for Planned Operative Procedure(s) Verified: Yes Verified Documents: Surgical Consent and History and Physical NPO Status Verified Time NPO: 00:00 Additional verifications Anesthesia Reactions: No Airway Assessment Mallampati Score:: Class II C-Spine Mobility Assessed: Yes TMJ Mobility Assessed: Yes Dentition: Good Dentition Neurological Assessment Level of Consciousness: Awake, Alert and Appropriate Anesthesia Plan Anesthesia Risk discussed: Yes Anesthesia Plan: Verified ASA Class: III Anesthesia Type: MAC
--- NOTE | 2024-02-19 10:24 | HMH.SCOPE ---
Procedure: Date: 02/19/24 Patient Date of :: 1965 Procedure Performed:: Colonoscopy Indications:: The patient is a 58-year-old who presents for colonoscopy for a history of polyps. The patient had a colonoscopy in July with adenomatous polyps removed. Bowel preparation reported at that examination was poor. Patient has a history of chronic constipation treated with Linzess. Performing Provider:: Nicolas Calix MD Referring Provider:: Neeta Venegas PA-C Sedation:: See RN record Procedure:: After placing the patient in the left lateral decubitus position, the colonoscopy was gently inserted into the rectum and under direct visualization advanced to the cecum which was identified by transillumination in the right lower quadrant, identification of the ileocecal valve, appendiceal orifice, and cecal strap. Color, texture, mucosa, and anatomy of the colon were carefully examined with the scope. Findings:: The quality of the bowel preparation was good. There was a small 4 mm sessile polyp in the sigmoid colon. The polyp was removed by cold forceps. There were small diverticula scattered throughout the sigmoid colon. There was an area of irregular appearing, erythematous and congested mucosa proximal to the third rectal valve. Biopsies were taken with a cold forceps for histology. The remaining colon appeared normal. On retroflexion view of the rectum internal hemorrhoids were seen. Impression: Polyp of sigmoid colon. Diverticulosis Erythematous mucosa in the rectum Recommendations:: Await pathology results Higher fiber diet Repeat colonoscopy in 5 years for surveillance purposes Complications:: None Estimated blood obtained (mL): 0 Colonoscopy Component Colonoscopy Component Was a colonoscopy performed during today's procedure?: Yes Recommended follow up colonoscopy of at least 10 years?: Yes
[2024-02-19 10:25] VITALS: BP 117/46; PULSE 52; RESP 16; TEMP 37; O2SAT 98
[2024-02-19 10:35] VITALS: BP 110/66; PULSE 51; RESP 16; O2SAT 96
[2024-02-19 10:45] VITALS: BP 118/81; PULSE 56; RESP 16; O2SAT 99
[2024-02-19 10:55] VITALS: BP 128/86; PULSE 55; RESP 16; O2SAT 99
== END 2024-02-19 11:01 | disposition home or self-care (01) ==
PROVIDERS: PCP Physician Assistant; Visit Provider Internal Medicine
PROC: (CPT 45380; principal; 2024-02-19 09:30)
DX: Z86.010 Personal history of colon polyps (principal); R19.7 Diarrhea, unspecified; D12.5 Benign neoplasm of sigmoid colon; K57.30 Diverticulosis of large intestine without perforation or abscess without bleeding
CPT/HCPCS: 45380; 88305; J7120

== ENCOUNTER 2024-03-16 12:05 | Outpatient (CLI) | payer MEDICARE, MEDICAID, SELFPAY ==
--- NOTE | 2024-03-16 12:10 | XR_ITS ---
FINAL REPORT CLINICAL HISTORY: right knee pain FINDINGS: RIGHT KNEE 3 views of the right knee were obtained. There is no acute fracture or dislocation. Visualized joint spaces are normally aligned. There is minimal hypertrophic change at the undersurface of the patella. Soft tissues are unremarkable. IMPRESSION: No acute bony abnormality. Reviewed, Interpreted and Dictated by Ken Bunn MD Transcribed by Yi Belcher Authenticated and [facility]
== END 2024-03-16 23:59 | disposition home or self-care (01) ==
LOC: RAD 12:07
PROVIDERS: PCP Physician Assistant; Visit Provider Orthopaedic Surgery
DX: M25.561 Pain in right knee (principal)
CPT/HCPCS: 73562

== ENCOUNTER 2024-04-02 13:24 | Outpatient (CLI) | payer MEDICARE, MEDICAID, SELFPAY ==
--- NOTE | 2024-04-02 13:24 | MR_ITS ---
FINAL REPORT CLINICAL HISTORY: Right Knee Pain FINDINGS: Multiplanar MR imaging of the right knee was performed without contrast. The medial and lateral menisci are intact without evidence of meniscal tear. The anterior and posterior cruciate ligaments are intact. The medial collateral ligament and lateral ligamentous complex are intact. The patellar and quadriceps tendons are intact. There is no evidence of fracture. There are foci of patellar tendinitis. There is moderate medial compartment chondromalacia. There is bone marrow edema of the medial femoral condyle and medial tibial plateau. 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 Small joint effusion is seen. The musculature is intact. Small popliteal cyst is identified. IMPRESSION: Chondromalacia as above. Bone marrow edema of the medial femoral condyle and medial tibial plateau without evidence of fracture. Reviewed, Interpreted and Dictated by Ozzy Petersen III, MD Transcribed by eMri Barrios Authenticated and [facility]
== END 2024-04-02 23:59 | disposition home or self-care (01) ==
LOC: RAD 13:24
PROVIDERS: PCP Physician Assistant; Visit Provider Orthopaedic Surgery
DX: M23.91 Unspecified internal derangement of right knee (principal)
CPT/HCPCS: 73721

== ENCOUNTER 2024-04-08 10:32 | Outpatient (CLI) | payer MEDICARE, MEDICAID, SELFPAY ==
--- NOTE | 2024-04-08 10:36 | XR_ITS ---
FINAL REPORT CLINICAL HISTORY: Right Hip Pain COMPARISON: 04/30/2022 FINDINGS: RIGHT HIP Two views of the right hip and AP pelvis demonstrate no acute fracture or dislocation. There are moderate degenerative changes of the right hip and mild degenerative changes of the left hip. The visualized bony structures are well aligned. No soft tissue abnormality is seen. IMPRESSION: Degenerative changes without acute bony abnormality. Reviewed, Interpreted and Dictated by Ozzy Petersen III, MD Transcribed by Nikki Wakefield Authenticated and [facility]
== END 2024-04-08 23:59 | disposition home or self-care (01) ==
LOC: RAD 10:33
PROVIDERS: PCP Physician Assistant; Visit Provider Orthopaedic Surgery
DX: M25.551 Pain in right hip (principal)
CPT/HCPCS: 73502

== ENCOUNTER 2024-04-27 07:32 | Day surgery (SDC) | payer MEDICARE, MEDICAID, SELFPAY ==
[2024-04-22 17:10] VITALS: BMI 34.4
[2024-04-27 07:51] VITALS: BP 138/74; PULSE 55; RESP 18; TEMP 36.2; O2SAT 97
[2024-04-27] MEDS: LACTATED RINGERS 1000ML 1,000 ML 100 ML IV (08:07)
--- NOTE | 2024-04-27 08:10 | EXP.ANES.CKL ---
[facility] Disclaimer: The information contained in this section may have been updated after the patient was seen, as this information can be updated by other users. Medical History Sleep apnea COPD (chronic obstructive pulmonary disease) Pre-diabetes Anxiety and depression GERD (gastroesophageal reflux disease) Pulmonary emphysema History of polycythemia Active follow-up with hematology oncology, Dr. Torres. Screening for lung cancer Smoking greater than 30 pack years Chronic cough Dyspnea on exertion Shortness of breath Constipation RLS (restless legs syndrome) Previously on Requip recurrent symptoms. Currently on Neupro patch 6 mg patch and would not cover the cost in the future. She is not longer on gabapentin at this time. Chest pain Burning sensation of feet Osteoarthritis Elevated left ventricular end-diastolic pressure (LVEDP) Polycythemia secondary to smoking Right bundle branch block (RBBB) Hematuria Flank pain, acute Fracture of spinous process of cervical vertebra Chronic obstructive lung disease Angina pectoris Surgical History History of colonoscopy History of cervical spinal surgery H/O total hysterectomy History of cardiac cath History of breast biopsy Family History Other Family history of diabetes mellitus Family history of heart disease Osteoporosis Social History Smoking Status: Current every day smoker tobacco type: cigarettes packs per day: 1 second hand exposure: No alcohol intake: never substance use type: denies use current occupational status: disabled and other Travel in the last 8 weeks: None household members: spouse housing: house current occupational exposures/hazards: No caffeine: Yes do you feel safe at home: Yes victim of physical abuse: No victim of emotional abuse: No victim of sexual abuse: No would you like helpful sources: No [facility] Anesthesia Checklist Patient Identification Patient Identification: Verbal (Name & ) Structural Data Admitted From: Home Planned Operative Procedure/s: r hip injection NPO Status Verified Time NPO: 00:00 Additional verifications Anesthesia Reactions: No Hx Blood Transfusions: No Airway Assessment Mallampati Score:: Class III C-Spine Mobility Assessed: Yes (limited flex and rotation) TMJ Mobility Assessed: Yes Dentition: Good Dentition Neurological Assessment Level of Consciousness: Awake, Alert and Appropriate Anesthesia Plan Anesthesia Risk discussed: Yes Anesthesia Plan: Verified ASA Class: II Anesthesia Type: MAC
[2024-04-27] MEDS: TRIAMCINOLONE ACET 40MG/ML VIAL 80 MG (09:41)
[2024-04-27] MEDS: LIDOCAINE 1% 20ML MDV 20 ML (09:41)
--- NOTE | 2024-04-27 09:46 | P.OP_ITS ---
Date of procedure: 04/27/24 Pre-op Diagnosis:: Right hip osteoarthritis Post-op Diagnosis:: Same Procedure performed:: Right hip injection with arthrogram x-ray guidance for needle placement Surgeon:: Brad Fair DO JUNIOR MECHANICAL ENGINEER:: Vito Brewer Anesthesia: MAC Estimated blood loss (mL): 0 Operative findings:: Right hip osteoarthritis Operative note:: Patient identified preoperatively. Right hip marked with yes and my initials. Then transferred to operative suite. Placed upon the radiolucent bed. Patient given sedation. Right hip was then prepped and draped normal sterile fashion. Once prepped and draped final operative timeout performed to identify proper patient procedure and extremity. Everyone involved in the case agreed. There were no counter indications to beginning. X-ray was brought into identify the hip joint. 18-gauge spinal needle was utilized under the proper trajectory under x-ray guidance to go into the hip capsule. Once within the hip capsule arthrogram was performed with Isovue. On ce needle was confirmed to be inside the hip capsule with the arthrogram injection of 80 mg of Kenalog 3 cc of 1% lidocaine injected into the hip joint needle removed Band-Aid placed patient waken from sedation and taken recovery stable condition. Condition: stable Disposition: PACU Complications:: None apparent
[2024-04-27 09:48] VITALS: BP 122/68; PULSE 62; RESP 16; O2SAT 95
--- NOTE | 2024-04-27 09:57 | XR_ITS ---
FINAL REPORT CLINICAL HISTORY: right hip injection 0.1 min 3.36 mGy FINDINGS: A single fluoroscopic image of the right hip was obtained for injection. 1 second of fluoroscopy time and 3.36 mGy were reported. IMPRESSION: Single fluoroscopic spot image as above. Reviewed, Interpreted and Dictated by Ken Bunn MD Transcribed by Yi Belcher Authenticated and [facility]
[2024-04-27 09:58] VITALS: BP 129/86; PULSE 60; RESP 16; O2SAT 97
[2024-04-27 10:08] VITALS: BP 122/67; PULSE 62; RESP 16; O2SAT 97
[2024-04-27 10:18] VITALS: BP 114/68; PULSE 62; RESP 18; O2SAT 98
[2024-04-28 15:23] LABS: POC Glucose,Bedside 112 (70-110)
== END 2024-04-27 10:20 | disposition home or self-care (01) ==
PROVIDERS: PCP Physician Assistant; Visit Provider Orthopaedic Surgery
PROC: (CPT 27095; principal; 2024-04-27 09:30)
DX: M16.11 Unilateral primary osteoarthritis, right hip (principal); Z79.899 Other long term (current) drug therapy; J44.9 Chronic obstructive pulmonary disease, unspecified; F17.210 Nicotine dependence, cigarettes, uncomplicated
CPT/HCPCS: 27095; 73502; 76000; 82962; J2250; J3301; J7120

== ENCOUNTER 2024-08-07 08:12 | Outpatient (CLI) | payer MEDICARE, MEDICAID, SELFPAY ==
[2024-08-07 08:19] VITALS: BMI 34.4
--- NOTE | 2024-08-07 08:24 | PC.NURSE ---
0824-collected labs via venipuncture stick in left hand with butterfly needle;pt to wait on labs if hgb >17 pt to have therapeutic phlebotomy
[2024-08-07 08:31] LABS: Basophils # 0.1 K/mm3 (0-0.2); Basophils % 0.5 % (0.1-2.0); Eosinophils # 0.1 K/mm3 (0.0-0.4); Eosinophils % 1.2 % (0.1-12.0); Hematocrit 41.3 % (37.0-47.0); Hemoglobin 14.2 g/dL (12.2-16.2); Lymphocytes # 2.5 K/mm3 (0.7-4.5); Lymphocytes % 26.6 % (10-50); Mean Corpuscular HGB Conc 34.4 g/dL (31.8-35.4); Mean Corpuscular Hemoglobin 31.5 pg (27.0-31.2); Mean Corpuscular Volume 91.6 fl (81-99); Mean Platelet Volume 10.4 fl (7.4-10.4); Monocytes % 10.5 % (1.7-9.3); Neutrophils # 5.7 K/mm3 (1.8-7.8); Neutrophils % 60.8 % (37.0-80.0); Platelet Count 203 K/mm3 (142-424); Red Blood Count 4.51 M/mm3 (4.20-5.40); Red Cell Distribution Width 13.6 % (11.5-17.5); White Blood Count 9.4 K/mm3 (4.8-10.8)
== END 2024-08-07 08:40 | disposition home or self-care (01) ==
LOC: INF 08:14
PROVIDERS: PCP Physician Assistant; Visit Provider Nurse Practitioner
DX: D45 Polycythemia vera (principal)
CPT/HCPCS: 36415; 85025

== ENCOUNTER 2024-08-28 13:00 | Outpatient (RCR) | payer MEDICARE, MEDICAID, SELFPAY | END 2024-08-28 23:59 | disposition home or self-care (01) | LOC: PT 13:00 | PROVIDERS: PCP Physician Assistant; Visit Provider Nurse Practitioner Family | DX: M16.11 Unilateral primary osteoarthritis, right hip (principal) | CPT/HCPCS: 97110; 97163; 97530 ==

== ENCOUNTER 2025-02-01 08:10 | Outpatient (CLI) | payer MEDICARE, MEDICAID, SELFPAY ==
--- OUTSIDE RECORDS SUMMARY | 2025-02-01 08:14 | XMS_ITS | Clinical Summary ---
Author Organization [facility] Address [address] [id number] Care Team Providers Care Electric Locomotive Crane Operator Name Role Phone TheoNeeta SUSAN Primary Care Provider [phone] Allergies Active Allergy Reactions Criticality Noted Date Comments Isosorbide Headache Low 08/20/2023 Medications venlafaxine XR (Effexor-XR) 37.5 MG 24 hr capsule Take 1 capsule (37.5 mg) by mouth daily. 4 Active tiZANidine (Zanaflex) 4 MG tablet Take 1 tablet (4 mg) by mouth every 8 hours as needed for muscle spasms. 4 Active timolol (Timoptic) 0.5 % ophthalmic solution Administer 1 drop into both eyes 2 (two) times a day. 4 Active ranolazine (Ranexa) 1000 MG 12 hr tablet Take 1 tablet (1,000 mg) by mouth 2 (two) times a day. Active potassium chloride CR (Klor-Con M20) 20 MEQ ER tablet Take 1 tablet (20 mEq) by mouth daily. 4 Active mirtazapine (Remeron) 15 MG tablet Take 1 tablet (15 mg) by mouth nightly. Active Linzess 290 MCG capsule Take 1 capsule (290 mcg) by mouth daily. 4 Active lidocaine (Lidoderm) 5 % patch APPLY 1 PATCH TOPICALLY TO THE AFFECTED AREA ONCE DAILY AND LEAVE IN PLACE FOR 12 HOURS, THEN REMOVE AND LEAVE OFF FOR 12 HOURS Active Horizant 300 MG tablet controlled-rele ase ER tablet Take 1 tablet (300 mg) by mouth nightly. 4 Active Breo Ellipta 100-25 MCG/ACT aerosol powder INHALE 1 PUFF BY MOUTH EVERY DAY --RINSE MOUTH AFTER USE-- 4 Active Quviviq 25 MG tablet Take 25 mg by mouth every night. 4 Active busPIRone (Buspar) 15 MG tablet Take 1 tablet (15 mg) by mouth 2 (two) times a day. Active atorvastatin (Lipitor) 80 MG tablet Take 1 tablet (80 mg) by mouth nightly. Active atenolol (Tenormin) 25 MG tablet Take 1 tablet (25 mg) by mouth daily. Active Multiple Vitamin (multivitamin) tablet Take 1 tablet by mouth daily. Active bumetanide (Bumex) 2 MG tablet Take 1 tablet (2 mg) by mouth every morning. Active traZODone (Desyrel) 100 MG tablet Take 2 tablets (200 mg) by mouth nightly. Active metOLazone (Zaroxolyn) 2.5 MG tablet Take 1 tablet (2.5 mg) by mouth 2 (two) times a week. Active meloxicam (Mobic) 15 MG tablet TAKE ONE TABLET BY MOUTH EVERY DAY FOR PAIN --TAKE WITH FOOD-- 5 Active traMADol (Ultram) 50 MG tablet Take 1 tablet (50 mg) by mouth every 8 hours as needed for severe pain. 30 tablet 5 Active Active Problems Problem Noted Date Diagnosed Date Superficial dehiscence of op eration wound, initial encounter 09/01/2024 Arthritis of right hip 08/10/2024 Osteoarthritis of right hip 05/28/2024 Abnormal stress test 05/28/2024 Abnormal EKG 05/28/2024 Anxiety 05/28/2024 Cervical radiculopathy 05/28/2024 Degenerative disc disease, cervical 05/28/2024 Pulmonary emphysema 05/28/2024 Diastolic dysfunction 05/28/2024 Hyperlipidemia 05/28/2024 Hypertension 05/28/2024 Myalgia 05/28/2024 SHA on CPAP 05/28/2024 Right bundle branch block (RBBB) 05/28/2024 RLS (restless legs syndrome) 05/28/2024 Cervical post-laminectomy syndrome 03/19/2023 Cervical spondylosis 03/19/2023 Social History Tobacco Use Types Packs/Day Years Used Date Smoking Tobacco: Some Days Cigarettes 1 30.7 Started: 1993; Last attempted to quit: 04/28/2024 Smokeless Tobacco: Never Tobacco Cessation:Ready to Q uit: Not Asked; Counseling Given: Not Answered Alcohol Use Standard Drinks/Week Comments Never 0 (1 standard drink = 0.6 oz pur e alcohol) PHQ-2 Answer Date Recorded Patient Health Questionnaire-2 Score 2 09/01/2024 PHQ-9 Answer Date Recorded Patient Health Questionnaire-9 Score 9 09/01/2024 Comments No Sex and Gender Information Value Date Recorded Sex Assigned at Not on file Legal Sex Female 7:35 PM EDT Gender Identity Not on file Sexual Orientation Not on file Last Filed Vital Signs Vital Sign Reading Time Taken Comments Blood Pressure 105/54 09/05/2024 7:21 AM EST Pulse 58 09/05/2024 7:21 AM EST Temperature 36.6 C (97.9 F) 09/05/2024 7:21 AM EST Respiratory Rate 18 09/05/2024 7:21 AM EST Oxygen Saturation 93% 09/05/2024 7:21 AM EST Inhaled Oxygen Concentration - - Weight 110 kg (242 lb 4.6 oz) 09/04/2024 11:52 A M EST Height 170.2 cm (5' 7 ) 09/04/2024 11:52 AM EST Body Mass Index 37.95 09/04/2024 11:52 AM EST Plan of Treatment Health Maintenance Due Date Last Done Comments [facility]-HIV Screening 1965 [facility]-Hepatitis C Screening 1965 [facility]-Medicare Annual Wellness (AWV) 1965 [facility]-Infant/Child/Adol SDOH Screenings 1965 [facility]- SDOH Screenings 1983 [facility]-Adult SDOH Screenings 1983 [facility]-Hepatitis B Vaccines (1 of 3 - 19+ 3-dose series) 1984 [facility]-Pneumococcal Vaccine: 50+ Years (1 of 2 - PCV) 1984 CT Colonography 2010 Colonoscopy 2010 FIT-DNA 2010 FIT 2010 FOBT 2010 Sigmoidoscopy 2010 [facility]-Colorectal Cancer Screening 2010 [facility]-Breast Cancer Screening 2015 [facility]-Lung Cancer Screening 2015 [facility]-Zoster Vaccines (1 of 2) 2015 [facility]-DTaP,Tdap,and Td Vaccines (2 - Td or Tdap) 10/20/2017 10/21/2007 [id number] Vaccine (1 - season) 2024 [facility]-Influenza Vaccine (#1) 2025 [facility]-Diabetes: Hemoglobin A1C 07/14/2025 07/14/2024 [facility]-Depression Screening 09/01/2025 09/01/2024, 10/2024 [facility]-Obesity Intervention Completed 025, 09/01/2024, 09/01/2024, Additional history exists HPV Vaccines Aged Out No longer eligi ble based on patient's age to complete this topic [facility]-HIB Vaccines Aged Out No longer e ligible based on patient's age to complete this topic [facility]-Hepatitis A Vaccines Aged Out No longer eligible based on patient's age to complete this topic [facility]-IPV Vaccines Aged Out No longer e ligible based on patient's age to complete this topic [facility]-Rotavirus Vaccines Aged Out No lo nger eligible based on patient's age to complete this topic Goals Goal Patient Goal Type Associated Problems Recent Progress Patient-Stated? Author Autogenera saman Goal Care Plan Autogenerated Problem No Shane Dietrich MD Medical Devices Implanted Type Area Manager Revenue Device Identifier Shelf Expiration Date Model / Serial / Lot Chg Shell R3 3 Hole Acet 56mm - [id number] Implanted:Qty : 1 on 08/10/2024 by Shane Dietrich MD at [facility] Hip Right: Hip [id number] 10/27/2033 [id number] / / [id number] Chg Head Oxinium Fem 07/11 28m - [id number] Implanted:Qty : 1 on 08/10/2024 by Shane Dietrich MD at [facility] Hip Right: Hip [id number] 03/24/2034 [id number] / / [id number] Implant Implant Neck Liner Or3o Dual Mbility 44 56 - [id number] Implanted:Qty : 1 on 08/10/2024 by Shane Dietrich MD at [facility] Liner Right: Hip [id number] 03/21/2034 [id number] / / [id number] Liner Or3o Dual Mbility Xlpe 28 44 - [id number] Implanted:Qty : 1 on 08/10/2024 by Shane Dietrich MD at [facility] Liner Right: Hip [id number] 04/09/2034 [id number] / / [id number] Chg Screw Ref Spher Head 25mm - [id number] Implanted:Qty : 1 on 08/10/2024 by Shane Dietrich MD at [facility] Screw Right: Hip [id number] 01/10/2034 [id number] / / [id number] Chg Screw Ref Spher Head 35mm - [id number] Implanted:Qty : 1 on 08/10/2024 by Shane Dietrich MD at [facility] Screw Right: Hip [employer]-[id number] 01/06/2034 [id number] / / [id number] Polarstem Valgus Ti/German 7 - [id number] Implanted:Qty : 1 on 08/10/2024 by Shane Dietrich MD at [facility] Stem Right: Hip [employer]-[id number] 11/09/2029 [id number] / / [id number] Procedures Procedure Name Priority Date/Time Associated Diagnosis Comments HEMOGLOBIN A1C Routine 07/14/2024 11:52 AM EST Osteoarthritis of right hip, unspecified osteoarthritis type Hip pain, right from Last 3 Months or Most Recently Relevant to Health Maintenance Results * (ABNORMAL) Hemoglobin A1c (07/14/2024 11:52 AM EST) Hemoglobin A1c 5.9(H) <5.7 % 07/14/2024 5:53 PM EST [facility] Blood Venous blood specimen / Unknown Venipuncture / Unknown 07/14/2024 11:52 AM EST 07/14/2024 11:52 AM EST Narrative [facility] - 07/14/2024 5:53 PM EST HA1C Interpretive Data: Diagnosis of Diabetes: Diabetic > or = 6.5% Pre-diabetic 5.7 to 6.4% Non-diabetic < or = 5.6% Glycemic Targets for Type I and Type II Diabetics: Non- Adults <7.0% Adults <6.0% Children and Adolescents <7.5% Source: [place] [employer]. Standards of medical care in diabetes,2017. Diabetes Care.2017:40 (suppl 1):S1-S135. HbA1c assay performed by an ion-exchange chromatography method that is certified traceable to the DCCT. us Shane Dietrich MD LAB BLOOD ORDERABLES Final R esult [facility] [address] [place] [id number] from Last 3 Months or Most Recently Relevant to Health Maintenance Additional Health Concerns Active Problems Noted Date Diagnosed Date Autogenerated Problem 10/20/2024 Insurance MEDICARE Advance Directives * Full Code (Latest Code Status on File) Date Activated Date Inactivated Comments 09/04/2024 12:49 PM 09/05/2024 12:17 PM Question Answer Comments Patient has decision-making capacity? Yes * Full Code Date Activated Date Inactivated Comments 08/10/2024 6:12 AM 08/11/2024 3:36 PM Question Answer Comments Patient has decision-making capacity? Yes Care Teams Electric Locomotive Crane Operator Relationship Specialty Start Date End Date Neeta Venegas PA [address] [place] [address] [facility] - General 05/13/24
--- OUTSIDE RECORDS SUMMARY | 2025-02-01 08:14 | XMS_ITS | Encounter Summary ---
Author Organization [facility] Address [address] [id number] Care Team Providers Care Resident Care Aid Name Role Phone Nicola Venegasie Danni DAVIS Primary Care Provider [phone] Reason for Referral * Consultation (Routine) - Closed Specialty Diagnoses / Procedures Referred By Jerod leavitt Referred To Contact Orthopaedic Surgery Diagnoses Osteoarthritis of right hip, unspecified osteoarthritis type Brad Fair DO [address] [place] [address] Phone: tel: fax: Shane Dietrich MD [address] [facility] [address] [place] [address] Phone: tel: fax: Referral ID Status Reason Start Date Expiration Date Visits Re quested Visits Authorized [id number] Closed 05/12/2024 11/11/2025 1 1 Encounter Details Date Type Department Care Team (Latest Contact Info) Description 05/12/2024 Community [facility] [address] [place] [address] Brad Fair DO [address] [place] [address] Osteoarthritis of right hip, unspecified osteoarthritis type (Primary Dx) Social History Tobacco Use Types Packs/Day Years Used Date Smoking Tobacco: Never Assessed Comments Unknown Sex and Gender Information Value Date Recorded Sex Assigned at Not on file Legal Sex Female 7:35 PM EDT Gender Identity Not on file Sexual Orientation Not on file documented as of this encounter Plan of Treatment Scheduled Referrals Name Type Priority Associated Diagnoses Orde r Schedule Ambulatory referral to Orthopaedics Joint Reconstruction Outpatient Referral Routine Osteoarthritis of right hip, unspecified osteoarthritis type Expected: 05/12/2024 (Approximate), Expires: 05/12/2025 documented as of this encounter Visit Diagnoses Diagnosis Osteoarthritis of right hip, unspecified osteoarthritis type- Primary documented in this encounter Care Teams Resident Care Aid Relationship Specialty Start Date End Date Neeta Venegas PA [address] [place] [address] PCP - General 05/13/24 documented as of this encounter
--- OUTSIDE RECORDS SUMMARY | 2025-02-01 08:14 | XMS_ITS | Data Portability ---
Author Organization [facility] [place] [facility] Address [address] [place] [id number] Assessment Encounter Date Assessment Date Assessment LastModified by Organization Details LastModified Time 03/19/2023 03/19/2023 Mrs. Hodge was referred by Dr. Dominique for management of chronic neck and low back pain. She has history of ACDF at C5-[address] Dominique in 2020. Patient denies any DM and history of infection. Patient takes Aspirin daily. Patient has osteoporosis, severity unknown. The patient complains of neck pain with radiation into the RUE with numbness/tingling along with radiation into the skull, causing frequent headaches. She also complains of low back pain with radiation into the RLE with numbness/tingling. Based on the patient's history and physical exam, it appears the patient's pain is likely associated with cervical/lumbar DDD, lumbar spondylosis, spinal enthesopathy, and occipital neuritis. To address the patient's pain: I will proceed with performing a bilateral occipital nerve block at the greater/lesser nerves in office today. I will proceed with only Bupivicaine due to the patient's osteoporotic status. If the patient's pain persists post occipital nerve block, I will proceed with scheduling a TPI of the bilateral cervical region, targeting the bilateral trapezius and levator scapulae muscles. For the low back, I discussed the possibility of a LEI and MBBs to address her lumbar stenosis and spondylosis. Due to the patient's past experience with spinal injections, she wishes to think about further spinal injections at this time. I advised her to think about the injections discussed and we will discuss at a later visit once I have addressed her neck pain. I will remain recognizant of steroid use with therapeutic injections given the patient osteoporosis status, using minimal steroid with injections. The patient is currently participating in PT which has been minimally helpful for her pain. I have personally reviewed the patient's recent imaging today. Cervical MRI: mild to moderate C4-5 foraminal stenosis and residual left C5-6 foraminal stenosis, C5-7 surgical hardware noted. Lumbar MRI: L4-5 spondylolisthesis with L4-S1 facet arthropathy, mild L4-S1 foraminal stenosis - Bilateral occipital nerve block with Bupivacaine only today in office - If pain persists, proceed with a bilateral cervical TPI - Discussed ROSY and Neil for the low back - patient wishes to think about options - Reviewed cervical and lumbar MRI - Follow up 2 weeks post nerve block to assess efficacy -------- I have discussed in great detail our potential treatment options which would include a rehabilitative approach to care. This program would include medication management, Physical Therapy, consideration for interventional procedures as appropriate, and lifestyle modification (diet, weight loss, exercise, smoking/tobacco cessation, holistic approach including meditation and yoga). The patient understands and agrees prior to proceeding with this plan. _ __ __ __ __ __ __ __ __ __ __ __ __ __ __ __ __ __ __ __ __ __ __ __ __ __ __ __ _ RECORDS REVIEW: As per clinic policy, we will have the patient sign a release to obtain previous imaging and clinical notes. --------- PROCEDURE: I counseled the patient extensively and informed of the risks of the procedure, including the risk of paralysis, nerve damage, respiratory arrest, arrhythmias, stroke, weakness, and infection, which although very low, could result in or disability. The patient acknowledged to me that they understand and accept these risks. RN EDUCATION Extensive coordination of care provided by RN to educate patient on upcoming procedure and to coordinate obtaining extensive incoming medical records. _ __ __ __ __ __ __ __ __ __ __ __ __ __ __ __ __ __ __ __ __ __ __ __ __ __ __ __ _ PSYCH: Pain affecting Neuro-psych behavior was discussed. Discussed about pain psychological counseling as a part of the multimodal approach to pain treatment. _ __ __ __ __ __ __ __ __ __ __ __ __ __ __ __ __ __ __ __ __ __ __ __ __ __ __ __ _ REHABILITATION: Discussed with the patient the importance of diet, daily physical activity and PT. Discussed with the patient the need to be scheduled for physical therapy since physical therapy will prolong the benefits of the procedure and interventions. _ __ __ __ __ __ __ __ __ __ __ __ __ __ __ __ __ __ __ __ __ __ __ __ __ __ __ __ _ NICOLE: [id number] I have reviewed patient's NICOLE report prior to prescribing Schedule II, III, and IV medications that require review by law. Not available 03/19/2023 11:51:55 03/29/2023 03/29/2023 Mrs. Hodge was referred by Dr. Dominique for management of chronic neck and low back pain. The patient previously (2020) underwent a ACDF at C5-C7. The patient previously followed with Dr. Garcia, where she received cervical epidurals, noting a bad experience has caused anxiety regarding spinal injections. The patient has taken Tramadol and Gabapentin for pain relief, which are semi-effective. The patient denies DM or history of infection. The patient takes Aspirin daily. The patient has osteoporosis (unknown severity). The patient presents to the clinic today nearly 2 weeks S/P bilateral occipital nerve block. The patient reports experiencing significant improvement in pain and function of nearly 100%, specifically decreased headache. The patient continues to complain of neck pain described as tightness/spasm with intermittent radicular symptoms of the RUE. 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 I think much of the pain is myofascial in nature. I have reviewed the cervical MRI, which revealed [id number] foraminal stenosis at C4-C5, residual left foraminal stenosis at C5-C6, and surgical hardware at C5-C7. To address this particular pain, I will proceed with scheduling a TPI of the bilateral cervical region, including trapezius, levator scapulae, and supraspinatus. The patient also complains of low back pain with intermittent radicular symptoms of the RLE. Based on the history and physical exam it appears that the pain is associated with lumbar degenerative disc disease/lumbar spondylosis. After treating neck pain, I will begin to address the lumbar spine. I have reviewed the lumbar MRI, which revealed facet arthropathy at L4-S1, spondylolisthesis at L4-L5, and mild foraminal stenosis at L4-S1. I will remain cognizant of steroid exposure, as the patient has osteoporosis (unknown severity). Of note, the patient is currently participating in PT with minimal benefit. I will follow up 2 weeks post-injection. -------- I have discussed in great detail our potential treatment options which would include a rehabilitative approach to care. This program would include medication management, Physical Therapy, consideration for interventional procedures as appropriate, and lifestyle modification (diet, weight loss, exercise, smoking/tobacco cessation, holistic approach including meditation and yoga). The patient understands and agrees prior to proceeding with this plan. _ __ __ __ __ __ __ __ __ __ __ __ __ __ __ __ __ __ __ __ __ __ __ __ __ __ __ __ _ RECORDS REVIEW: As per clinic policy, we will have the patient sign a release to obtain previous imaging and clinical notes. --------- PROCEDURE: I counseled the patient extensively and informed of the risks of the procedure, including the risk of paralysis, nerve damage, respiratory arrest, arrhythmias, stroke, weakness, and infection, which although very low, could result in or disability. The patient acknowledged to me that they understand and accept these risks. RN EDUCATION Extensive coordination of care provided by RN to educate patient on upcoming procedure and to coordinate obtaining extensive incoming medical records. _ __ __ __ __ __ __ __ __ __ __ __ __ __ __ __ __ __ __ __ __ __ __ __ __ __ __ __ _ PSYCH: Pain affecting Neuro-psych behavior was discussed. Discussed about pain psychological counseling as a part of the multimodal approach to pain treatment. _ __ __ __ __ __ __ __ __ __ __ __ __ __ __ __ __ __ __ __ __ __ __ __ __ __ __ __ _ REHABILITATION: Discussed with the patient the importance of diet, daily physical activity and PT. Discussed with the patient the need to be scheduled for physical therapy since physical therapy will prolong the benefits of the procedure and interventions. _ __ __ __ __ __ __ __ __ __ __ __ __ __ __ __ __ __ __ __ __ __ __ __ __ __ __ __ _ NICOLE: [id number] I have reviewed patient's NICOLE report prior to prescribing Schedule II, III, and IV medications that require review by law. [email or web address] Not available 04/01/2023 19:08:13 04/22/2023 04/22/2023 The patient presents today for bilateral cervicothoracic trigger point injection. However, upon speaking with the patient, she reports her lower back is more painful. Upon physical exam, there are trigger points present at the longissimus thoracis and thoracis spinalus, so I proceeded with a trigger point injection of the thoracolumbar region. [email or web address] Not available 04/22/2023 08:43:19 05/13/2023 05/13/2023 Mrs. Hodge was referred by Dr. Dominique for management of chronic neck and low back pain. The patient previously (2020) underwent a ACDF at C5-C7. The patient previously followed with Dr. Garcia, where she received cervical epidurals, noting a bad experience has caused anxiety regarding spinal injections. The patient has taken Tramadol and Gabapentin for pain relief, which are semi-effective. The patient denies DM or history of infection. The patient takes Aspirin daily. The patient has osteoporosis (unknown severity). The patient presents to the clinic today 3 weeks S/P TPI of the bilateral thoracolumbar region. The patient reports experiencing significant improvement in pain and function of nearly 100% for 3 days. The patient primarily complains of low back pain, which worsens with prolonged standing/walking. Based on the history and physical exam it appears that the pain is associated with lumbar degenerative disc disease and lumbar spondylosis. I think much of the pain is being generated in the facet joints. I have reviewed the lumbar MRI, which revealed facet arthropathy at L4-S1, spondylolisthesis at L4-L5, and mild foraminal stenosis at L4-S1. I had a detailed discussion with the patient regarding various treatment modalities and the respective risks/benefits. I will remain cognizant of steroid exposure, as the patient has osteoporosis (unknown severity). The patient has attempted to make lifestyle modifications, but pain continues to impede performing ADLs, thereby negatively affecting quality of life. I will address axial, non-radicular low back pain at this time. I will proceed with scheduling a bilateral lumbar medial branch block at L4-S1. If the patient receives significant (greater than 80% pain relief for at least 6 hours) benefit from the block, I will repeat based on insurance, and if the patient again receives significant benefit, I will proceed with scheduling a lumbar RFA. The procedure will be fluoroscopy-guided. Of note, the patient previously received significant benefit from a lumbar RFA. The patient also complains of neck pain described as tightness/spasm with intermittent radicular symptoms of the RUE. 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 I think much of the pain is myofascial in nature. I have reviewed the cervical MRI, which revealed [id number] foraminal stenosis at C4-C5, residual left foraminal stenosis at C5-C6, and surgical hardware at C5-C7. I will address the cervical spine after treating low back pain. I will follow up 1 week post-block. -------- I have discussed in great detail our potential treatment options which would include a rehabilitative approach to care. This program would include medication management, Physical Therapy, consideration for interventional procedures as appropriate, and lifestyle modification (diet, weight loss, exercise, smoking/tobacco cessation, holistic approach including meditation and yoga). The patient understands and agrees prior to proceeding with this plan. _ __ __ __ __ __ __ __ __ __ __ __ __ __ __ __ __ __ __ __ __ __ __ __ __ __ __ __ _ RECORDS REVIEW: As per clinic policy, we will have the patient sign a release to obtain previous imaging and clinical notes. --------- PROCEDURE: I counseled the patient extensively and informed of the risks of the procedure, including the risk of paralysis, nerve damage, respiratory arrest, arrhythmias, stroke, weakness, and infection, which although very low, could result in or disability. The patient acknowledged to me that they understand and accept these risks. RN EDUCATION Extensive coordination of care provided by RN to educate patient on upcoming procedure and to coordinate obtaining extensive incoming medical records. _ __ __ __ __ __ __ __ __ __ __ __ __ __ __ __ __ __ __ __ __ __ __ __ __ __ __ __ _ PSYCH: Pain affecting Neuro-psych behavior was discussed. Discussed about pain psychological counseling as a part of the multimodal approach to pain treatment. _ __ __ __ __ __ __ __ __ __ __ __ __ __ __ __ __ __ __ __ __ __ __ __ __ __ __ __ _ REHABILITATION: Discussed with the patient the importance of diet, daily physical activity and PT. Discussed with the patient the need to be scheduled for physical therapy since physical therapy will prolong the benefits of the procedure and interventions. _ __ __ __ __ __ __ __ __ __ __ __ __ __ __ __ __ __ __ __ __ __ __ __ __ __ __ __ _ NICOLE: [id number] I have reviewed patient's NICOLE report prior to prescribing Schedule II, III, and IV medications that require review by law. Not available 05/14/2023 10:26:44 Plan of Treatment Reminders Order Date Submit Date Provider Last Modified By Organization Details Last Modified Time Details Appointments None recorded. Lab None recorded. Referral None recorded. Procedures medial branch block, lumbar (PROC) - Bilateral lumbar medial branch block at L4-S1. 59819 and [address]5719. 2022 023 [email or web address] 7 Nghia Alanis MD, [address], [address], [place], [address], 3 13:39:31 injection, trigger point (PROC) - TPI of the bilateral cervical region, including trapezius, levator scapulae, and supraspina tus. [address]. [address]. 2022 023 [email or web address] 7 Nghia Alanis MD, [address], [address], [place], [address], 3 15:50:55 occipital nerve block (PROC) - bilateral occipital nerve block at the greater/le sser nerves, [address], [address] - in office 03/19/232022 023 [email or web address] 4 Nghia Alanis MD, [address] [facility], [address], [place], [address], 3 14:31:23 Surgeries None recorded. Imaging None recorded. Medication Orders None recorded. Patient TargetsNo targets recorded. Patient InstructionsNo instructions recorded. Reason for Referral None Reported. Problems Name Problem SNOMED Code Status Onset Date Resolution Date Notes Provider Name and Address Organization Details Recorded Time Spinal stenosis in cervical region 73221136 Active 2022 MERRICK Oh - [facility] [place] [facility] [place] 3 09:15:41 History of cervical spine fusion [id number] Active 2022 MERRICK Oh - [facility] - [place] [facility] [place] 3 09:15:53 Cervical spondylosis 604162391 Active 2022 MERRICK Oh - [facility] - [place] [facility] [place] 3 09:16:01 Spinal stenosis of lumbar region 33264504 Active 2022 Jessica Pedersen null, [place] - [facility] [place] [facility] [place] 3 09:16:20 Lumbar spondylosis 104122686 Active 2022 Jessica Pedersen null, [place] - [facility] [place] [facility] [place] 3 09:16:32 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 Procedures Surgical History Date Name Laterality Status Provider Name and Address Organization Details Recorded Time 023 Injection Only completed Joceline Berry [place] - [facility] [place] [facility] [place] 04/22/2023 08:45:47 023 Injection Only completed Brittni Olmos [place] - [facility] [place] [facility] [place] 03/26/2023 09:15:50 023 Injection Only completed Jessica Pedersen [place] - [facility] [place] [facility] [place] 03/19/2023 13:27:55 procedure on lower leg completed Rina South [place] - [facility] [place] [facility] [place] 03/19/2023 08:37:27 Back Surgery completed Rina South [place] - [facility] [place] [facility] [place] 03/19/2023 08:37:39 section completed Rina South [place] - [facility] [place] [facility] [place] 03/19/2023 08:37:47 Hysterectomy completed Rina South [place] - [facility] [place] [facility] [place] 03/19/2023 08:37:57 breast procedure completed Rina South [place] - [facility] [place] [facility] [place] 03/19/2023 08:38:18 cardiac catheterization completed Rina South [place] - [facility] [place] [facility] [place] 03/19/2023 08:38:33 Imaging Results None recorded. Procedure Notes None recorded. Medical Equipment None Reported. Allergies No known drug allergies Medications Name Sig Start Date Stop Date Status Note LastModified by Organization Details LastModified Time metolazone 2.5 mg tablet TAKE ONE TABLET BY MOUTH ON saturday AND DIRECTED active Not Available Not Available No t Available buspirone 5 mg tablet TAKE ONE TABLET BY MOUTH TWICE DAILY active Not Available Not Available No t Available atorvastati n 80 mg tablet TAKE ONE TABLET BY MOUTH EVERY DAY AT BEDTIME FOR cholester ol active Not Available Not Available No t Available bumetanide 2 mg tablet TAKE ONE TABLET BY MOUTH EVERY DAY active Not Available Not Available No t Available tizanidine 4 mg tablet TAKE ONE TABLET BY MOUTH EVERY 8 HOURS NEEDED FOR MUSCLE SPASMS MAY CAUSE DROWSINES S active Not Available Not Available No t Available ondansetron HCl 4 mg tablet TAKE ONE TABLET BY MOUTH THREE TIMES DAILY NEEDED FOR NAUSEA AND VOMITING 03/29 completed Not Available Not Available Not Available prednisone 20 mg tablet TAKE THREE TABLETS BY MOUTH EVERY DAY FOR 3 DAYS, TAKE TWO TABLETS EVERY DAY FOR 2 DAYS, THEN TAKE ONE TABLET EVERY DAY FOR one DAY --TAKE WITH FOOD-- 03/29 completed Not Available Not Available Not Available gabapentin 400 mg capsule TAKE ONE CAPSULE BY MOUTH THREE TIMES DAILY FOR nerve pain MAY CAUSE DROWSINES S 03/29 completed Not Available Not Available Not Available atenolol 25 mg tablet TAKE ONE TABLET BY MOUTH EVERY DAY FOR HIGH BLOOD PRESSURE active Not Available Not Available No t Available tramadol 50 mg tablet TAKE ONE TABLET BY MOUTH EVERY 8 HOURS NEEDED FOR PAIN MAY CAUSE DROWSINES S 05/13 completed Not Available Not Available Not Available ondansetron 8 mg disintegrat ing tablet DISSOLVE ONE TABLET BY MOUTH EVERY 8 HOURS NEEDED FOR NAUSEA AND VOMITING 03/29 completed Not Available Not Available Not Available alprazolam 0.5 mg tablet TAKE ONE TABLET BY MOUTH THREE TIMES DAILY FOR ANXIETY MAY CAUSE DROWSINES S active Not Available Not Available No t Available potassium chloride ER 20 mEq tablet,exte nded release(par t/cryst) TAKE ONE TABLET BY MOUTH EVERY DAY active Not Available Not Available No t Available methocarbam ol 750 mg tablet TAKE ONE TABLET BY MOUTH FOUR TIMES DAILY MAY CAUSE DROWSINES S 03/29 completed Not Available Not Available Not Available estradiol 0.075 mg/24 hr weekly transdermal patch Apply 1 PATCH topically ONCE WEEKLY active Not Available Not Available No t Available trazodone 100 mg tablet TAKE TWO TABLETS BY MOUTH EVERY DAY AT BEDTIME FOR SLEEP active Not Available Not Available No t Available nystatin 100,000 unit/gram topical cream APPLY TOPICALLY TO THE AFFECTED AREA(S) TWICE DAILY active Not Available Not Available No t Available lidocaine 5 % topical patch APPLY 1 PATCH TOPICALLY TO THE AFFECTED AREA (MOST PAINFUL AREA) ONCE DAILY AND LEAVE IN PLACE FOR 12 HOURS, THEN REMOVE AND LEAVE OFF FOR 12 HOURS -- FOR EXTERNAL USE ONLY-- active Not Available Not Available No t Available methylpredn isolone 4 mg tablets in a dose pack TAKE ACCORDING TO PACKAGE INSTRUCTI ONS --TAKE WITH FOOD-- -- FINISH ALL MEDICINE -- 03/29 completed Not Available Not Available Not Available albuterol sulfate HFA 90 mcg/actuati on aerosol inhaler INHALE 1 PUFF BY MOUTH EVERY 6 HOURS NEEDED FOR SHORTNESS OF BREATH OR wheezing active Not Available Not Available No t Available timolol maleate 0.5 % eye drops instill 1 drop TO affected eye(s) TWICE DAILY active Not Available Not Available No t Available cefdinir 300 mg capsule TAKE ONE CAPSULE BY MOUTH TWICE DAILY FOR 10 DAYS -- FINISH ALL MEDICINE -- 03/29 completed Not Available Not Available Not Available naproxen 500 mg tablet TAKE ONE TABLET BY MOUTH TWICE DAILY 03/29 completed Not Available Not Available Not Available amoxicillin 875 mg-potassiu m clavulanate 125 mg tablet TAKE ONE TABLET BY MOUTH TWICE DAILY FOR 10 DAYS -- FINISH ALL MEDICINE -- 03/19 completed Not Available Not Available Not Available esomeprazol e magnesium 20 mg capsule,del ayed release TAKE ONE CAPSULE BY MOUTH DAILY active Not Available Not Available No t Available moxifloxaci n 0.5 % eye drops instill 1 DROP into THE affected eye THREE TIMES DAILY FOR 7 DAYS 03/29 completed Not Available Not Available Not Available Neupro 6 mg/24 hour transdermal 24 hour patch apply 1 PATCH topically EVERY DAY FOR restless LEG syndrome 05/13 completed Not Available Not Available Not Available ranolazine ER 1,000 mg tablet,exte nded release,12 hr TAKE ONE TABLET BY MOUTH TWICE DAILY active Not Available Not Available No t Available diclofenac 1 % topical gel APPLY 2 grams TOPICALLY TO THE AFFECTED AREA(S) FOUR TIMES DAILY 03/29 completed Not Available Not Available Not Available Linzess 290 mcg capsule TAKE ONE CAPSULE BY MOUTH EVERY DAY active Not Available Not Available No t Available Breo Ellipta 100 mcg-25 mcg/dose powder for inhalation INHALE 1 PUFF BY MOUTH EVERY DAY FOR copd active Not Available Not Available No t Available Horizant ER 300 mg tablet,exte nded release TAKE ONE TABLET BY MOUTH EVERY DAY AT BEDTIME FOR RLS active Not Available Not Available No t Available Qulipta 60 mg tablet TAKE ONE TABLET BY MOUTH EVERY DAY FOR migraine HEADACHE 03/29 completed Not Available Not Available Not Available Quviviq 25 mg tablet TAKE ONE TABLET BY MOUTH EVERY DAY AT BEDTIME 03/29 completed Not Available Not Available Not Available Vitals Date Recorded Body weight Body temperature Oxygen saturation Oxygen saturation in Arterial blood by Pulse oximetry Heart rate Systolic And Diastolic Provider Name and Address Organization Details Last Updated DateTime 3 085998. 51 g 97.3 [degF] 98 % 98 % 60 /min 140/72 mm[Hg] [facility] & [place] 3 08:46:38 Date Recorded Body weight Body temperature Oxygen saturation Oxygen saturation in Arterial blood by Pulse oximetry Heart rate Systolic And Diastolic Provider Name and Address Organization Details Last Updated DateTime 3 747573. 91 g 96.9 [degF] 98 % 98 % 55 /min 134/77 mm[Hg] [facility] & [place] 3 08:20:21 Date Recorded Body weight Body temperature Oxygen saturation Oxygen saturation in Arterial blood by Pulse oximetry Heart rate Systolic And Diastolic Provider Name and Address Organization Details Last Updated DateTime 3 188742. 91 g 96.9 [degF] 98 % 98 % 51 /min 134/76 mm[Hg] [facility] & [place] 3 08:37:32 Date Recorded Body height Body mass index (BMI) Body weight Body temperature Oxygen saturation Oxygen saturation in Arterial blood by Pulse oximetry Heart rate Systolic And Diastolic Provider Name and Address Organization Details Last Updated DateTime 3 167.64 cm 35.2 kg/m2 58693.1 4 g 97.2 [degF] 99 % 99 % 51 /min 142/72 mm[Hg] Peri Hebert [facility] & [place] 08:14:44 Social History Question Answer Notes LastModified by Organizat ion Details LastModified Time Tobacco Smoking Status Current Every Day Smoker Rina South null, [facility] & [place] 03/19/2023 08:36:35 What Is Your Current Pack Years? [email or web address] Information not available 03/19/2023 How Much Tobacco Do You Smoke? 1 PPD [email or web address] Information not available 03/19/2023 Sex: Unknown Functional Status None recorded. Mental Status None recorded. Family History Nothing Reported. Medical History Condition Response Depression Y Anxiety Disorder Y Arthritis Y Cancer Y High Cholesterol Y Headaches Y Hypertension Y Osteoporosis Y Gynecological HistoryNo gynecological history recorded. Obstetrics History GPAL:G 0 P 0 0 0 0 Past Encounters Encounter ID Performer Location Encounter Start Date Encounter Closed Date Diagnosis/Indication Diagnosis SNOMED-CT Code Diagnosis ICD10 Code Diagnosis Note [id number] Nghia Alanis MD [facility] [address] [place] [phone] 03/19/2023 08:00:30 03/19/2023 09:52:53 Spinal stenosis in cervical region 02392546 M99.51 History of cervical spine fusion 6684624213 101 Z98.1 Spinal rachel nosis of lumbar region 20593704 M99.53 Lumbar spondylosis 97973 0009 M47.816 Cervical post-laminectomy syndrome 212741883 M96.1 Spinal ent hesopathy of cervical region 9596077201 18883 M46.02 Cervico-oc cipital neuralgia 11518385 M54.81 [id number] ANNALISA REINA PA-C [facility] [address] [facility] e [address] [place] [id number] 4 03/29/2023 08:00:09 03/29/2023 08:48:28 Cervico-occipital neuralgia 83838822 M54.81 Spinal ent hesopathy of cervical region 1886898769 29410 M46.02 Cervical post-laminectomy syndrome 030126052 M96.1 Spinal rachel nosis of lumbar region 11143684 M99.53 M48.061 Spinal rachel nosis in cervical region 54075032 M99.51 History of cervical spine fusion 4839162076 101 Z98.1 Lumbar spondylosis 98005 0009 M47.816 [id number] Nghia Alanis MD [facility] [address] [phone] 04/22/2023 08:06:18 04/22/2023 09:18:02 Spinal enthesopathy of thoracolumbar region 8421071767 61735 M46.05 [id number] ANNALISA REINA PA-C [facility] [address] [phone] 05/13/2023 08:05:30 05/13/2023 08:46:22 Cervico-occipital neuralgia 96556598 M54.81 Spinal ent hesopathy of cervical region 3836640925 79897 M46.02 Cervical post-laminectomy syndrome 196663171 M96.1 Spinal rachel nosis of lumbar region 47137714 M99.53 M48.061 Spinal rachel nosis in cervical region 56222250 M99.51 History of cervical spine fusion 0739193030 101 Z98.1 Lumbar spondylosis 89078 0009 M47.816 Health Concerns Section Related Observation LastModified by Organization Detai ls LastModified Time None Recorded Concern Status LastModified by Organization Details LastModified Time None Recorded Advance Directives Directive None Recorded Payers Insurance Date Sequence Insurance Name Policy Number Policy Lazo Covered Member ID Lazo Member ID Guarantor Name 02/15/2024 2 MEDICAID-[facility] - FFS/TRADITIO NAL Laura Hodge [id number] Laura Hodge 05/13/2023 1 MEDICARE-[place] (MEDICARE) Laura Hodge [id number] Laura Hodge 02/15/2024 1 [employer] (MEDICARE REPLACEMENT/ ADVANTAGE - PPO) Laura Hodge [id number] Laura Hodge Notes Date Note Type Note Provider Name and Address Organization Details Recorded Time 03/19/2023 text/html Mrs. Hodge was referred by Dr. Dominique for management of chronic neck and low back pain. She has history of ACDF at C5-[address] Dominique in 2020. Patient denies any DM and history of infection. Patient takes Aspirin daily. Patient has osteoporosis, severity unknown. The patient was seeing Dr. Garcia for pain management where he was performing CEIs and providing medication regimen (Tramadol, Gabapentin) which was minimally helpful for the pain. She reports having a bad experience with injections with Dr. Garcia and is worrisome to receive anymore at this point. ITPP and SCS therapy was also discussed which the patient denies interest in. She complains of neck pain with radiation into the RUE with numbness/tingling along with radiation into the skull, causing frequent headaches. She also complains of low back pain with radiation into the RLE with numbness/tingling. Her pain is starting to impact her daily function significantly. The patient is currently participating in PT which has been minimally helpful for her pain. She also utilizes a TENS unit as needed. Initial complaint: chronic neck and low back painOnset: 10+ yearsContext: worsening over timeCharacter: aching, throbbing, sharp, radiating, numbness/tinglingLoca tion: low back, RLE, neck, RUEDuration: constant with fluctuationsInitial Intensity: 6/10Worse: bending, standing, walking, lifting, carrying, activityBetter: restAssociated symptoms: Denies saddle anaesthesia, denies acute bowel/bladder changes, denies acute power loss.ADLs: The patient's pain interferes with daily chores, exercise, sleep, relationships, and walking.Current Pain Medications: nonePrior Pain Medications: Gabapentin, Tramadol, DiclofenacNSAIDS/OTC: mildly helpfulNon-interventi onal Tx: nonePhysical Therapy: currently participating PTInterventional Tx: CEI x3 - Dr. Garcia 2022Surgery: ACDF C5-7 2020 - Dr. DominiqueImaging/Studies: MRI lumbar and cervical spine, x-ray cervical and lumbar spine Nghia Alanis MD [facility], [place], [phone], [facility] & [place] 03/20/2023 11:15:31 03/29/2023 text/html Mrs. Hodge was referred by Dr. Dominique for management of chronic neck and low back pain. The patient previously (2020) underwent a ACDF at C5-C7. The patient previously followed with Dr. Garcia, where she received cervical epidurals, noting a bad experience has caused anxiety regarding spinal injections. The patient has taken Tramadol and Gabapentin for pain relief, which are semi-effective. The patient denies DM or history of infection. The patient takes Aspirin daily. The patient has osteoporosis (severity unknown). The patient presents to the clinic today nearly 2 weeks S/P bilateral occipital nerve block. The patient reports experiencing significant improvement in pain and function of nearly 100%, specifically decreased headache. The patient continues to complain of neck pain described as tightness/spasm with intermittent radicular symptoms of the RUE. The patient also complains of low back pain with intermittent radicular symptoms of the RLE. Today the pain level is a 4/10, but fluctuates higher. Initial complaint: chronic neck and low back painOnset: 10+ yearsContext: worsening over timeCharacter: aching, throbbing, sharp, radiating, numbness/tinglingLoca tion: low back, RLE, neck, RUEDuration: constant with fluctuationsInitial Intensity: 6/10Worse: bending, standing, walking, lifting, carrying, activityBetter: restAssociated symptoms: Denies saddle anaesthesia, denies acute bowel/bladder changes, denies acute power loss.ADLs: The patient's pain interferes with daily chores, exercise, sleep, relationships, and walking.Current Pain Medications: nonePrior Pain Medications: Gabapentin, Tramadol, DiclofenacNSAIDS/OTC: mildly helpfulNon-interventi onal Tx: nonePhysical Therapy: currently participating PTInterventional Tx: CEI x3 - Dr. Garcia 2022Surgery: ACDF C5-7 2020 - Dr. DominiqueImaging/Studies: MRI lumbar and cervical spine, x-ray cervical and lumbar spine ANNALISA REINA PA-C [address] [facility], [place], [phone], [facility] & [place] 04/01/2023 19:11:17 05/13/2023 text/html Mrs. Hodge was referred by Dr. Dominique for management of chronic neck and low back pain. The patient previously (2020) underwent a ACDF at C5-C7. The patient previously followed with Dr. Garcia, where she received cervical epidurals, noting a bad experience has caused anxiety regarding spinal injections. The patient has taken Tramadol and Gabapentin for pain relief, which are semi-effective. The patient denies DM or history of infection. The patient takes Aspirin daily. The patient has osteoporosis (severity unknown). The patient presents to the clinic today 3 weeks S/P TPI of the bilateral thoracolumbar region. The patient reports experiencing significant improvement in pain and function of nearly 100% for 3 days. The patient primarily complains of low back pain, which worsens with prolonged standing/walking. Today the pain level is a 7/10. Initial complaint: chronic neck and low back painOnset: 10+ yearsContext: worsening over timeCharacter: aching, throbbing, sharp, radiating, numbness/tinglingLoca tion: low back, RLE, neck, RUEDuration: constant with fluctuationsInitial Intensity: 6/10Worse: bending, standing, walking, lifting, carrying, activityBetter: restAssociated symptoms: Denies saddle anaesthesia, denies acute bowel/bladder changes, denies acute power loss.ADLs: The patient's pain interferes with daily chores, exercise, sleep, relationships, and walking.Current Pain Medications: nonePrior Pain Medications: Gabapentin, Tramadol, DiclofenacNSAIDS/OTC: mildly helpfulNon-interventi onal Tx: nonePhysical Therapy: currently participating PTInterventional Tx: CEI x3 - Dr. Garcia 2022Surgery: ACDF C5-7 2020 - Dr. DominiqueImaging/Studies: MRI lumbar and cervical spine, x-ray cervical and lumbar spine ANNALISA REINA PA-C [address] [facility], [place], [address], [place] - [facility] - [place] & [place] 05/14/2023 10:27:28 OBGyn Episode No OBEpisode recorded.
--- OUTSIDE RECORDS SUMMARY | 2025-02-01 08:14 | XMS_ITS | Data Portability ---
Author Organization [employer] [facility] Address [address] [facility] [place] [address] Assessment No assessment recorded. Plan of Treatment Reminders Order Date Submit Date Provider Last Modified By Organization Details Last Modified Time Details Appointments FOLLOW UP 2024 08:00A Vivien Venegas PA-C Not available Not available Not available Lab microorga nism identific ation, unspecifi ed specimen 2024 025 HORACE [facility], [address] [place] [address], [id number], 11/02/2024 18:08:46 Referral None recorded. Procedures None recorded. Surgeries None recorded. Imaging LDCT, chest, for lung cancer screening 2024 025 [facility]), [address] [place], [place] [address]y [address], [place], [id number], 01/26/2025 11:12:30 Medication Orders Horizant ER 300 mg tablet,ex tended release 2024 025 [facility], [address], [place], [address], 01/26/2025 10:58:16 amoxicill in 875 mg-potass ium clavulana te 125 mg tablet 2024 025 [facility], [address], [place], [id number], 01/26/2025 08:19:19 mupirocin 2 % topical ointment 2024 025 [facility], [address] [place] [address] E [place], [id number], 01/26/2025 08:19:19 Diflucan 150 mg tablet 2024 025 [facility], [address] [place] [address] E [place], [id number], 01/26/2025 08:19:18 tramadol 50 mg tablet 2024 025 [facility], [address] [place] [address] E [place], [id number], 11/05/2024 16:35:08 trazodone 100 mg tablet 2024 025 [facility], [address] [place] [address] E Kaegan [place], [id number], 11/05/2024 09:27:27 Remeron 30 mg tablet 2024 025 [facility], [address] [place] [address] E [place], [id number], 10/27/2024 16:41:20 Seroquel 25 mg tablet 2024 025 [facility], [address] [place] [address] E Keagan [place], [id number], 01/03/2025 13:13:31 mirtazapi ne 15 mg tablet 2024 025 [facility], [address] [place] [address] E Keagan [place], [id number], 01/03/2025 13:13:32 ketorolac 60 mg/2 mL intramusc ular solution 2023 024 Not available 07/06/2024 08:11:07 Mobic 15 mg tablet [address] [facility], [address] [place] [address] [place], [id number], 10/27/2024 08:19:51 mirtazapi ne 15 mg tablet 2023 [facility], [address] [place] [address] [place], [id number], 10/27/2024 09:33:44 buspirone 15 mg tablet 2023 [facility], [address] [place] [address] E [place], [id number], 10/08/2024 14:11:26 Quviviq 25 mg tablet [address] [facility], [address] [place] [address] [place], [id number], 01/26/2025 08:11:14 venlafaxi ne ER 37.5 mg capsule,e xtended release 24 hr 2023 [facility], [address] [place] [address] [place], [id number], 10/08/2024 14:11:27 Patient TargetsNo targets recorded. Patient Instructions Encounter Date Encounter Id Patient Instructions Last Modified By Organization Details Last Modified Time 05/05/2024 [id number] insomnia: care instructions [email or web address] Not available 05/05/2024 14:49:05 07/06/2024 [id number] restless legs syndrome: care instructions [email or web address] Not available 07/06/2024 12:45:36 hip pain: care instructions [email or web address] Not available 07/06/2024 12:45:36 10/27/2024 [id number] hip pain: care instructions [email or web address] Not available 10/27/2024 09:35:03 insomnia: care instructions [email or web address] Not available 10/27/2024 09:35:03 restless legs syndrome: care instructions Not available 10/27/2024 09:35:03 infection after surgery: care instructions [email or web address] Not available 10/27/2024 09:35:03 learning about mood disorders [email or web address] Not available 10/27/2024 09:35:03 11/27/2024 [id number] When You Want to Lose Weight: Care Instructions [email or web address] Not available 11/27/2024 14:54:29 01/26/2025 [id number] restless legs syndrome: care instructions [email or web address] Not available 01/26/2025 10:54:21 Reason for Referral None Reported. Results Created Date Observation Date Name Description Value Unit Range Abnormal Flag Note LastModifiedBy Organization Detail LastModifiedTime 10/28/1910/30/2024 ANAER OBIC AND AEROB IC CULTU RE aerobic culture Final report abnormal Not Available [facility] ([facility]) [address] [facility], [place], [address], 11/02/2024 18:08:45 10/28/1910/30/2024 ANAER OBIC AND AEROB IC CULTU RE result 1 COMMEN T abnormal Coagu lase negat shanell Staph yloco ccus speci es. Light growt h Based on susce ptibi lity to oxaci llin this isola te would be susce ptibl e to: *Peni cilli nase- stabl e penic illin s, such as: Cloxa cilli n, Diclo xacil kelsi, Nafci llin *Beta -lact am combi natio n agent s, such as: Amoxi cilli n-cla vulan ic acid, Ampic illin -sulb actam , Piper acill in-ta zobac erickson *Oral cephe ms, such as: Cefac estella, Cefdi zaida, Cefpo doxim e, Cefpr ozil, Cefur oxime , Cepha lexin , Lorac arbef *Pare ntera l cephe ms, such as: Cefaz anna, Cefep kathe, Cefot axime , Cefot raymon, Cefta rolin e, Cefti zoxim e, Ceftr iaxon e, Cefur oxime *Carb apene ms, such as: Dorip enem, Ertap enem, Imipe nem, Merop enem Most isola eddie of Staph yloco ccus sp. produ ce a beta- lacta belinda enzym e rende ring them resis tant to penic illin . Pleas e conta ct the labor atory if penic illin is being consi dered for thera py. Not Available [facility] ([facility]) [address] [facility], [place], [address], 11/02/2024 18:08:45 10/28/19 25 10/30/2024 ANAER OBIC AND AEROB IC CULTU RE antimicrobia l susceptibili ty Commen t S = Susce ptibl e; I = Inter media te; R = Resis tant P = Posit shanell; N = Negat shanell MICS are expre ssed in micro grams per mL Antib iotic RSLT# 1 RSLT# 2 RSLT# 3 RSLT# 4 Cipro floxa hiral S Clind amyci n S Eryth romyc in S Genta micin S Levof loxac in S Moxif loxac in S Oxaci llin S Rifam pin S Tetra cycli ne S Trime thopr im/Tovar lfa S Vanco mycin S Not Available [facility] ([facility]) [address] [facility], [place], [address], 11/02/2024 18:08:45 10/28/19 25 11/02/2024 ANAER OBIC AND AEROB IC CULTU RE anaerobic culture Final report Not Available [facility] ([facility]) [address] [place], [address], 11/02/2024 18:08:45 10/28/19 25 11/02/2024 ANAER OBIC AND AEROB IC CULTU RE result 1 COMMEN T No anaer obic growt h in 72 hours . Not Available [facility] ([facility]) [address] [facility], [place], [address], 11/02/2024 18:08:45 10/28/19 25 10/29/2024 AEROB IC BACTE RIAL CULTU RE aerobic bacterial culture COMMEN T Dupli luis miguel proce dure order ed. Not Available [facility] ([facility]) [address] [facility], [place], [address], 11/02/2024 18:08:46 Result Notes None recorded. Problems Name Problem SNOMED Code Status Onset Date Resolution Date Notes Provider Name and Address Organization Details Recorded Time Generalized anxiety disorder 17207102 Active 2023 SUSAN Marino [address] [place] [address], [phone], [employer] 5 09:32:20 Insomnia 354412803 Active 2023 SUSAN Marino [address] [place] [address], [phone] 8, [employer] 5 09:32:25 Spasm of back muscles 731009388 Active 2023 SUSAN Marino [address] [place] [address], [phone] 8, [employer] 5 09:32:34 Depressive disorder 66537935 Active 2023 SUSAN Marino [address] [place] [address], [phone] 8, [employer] 5 09:32:16 Osteoarthri tis of right hip joint 8955806789422 07 Active 2023 SUSAN Marino [address] [place] [address], [address] 8, [employer] 5 09:32:28 Pain of hip region 73871386 Active 2023 SUSAN Marino [address] [place] [address], [phone] 8, [employer] 5 09:32:23 Restless legs 02959192 Active 2023 SUSAN Marino [address] [place] [address], [phone] 8, [employer] 09:32:32 Postoperati ve wound infection 34699885 Active 2024 SUSAN Marino [address] [place] [address], [phone] 8, [employer] 5 09:33:18 Dog bite of lower leg 975858231 Active 2024 SUSNA Marino [address] [place] [address], [phone] 8, [employer] 14:15:56 Problem Notes None recorded. Procedures Surgical History Date Name Laterality Status Provider Name and Address Organization Details Recorded Time 05/30/20 23 Most Recent Mammogram completed [employer] 10/27/2024 09:28:22 04/11/20 15 total abdominal hysterectomy with bilateral salpingo-oophorecto my completed [email or web address] 01/26/2025 08:17:22 section completed [email or web address] 05/05/2024 14:25:50 operation for glaucoma completed [email or web address] 05/05/2024 14:26:38 cervical spinal fusion for pseudoarthrosis completed [employer] 05/05/2024 14:35:29 Hip Replacement completed [email or web address] 10/27/2024 08:24:40 Imaging Results None recorded. Procedure Notes None recorded. Medical Equipment None Reported. Allergies No known drug allergies Medications Name Sig Start Date Stop Date Status Note LastModified by Organization Details LastModified Time quetiapine 25 mg tablet TAKE ONE TABLET BY MOUTH EVERY DAY AT BEDTIME FOR SLEEP active Not Available Not Available No t Available metolazone 2.5 mg tablet TAKE ONE TABLET BY MOUTH ON Saturday AND DIRECTED active Not Available Not Available No t Available buspirone 5 mg tablet TAKE ONE TABLET BY MOUTH TWICE DAILY 05/05 completed Not Available Not Available Not Available atorvastati n 80 mg tablet TAKE ONE TABLET BY MOUTH EVERY DAY AT BEDTIME FOR CHOLESTER OL active Not Available Not Available No t Available venlafaxine ER 37.5 mg capsule,ext ended release 24 hr TAKE ONE CAPSULE BY MOUTH EVERY DAY DIRECTED active Not Available Not Available No t Available bumetanide 2 mg tablet TAKE ONE TABLET BY MOUTH EVERY DAY active Not Available Not Available No t Available Remeron 30 mg tablet Take 1 tablet every day by oral route at bedtime for 30 days. 10/27 completed Not Available Not Available Not Available tizanidine 4 mg tablet TAKE ONE TABLET BY MOUTH EVERY 8 HOURS NEEDED FOR MUSCLE SPASMS MAY CAUSE DROWSINES S active Not Available Not Available No t Available fluconazole 150 mg tablet TAKE ONE TABLET BY MOUTH EVERY DAY FOR 3 DAYS 01/26 completed Not Available Not Available Not Available meloxicam 15 mg tablet TAKE ONE TABLET BY MOUTH EVERY DAY FOR pain --TAKE WITH FOOD-- active Not Available Not Available No t Available atenolol 25 mg tablet TAKE ONE TABLET BY MOUTH EVERY DAY FOR HIGH BLOOD PRESSURE active Not Available Not Available No t Available tramadol 50 mg tablet TAKE TWO TABLETS BY MOUTH THREE TIMES DAILY FOR 10 DAYS FOR SEVERE pain active Not Available Not Available No t Available alprazolam 0.5 mg tablet TAKE ONE TABLET BY MOUTH TWICE DAILY NEEDED FOR ANXIETY MAY CAUSE DROWSINES S 05/05 completed Not Available Not Available Not Available potassium chloride ER 20 mEq tablet,exte nded release(par t/cryst) TAKE ONE TABLET BY MOUTH EVERY DAY active Not Available Not Available No t Available trazodone 100 mg tablet TAKE TWO TABLETS BY MOUTH EVERY DAY AT BEDTIME FOR SLEEP active Not Available Not Available No t Available nystatin 100,000 unit/gram topical cream APPLY TOPICALLY TO THE AFFECTED AREA(S) THREE TIMES DAILY 05/05 completed Not Available Not Available Not Available buspirone 10 mg tablet TAKE ONE TABLET BY MOUTH TWICE DAILY 05/05 completed Not Available Not Available Not Available lidocaine 5 % topical patch APPLY 1 PATCH TOPICALLY TO THE AFFECTED AREA ONCE DAILY AND LEAVE IN PLACE FOR 12 HOURS, THEN REMOVE AND LEAVE OFF FOR 12 HOURS active Not Available Not Available No t Available buspirone 7.5 mg tablet TAKE ONE TABLET BY MOUTH TWICE DAILY 05/05 completed Not Available Not Available Not Available mupirocin 2 % topical ointment APPLY TOPICALLY TO THE AFFECTED AREA(S) THREE TIMES DAILY 01/26 completed Not Available Not Available Not Available mirtazapine 15 mg tablet TAKE ONE TABLET BY MOUTH EVERY DAY AT BEDTIME FOR ANXIETY active Not Available Not Available No t Available albuterol sulfate HFA 90 mcg/actuati on aerosol inhaler INHALE 1 PUFF BY MOUTH EVERY 6 HOURS NEEDED FOR SHORTNESS OF BREATH OR wheezing active Not Available Not Available No t Available timolol maleate 0.5 % eye drops INSTILL 1 DROP IN EACH EYE TWICE DAILY active Not Available Not Available No t Available ketorolac 60 mg/2 mL intramuscul ar solution Inject 2 mL every day by intramusc ular route as directed for 1 day. 07/06 completed Not Available Not Available Not Available cefdinir 300 mg capsule TAKE ONE CAPSULE BY MOUTH EVERY TWELVE HOURS FOR 10 DAYS -- FINISH ALL MEDICINE -- 11/27 completed Not Available Not Available Not Available amoxicillin 875 mg-potassiu m clavulanate 125 mg tablet TAKE ONE TABLET BY MOUTH EVERY TWELVE HOURS FOR 10 DAYS 01/26 completed Not Available Not Available Not Available buspirone 15 mg tablet TAKE ONE TABLET BY MOUTH TWICE DAILY active Not Available Not Available No t Available esomeprazol e magnesium 20 mg capsule,del ayed release TAKE ONE CAPSULE BY MOUTH DAILY 05/05 completed Not Available Not Available Not Available Vitamin D3 active Not Available Not Av ailable Not Available multivitami n active Not Available Not Available Not Available peg 3350-electr olytes 236 gram-22.74 gram-6.74 gram-5.86 gram solution MIX DIRECTED AND DRINK 240 ML (8 OUNCES) BY MOUTH EVERY 10 MINUTES UNTIL FECAL EFFLUENT IS CLEAR OR OTHERWISE DIRECTED DO NOT EXCEED TOTAL VOLUME OF 4000 ML FOLLOWING MAILED INSTRUCTI ONS. 07/06 completed Not Available Not Available Not Available ranolazine ER 1,000 mg tablet,exte nded release,12 hr TAKE ONE TABLET BY MOUTH TWICE DAILY active Not Available Not Available No t Available diclofenac 1 % topical gel APPLY 2 grams TOPICALLY TO THE AFFECTED AREA(S) FOUR TIMES DAILY 05/05 completed Not Available Not Available Not Available Linzess 290 mcg capsule TAKE ONE CAPSULE BY MOUTH EVERY DAY active Not Available Not Available No t Available Breo Ellipta 100 mcg-25 mcg/dose powder for inhalation INHALE 1 PUFF BY MOUTH EVERY DAY --RINSE MOUTH AFTER USE-- active Not Available Not Available No t Available Horizant ER 300 mg tablet,exte nded release TAKE ONE TABLET BY MOUTH EVERY EVENING AT 6:00 IN THE EVENING 2024 active Not Available Not Available Not Avai lable aspirin 81 mg capsule Take 1 capsule every day by oral route. active Not Available Not Available No t Available Quviviq 25 mg tablet TAKE ONE TABLET BY MOUTH EVERY DAY AT BEDTIME FOR SLEEP 01/26 completed Not Available Not Available Not Available Clenpiq 10 mg-3.5 gram-12 gram/175 mL oral solution take 175 ML BY MOUTH DAILY FOR 2 doses; take THE first DOSE AT 5-9pm THE evening BEFORE THE colonosco py; THEN take THE second DOSE THE NEXT DAY approxima tely 5 hours BEFORE colonosco py 05/05 completed Not Available Not Available Not Available Vitals Date Recorded Body height Body mass index (BMI) Body weight Heart rate Oxygen saturation Oxygen saturation in Arterial blood by Pulse oximetry Body temperature Systolic And Diastolic Provider Name and Address Organization Details Last Updated DateTime 5 170.18 cm 37.7 kg/m2 039758. 32 g 82 /min 97 % 97 % 98.3 [degF] 136/86 mm[Hg] [email or web address] 5 08:18:20 Date Recorded Body height Body mass index (BMI) Body weight Heart rate Oxygen saturation Oxygen saturation in Arterial blood by Pulse oximetry Systolic And Diastolic Provider Name and Address Organization Details Last Updated DateTime 5 170.18 cm 37.5 kg/m2 831089. 28 g 67 /min 95 % 95 % 129/78 mm[Hg] [employer] 5 13:55:57 Date Recorded Body height Body mass index (BMI) Body weight Oxygen saturation Oxygen saturation in Arterial blood by Pulse oximetry Heart rate Body temperature Systolic And Diastolic Provider Name and Address Organization Details Last Updated DateTime 5 170.18 cm 36.6 kg/m2 223613. 9 g 95 % 95 % 62 /min 98.1 [degF] 126/84 mm[Hg] [email or web address] 5 08:14:25 Date Recorded Body weight Body mass index (BMI) Body height Heart rate Oxygen saturation Oxygen saturation in Arterial blood by Pulse oximetry Systolic And Diastolic Provider Name and Address Organization Details Last Updated DateTime 4 546390. 12 g 36.1 kg/m2 170.18 cm 70 /min 95 % 95 % 139/82 mm[Hg] [email or web address] 4 14:12:53 Date Recorded Body height Body mass index (BMI) Body weight Oxygen saturation Oxygen saturation in Arterial blood by Pulse oximetry Heart rate Systolic And Diastolic Provider Name and Address Organization Details Last Updated DateTime 4 170.18 cm 38.7 kg/m2 966545. 75 g 96 % 96 % 60 /min 138/78 mm[Hg] [email or web address] 08:09:55 Social History Question Answer Notes LastModified by Organizat ion Details LastModified Time Tobacco Smoking Status Former Smoker [employer] 07/06/2024 08:13:14 Do You Have An Advance Directive? No Information not available 05/05/2024 Is Your Home Air Conditioned? Yes Information not available 05/05/2024 If You Are , What Was Your Level Of Alcohol Consumption Prior To ? None Information not available 05/05/2024 Do You Wear A Helmet When Biking? Yes Information not available 05/05/2024 Are You Blind Or Do You Have Difficulty Seeing? No Information not available 05/05/2024 What Is Your Level Of Caffeine Consumption? Occasional Information not available 05/05/2024 Are You A Caregiver? No Information not available 05/05/2024 What Type Of Director Of Global Talent Do You Use? None Information not available 05/05/2024 In The 14 Days Before Symptom Onset, Have You Had Close Contact With A Laboratory-confir med COVID-19 While That Case Was Ill? No Information not available 05/05/2024 In The 14 Days Before Symptom Onset, Have You Had Close Contact With A Person Who Is Under Investigation For COVID-19 While That Person Was Ill? No Information not available 05/05/2024 Have You Been To An Area Known To Be High Risk For COVID-19? No Information not available 05/05/2024 Are You Deaf Or Do You Have Serious Difficulty Hearing? No Information not available 05/05/2024 What Type Of Diet Are You Following? REGULAR Information not available 05/05/2024 What Is The Highest Grade Or Level Of School You Have Completed Or The Highest Degree You Have Received? [id number] Information not available 07/06/2024 How Many Days Of Moderate To Strenuous Exercise, Like A Brisk Walk, Did You Do In The Last 7 Days? 0 Information not available 05/05/2024 Have There Been Any Changes To Your Family Or Social Situation? No Information no t available 05/05/2024 Are There Any Guns Present In Your Home? Yes Information not available 05/05/2024 Which Of Your Hands Is Dominant? Right Information not available 05/05/2024 What Is Your Home Situation? Other Information not available 05/05/2024 Do You Have A Medical Power Of Email Campaign Specialist? No Information not available 05/05/2024 What Was The Date Of Your Most Recent Tobacco Screening? 01/26/2025 Information not available 01/26/2025 Do You Have Any Pets? Yes Information not available 05/05/2024 What Is Your Relationship Status? Single Information not available 05/05/2024 Have You Repeated Any Grades? No Information not available 05/05/2024 Do You Use Your Seat Belt Or Car Seat Routinely? Yes Information not available 05/05/2024 Are You Sexually Active? No Information not available 05/05/2024 Do You Have Any Siblings? 6 Information not available 05/05/2024 Do You Have Smoke And Carbon Monoxide Detectors In Your Home? Yes Information not available 05/05/2024 At What Age Did You Start Smoking Tobacco? 15 Information not available 05/05/2024 Are You Passively Exposed To Smoke? Yes Information no t available 05/05/2024 Are There Any Smokers In Your House? Yes Information not available 05/05/2024 How Much Tobacco Do You Smoke? No Information not available 07/06/2024 Do You Participate In Social Media? Yes Information not available 07/06/2024 Do You Use Sunscreen Routinely? No Information not available 05/05/2024 Has Tobacco Cessation Counseling Been Provided? No Information not available 07/06/2024 On What Date Was Tobacco Cessation Counseling Provided? 01/26/2025 Information not available 01/26/2025 How Many Years Have You Smoked Tobacco? 40 Information not available 05/05/2024 Have You Recently Traveled Abroad? No Information not available 05/05/2024 Do You Have Difficulty Walking Or Climbing Stairs? Yes Information not available 05/05/2024 Are You Currently In School? No Information not available 05/05/2024 What Contraceptive Method Was Reported At Start Of This Visit? Female Sterilization Information not available 10/27/2024 Do You Have Any Dietary Restrictions? No Information not available 07/06/2024 Sex: Female Functional Status Question Answer Note LastModified by [employer] Details LastModified Time Do you use any illicit or recreational drugs? No Information not available 05/05/2024 Do you or have you ever used any other forms of tobacco or nicotine? No Information not available 05/05/2024 What is your level of alcohol consumption? None Information not available 05/05/2024 Are you currently employed? No Information not available 05/05/2024 Do you have transportation difficulties? No Information not available 05/05/2024 Are you able to walk? YESWOREST Information not available 05/05/2024 Do you have difficulty doing errands alone? No Information not available 05/05/2024 Are you able to care for yourself? Yes Information n ot available 05/05/2024 Do you have difficulty dressing or bathing? No Information not available 05/05/2024 What is your exercise level? Occasional Information not available 05/05/2024 Mental Status Question Answer Note LastModified by Organizat ion Details LastModified Time Do you feel stressed (tense, restless, nervous, or anxious, or unable to sleep at night)? [id number] Information not available 07/06/2024 Do you have difficulty concentrating, remembering or making decisions? No Information no t available 05/05/2024 Are you or have you been involved with bullying? No Information not available 05/05/2024 Family History Relationship Description Onset Age of this Age Resolved Age Notes LastModified by Organization Details LastModified Time Mother Diabetes mellitus Not available 2023 14:22:53 Mother Heart disease Not available 2023 14:23:24 Father Diabetes mellitus Not available 2023 14:23:05 Father Heart disease Not available 2023 14:23:28 Medical History Condition Response Coronary Artery Disease N Other N Gout N Kidney Stones N Blood Diseases Y Hyperthyroidism N Blood Transfusion N Breast Cancer N Emergency room visit since last appointm ent. N COPD Y Depression Y Dermatologic Disorders N Lung Disease N Hypothyroidism N Developmental or Behavioral Disorders N Defects or Inherited Disease N Breast Problem N Difficulty Swallowing N Anesthesia Complications N History of STI N Anxiety Disorder Y Meniere's disease N Autoimmune disease N Muscle, Joint, or Bone Problems Y Vision or Eye Problems N Arthritis Y Infertility N Polyps N Mental Disorder N Congenital Anomalies N Acid Reflux (GERD) N Cancer N Stroke N Neurologic/Epilepsy N Endometriosis N Bladder or Kidney Problems N High Cholesterol Y Liver Disease N Psychiatric/Mental Health Condition N Organ Transplant N Fibromyalgia N Headaches N Schizophrenia N Dialysis N Kidney Disease N Allergies/Hayfever N Heart Problems N Ear or Hearing Problems N Hospitalizations N Learning Disorder N Artificial Joints N Thyroid Problems N GI Problems N Acne N ADD/ADHD N Eating Disorder N Anemia N Constipation Y Mental Illness N Ovarian Cancer N Diabetes N Bedwetting N Hepatitis/Liver Disease N Tuberculosis N Eczema N Diverticulitis N Abuse/Domestic Violence N Asthma N Trauma/Violence N Substance Abuse N Reflux/GERD N Depression/ depression N Hepatitis N Heart Disease N Pulmonary Embolism N Tourette Syndrome N Chronic Ear Infections N Pre-Eclampsia N Hypertension Y Chicken Pox N Autism Spectrum Disorder (ASD) N Osteoporosis Y Thrombophilias N Gynecological History Statement/Question Response Menses Monthly N HPV Vaccine N Date of Last Pap Smear Current Control Method Hysterectom y Most Recent Mammogram 05/30/2023 Age at First Child 21 Obstetrics History GPAL:G 1 P 1 0 0 1 Type Value Multiple Births 0 Full Term 1 Induced 0 Spontaneous 0 Premature 0 Living 1 Ectopics 0 Total 1 Immunizations Vaccine Type Date Status Note Provider Shady martinez and Address Organization Details Recorded Time Tdap 11/27/[address] [place], [place] [employer] 11/27/2024 14:33:44 Tdap 10/21/2007 completed Gissel Espinoza [place], [place] [email or web address] 07/06/2024 08:09:35 Past Encounters Encounter ID Performer Location Encounter Start Date Encounter Closed Date Diagnosis/Indication Diagnosis SNOMED-CT Code Diagnosis ICD10 Code Diagnosis Note [id number] SUSAN Marino [address] [address] 05/05/2024 13:24:24 05/05/2024 15:02:23 Insomnia 105762314 G47.00 [facility] #[id number] reviewedCS A completed today Depressive disorder 3548 9007 F32.A Osteoarthr itis of right hip joint 9425289548 51022 M16.11 Generalize d anxiety disorder 48426140 F41.1 [id number] SUSAN Marino [address] [address] 07/06/2024 07:53:56 07/06/2024 08:44:32 Arthritis of spine 145847593 M46.02 Pain of hip region 31456 002 M25.559 Restless legs 95995345 G 25.81 [id number] SUSAN Marino [address] [address] 10/27/2024 08:00:40 10/27/2024 08:54:44 Dehiscence of surgical wound 43872712 T81.30XA Depressive disorder 3548 9007 F32.A Generalize d anxiety disorder 84035268 F41.1 Pain of hip region 46146 002 M25.559 handicap parking tag applicatio n given to patient Osteoarthr itis of right hip joint 6069764940 15596 M16.11 Restless legs 69594360 G 25.81 Insomnia 590121399 G47.0 0 Postoperat shanell wound infection 02374534 T81.40XA wound culture obtained [id number] SUSAN Marino [facility] [address] [place] [address] 11/27/2024 13:37:17 11/27/2024 14:23:08 Dog bite of lower leg 265575507 S81.852A W54.0XXA Obesity 569359718 E66.01 [id number] SUSAN Marino [facility] [address] [place] [address] 01/26/2025 07:46:46 01/26/2025 08:28:17 Restless legs 64960113 G25.81 Ex-cigarette smoker 2810 48976 Z87.891 Health Concerns Section Related Observation LastModified by Organization Detai ls LastModified Time None Recorded Concern Status LastModified by Organization Details LastModified Time None Recorded Advance Directives Directive N: Payers Insurance Date Sequence Insurance Name Policy Number Policy Lazo Covered Member ID Lazo Member ID Guarantor Name 01/23/2025 [place]ARE [place]: Relive [facility] Laura Hodge [id number] Laura Hodge 05/05/2024 2 [place] Laura Hodge [id number] Laura Hodge 01/26/2025 1 [employer] (MEDICARE REPLACEMENT/AD VANTAGE - PPO) Laura Hodge [id number] Laura Hodge Notes Date Note Type Note Provider Name and Address Organization Details Recorded Time 05/05/2024 text/html Patient presents to establish care.Patient has a history of insomnia. States Quviviq is doing well. Due for refills.History of anxiety and depression. Due for refills on Buspar, Effexor and Remeron.Patient has severe pain in right hip. She has seen ortho. They did steroid injection a little over a week ago. It did not seem to help. She is quite miserable. Has a follow up next week.History of hypertension, hyperlipidemia, COPD, constipation. SUSAN Marino [address] [place] [address], [address], [place] [employer]. 05/05/2024 15:56:42 07/06/2024 text/html Patient presents for followup. She is having a hip replacement next month. She would like a temporary handicap parking tag. SUSAN Marino [address] [place], [address], [employer] 07/06/2024 12:45:39 10/27/2024 text/html Patient presents for followup.RIght hip pain. Had right hip replacement in July. Wound dehiscence, infection, reopened in August. Wound still has open spot, draining yellow fluid. No fever. Still has pain. Tramadol helps but not always strong enough.Not sleeping. Quviviq no longer helping. Also takes Trazodone.Would like a handicap parking tag. SUSAN Marino [address] [place], [address], [employer]. 10/27/2024 09:38:15 11/27/2024 text/html Dog bite left ankle 2 days ago. Dog is her own dog, UTD on vaccines. She got in between him and another dog and was bitten. Has cleaned with peroxide and betadine. SUSAN Marino [address] [place], [address], [employer], [employer]. 11/27/2024 14:57:29 01/26/2025 text/html Patient presents for followup. History of RLS. Needs refills on Horizant. States that she is doing well. SUSAN Marino [address] [place], [address], [employer]. 01/26/2025 10:54:45 OBGyn Episode No OBEpisode recorded.
--- OUTSIDE RECORDS SUMMARY | 2025-02-01 08:14 | XMS_ITS | Encounter Summary ---
Author Organization Healthcare Address [address] [place] [address] Care Team Providers Care Supervisor Paper Products Name Role Phone Neeta Venegas Primary Care Provider [phone] Encounter Details Date Type Department Care Team ([facility] st Contact Info) Description 04/08/2024 Orders Only External Location [address] [place] [address] Provider, External Social History Tobacco Use Types Packs/Day Years Used Date Smoking Tobacco: Never Assessed Comments Unknown Sex and Gender Information Value Date Recorded Sex Assigned at Not on file Legal Sex Female 7:35 PM EDT Gender Identity Not on file Sexual Orientation Not on file documented as of this encounter Plan of Treatment Not on file documented as of this encounter Procedures Procedure Name Priority Date/Time Associated Diagnosis Comments XR MSK OUTSIDE IMAGES 04/08/2024 10:38 AM EDT documented in this encounter Results * XR MSK OUTSIDE IMAGES (04/08/2024 10:38 AM EDT) Anatomical Region Laterality Modality Radiographic Khushbu ging 04/08/2024 10:3 8 AM EDT us External Provider IMG XR PROCEDURES Final Result documented in this encounter Visit Diagnoses Not on filedocumented in this encounter Care Teams Supervisor Paper Products Relationship Specialty Start Date End Date Neeta Venegas PA [address] [place] [address] PCP - General 05/13/24 documented as of this encounter
--- OUTSIDE RECORDS SUMMARY | 2025-02-01 08:14 | XMS_ITS | Encounter Summary ---
Author Organization Healthcare Address [address] [id number] Care Team Providers Care Clinical Provider Trainer Name Role Phone Neeta Venegas Primary Care Provider [phone] Encounter Details Date Type Department Care Team ([facility] st Contact Info) Description 04/27/2024 Orders Only External Location [address] [place] [address] Brad Fair DO [address] [place] [address] Social History Tobacco Use Types Packs/Day Years [...] Procedure Name Priority Date/Time Associated Diagnosis Comments FL OUTSIDE IMAGES 04/27/2024 9:45 AM EDT documented in this encounter Results * FL OUTSIDE IMAGES (04/27/2024 9:45 AM EDT) Anatomical Region Laterality Modality Radiographic Khushbu ging 04/27/2024 9:45 AM EDT Brad Fair DO IMG FLUOROSCOPY PROCEDURES Final Result documented in this encounter Visit Diagnoses Not on filedocumented in this encounter Care Teams Clinical Provider Trainer Relationship Specialty Start Date End Date Neeta Venegas PA [address] [place] [address] PCP - General 05/13/24 documented as of this encounter
--- OUTSIDE RECORDS SUMMARY | 2025-02-01 08:14 | XMS_ITS | Continuity of Care Document ---
Author Organization [employer] [facility] Address [address] [place] [address] Assessment No assessment recorded. Plan of Treatment Reminders Order Date Submit Date Provider Last Modified By Organization Details Last Modified Time Details Appointments FOLLOW UP 2024 08:00A M Neeta Venegas PA-C Not available Not available Not available Lab None recorded. Referral None recorded. Procedures None recorded. Surgeries None recorded. Imaging LDCT, chest, for lung cancer screening 2024 025 [facility] ([facility]), [address], [place], [address], 01/26/2025 11:12:30 Medication Orders Horizant ER 300 mg tablet,ex tended release 2024 025 [facility], [address], [place], [address], 01/26/2025 10:58:16 Patient TargetsNo targets recorded. Patient Instructions Encounter Date Encounter Id Patient Instructions Last Modified By Organization Details Last Modified Time 01/26/2025 [id number] restless legs syndrome: care instructions [id number] Not available 01/26/2025 10:54:21 Reason for Referral None Reported. Problems Name Problem SNOMED Code Status Onset Date Resolution Date Notes Provider Name and Address Organization Details Recorded Time Generalized anxiety disorder 79496058 Active 2023 SUSAN Marino [address] [place], [address], [employer] 09:32:20 Insomnia 013356690 Active 2023 SUSAN Marino [address] [place] [address], [address], [employer] 5 09:32:25 Spasm of back muscles 391855350 Active 2023 SUSAN Marino [address] [place] [address], [address], [employer] 5 09:32:34 Depressive disorder 17404896 Active 2023 SUSAN Marino [address] [place] [address], [address], [employer] 5 09:32:16 Osteoarthri tis of right hip joint 0220341538505 07 Active 2023 SUSAN Marino [address] [place] [address], [address], [place] [employer] 5 09:32:28 Pain of hip region 21102881 Active 2023 SUSAN Marino [address] [place] [address], [address], [employer] 5 09:32:23 Restless legs 18587397 Active 2023 SUSAN Marino [address] [place] [address], [address], [employer] 5 09:32:32 Postoperati ve wound infection 70680389 Active 2024 SUSAN Marino [address] [place] [address], [address], [employer] 5 09:33:18 Dog bite of lower leg 270479061 Active 2024 SUSAN Marino [address] [place] [address], [address], [employer] 5 14:15:56 Problem Notes None recorded. Procedures Surgical History Date Name Laterality Status Provider Name and Address Organization Details Recorded Time 05/30/20 23 Most Recent Mammogram completed Gissel Espinoza [employer] 10/27/2024 09:28:22 04/11/20 15 total abdominal hysterectomy with bilateral salpingo-oophorecto my completed [facility] [employer] 01/26/2025 08:17:22 section completed [facility]. 05/05/2024 14:25:50 operation for glaucoma completed [facility]. 05/05/2024 14:26:38 cervical spinal fusion for pseudoarthrosis completed [facility]. 05/05/2024 14:35:29 Hip Replacement completed [facility] [employer]. 10/27/2024 08:24:40 Imaging Results None recorded. Procedure [...] Updated DateTime 5 170.18 cm 36.6 kg/m2 809751. 9 g 95 % 95 % 62 /min 98.1 [degF] 126/84 mm[Hg] Gissel Espinoza [employer] 08:14:25 Social History Question Answer Notes LastModified by Organizat ion Details LastModified Time Tobacco Smoking Status Former Smoker Gissel Espinoza markie, [employer] 07/06/2024 08:13:14 Do You Have An Advance [...] available 05/05/2024 What Type Of Director Of Curriculum And Instruction Do You Use? None Information not available [...] Or The Highest Degree You Have Received? [id number] Information not available 07/06/2024 How Many Days [...] Do You Have A Medical Power Of Zipper Repairer? No Information not available 05/05/2024 What Was [...] Functional Status Question Answer Note LastModified by Organizat ion Details LastModified Time Do you use any [...] anxious, or unable to sleep at night)? [id number] Information not available 07/06/2024 Do you have [...] Artery Disease N Other N Gout N Blood Diseases Y Kidney Stones N Hyperthyroidism N Blood Transfusion N Breast Cancer N Emergency room visit since last appointm ent. N Lung Disease N COPD Y Depression Y Dermatologic Disorders N Hypothyroidism N Defects or Inherited Disease N Developmental or Behavioral Disorders N Breast Problem N Difficulty Swallowing N Anesthesia Complications N History of STI N Meniere's disease N Anxiety Disorder Y Muscle, Joint, or Bone Problems Y Autoimmune disease N Vision or Eye Problems N Arthritis Y Polyps N Infertility N Mental Disorder N Congenital Anomalies N Acid Reflux (GERD) N Cancer N Stroke N Neurologic/Epilepsy N Endometriosis N Bladder or Kidney Problems N High Cholesterol Y Liver Disease N Psychiatric/Mental Health Condition N Organ Transplant N Dialysis N Schizophrenia N Fibromyalgia N Headaches N Kidney Disease N Allergies/Hayfever N Heart Problems N Ear or Hearing Problems N Hospitalizations N Learning Disorder N Artificial Joints N Thyroid Problems N GI Problems N Acne N ADD/ADHD N Eating Disorder N Anemia N Constipation Y Mental Illness N Diabetes N Ovarian Cancer N Bedwetting N Hepatitis/Liver Disease N Tuberculosis N Eczema N Abuse/Domestic Violence N Diverticulitis N Asthma N Trauma/Violence N Substance Abuse [...] Immunizations Vaccine Type Date Status Note Provider Nam e and Address Organization Details Recorded Time Tdap 11/27/2024 completed Leni [place], [place] [employer] 11/27/2024 14:33:44 Tdap 10/21/2007 completed Gissel markie [employer] 07/06/2024 08:09:35 Past Encounters Encounter ID Performer Location Encounter Start Date Encounter Closed Date Diagnosis/Indication Diagnosis SNOMED-CT Code Diagnosis ICD10 Code Diagnosis Note [id number] SUSAN Marino [facility] [address] [place] [address] 01/26/2025 07:46:46 01/26/2025 08:28:17 Restless legs 86291076 G25.81 Ex-cigarette smoker 2810 12953 Z87.891 Health Concerns Section Related Observation LastModified by Organization Detai ls LastModified Time None Recorded Concern Status LastModified by Organization Details LastModified Time None Recorded Payers Encounter Date Sequence Insurance Name Policy Number Policy Lazo Covered Member ID Lazo Member ID Guarantor Name 01/26/2025 1 [employer] (MEDICARE REPLACEMENT/A DVANTAGE - PPO) Laura Hodge [id number] Laura Hodge Notes Date Note Type Note Provider Name and Address Organization Details Recorded Time 01/26/2025 text/html Patient presents for followup. History of RLS. Needs refills on Horizant. States that she is doing well. SUSAN Marino [address] [place] [address], [place], [address], [facility] [employer] 01/26/2025 10:54:45 OBGyn Episode No OBEpisode recorded.
[2025-02-01 08:15] VITALS: BMI 35.2
[2025-02-01 08:33] LABS: Hematocrit 43.5 % (37.0-47.0); Hemoglobin 14.7 g/dL (12.2-16.2); Immature Granulocytes % 0.2 %; Mean Corpuscular HGB Conc 33.8 g/dL (31.8-35.4); Mean Corpuscular Hemoglobin 31.3 pg (27.0-31.2); Mean Corpuscular Volume 92.6 fl (81-99); Nucleated Red Blood Cells % 0 %; Platelet Count 169 K/mm3 (142-424); Red Blood Count 4.70 M/mm3 (4.20-5.40); Red Cell Distribution Width-SD 46.4 fL; White Blood Count 8.9 K/mm3 (4.8-10.8)
--- NOTE | 2025-02-01 08:33 | PC.NURSE ---
CBC obtained via venipuncture to R hand x1 stick with butterfly needle. Patient tolerated well. Patient here for possible therapeutic phlebotomy based on lab results.
== END 2025-02-01 08:53 | disposition home or self-care (01) ==
LOC: INF 08:12
PROVIDERS: PCP Physician Assistant; Visit Provider Nurse Practitioner
DX: D75.1 Secondary polycythemia (principal)
CPT/HCPCS: 36415; 85025

== ENCOUNTER 2025-02-04 13:21 | Outpatient (CLI) | payer MEDICARE, MEDICAID, SELFPAY ==
--- NOTE | 2025-02-04 13:23 | CT_ITS ---
FINAL REPORT TECHNIQUE: Thin section axial images were obtained from the lung apices to the upper abdomen by computed tomography. Reformatted images were obtained and reviewed. This study was performed with techniques to keep radiation doses al low as reasonably achievable (ALARA). Individualized dose reduction techniques using automated exposure control or adjustment of mA and/or kV according to the patient's size were employed. CLINICAL HISTORY: lung screening, 1 pack per day x 40 yrs, hx skin cancer COMPARISON: CT of the chest with and without contrast 01/05/2022 FINDINGS: CHEST CT LOW DOSE 59-year-old female, current smoker, 51-keiy-pogm history CTDI vol (mGy): 2.90 DLP (mGy-cm): 107.59 There is no axillary adenopathy. There is no mediastinal or hilar mass or adenopathy. The heart is normal in size. Mild vascular calcifications are noted in the coronary arteries as well as the aortic arch. There is no pericardial or pleural effusion. Lung window images demonstrate a 3 mm nodule in the peripheral right upper lobe, best seen on image #25 of series 4, stable. There is a tiny peripheral left upper lobe nodule seen on image #36 of series 4, 3 mm in size, also stable. No new nodules are identified. Limited images of the upper abdomen demonstrate bilateral adrenal hyperplasia. IMPRESSION: Lung-RADS category 2S, the S designation for bilateral adrenal hyperplasia. Recommend 12 month follow up low dose chest CT. Reviewed, Interpreted and Dictated by Ken Bunn MD Transcribed by Tanya Brown Authenticated and . [facility]
--- OUTSIDE RECORDS SUMMARY | 2025-02-04 13:25 | XMS_ITS | Clinical Summary ---
Author Organization [facility] Address [address] [id number] Care Team Providers Care Credit Collections Manager Name Role Phone TheoNeeta SUSAN Primary Care Provider [phone] Allergies Active Allergy Reactions Criticality Noted Date [...] Screening 1965 [place]-Medicare Annual Wellness (AWV) 1965 [facility]-/Child/Adol SDOH Screenings 1965 [facility]- SDOH Screenings 1983 [...] (2 - Td or Tdap) 10/20/2017 10/21/2007 [id number] Vaccine (1 - season) 2024 [facility]-Influenza Vaccine [...] Dietrich MD Medical Devices Implanted Type Area Size Stamper Device Identifier Shelf Expiration Date Model / Serial / Lot Chg Shell R3 3 Hole Acet 56mm - [id number] Implanted:Qty : 1 on 08/10/2024 by Shane Dietrich MD at [facility] Hip Right: Hip [employer]-[id number] 10/27/2033 [id number] / / [id number] Chg Head Oxinium Fem 07/11 28m - [id number] Implanted:Qty : 1 on 08/10/2024 by Shane Dietrich MD at [facility] Hip Right: Hip [employer]-[id number] 03/24/2034 [id number] / / [id number] Implant Implant Neck Liner Or3o Dual Mbility 44 56 - [id number] Implanted:Qty : 1 on 08/10/2024 by Shane Dietrich MD at [facility] Liner Right: Hip [employer]-[id number] 03/21/2034 [id number] / / [id number] Liner Or3o Dual Mbility Xlpe 28 44 - [id number] Implanted:Qty : 1 on 08/10/2024 by Shane Dietrich MD at [facility] Liner Right: Hip [employer]-[id number] 04/09/2034 [id number] / / [id number] Chg Screw Ref Spher Head 25mm - [id number] Implanted:Qty : 1 on 08/10/2024 by Shane Dietrich MD at [facility] Screw Right: Hip [employer]-[id number] 01/10/2034 [id number] / / [id number] Chg Screw Ref Spher Head 35mm - [id number] Implanted:Qty : 1 on 08/10/2024 by Shane Dietrich MD at [facility] Screw Right: Hip [employer]-[id number] 01/06/2034 [id number] / / [id number] Polarstem Valgus Ti/German 7 - [id number] Implanted:Qty : 1 on 08/10/2024 by Shane Dietrich MD at [facility] Stem Right: Hip [employer]-[id number] 11/09/2029 [id number] / / [id number] Procedures Procedure Name Priority Date/Time Associated Diagnosis Comments HEMOGLOBIN A1C Routine 07/14/2024 11:52 AM EST Osteoarthritis of right hip, unspecified osteoarthritis type Hip pain, right from Last 3 Months or Most Recently Relevant to Health Maintenance Results * (ABNORMAL) Hemoglobin A1c (07/14/2024 11:52 AM EST) Hemoglobin A1c 5.9(H) <5.7 % 07/14/2024 5:53 PM EST [facility] Blood Venous blood specimen / Unknown Venipuncture / Unknown 07/14/2024 11:52 AM EST 07/14/2024 11:52 AM EST Narrative [facility] - 07/14/2024 5:53 PM EST HA1C Interpretive Data: Diagnosis of Diabetes: Diabetic > or = 6.5% Pre-diabetic 5.7 to 6.4% Non-diabetic < or = 5.6% Glycemic Targets for Type I and Type II Diabetics: Non- Adults <7.0% Adults <6.0% Children and Adolescents <7.5% Source: [place] [employer]. Standards of medical care in diabetes,2017. Diabetes Care.2017:40 (suppl 1):S1-S135. HbA1c assay performed by an ion-exchange chromatography method that is certified traceable to the DCCT. us Shane Dietrich MD LAB BLOOD ORDERABLES Final R esult [facility] [address] [place] [id number] from Last 3 Months or Most Recently [...] Patient has decision-making capacity? Yes Care Teams Credit Collections Manager Relationship Specialty Start Date End Date Neeta Venegas PA [address] [place] [address] [facility] - General 05/13/24
--- OUTSIDE RECORDS SUMMARY | 2025-02-04 13:25 | XMS_ITS | Encounter Summary ---
Author Organization Healthcare Address [address] [place] [address] Care Team Providers Care Prison Guard Supervisor Name Role Phone Neeta Venegas Primary Care Provider Encounter Details Date Type Department Care Team (Late st Contact Info) Description 04/08/2024 Orders Only External Location [address] [place] [address] Provider, External Social History Tobacco Use Types [...] on filedocumented in this encounter Care Teams Prison Guard Supervisor Relationship Specialty Start Date End Date Neeta Venegas PA [address] [place] [address] PCP - General 05/13/24 documented as of this encounter
--- OUTSIDE RECORDS SUMMARY | 2025-02-04 13:25 | XMS_ITS | Encounter Summary ---
Author Organization [facility] Address [address] [id number] Care Team Providers Care Back Closer Name Role Phone Nicola Venegasie Danni DAVIS Primary Care Provider [phone] Reason for Referral * Consultation (Routine) - Closed Specialty Diagnoses / Procedures Referred By Jerod leavitt Referred To Contact Orthopaedic Surgery Diagnoses Osteoarthritis of right hip, unspecified osteoarthritis type Brad Fair DO [address] [place] [address] Phone: tel: fax: Shane Dietrich MD [address] [facility] [address] [place] [address] Phone: tel: fax: Referral ID Status Reason Start Date Expiration Date Visits Re quested Visits Authorized [id number] Closed 05/12/2024 11/11/2025 1 1 Encounter Details Date Type Department Care Team (Latest Contact Info) Description 05/12/2024 [facility] [address] [place] [address] Brad Fair DO [address] [place] [address] Osteoarthritis of right hip, unspecified osteoarthritis [...] Primary documented in this encounter Care Teams Back Closer Relationship Specialty Start Date End Date Neeta Venegas PA [address] [place] [address] PCP - General 05/13/24 documented as of this encounter
--- OUTSIDE RECORDS SUMMARY | 2025-02-04 13:25 | XMS_ITS | Encounter Summary ---
Author Organization Healthcare Address [address] [id number] Care Team Providers Care Cto Name Role Phone Neeta Venegas Primary Care Provider Encounter Details Date Type Department Care Team ([facility] st Contact Info) Description 04/27/2024 Orders Only External Location [address] [place] [address] Brad Fair DO [address] [place] [address] Social History Tobacco Use Types Packs/Day Years [...] on filedocumented in this encounter Care Teams Cto Relationship Specialty Start Date End Date Neeta Venegas PA [address] [place] [address] PCP - General 05/13/24 documented as of this encounter
== END 2025-02-04 23:59 | disposition home or self-care (01) ==
LOC: RAD 13:21
PROVIDERS: PCP Physician Assistant; Visit Provider Physician Assistant
DX: R91.8 Other nonspecific abnormal finding of lung field (principal); E27.8 Other specified disorders of adrenal gland; Z13.9 Encounter for screening, unspecified; Z87.891 Personal history of nicotine dependence
CPT/HCPCS: 71271

== ENCOUNTER 2025-05-06 15:32 | Outpatient (CLI) | payer MEDICARE, MEDICAID, SELFPAY ==
--- NOTE | 2025-05-06 15:34 | MM_ITS ---
PROCEDURE INFORMATION: Exam: MG Bilateral Screening 3D Mammography Exam date and time: 05/06/2025 3:37 PM Age: 59 years old Clinical indication: Screening mammogram TECHNIQUE: Imaging protocol: Bilateral Screening tomosynthesis and 2D mammography including computer-aided detection (CAD) when performed. COMPARISON: 1. MG MM DIG SCREENING MAMM BI W/CAD 05/30/2023 10:43 AM 2. MG MM DIG SCREENING MAMM BI W/CAD 12/08/2021 7:56 AM 3. MG MM DIG MAMM BI DX W/CAD 11/22/2020 1:27 PM 4. MG MM DIG MAMM DX UNILAT LT CAD 09/02/2020 1:37 PM FINDINGS: MAMMOGRAPHY: Breast composition: There are scattered areas of fibroglandular density. Mass: Stable benign-appearing subcentimeter nodules are present in the bilateral breast. No new or morphologically suspicious nodule has developed to suggest malignancy. Architectural distortion: No new or suspicious architectural distortion. Calcifications: No new or suspicious calcifications are present Asymmetric density: No new or suspicious asymmetric density is present Skin thickening: None. Axillary adenopathy: None. IMPRESSION: No mammographic evidence of malignancy. Recommend annual screening mammography unless otherwise clinically indicated. ASSESSMENT: BI-RADS category 2: Benign.
== END 2025-05-06 23:59 | disposition home or self-care (01) ==
LOC: RAD 15:33
PROVIDERS: PCP Physician Assistant; Visit Provider Physician Assistant
DX: Z12.31 Encounter for screening mammogram for malignant neoplasm of breast (principal); R92.323 Mammographic fibroglandular density, bilateral breasts; N63.20 Unspecified lump in the left breast, unspecified quadrant; N63.10 Unspecified lump in the right breast, unspecified quadrant
CPT/HCPCS: 77063; 77067

== ENCOUNTER 2025-05-25 09:12 | Outpatient (CLI) | payer MEDICARE, MEDICAID, SELFPAY ==
--- NOTE | 2025-05-25 09:19 | XR_ITS ---
FINAL REPORT CLINICAL HISTORY: PAIN surgery aug 2024 FINDINGS: RIGHT HIP Three views were obtained. There is no fracture or dislocation. Patient is status post right hip arthroplasty. There is a linear metallic density in the soft tissues in the medial upper thigh measuring 1.3 cm, may represent a foreign body. IMPRESSION: Questionable foreign body as above. Reviewed, Interpreted and Dictated by Ken Bunn MD Transcribed by Meri Barrios Authenticated and [facility]
--- OUTSIDE RECORDS SUMMARY | 2025-05-25 09:24 | XMS_ITS ---
Laboratory report Created on: April 30, 2025 RAMANKAMAR BELTREA : 1965 Sex: Female Author Name FLORES EDGAR Organization Unknown PROBLEMS Problems List Code Description R23.2 M25.50 Z11.59 E55.9 Z11.4 E78.2 RESULTS Laboratory Orders Date Order Code Test 2025-04-27 [id number] TSH 2025-04-27 [id number] HCV ANTIBODY CORINNE FLORES(PCR/ANNEMARIE) 2025-04-27 [id number] LIPID PANEL 2025-04-27 [id number] CBC WITH DIFFERE NTIAL/PLATELET 2025-04-27 [id number] COMP. METABOLIC PANEL (14) 2025-04-27 208505 VITAMIN D, 25-HY DROXY 2025-04-27 [id number] SEDIMENTATION RA TE-WESTERGREN 2025-04-27 [id number] C-REACTIVE PROTE IN, QUANT Laboratory Results Date LOINC Test Value Unit Reference Range Interpre tation 2025-04-27 88138-3 TSH 3.09 UIU/ML 0.450-4.500 2025-04-27 35736-5 HCV AB NR NON REACTIVE 2025-04-27 2093-3 CHOLESTEROL, TOTAL 185 MG/DL 495-473 6577-09-30 2571-8 TRIGLYCERIDES 354 MG/DL 0-149 H 2025-04-27 2085-9 HDL CHOLESTEROL 34 MG/DL >39 L 2025-04-27 73354-9 VLDL CHOLESTEROL CHRIS 59 MG/DL 5-40 H 2025-04-27 52495-0 LDL CHOL CALC ([facility]) 92 MG/DL 0-99 2025-04-27 6690-2 WBC 8.9 X10E3/UL 3.4-10.8 2025-04-27 789-8 RBC 5.34 X10E6/UL 3.77-5.28 H 2025-04-27 718-7 HEMOGLOBIN 16.8 G/DL 11.1-15.9 H 2025-04-27 4544-3 HEMATOCRIT 52.7 % 34.0-46.6 H 2025-04-27 787-2 MCV 99 FL 79-97 H 2025-04-27 785-6 MCH 31.5 PG 26.6-33.0 2025-04-27 786-4 MCHC 31.9 G/DL 31.5-35.7 2025-04-27 788-0 RDW 12.9 % 11.7-15.4 2025-04-27 777-3 PLATELETS 201 X10E3/UL 387-888 3221-09-30 770-8 NEUTROPHILS 52 % 2025-04-27 736-9 LYMPHS 35 % 2025-04-27 5905-5 MONOCYTES 10 % 2025-04-27 713-8 EOS 2 % 2025-04-27 706-2 BASOS 1 % 2025-04-27 751-8 NEUTROPHILS (ABSOLUTE) 4.6 X10E3/UL 1.4-7.0 2025-04-27 731-0 LYMPHS (ABSOLUTE) 3.1 X10E3/UL 0.7-3.1 2025-04-27 742-7 MONOCYTES(ABSOLUTE) .9 X10E3/UL 0.1-0.9 2025-04-27 711-2 EOS (ABSOLUTE) .2 X10E3/UL 0.0-0.4 2025-04-27 704-7 BASO (ABSOLUTE) .1 X10E3/UL 0.0-0.2 2025-04-27 97156-7 IMMATURE GRANULOCYTES 0 % 2025-04-27 16252-7 IMMATURE GRANS (ABS) 0 X10E3/UL 0.0-0.1 2025-04-27 2345-7 GLUCOSE 108 MG/DL 70-99 H 2025-04-27 3094-0 BUN 17 MG/DL 6-24 2025-04-27 2160-0 CREATININE 1.07 MG/DL 0.57-1.00 H 2025-04-27 77936-3 EGFR 60 ML/MIN/1.7 3 >59 2025-04-27 3097-3 BUN/CREATININE RATIO 16 9-23 2025-04-27 2951-2 SODIUM 139 MMOL/L 588-076 7206-09-30 2823-3 POTASSIUM 3.6 MMOL/L 3.5-5.2 2025-04-27 2075-0 CHLORIDE 105 MMOL/L 96-106 2025-04-27 2028-9 CARBON DIOXIDE, TOTAL 17 MMOL/L 20-29 L 2025-04-27 67122-0 CALCIUM 9.8 MG/DL 8.7-10.2 2025-04-27 2885-2 PROTEIN, TOTAL 7.3 G/DL 6.0-8.5 2025-04-27 1751-7 ALBUMIN 4.5 G/DL 3.8-4.9 2025-04-27 11851-4 GLOBULIN, TOTAL 2.8 G/DL 1.5-4.5 2025-04-27 1975-2 BILIRUBIN, TOTAL .4 MG/DL 0.0-1.2 2025-04-27 6768-6 ALKALINE PHOSPHATASE 83 IU/L 49-135 2025-04-27 1920-8 AST (SGOT) 15 IU/L 0-40 2025-04-27 1742-6 ALT (SGPT) 17 IU/L 0-32 2025-04-27 62269-9 VITAMIN D, 25-HYDROXY 34.6 NG/ML 30.0-100.0 2025-04-27 4537-7 SEDIMENTATION RATE-WESTERGREN 23 MM/HR 0-40 2025-04-27 1988-5 C-REACTIVE PROTE IN, QUANT 3 MG/L 0-10
== END 2025-05-25 23:59 | disposition home or self-care (01) ==
LOC: RAD 09:14
PROVIDERS: PCP Physician Assistant; Visit Provider Physician Assistant
DX: M25.551 Pain in right hip (principal); R93.6 Abnormal findings on diagnostic imaging of limbs; Z96.641 Presence of right artificial hip joint
CPT/HCPCS: 73502

== ENCOUNTER 2025-05-31 09:53 | Outpatient (CLI) | payer MEDICARE, MEDICAID, SELFPAY ==
--- NOTE | 2025-05-31 09:57 | CT_ITS ---
FINAL REPORT TECHNIQUE: Axial imaging of the right hip was obtained without contrast. This study was performed with techniques to keep radiation doses as low as reasonably achievable (ALARA). Individualized dose reduction techniques using automated exposure control or adjustment of mA and/or kV according to the patient's size were employed. 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 Hardware is intact. There is no fracture or dislocation. There is no evidence of hardware complication. There is a linear radiodensity within the subcutaneous fat of the lower right buttock measuring 12 mm in long axis. Remaining soft tissues are without acute abnormality. IMPRESSION: No acute osseous abnormality. Changes of right hip arthroplasty. Linear foreign body in the subcutaneous tissues of the lower right buttock. Reviewed, Interpreted and Dictated by Lauryn Thrasher MD Transcribed by Yi Belcher Authenticated and [facility]
--- OUTSIDE RECORDS SUMMARY | 2025-05-31 10:05 | XMS_ITS | Encounter Summary ---
Author Organization [facility] Address [address] [id number] Care Team Providers Care Television Anchor Name Role Phone TheoNeeta SUSAN Primary Care Provider [phone] Reason for Visit * Reason Onset Date Comments HCN - Patient Message 05/25/2025 Encounter Details Date Type Department Care Team ([facility] st Contact Info) Description 05/25/2025 Telephone Medical Office Building [facility] [address], [address] [place] [address] Shane Dietrich MD [address] [place] [address] HCN - Patient Message Social History Tobacco Use Types Packs/Day Years Used Date Smoking Tobacco: Some Days Cigarettes 1 30.7 Started: 1993; Last attempted to quit: 04/28/2024 Smokeless Tobacco: Never Alcohol Use Standard Drinks/Week Comments Never 0 [...] on file documented as of this encounter Miscellaneous Notes * Telephone Encounter - Deanne Desouza RN - 05/26/2025 9:13 AM EDT Called patient. Relayed Dr. Dietrich's message. Scheduled patient with [facility] tomorrow 05/17 at 10:40am. Told her to arrive 20 minutes prior to appt time. * Telephone Encounter - Deanne Desouza RN - 05/25/2025 1:44 PM EDT Called patient. Patient stated that about 2 months ago, she started having right hip and groin pain, which she states has just continued to get worse. She said that it is excruciating. Patient stated that she went to her PCP this morning and got an xray done and said it showed a foreign body. She said that her PCPstated that she should get in [facility]. I asked her where her xray was done and she said [facility]. I told her I would call them and get those electronically sent to us and then send to Dr. Dietrich to review. Called [facility]. They are sending to us now via [employer]. Awaiting receipt of images. * Telephone Encounter - Jenn Barney - 05/25/2025 1:35 PM EDT Clinical Concern/Question Reason for Call: Pt is requesting clal back regarding right hip pain went get and xray they said itmight be a screw please call to advise Best contact number: [phone] (home) Optimal time of day to reach caller: ANYTIME Additional comments/information from caller: None Note: Please do not reply to this message. Follow-up communication and further actions as a result of this message need to be communicated with the patient directly, if the patient is not active onMyChart. If the patient is active on MyChart, they will receive notification of the communication/outcome via [facility]. documented in this encounter Plan of Treatment Not on file documented as of this encounter Goals Goal Patient Goal Type Associated Problems Recent Progress Patient-Stated? Author Autogenera saman Goal Care Plan Autogenerated Problem No Shane Dietrich MD documented as of this encounter Visit Diagnoses Not on filedocumented in this encounter Additional Health Concerns Active Problems Noted Date Diagnosed Date Autogenerated Problem 10/20/2024 Assessment Noted Time PHQ-9 Depression Total Score: 9 09/01/19 10:46 AM EST A fall risk assessment has been complete d for the patient 09/22/2024 12:58 PM EST A Body Mass Index follow-up plan has been documented for the patient 09/22/2024 1:22 PM EST documented as of this encounter Care Teams Television Anchor Relationship Specialty Start Date End Date Neeta Venegas PA [address] [place] [address] PCP - General 05/13/24 documented as of this encounter
--- OUTSIDE RECORDS SUMMARY | 2025-05-31 10:05 | XMS_ITS | Encounter Summary ---
Author Organization Healthcare Address [address] [id number] Care Team Providers Care Mica Laminating Machine Feeder Name Role Phone TheoNeeta SUSAN Primary Care Provider [phone] Encounter Details Date Type Department Care Team ([facility] st Contact Info) Description 05/25/2025 Orders Only External Location [address] [place] [address] Provider, External Social History Tobacco Use Types [...] Dietrich MD documented as of this encounter Procedures Procedure Name Priority Date/Time Associated Diagnosis Comments XR MSK OUTSIDE IMAGES 05/25/2025 9:20 AM EDT documented in this encounter Results * XR MSK OUTSIDE IMAGES (05/25/2025 9:20 AM EDT) Anatomical Region Laterality Modality Radiographic Khushbu ging 05/25/2025 9:20 AM EDT us External Provider IMG XR PROCEDURES Edited Resul t - Final documented in this encounter Visit Diagnoses Not [...] documented as of this encounter Care Teams Mica Laminating Machine Feeder Relationship Specialty Start Date End Date Neeta Venegas PA [address] [place] [address] PCP - General 05/13/24 documented as of this encounter
--- OUTSIDE RECORDS SUMMARY | 2025-05-31 10:05 | XMS_ITS | Continuity of Care Document ---
Author Organization [place] - [employer] [facility] Address [address] [place] [address] Assessment No assessment recorded. Plan of Treatment Reminders Order Date Submit Date Provider Last Modified By Organization Details Last Modified Time Details Appointments None recorded. Lab lipid panel, serum 2024 025 [facility] [address] [place], [address], 12:08:23 CMP, serum or plasma 2024 025 [facility] [address] [place], [address], 12:08:22 CBC w/ auto diff 2024 025 [place] [facility] [address] [place], [address], 12:08:22 TSH, ultra-sensi tive, serum 2024 025 [facility] [address] [place], [address], 12:08:24 erythrocyte sedimentati on rate by westergren method 2024 025 [place] [facility] [address] [place], [address], 12:08:26 C reactive protein, QN, serum or plasma 2024 025 [facility]), [address] [place], [address], 12:08:27 rapid flu (A+B) 2024 025 [facility], [address] [address] [facility], [place], [address], 5 08:45:47 rapid SARS CoV 2 Ag, QL, IA, upper respiratory specimen 2024 025 [facility], [address], [place], [address], 5 08:45:37 vitamin D, 25-hydroxy, total, serum 2024 025 [facility]), [address] [place], [address], 12:08:25 Hepatitis C IgG Ab, qual, serum 2024 025 [facility]), [address] [place], [address], 12:08:24 HIV 1 + 2, meaningful use set 2024 025 [facility]), [address] [place], [address], 12:08:25 Referral None recorded. Procedures None recorded. Surgeries None recorded. Imaging MAMMO, screening, digital, bilateral 2024 025 [facility], [address], [place], [address], 5 13:00:31 Medication Orders doxycycline hyclate 100 mg tablet 2024 025 [facility] [place], [address], 05:02:12 prednisone 20 mg tablet 2024 025 [facility], [place], [address], 05:02:01 Mucinex DM 60 mg-1,200 mg tablet,exte nded release 12 hr 2024 025 [facility], [place], [address], 05:01:52 albuterol sulfate HFA 90 mcg/actuati on aerosol inhaler 2024 025 [facility], [address] [place], [address], 08:47:45 Breztri Aerosphere 160 mcg-9mcg-4. 8mcg/actuat ion HFA aerosol inhaler 2024 025 [email or web address] [facility], [place], [place], [address], 09:57:21 Seroquel 100 mg tablet 2024 025 [facility], [place], [address], 08:47:53 Patient TargetsNo targets recorded. Patient Instructions Encounter Date Encounter Id Patient Instructions Last Modified By Organization Details Last Modified Time 04/27/2025 [id number] mammogram: about this test [email or web address] Not available 04/27/2025 08:25:27 chronic obstructive pulmonary disease (COPD): care instructions Not available 04/27/2025 08:38:00 learning about copd and how to prevent lung infections [id number] Not available 04/27/2025 08:38:00 HIV testing: car e instructions [email or web address] Not available 04/27/2025 09:27:16 Reason for Referral None Reported. Results Created Date Observation Date Name Description Value Unit Range Abnormal Flag Note LastModifiedBy Organization Detail LastModifiedTime 04/27/2004/28/2025 CBC WITH DIFFE RENTI AL/PL ATELE T WBC 8.9 x10e3 /uL 3.4-10 .8 normal Not Available [facility] ([facility]) [address] [facility], [place], [address], 04/28/2025 12:08:21 04/27/2004/28/2025 CBC WITH DIFFE RENTI AL/PL ATELE T RBC 5.34 x10e6 /uL 3.77-5 .28 above high normal Not Available [facility] ([facility]) [address] [place], [address], 04/28/2025 12:08:21 04/27/2004/28/2025 CBC WITH DIFFE RENTI AL/PL ATELE T hemoglobin 16.8 g/dL 11.1-1 5.9 above high normal Not Available [facility] ([facility]) [address] [place], [address], 04/28/2025 12:08:21 04/27/2004/28/2025 CBC WITH DIFFE RENTI AL/PL ATELE T hematocrit 52.7 % 34.0-4 6.6 above high normal Not Available [facility] ([facility]) [address] [place], [address], 04/28/2025 12:08:21 04/27/2004/28/2025 CBC WITH DIFFE RENTI AL/PL ATELE T MCV 99 fL 79-97 above high normal Not Available [facility] ([facility]) [address] [place], [address], 04/28/2025 12:08:21 04/27/20 25 04/28/2025 CBC WITH DIFFE RENTI AL/PL ATELE T MCH 31.5 pg 26.6-3 3.0 normal Not Available [facility] ([facility]) [address] [facility], [place], [address], 04/28/2025 12:08:21 04/27/20 25 04/28/2025 CBC WITH DIFFE RENTI AL/PL ATELE T MCHC 31.9 g/dL 31.5-3 5.7 normal Not Available [facility] ([facility]) [address] [facility], [place], [address], 04/28/2025 12:08:21 04/27/20 25 04/28/2025 CBC WITH DIFFE RENTI AL/PL ATELE T RDW 12.9 % 11.7-1 5.4 Not Available [facility] ([facility]) [address] [facility], [place], [address], 04/28/2025 12:08:21 04/27/20 25 04/28/2025 CBC WITH DIFFE RENTI AL/PL ATELE T platelets 201 x10e3 /uL 150-45 0 normal Not Available [facility] ([facility]) [address] [facility], [place], [address], 04/28/2025 12:08:21 04/27/20 25 04/28/2025 CBC WITH DIFFE RENTI AL/PL ATELE T neutrophils 52 % not estab. normal Not Available [facility] ([facility]) [address] [facility], [place], [address], 04/28/2025 12:08:21 04/27/20 25 04/28/2025 CBC WITH DIFFE RENTI AL/PL ATELE T lymphs 35 % not estab. normal Not Available [facility] ([facility]) [address] [place], [address], 04/28/2025 12:08:21 04/27/20 25 04/28/2025 CBC WITH DIFFE RENTI AL/PL ATELE T monocytes 10 % not estab. normal Not Available [facility] ([facility]) [address] [facility], [place], [address], 04/28/2025 12:08:21 04/27/20 25 04/28/2025 CBC WITH DIFFE RENTI AL/PL ATELE T eos 2 % not estab. normal Not Available [facility] ([facility]) [address] [facility], [place], [address], 04/28/2025 12:08:21 04/27/20 25 04/28/2025 CBC WITH DIFFE RENTI AL/PL ATELE T basos 1 % not estab. normal Not Available [facility] ([facility]) [address] [facility], [place], [address], 04/28/2025 12:08:21 04/27/20 25 04/28/2025 CBC WITH DIFFE RENTI AL/PL ATELE T immature cells CERTIFIED VETERINARY TECHNICIAN Not Available [facility] ([facility]) [address] [facility], [place], [address], 04/28/2025 12:08:21 04/27/20 25 04/28/2025 CBC WITH DIFFE RENTI AL/PL ATELE T neutrophils (absolute) 4.6 x10e3 /uL 1.4-7. 0 normal Not Available [facility] ([facility]) [address] [place], [address], 04/28/2025 12:08:21 04/27/20 25 04/28/2025 CBC WITH DIFFE RENTI AL/PL ATELE T lymphs (absolute) 3.1 x10e3 /uL 0.7-3. 1 normal Not Available [facility] ([facility]) [address] [place], [address], 04/28/2025 12:08:21 04/27/20 25 04/28/2025 CBC WITH DIFFE RENTI AL/PL ATELE T monocytes(ab solute) 0.9 x10e3 /uL 0.1-0. 9 normal Not Available [facility] ([facility]) [address] [facility], [place], [address], 04/28/2025 12:08:21 04/27/20 25 04/28/2025 CBC WITH DIFFE RENTI AL/PL ATELE T eos (absolute) 0.2 x10e3 /uL 0.0-0. 4 normal Not Available [facility] ([facility]) [address] [facility], [place], [address], 04/28/2025 12:08:21 04/27/20 25 04/28/2025 CBC WITH DIFFE RENTI AL/PL ATELE T baso (absolute) 0.1 x10e3 /uL 0.0-0. 2 normal Not Available [facility] ([facility]) [address] [facility], [place], [address], 04/28/2025 12:08:21 04/27/20 25 04/28/2025 CBC WITH DIFFE RENTI AL/PL ATELE T immature granulocytes 0 % not estab. Not Available [facility] ([facility]) [address] [facility], [place], [address], 04/28/2025 12:08:21 04/27/20 25 04/28/2025 CBC WITH DIFFE RENTI AL/PL ATELE T immature grans (abs) 0.0 x10e3 /uL 0.0-0. 1 Not Available [facility] ([facility]) [address] [facility], [place], [address], 04/28/2025 12:08:21 04/27/20 25 04/28/2025 CBC WITH DIFFE RENTI AL/PL ATELE T NRBC CERTIFIED VETERINARY TECHNICIAN Not Available [facility] ([facility]) [address] [place], [address], 04/28/2025 12:08:21 04/27/20 25 04/28/2025 CBC WITH DIFFE RENTI AL/PL ATELE T hematology comments: CERTIFIED VETERINARY TECHNICIAN Not Available [facility] ([facility]) [address] [place], [address], 04/28/2025 12:08:21 04/27/20 25 04/28/2025 COMP. METAB OLIC PANEL (14) glucose 108 mg/dL 70-99 above high normal Not Available [facility] ([facility]) [address] [place], [address], 04/28/2025 12:08:22 04/27/20 25 04/28/2025 COMP. METAB OLIC PANEL (14) BUN 17 mg/dL 6-24 normal Not Available [facility] ([facility]) [address] [place] [place], [address], 04/28/2025 12:08:22 04/27/20 25 04/28/2025 COMP. METAB OLIC PANEL (14) creatinine 1.07 mg/dL 0.57-1 .00 above high normal Not Available [facility] ([facility]) [address] [facility] [place], [address], 04/28/2025 12:08:22 04/27/20 25 04/28/2025 COMP. METAB OLIC PANEL (14) eGFR 60 mL/mi n/1.7 3 >59 normal Not Available [facility] ([facility]) [address] [place], [address], 04/28/2025 12:08:22 04/27/20 25 04/28/2025 COMP. METAB OLIC PANEL (14) BUN/creatini ne ratio 16 9-23 normal Not Available [facility] ([facility]) [address] [facility] [place], [address], 04/28/2025 12:08:22 04/27/20 25 04/28/2025 COMP. METAB OLIC PANEL (14) sodium 139 mmol/ L 134-14 4 normal Not Available [facility] ([facility]) [address] [place] [place], [address], 04/28/2025 12:08:22 04/27/20 25 04/28/2025 COMP. METAB OLIC PANEL (14) potassium 3.6 mmol/ L 3.5-5. 2 normal Not Available [facility] ([facility]) [address] [place], [address], 04/28/2025 12:08:22 04/27/20 25 04/28/2025 COMP. METAB OLIC PANEL (14) chloride 105 mmol/ L 96-106 normal Not Available [facility] ([facility]) [address] [place], [address], 04/28/2025 12:08:22 04/27/2004/28/2025 COMP. METAB OLIC PANEL (14) carbon dioxide, total 17 mmol/ L 20-29 below low normal Not Available [facility] ([facility]) [address] [place], [address], 04/28/2025 12:08:22 04/27/20 25 04/28/2025 COMP. METAB OLIC PANEL (14) calcium 9.8 mg/dL 8.7-10 .2 normal Not Available [facility] ([facility]) [address] [place] [place], [address], 04/28/2025 12:08:22 04/27/20 25 04/28/2025 COMP. METAB OLIC PANEL (14) protein, total 7.3 g/dL 6.0-8. 5 normal Not Available [facility] ([facility]) [address] [place] [place], [address], 04/28/2025 12:08:22 04/27/20 25 04/28/2025 COMP. METAB OLIC PANEL (14) albumin 4.5 g/dL 3.8-4. 9 normal Not Available [facility] ([facility]) [address] [place] [place], [address], 04/28/2025 12:08:22 04/27/20 25 04/28/2025 COMP. METAB OLIC PANEL (14) globulin, total 2.8 g/dL 1.5-4. 5 Not Available [facility] ([facility]) [address] [place], [address], 04/28/2025 12:08:22 04/27/20 25 04/28/2025 COMP. METAB OLIC PANEL (14) bilirubin, total 0.4 mg/dL 0.0-1. 2 normal Not Available [facility] ([facility]) [address] [place], [address], 04/28/2025 12:08:22 04/27/20 25 04/28/2025 COMP. METAB OLIC PANEL (14) alkaline phosphatase 83 IU/L 49-135 normal Not Available [facility] ([facility]) [address] [place], [address], 04/28/2025 12:08:22 04/27/20 25 04/28/2025 COMP. METAB OLIC PANEL (14) AST (SGOT) 15 IU/L 0-40 normal Not Available [facility] ([facility]) [address] [place], [address], 04/28/2025 12:08:22 04/27/20 25 04/28/2025 COMP. METAB OLIC PANEL (14) ALT (SGPT) 17 IU/L 0-32 normal Not Available [facility] ([facility]) [address] [place], [address], 04/28/2025 12:08:22 04/27/20 25 04/28/2025 LIPID PANEL cholesterol, total 185 mg/dL 100-19 9 normal Not Available [facility] ([facility]) [address] [place], [address], 04/28/2025 12:08:23 04/27/20 25 04/28/2025 LIPID PANEL triglyceride s 354 mg/dL 0-149 above high normal Not Available [facility] ([facility]) [address] [facility], [place], [address], 04/28/2025 12:08:23 04/27/20 25 04/28/2025 LIPID PANEL HDL cholesterol 34 mg/dL >39 below low normal Not Available [facility] ([facility]) [address] [facility], [place], [address], 04/28/2025 12:08:23 04/27/20 25 04/28/2025 LIPID PANEL VLDL cholesterol dianne 59 mg/dL 5-40 above high normal Not Available [facility] ([facility]) [address] [facility], [place], [address], 04/28/2025 12:08:23 04/27/20 25 04/28/2025 LIPID PANEL LDL chol calc ([facility]) 92 mg/dL 0-99 Not Available [facility] ([facility]) [address] [facility], [place], [address], 04/28/2025 12:08:23 04/27/20 25 04/28/2025 LIPID PANEL LDL calc comment: CERTIFIED VETERINARY TECHNICIAN Not Available [facility] ([facility]) [address] [facility], [place], [address], 04/28/2025 12:08:23 04/27/20 25 04/28/2025 HCV ANTIB PHILL CASCA DE(PC R/GEN O) HCV Ab Non Reacti ve non reacti ve Not Available [facility] ([facility]) [address] [facility], [place], [address], 04/28/2025 12:08:24 04/27/20 25 04/28/2025 HCV ANTIB PHILL CASCA DE(PC R/GEN O) interpretati on: Commen t Not infec saman with HCV unles s early or acute infec tion is suspe cted (whic h may be delay ed in an immun ocomp romis ed indiv idual ), or other evide nce exist s to indic ate HCV infec tion. Not Available [facility] ([facility]) [address], [place], [address], 04/28/2025 12:08:24 04/27/20 25 04/28/2025 TSH TSH 3.090 uIU/m L 0.450- 4.500 normal Not Available [facility] ([facility]) [address] [facility], [place], [address], 04/28/2025 12:08:24 04/27/20 25 04/28/2025 VITAM IN D, 25-HY DROXY vitamin D, 25-hydroxy 34.6 NG/mL 30.0-1 00.0 Vitam in D defic iency has been defin ed by the Insti [facility] of [facility] [employer] and an Endoc rine Socie ty pract ice guide line as a level of serum 25-OH vitam in D less than 20 ng/mL (1,2) . The Endoc rine Socie ty went on to furth er defin e vitam in D insuf ficie ncy as a level betwe en 21 and 29 ng/mL (2). 1. IOM ([facility] [employer]). 2009. Dru ry refer ence luz es for calci um and D. Vinicius dc [place]: [facility] . 2. Domi davidson MF, Cristi ralph [place], Ted off-F errar i RODRIGUEZ, et al. Evalu ation , treat ment, and preve ntion of vitam in D defic iency : an Endoc rine Socie ty clini dianne pract ice guide line. JCEM. 2010; 96(7) :1911 -30. Not Available [facility] ([facility]) [address] [facility], [place], [address], 04/28/2025 12:08:25 04/27/20 25 04/28/2025 HIV AB/P2 4 AG WITH REFLE X HIV Ab/P24 Ag screen Non Reacti ve non reacti ve HIV-1 /HIV- 2 antib odies and HIV-1 p24 antig en were NOT detec saman. There is no labor atory evide nce of HIV infec tion. HIV Negat shanell Not Available [facility] ([facility]) [address] [facility], [place], [address], 04/28/2025 12:08:25 04/27/20 25 04/28/2025 SEDIM ENTAT ION RATE- WESTE RGREN sedimentatio n rate-westerg sacha 23 mm/HR 0-40 normal Not Available [facility] ([facility]) [address] [facility], [place], [address], 04/28/2025 12:08:26 04/27/20 25 04/28/2025 C-EDUARDO CTIVE PROTE IN, QUANT C-reactive protein, quant 3 mg/L 0-10 normal Not Available [facility] ([facility]) [address] [facility], [place], [address], 04/28/2025 12:08:27 04/27/20 25 04/27/2025 rapid SARS CoV 2 Ag, QL, IA, upper respi rator y speci men SARS CoV Ag negati ve Not Available [address], [address], 04/27/2025 08:20:49 04/27/20 25 04/27/2025 rapid flu (A+B) Flu A negati ve Not Available [address], [address], 04/27/2025 08:20:43 04/27/20 25 04/27/2025 rapid flu (A+B) Flu B negati ve Not Available [address], [address], 04/27/2025 08:20:43 05/11/20 25 05/06/2025 MAMMO , scree nito, digit al, bilat eral No observ ation record ed. [facility] [address], [place], [address], 05/11/2025 13:34:42 05/25/20 25 05/25/2025 XR, hip, unila teral , 2 or 3 view No observ ation record ed. [facility] [address], [place], [address], 05/25/2025 13:29:58 Result Notes None recorded. Problems Name Problem SNOMED Code Status Onset Date Resolution Date Notes Provider Name and Address Organization Details Recorded Time Generaliz ed anxiety disorder 31148191 Active 2023 SUSAN Marino [address] [place] [address], [address]75[address], [employer] 5 09:32:20 Insomnia 376331149 Active 2023 SUSAN Marino [address] [place] [address], 523[address] 8, [employer] 5 09:32:25 Spasm of back muscles 444036576 Active 2023 SUSAN Marino [address] [place] [address], 85469-483 8, [employer] 5 09:32:34 Depressiv e disorder 74495556 Active 2023 SUSAN Marino [address] [place] [address], 66437-525 8, [employer] 5 09:32:16 Osteoarth ritis of right hip joint 151768116139 107 Active 2023 SUSAN Marino [address] [place] [address], 16[address] 8, [employer] 5 09:32:28 Pain of hip region 81385623 Active 2023 SUSAN Marino [address] [place] [address], 245[address] 8, [employer] 5 09:32:23 Restless legs syndrome 35584369 Active 2023 SUSAN Marino [address] [place] [address], 00721-839 8, [employer] 09:32:32 Postopera tive wound infection 03346564 Completed 202405/25/2025 SUSAN Marino [address] [place] [address], 494[address] 8, [employer] 11:25:56 Dog bite of lower leg 335888658 Active 2024 SUSAN Marino [address] [place] [address], 49286-943 8, [employer] 14:15:56 Acute exacerbat ion of chronic obstructi ve pulmonary disease 905963193 Completed 202405/25/2025 SUSAN Marino [address] [place] [address], 81980-313 8, [employer] 11:26:01 Chronic obstructi ve pulmonary disease 16329645 Active 2024 SUSAN Marino [address] [place] [address], 78335-990 8, [employer] 08:37:02 Anxiety 58365068 Active 2024 SUSAN Marino [address] [place] [address], 39440-721 8, [employer] 08:40:54 Primary insomnia 0445094 Active 2024 SUSAN Marino [address] [place] [address], 49907-078 8, [employer] 5 09:58:01 Pain of hip region 49652805 Active 2024 SUSAN Marino [address] [place] [address], 82766-596 8, [employer] 08:31:22 Problem Notes None recorded. Procedures Surgical History Date Name Laterality Status Provider Name and Address Organization Details Recorded Time 10/09/20 25 Most Recent Mammogram completed [employer]. 05/25/2025 08:23:07 04/11/20 15 total abdominal hysterectomy with bilateral salpingo-oophorecto my completed [employer]. 01/26/2025 08:17:22 section completed [employer] 05/05/2024 14:25:50 operation for glaucoma completed [employer]. 05/05/2024 14:26:38 cervical spinal fusion for pseudoarthrosis completed [employer]. 05/05/2024 14:35:29 Hip Replacement completed [employer]. 10/27/2024 08:24:40 Imaging Results None recorded. Procedure Notes None recorded. Medical Equipment None Reported. Allergies No known drug allergies Medications Name Sig Start Date Stop Date Status Note LastModified by Organization Details LastModified Time quetiapine 25 mg tablet TAKE ONE TABLET BY MOUTH EVERY DAY AT BEDTIME FOR SLEEP 04/27 completed Not Available Not Available Not Available metolazone 2.5 mg tablet TAKE ONE [...] ONE CAPSULE BY MOUTH EVERY DAY DIRECTED 2024 active Not Available Not Available Not Avai lable bumetanide 2 mg tablet TAKE ONE TABLET [...] FOR MUSCLE SPASMS MAY CAUSE DROWSINES S 2024 active Not Available Not Available Not Avai lable fluconazole 150 mg tablet TAKE ONE TABLET BY MOUTH EVERY DAY FOR 3 DAYS 01/26 completed Not Available Not Available Not Available meloxicam 15 mg tablet TAKE ONE TABLET BY MOUTH EVERY DAY FOR PAIN --TAKE WITH FOOD-- 2024 active Not Available Not Available Not Avai lable prednisone 20 mg tablet Take 1 tablet twice a day by oral route for 5 days. 05/09 completed Not Available Not Available Not Available atenolol 25 mg tablet TAKE ONE TABLET BY MOUTH EVERY DAY FOR HIGH BLOOD PRESSURE active Not Available Not Available No t Available tramadol 50 mg tablet TAKE TWO TABLETS BY MOUTH THREE TIMES DAILY FOR 10 DAYS FOR SEVERE pain MAY CAUSE DROWSINES S 2024 active Not Available Not Available Not Avai lable quetiapine 100 mg tablet TAKE ONE TABLET BY MOUTH EVERY NIGHT AT BEDTIME 2024 active Not Available Not Available Not Avai lable alprazolam 0.5 mg tablet TAKE ONE TABLET [...] REMOVE AND LEAVE OFF FOR 12 HOURS 2024 active Not Available Not Available Not Avai lable buspirone 7.5 mg tablet TAKE ONE TABLET BY MOUTH TWICE DAILY 05/05 completed Not Available Not Available Not Available mupirocin 2 % topical ointment APPLY TOPICALLY TO THE AFFECTED AREA(S) THREE TIMES DAILY 01/26 completed Not Available Not Available Not Available mirtazapine 15 mg tablet TAKE ONE TABLET BY MOUTH EVERY DAY AT BEDTIME FOR ANXIETY 2024 active Not Available Not Available Not Avai lable albuterol sulfate HFA 90 mcg/actuati on aerosol inhaler INHALE TWO PUFFS BY MOUTH EVERY 4 HOURS NEEDED active Not Available Not Available No t [...] completed Not Available Not Available Not Available doxycycline hyclate 100 mg tablet Take 1 tablet twice a day by oral route for 20 days. 05/24 completed Not Available Not Available Not Available amoxicillin 875 mg-potassiu m clavulanate 125 mg tablet TAKE ONE TABLET BY MOUTH EVERY TWELVE HOURS FOR 10 DAYS 01/26 completed Not Available Not Available Not Available buspirone 15 mg tablet TAKE ONE TABLET BY MOUTH TWICE DAILY 2024 active Not Available Not Available Not Avai lable esomeprazol e magnesium 20 mg capsule,del ayed release TAKE ONE CAPSULE BY MOUTH DAILY 05/05 completed Not Available Not Available Not Available Vitamin D3 04/27 completed Not Available Not Available Not Available multivitami n active Not Available [...] Not Available Not Available No t Available Mucinex DM 60 mg-1,200 mg tablet,exte nded release 12 hr Take 1 tablet twice a day by oral route for 10 days. 05/14 completed Not Available Not Available Not Available diclofenac 1 % topical gel APPLY 2 grams TOPICALLY TO THE AFFECTED AREA(S) FOUR TIMES DAILY 05/05 completed Not Available Not Available Not Available Linzess 290 mcg capsule TAKE ONE CAPSULE BY MOUTH EVERY DAY 2024 active Not Available Not Available Not Avai lable Breo Ellipta 100 mcg-25 mcg/dose powder for inhalation INHALE 1 PUFF BY MOUTH EVERY DAY --RINSE MOUTH AFTER USE-- 04/27 completed Not Available Not Available Not Available Horizant ER 300 mg tablet,exte nded release TAKE ONE TABLET BY MOUTH EVERY EVENING active Not Available Not Available No t Available Breztri Aerosphere 160 mcg-9mcg-4. 8mcg/actuat ion HFA aerosol inhaler Inhale 2 puffs twice a day by inhalatio n route for 30 days, for COPD (replaces Breo). 2024 active Not Available Not Available Not [...] Details Last Updated DateTime 5 170.18 cm 35.5 kg/m2 912434. 31 g 94 % 94 % 68 /min 97.9 [degF] 136/88 mm[Hg] Gissel Espinoza [employer] [facility] 08:15:31 Social History Question Answer Notes LastModified by Organizat ion Details LastModified Time Tobacco Smoking Status Former Smoker Gissel [employer] 07/06/2024 08:13:14 Do You Have An [...] Information not available 05/05/2024 What Type Of Embroidery Operator Do You Use? None Information not available 05/05/2024 In The 14 Days Before Symptom Onset, Have You Had Close Contact With A Laboratory-confi rmed COVID-19 While That Case Was Ill? No [...] Or The Highest Degree You Have Received? [id number] Information not available 07/06/2024 How Many Days Of Moderate To Strenuous Exercise, Like A Brisk Walk, Did You Do In The Last 7 Days? 0 Information not available 05/05/2024 Have There Been Any Changes To Your Family Or Social Situation? No Information not available 05/05/2024 Are There Any Guns Present In Your Home? Yes Information not available 05/05/2024 Which Of Your Hands Is Dominant? Right Information not available 05/05/2024 Do You Engage In Moderate/heavy Exercise (e.g. Brisk Walk, Jogging, Strength Training, Etc)? No Information not available 05/25/2025 What Is Your Home Situation? Other Information not available 05/05/2024 Where Do You Live? SingleLevelHouse Information not available 05/25/2025 Do You Have A Medical Power Of Sewing Machine Operator Semiautomatic? No Information not available 05/05/2024 What Was The Date Of Your Most Recent Tobacco Screening? 05/25/2025 Information not available 05/25/2025 Do You Have Any Pets? Yes Information not available 05/05/2024 What Is Your Relationship Status? Single Information not available 05/05/2024 Have You Repeated Any Grades? No Information not available 05/05/2024 Do You Wear A Seatbelt When Driving Or As A Passenger? Yes Information not available 05/25/2025 Do You Use Your Seat Belt Or [...] You Passively Exposed To Smoke? Yes Information not available 05/05/2024 Are There Any Smokers In [...] What Date Was Tobacco Cessation Counseling Provided? 05/25/2025 Information not available 05/25/2025 How Many Years Have You Smoked Tobacco? 40 Information not available 05/05/2024 Have You Recently Traveled Abroad? No Information not available 05/05/2024 Do You Have Difficulty Walking Or Climbing Stairs? Yes Information not available 05/05/2024 Are You Currently In School? No Information not available 05/05/2024 What Contraceptive Method Was Reported At Start Of This Visit? Female Sterilization Information not available 10/27/2024 Do You Feel Safe In Your Home? Yes Information not available 05/25/2025 Do You Have Any Dietary Restrictions? No Information not available 07/06/2024 Sex: Unknown Functional Status Question Answer Note LastModified by [employer] Details LastModified Time Do you use any illicit or recreational drugs? No Information not available 05/05/2024 Do you feel safe in your relationship? Prefer not to answer Information not available 05/25/2025 Do you or have you ever used any other forms of tobacco or nicotine? No Information not available 05/05/2024 What is your level of alcohol consumption? None Information not available 05/05/2024 Are you currently employed? No Information not available 05/05/2024 Do you have transportation difficulties? No Information not available 05/05/2024 Are you able to walk independently without assistance or assistive devices? YESWOREST Information not available 05/05/2024 Do you have difficulty doing errands alone? No Information not available 05/05/2024 Are you able to care for yourself independently? Yes Information not available 05/05/2024 Do you have difficulty dressing, bathing, grooming, or toileting? No Information not available 05/05/2024 What is your exercise level? Occasional Information not available 05/05/2024 Mental Status Question Answer Note LastModified by [employer] Details LastModified Time Do you feel stressed (tense, restless, nervous, or anxious, or unable to sleep at night)? [id number] Information not available 07/06/2024 Do you have [...] Depression Y Dermatologic Disorders N Hypothyroidism N Lung Disease N Developmental or Behavioral Disorders N Defects [...] N High Cholesterol Y Liver Disease N Organ Transplant N Psychiatric/Mental Health Condition N Fibromyalgia N Dialysis N Schizophrenia N Headaches N Kidney Disease N Allergies/Hayfever [...] Control Method Hysterectom y Most Recent Mammogram 05/06/2025 Age at First Child 21 Obstetrics History GPAL:G 1 P 1 0 0 1 Type Value Multiple Births 0 Full Term 1 Induced 0 Spontaneous 0 Premature 0 Living 1 Ectopics 0 Total 1 Immunizations Vaccine Type Date Status Note Provider Shady martinez and Address Organization Details Recorded Time Tdap 11/27/2024 completed Leni aden [employer] 11/27/2024 14:33:44 Tdap 10/21/2007 completed Gissel aden [employer] 07/06/2024 08:09:35 Past Encounters Encounter ID Performer Location Encounter Start Date Encounter Closed Date Diagnosis/Indication Diagnosis SNOMED-CT Code Diagnosis ICD10 Code Diagnosis IMO Codes Diagnosis Note [id number] SUSAN Marino [facility] [address] [place] [address] 04/27/2025 08:01:42 04/27/2025 08:45:34 Screening mammography 88273903 Z12.31 [id number] Acute cough [id number] 69771603 R05.4 [id number] Acute exac erbation of chronic obstructive pulmonary disease 185793884 J44.1 365586 Chronic ob structive pulmonary disease 90467677 J44.9 095122615 Anxiety 29606390 F41.9 91102 Flushing 346453428 R23.2 M25.50 261278 HIV screening 090006572 Z11.4 640791 Viral scre ening status 254698379 Z11.59 593046 Mixed hyperlipidemia 267 959473 E78.2 26667 Vitamin D deficiency 347 21189 E55.9 56950 Primary insomnia 0525138 F51.01 08116 Used Quvivig in the past - didn't helpTrazod one and Remeron not helpingWil l increase Seroquel Health Concerns Section Related Observation LastModified by Organization Detai ls LastModified Time None Recorded Concern Status LastModified by Organization Details LastModified Time None Recorded Payers Encounter Date Sequence Insurance Name Policy Number Policy Lazo Covered Member ID Lazo Member ID Guarantor Name 04/27/2025 1 [employer] (MEDICARE REPLACEMENT/A DVANTAGE - PPO) Laura Hodge [id number] Laura Hodge Notes Date Note Type Note Provider Name and Address Organization Details Recorded Time 04/27/2025 text/html ROS as noted in the HPI Cough, congestion, wheezing, shortness of breath X 2 weeks. No fever. Cough minimally productive.State s her hips are hurting.Not sleeping. Only sleeps 2-3 hours a night. She was on Quviviq in the past - didn't think it helped. CUrrently on Remeron and Trazodone. Can't tell they are helping. Also states that nerves are shot. SUSAN Marino [address] [place] [address], [phone], [facility] [employer] 04/27/2025 09:59:02 OBGyn Episode No OBEpisode recorded.
--- OUTSIDE RECORDS SUMMARY | 2025-05-31 10:05 | XMS_ITS | Continuity of Care Document ---
Author Organization [place] - [employer] [facility] Address [address] [place] [address] Assessment No assessment recorded. Plan of Treatment Reminders Order Date Submit Date Provider Last Modified By Organization Details Last Modified Time Details Appointments None recorded. Lab None recorded. Referral None recorded. Procedures None recorded. Surgeries None recorded. Imaging XR, hip, unilateral, 2 or 3 view 2024 [facility] ([facility]), [address], [place], [address], 11:14:15 Medication Orders Breztri Aerosphere 160 mcg-9mcg-4. 8mcg/actuat ion HFA aerosol inhaler 2024 025 [facility], [address], [place], [address], 08:37:46 Patient TargetsNo targets recorded. Patient Instructions Encounter Date Encounter Id Patient Instructions Last Modified By Organization Details Last Modified Time 05/25/2025 [id number] hip pain: care instructions [id number] Not available 05/25/2025 08:31:51 Reason for Referral None Reported. Results Created Date Observation Date Name Description Value Unit Range Abnormal Flag Note LastModifiedBy Organization Detail LastModifiedTime 04/27/2004/28/2025 CBC WITH DIFFE RENTI AL/PL ATELE T WBC 8.9 x10e3 /uL 3.4-10 .8 normal Not Available [facility] ([facility]) [address] [facility], [place], [address], 04/28/2025 12:08:21 04/27/20 25 04/28/2025 CBC WITH DIFFE RENTI AL/PL ATELE T RBC 5.34 x10e6 /uL 3.77-5 .28 above high normal Not Available [facility] ([facility]) [address] [facility], [place], [address], 04/28/2025 12:08:21 04/27/20 25 04/28/2025 CBC WITH DIFFE RENTI AL/PL ATELE T hemoglobin 16.8 g/dL 11.1-1 5.9 above high normal Not Available [facility] ([facility]) [address] [place], [address], 04/28/2025 12:08:21 04/27/20 25 04/28/2025 CBC WITH DIFFE RENTI AL/PL ATELE T hematocrit 52.7 % 34.0-4 6.6 above high normal Not Available [facility] ([facility]) [address] [place], [address], 04/28/2025 12:08:21 04/27/20 25 04/28/2025 CBC WITH DIFFE RENTI AL/PL ATELE T MCV 99 fL 79-97 above high normal Not Available [facility] ([facility]) [address] [place], [address], 04/28/2025 12:08:21 04/27/2004/28/2025 CBC WITH DIFFE RENTI AL/PL ATELE T MCH 31.5 pg 26.6-3 3.0 normal Not Available [facility] ([facility]) [address] [place], [address], 04/28/2025 12:08:21 04/27/20 25 04/28/2025 CBC WITH DIFFE RENTI AL/PL ATELE T MCHC 31.9 g/dL 31.5-3 5.7 normal Not Available [facility] ([facility]) [address] [facility], [place], [address], 04/28/2025 12:08:21 04/27/20 25 04/28/2025 CBC WITH DIFFE RENTI AL/PL ATELE T RDW 12.9 % 11.7-1 5.4 Not Available [facility] ([facility]) [address] [facility], [place], [address], 04/28/2025 12:08:21 04/27/20 25 04/28/2025 CBC WITH DIFFE RENTI AL/PL ATELE T platelets 201 x10e3 /uL 150-45 0 normal Not Available [facility] ([facility]) [address] [facility], [place], [address], 04/28/2025 12:08:21 04/27/20 25 04/28/2025 CBC WITH DIFFE RENTI AL/PL ATELE T neutrophils 52 % not estab. normal Not Available [facility] ([facility]) [address] [facility], [place], [address], 04/28/2025 12:08:21 04/27/20 25 04/28/2025 CBC WITH DIFFE RENTI AL/PL ATELE T lymphs 35 % not estab. normal Not Available [facility] ([facility]) [address] [facility], [place], [address], 04/28/2025 12:08:21 04/27/20 25 04/28/2025 CBC WITH DIFFE RENTI AL/PL ATELE T monocytes 10 % not estab. normal Not Available [facility] ([facility]) [address] [facility], [place], [address], 04/28/2025 12:08:21 04/27/20 25 04/28/2025 CBC WITH DIFFE RENTI AL/PL ATELE T eos 2 % not estab. normal Not Available [facility] ([facility]) [address] [facility], [place], [address], 04/28/2025 12:08:21 04/27/20 25 04/28/2025 CBC WITH DIFFE RENTI AL/PL ATELE T basos 1 % not estab. normal Not Available [facility] ([facility]) [address] [place], [address], 04/28/2025 12:08:21 04/27/20 25 04/28/2025 CBC WITH DIFFE RENTI AL/PL ATELE T immature cells HOTEL RECREATIONAL FACILITIES MANAGER Not Available [facility] ([facility]) [address] [place], [address], 04/28/2025 12:08:21 04/27/20 25 04/28/2025 CBC WITH DIFFE RENTI AL/PL ATELE T neutrophils (absolute) 4.6 x10e3 /uL 1.4-7. 0 normal Not Available [facility] ([facility]) [address] [place], [address], 04/28/2025 12:08:21 04/27/20 25 04/28/2025 CBC WITH DIFFE RENTI AL/PL ATELE T lymphs (absolute) 3.1 x10e3 /uL 0.7-3. 1 normal Not Available [facility] ([facility]) [address] [place], [address], 04/28/2025 12:08:21 04/27/20 25 04/28/2025 CBC WITH DIFFE RENTI AL/PL ATELE T monocytes(ab solute) 0.9 x10e3 /uL 0.1-0. 9 normal Not Available [facility] ([facility]) [address] [place], [address], 04/28/2025 12:08:21 04/27/20 25 04/28/2025 CBC WITH DIFFE RENTI AL/PL ATELE T eos (absolute) 0.2 x10e3 /uL 0.0-0. 4 normal Not Available [facility] ([facility]) [address] [place], [address], 04/28/2025 12:08:21 04/27/20 25 04/28/2025 CBC WITH DIFFE RENTI AL/PL ATELE T baso (absolute) 0.1 x10e3 /uL 0.0-0. 2 normal Not Available [facility] ([facility]) [address] [facility], [place], [address], 04/28/2025 12:08:21 04/27/20 25 04/28/2025 CBC WITH DIFFE RENTI AL/PL ATELE T immature granulocytes 0 % not estab. Not Available [facility] ([facility]) [address] [facility], [place], [address], 04/28/2025 12:08:21 04/27/20 25 04/28/2025 CBC WITH DIFFE RENTI AL/PL ATELE T immature grans (abs) 0.0 x10e3 /uL 0.0-0. 1 Not Available [facility] ([facility]) [address] [facility], [place], [address], 04/28/2025 12:08:21 04/27/20 25 04/28/2025 CBC WITH DIFFE RENTI AL/PL ATELE T NRBC HOTEL RECREATIONAL FACILITIES MANAGER Not Available [facility] ([facility]) [address] [facility], [place], [address], 04/28/2025 12:08:21 04/27/20 25 04/28/2025 CBC WITH DIFFE RENTI AL/PL ATELE T hematology comments: HOTEL RECREATIONAL FACILITIES MANAGER Not Available [facility] ([facility]) [address] [facility], [place], [address], 04/28/2025 12:08:21 04/27/20 25 04/28/2025 COMP. METAB OLIC PANEL (14) glucose 108 mg/dL 70-99 above high normal Not Available [facility] ([facility]) [address] [facility], [place], [address], 04/28/2025 12:08:22 04/27/20 25 04/28/2025 COMP. METAB OLIC PANEL (14) BUN 17 mg/dL 6-24 normal Not Available [facility] ([facility]) [address] [facility] [place], [address], 04/28/2025 12:08:22 04/27/20 25 04/28/2025 COMP. METAB OLIC PANEL (14) creatinine 1.07 mg/dL 0.57-1 .00 above high normal Not Available [facility] ([facility]) [address] [facility], [place], [address], 04/28/2025 12:08:22 04/27/20 25 04/28/2025 COMP. METAB OLIC PANEL (14) eGFR 60 mL/mi n/1.7 3 >59 normal Not Available [facility] ([facility]) [address] [facility], [place], [address], 04/28/2025 12:08:22 04/27/20 25 04/28/2025 COMP. METAB OLIC PANEL (14) BUN/creatini ne ratio 16 9-23 normal Not Available [facility] ([facility]) [address] [facility], [place], [address], 04/28/2025 12:08:22 04/27/20 25 04/28/2025 COMP. METAB OLIC PANEL (14) sodium 139 mmol/ L 134-14 4 normal Not Available [facility] ([facility]) [address] [facility], [place], [address], 04/28/2025 12:08:22 04/27/20 25 04/28/2025 COMP. METAB OLIC PANEL (14) potassium 3.6 mmol/ L 3.5-5. 2 normal Not Available [facility] ([facility]) [address] [facility] [place], [address], 04/28/2025 12:08:22 09/30/04/28/2025 COMP. METAB OLIC PANEL (14) chloride 105 mmol/ L 96-106 normal Not Available [facility] ([facility]) [address] [facility] [place], [address], 04/28/2025 12:08:22 04/27/20 25 04/28/2025 COMP. METAB OLIC PANEL (14) carbon dioxide, total 17 mmol/ L 20-29 below low normal Not Available [facility] ([facility]) [address] [facility] [place], [address], 04/28/2025 12:08:22 04/27/20 25 04/28/2025 COMP. METAB OLIC PANEL (14) calcium 9.8 mg/dL 8.7-10 .2 normal Not Available [facility] ([facility]) [address] [facility] [place], [address], 04/28/2025 12:08:22 04/27/20 25 04/28/2025 COMP. METAB OLIC PANEL (14) protein, total 7.3 g/dL 6.0-8. 5 normal Not Available [facility] ([facility]) [address] [facility] [place], [address], 04/28/2025 12:08:22 04/27/20 25 04/28/2025 COMP. METAB OLIC PANEL (14) albumin 4.5 g/dL 3.8-4. 9 normal Not Available [facility] ([facility]) [address] [place], [address], 04/28/2025 12:08:22 04/27/20 25 04/28/2025 COMP. METAB OLIC PANEL (14) globulin, total 2.8 g/dL 1.5-4. 5 Not Available [facility] ([facility]) [address] [facility] [place], [address], 04/28/2025 12:08:22 04/27/20 25 04/28/2025 COMP. METAB OLIC PANEL (14) bilirubin, total 0.4 mg/dL 0.0-1. 2 normal Not Available [facility] ([facility]) [address] [facility] [place], [address], 04/28/2025 12:08:22 04/27/20 25 04/28/2025 COMP. METAB OLIC PANEL (14) alkaline phosphatase 83 IU/L 49-135 normal Not Available [facility] ([facility]) [address] [facility] [place], [address], 04/28/2025 12:08:22 04/27/20 25 04/28/2025 COMP. METAB OLIC PANEL (14) AST (SGOT) 15 IU/L 0-40 normal Not Available [facility] ([facility]) [address] [facility] [place], [address], 04/28/2025 12:08:22 04/27/20 25 04/28/2025 COMP. METAB OLIC PANEL (14) ALT (SGPT) 17 IU/L 0-32 normal Not Available [facility] ([facility]) [address] [facility] [place], [address], 04/28/2025 12:08:22 04/27/20 25 04/28/2025 LIPID PANEL cholesterol, total 185 mg/dL 100-19 9 normal Not Available [facility] ([facility]) [address] [facility] [place], [address], 04/28/2025 12:08:23 04/27/20 25 04/28/2025 LIPID PANEL triglyceride s 354 mg/dL 0-149 above high normal Not Available [facility] ([facility]) [address] [facility] [place], [address], 04/28/2025 12:08:23 04/27/20 25 04/28/2025 LIPID PANEL HDL cholesterol 34 mg/dL >39 below low normal Not Available [facility] ([facility]) [address] [facility] [place], [address], 04/28/2025 12:08:23 04/27/20 25 04/28/2025 LIPID PANEL VLDL cholesterol dianne 59 mg/dL 5-40 above high normal Not Available [facility] ([facility]) [address] [facility], [place], [address], 04/28/2025 12:08:23 04/27/20 25 04/28/2025 LIPID PANEL LDL chol calc ([facility]) 92 mg/dL 0-99 Not Available [facility] ([facility]) [address] [facility], [place], [address], 04/28/2025 12:08:23 04/27/20 25 04/28/2025 LIPID PANEL LDL calc comment: HOTEL RECREATIONAL FACILITIES MANAGER Not Available [facility] ([facility]) [address] [facility], [place], [address], 04/28/2025 12:08:23 04/27/20 25 04/28/2025 HCV ANTIB PHILL CASCA DE(PC R/GEN O) HCV Ab Non Reacti ve non reacti ve Not Available [facility] ([facility]) [address] [facility], [place], [address], 04/28/2025 12:08:24 04/27/20 25 04/28/2025 HCV ANTIB PHILL CASCA DE(PC R/GEN O) interpretati on: Commen t Not infec saman with HCV unles s early or acute infec tion is suspe cted (whic h may be delay ed in an immun ocomp romis ed indiv idual ), or other evide nce exist s to indic ate HCV infec tion. Not Available [facility] ([facility]) [address] [facility], [place], [address], 04/28/2025 12:08:24 04/27/20 25 04/28/2025 TSH TSH 3.090 uIU/m L 0.450- 4.500 normal Not Available [facility] ([facility]) [address] [facility], [place], [address], 04/28/2025 12:08:24 04/27/20 25 04/28/2025 VITAM IN D, 25-HY DROXY vitamin D, 25-hydroxy 34.6 NG/mL 30.0-1 00.0 Vitam in D defic iency has been defin ed by the Insti tute of Medic ine and an Endoc rine Socie ty pract ice guide line as a level of serum 25-OH vitam in D less than 20 ng/mL (1,2) . The Endoc rine Socie ty went on to furth er defin e vitam in D insuf ficie ncy as a level betwe en 21 and 29 ng/mL (2). 1. IOM (Inst itute of Medic ine). 2010. Dieta ry refer ence intak es for calci um and D. Vinicius dc [place]: [facility] . 2. Domi davidson MF, Cristi ralph NC, Ted off-F errar i RODRIGUEZ, et al. Evalu ation , treat ment, and preve ntion of vitam in D defic iency : an Endoc rine Socie ty clini dianne pract ice guide line. JCEM. 2010; 96(7) :1911 -30. Not Available [facility] ([facility]) [address] [facility], [place], [address], 04/28/2025 12:08:25 04/27/20 25 04/28/2025 HIV AB/P2 4 AG WITH REFLE X HIV Ab/P24 Ag screen Non Reacti ve non reacti ve HIV-1 /HIV- 2 antib odies and HIV-1 p24 antig en were NOT detec saman. There is no labor atory evide nce of HIV infec tion. HIV Negat shanell Not Available [facility] ([facility]) [address] [facility], [place], [address], 04/28/2025 12:08:25 04/27/20 25 04/28/2025 SEDIM ENTAT ION RATE- WESTE RGREN sedimentatio n rate-westerg sacha 23 mm/HR 0-40 normal Not Available [facility] ([facility]) [address] [facility], [place], [address], 04/28/2025 12:08:26 04/27/20 25 04/28/2025 C-EDUARDO CTIVE PROTE IN, QUANT C-reactive protein, quant 3 mg/L 0-10 normal Not Available [facility] ([facility]) [address] [facility], [place], [address], 04/28/2025 12:08:27 04/27/20 25 04/27/2025 rapid SARS CoV 2 Ag, QL, IA, upper respi rator y speci men SARS CoV Ag negati ve Not Available [address], [place], [address], 04/27/2025 08:20:49 04/27/20 25 04/27/2025 rapid flu (A+B) Flu A negati ve Not Available [address], [place], [address], 04/27/2025 08:20:43 04/27/20 25 04/27/2025 rapid flu (A+B) Flu B negati ve Not Available [address], [place], [address], 04/27/2025 08:20:43 05/11/20 25 05/06/2025 MAMMO , scree nito, digit al, bilat eral No observ ation record ed. [address], [place], [address], 05/11/2025 13:34:42 05/25/20 25 05/25/2025 XR, hip, unila teral , 2 or 3 view No observ ation record ed. [facility] [address], [place], [address], 05/25/2025 13:29:58 Result Notes None recorded. Problems Name Problem SNOMED Code Status Onset Date Resolution Date Notes Provider Name and Address Organization Details Recorded Time Generaliz ed anxiety disorder 77746865 Active 2023 SUSAN Marino [address] [place] [address], [address], [employer] 09:32:20 Insomnia 574145779 Active 2023 SUSAN Marino [address] [place] [address], [address] 8, [employer] 09:32:25 Spasm of back muscles 510985235 Active 2023 SUSAN Marino [address] [place] [address], 940[address] 8, [employer] 09:32:34 Depressiv e disorder 15357073 Active 2023 SUSAN Marino [address] [place] [address], 049[address] 8, [employer] 09:32:16 Osteoarth ritis of right hip joint 123259762238 107 Active 2023 SUSAN Marino [address] [place] [address], 85[address] 8, [employer] 5 09:32:28 Pain of hip region 66601828 Active 2023 SUSAN Marino [address] [place] [address], 98[address] 8, [employer] 5 09:32:23 Restless legs syndrome 81072869 Active 2023 SUSAN Marino [address] [place] [address], [address] 8, [employer] 5 09:32:32 Postopera tive wound infection 48930501 Completed 202405/25/2025 SUSAN Marino [address] [place] [address], 87[address]185 8, [employer] 11:25:56 Dog bite of lower leg 716899090 Active 2024 SUSAN Marino [address] [place] [address], 067[address]685 8, [employer] 14:15:56 Acute exacerbat ion of chronic obstructi ve pulmonary disease 388907269 Completed 202405/25/2025 SUSAN Marino [address] [place] [address], [address] 8, [employer] 11:26:01 Chronic obstructi ve pulmonary disease 00809113 Active 2024 SUSAN Marino [address] [place] [address], 99126[address]358 8, [employer] 08:37:02 Anxiety 48557541 Active 2024 SUSAN Marino [address] [place] [address], 82[address]205 8, [employer] 08:40:54 Primary insomnia 0389083 Active 2024 SUSAN Marino [address] [place] [address], 53[address] 8, [employer] 09:58:01 Pain of hip region 88255955 Active 2024 SUSAN Marino [address] [place] [address], 696[address]243 8, [employer] 08:31:22 Problem Notes None recorded. Procedures Surgical History Date Name Laterality Status Provider Name and Address Organization Details Recorded Time 05/06/20 25 Most Recent Mammogram completed [employer] 05/25/2025 08:23:07 04/11/20 15 total abdominal hysterectomy with bilateral salpingo-oophorecto my completed [employer] 01/26/2025 08:17:22 section completed [employer] 05/05/2024 14:25:50 operation for glaucoma completed [employer] 05/05/2024 14:26:38 cervical spinal fusion for pseudoarthrosis completed [employer]. 05/05/2024 14:35:29 Hip Replacement completed [employer]. 10/27/2024 08:24:40 Imaging Results None recorded. Procedure [...] Details Last Updated DateTime 5 170.18 cm 36.7 kg/m2 352940. 33 g 62 /min 95 % 95 % 98.2 [degF] 126/82 mm[Hg] Gissel Espinoza [employer] 08:24:33 Social History Question Answer Notes LastModified by Organizat ion Details LastModified Time Tobacco Smoking Status Former Smoker Gissel aden [employer] 07/06/2024 08:13:14 Do You Have An Advance [...] Information not available 05/05/2024 What Type Of Qa Software Test Engineer Do You Use? None Information not available [...] Or The Highest Degree You Have Received? [id number] Information not available 07/06/2024 How Many Days [...] Do You Have A Medical Power Of [place]? No Information not available 05/05/2024 What Was [...] anxious, or unable to sleep at night)? [id number] Information not available 07/06/2024 Do you have [...] Recorded Time Tdap 11/27/2024 completed Leni aden [place] [employer] 11/27/2024 14:33:44 Tdap 10/21/2007 completed Gissel aden [employer] 07/06/2024 08:09:35 Past Encounters Encounter ID Performer Location Encounter Start Date Encounter Closed Date Diagnosis/Indication Diagnosis SNOMED-CT Code Diagnosis ICD10 Code Diagnosis IMO Codes Diagnosis Note [id number] SUSAN Marino [facility] [address] [place] [address] 04/27/2025 08:01:42 04/27/2025 08:45:34 Screening mammography 97449383 Z12.31 [id number] Acute cough 4834026587 67965442 R05.2 0053625344 Acute exac erbation of chronic obstructive pulmonary disease 282661506 J44.1 417760 Chronic ob structive pulmonary disease 05057212 J44.9 275995844 Anxiety 14145500 F41.9 42272 Flushing 856649967 R23.2 M25.50 059370 HIV screening 368821438 Z11.4 396908 Viral scre ening status 401390236 Z11.59 151851 Mixed hyperlipidemia 267 824156 E78.2 78214 Vitamin D deficiency 347 31720 E55.9 53991 Primary insomnia 3287936 F51.01 64578 Used Quvivig in the past - didn't helpTrazod one and Remeron not helpingWil l increase Seroquel [id number] SUSAN Marino [address] [address] 05/25/2025 08:02:22 05/25/2025 08:34:11 Pain of hip region 25402482 M25.551 688776 Chronic ob structive pulmonary disease 98416297 J44.9 Primary insomnia 7873128 F51.01 95612 Health Concerns Section Related Observation LastModified by Organization Detai ls LastModified Time None Recorded Concern Status LastModified by Organization Details LastModified Time None Recorded Payers Encounter Date Sequence Insurance Name Policy Number Policy Lazo Covered Member ID Lazo Member ID Guarantor Name 05/25/2025 1 [employer] (MEDICARE REPLACEMENT/A DVANTAGE - PPO) Laura Hodge [id number] Laura Hodge Notes Date Note Type Note Provider Name and Address Organization Details Recorded Time 05/25/2025 text/html ROS as noted in the HPI Patient presents for followup.States she is still having right hip pain. It is becoming unbearable. Had right hip replacement back in July I believe. Had staph infection. She is hesitant to go back to surgeon, but states it feels as if it is slipping. Can't get any relief from pain.She states Breztri helped her breathing quite a bit. SUSAN Marino [address] [place] [address], [address], [place] - [employer] 05/25/2025 11:27:13 OBGyn Episode No OBEpisode recorded.
--- OUTSIDE RECORDS SUMMARY | 2025-05-31 10:06 | XMS_ITS | Encounter Summary ---
Author Organization [facility] Address [address] [id number] Care Team Providers Care Unit Leader Name Role Phone Nicola Venegasie Danni DAVIS Primary Care Provider [phone] Reason for Referral * Consultation (Routine) - Closed Specialty Diagnoses / Procedures Referred By Jerod leavitt Referred To Contact Orthopaedic Surgery Diagnoses Osteoarthritis of right hip, unspecified osteoarthritis type Brad Fair DO [address] [place] [address] Phone: tel: fax: Shane Dietrich MD [address] [facility] [address] [place] [address] Phone: tel: fax: Referral ID Status Reason Start Date Expiration Date Visits Re quested Visits Authorized [id number] Closed 05/12/2024 11/11/2025 1 1 Encounter Details Date Type Department Care Team (Latest Contact Info) Description 05/12/2024 [facility] [address] [place] [address] Brad Fair DO [address] [place] [address] Osteoarthritis of right hip, unspecified osteoarthritis [...] Primary documented in this encounter Care Teams Unit Leader Relationship Specialty Start Date End Date Neeta Venegas PA [address] [place] [address] PCP - General 05/13/24 documented as of this encounter
--- OUTSIDE RECORDS SUMMARY | 2025-05-31 10:06 | XMS_ITS | Encounter Summary ---
Author Organization Healthcare Address [address] [id number] Care Team Providers Care Job Printer Name Role Phone Neeta Venegas Primary Care Provider [phone] Encounter Details Date Type Department Care Team ([facility] st Contact Info) Description 04/27/2024 Orders Only External Location [address] [place] [address] Brad Fair DO [address] [place] [address] Social History Tobacco Use Types Packs/Day Years [...] on filedocumented in this encounter Care Teams Job Printer Relationship Specialty Start Date End Date Neeta Venegas PA [address] [place] [address] PCP - General 05/13/24 documented as of this encounter
--- OUTSIDE RECORDS SUMMARY | 2025-05-31 10:06 | XMS_ITS | Clinical Summary ---
Author Organization [facility] Address [address] [id number] Care Team Providers Care Rug Cleaner Name Role Phone TheoNeeta SUSAN Primary Care Provider [phone] Allergies Active Allergy Reactions Criticality Noted Date [...] right hip 05/28/2024 Abnormal stress test 05/28/2024 Anxiety 05/28/2024 Cervical radiculopathy 05/28/2024 Degenerative disc disease, cervical 05/28/2024 Pulmonary emphysema 05/28/2024 Diastolic dysfunction 05/28/2024 Hyperlipidemia 05/28/2024 Hypertension 05/28/2024 Myalgia 05/28/2024 SHA on CPAP 05/28/2024 Right bundle branch block (RBBB) 05/28/2024 RLS (restless legs syndrome) 05/28/2024 Cervical post-laminectomy syndrome 03/19/2023 Cervical spondylosis 03/19/2023 Resolved Problems Problem Noted Date Diagnosed Date Resolved Date Abnormal EKG 05/28/2024 05/30/2025 Encounters Date Type Department Care Team Description 05/25/2025 Orders Only External Location [address] [place] [address] Provider, External 05/25/2025 Telephone Medical Office Building [facility] [address] [facility], [address] [place] [address] Shane Dietrich MD [facility] - Patient Message from Last 3 Months Social History Tobacco Use Types Packs/Day Years [...] [facility]-HIV Screening 1965 [facility]-Hepatitis C Screening 1965 [facility]-Medicare Annual Wellness (AWV) 1965 [facility]-/Child/Adol SDOH Screenings 1965 [facility]- SDOH Screenings 1983 [facility]-Adult SDOH Screenings 1983 [facility]-Hepatitis B Vaccines (1 of 3 - 19+ 3-dose series) 1984 [facility]-Pneumococcal Vaccine: 50+ Years (1 of 2 - PCV) 1984 CT Colonography 2010 Colonoscopy 2010 FIT-DNA 2010 FIT 2010 FOBT 2010 Sigmoidoscopy 2010 [facility]-Colorectal Cancer Screening 2010 Lung Cancer Screening Shared Decision Making 2015 [facility]-Breast Cancer Screening 2015 [facility]-Lung Cancer Screening 2015 [facility]-Zoster Vaccines (1 of 2) 2015 HES-FOGET-13 Vaccine (1 - season) 2025 [facility]-Influenza Vaccine (#1) 2025 [facility]-Diabetes: Hemoglobin A1C 07/14/2025 07/14/2024 [facility]-Depression Screening 09/01/2025 09/01/2024, 10/2024 [facility]-DTaP,Tdap,and Td Vaccines (3 - Td or Tdap) 11/27/2034 11/27/2024, 10/21/2007 [facility]-Obesity Intervention Completed 025, 09/01/2024, 09/01/2024, Additional [...] Dietrich MD Medical Devices Implanted Type Area Veneer Splicer Device Identifier Shelf Expiration Date Model / Serial / Lot Chg Shell R3 3 Hole Acet 56mm - [id number] Implanted:Qty : 1 on 08/10/2024 by Shane Dietrich MD at [facility] Hip Right: Hip [id number] 10/27/2033 [id number] / / [id number] Chg Head Oxinium Fem 07/11 28m - [id number] Implanted:Qty : 1 on 08/10/2024 by Shane Dietrich MD at [facility] Hip Right: Hip [employer]-[id number] 03/24/2034 [id number] / / [id number] Implant Implant Neck Liner Or3o Dual Mbility 44 56 - [id number] Implanted:Qty : 1 on 08/10/2024 by Shane Dietrich MD at [facility] Liner Right: Hip [employer]-[id number] 03/21/2034 [id number] / / [id number] Liner Or3o Dual Mbility Xlpe 28 44 - [id number] Implanted:Qty : 1 on 08/10/2024 by Shane Dietrich MD at [facility] Liner Right: Hip [employer]-[id number] 04/09/2034 [id number] / / [id number] Chg Screw Ref Spher Head 25mm - [id number] Implanted:Qty : 1 on 08/10/2024 by Shane Dietrich MD at [facility] Screw Right: Hip [employer]-[id number] 01/10/2034 [id number] / / [id number] Chg Screw Ref Spher Head 35mm - [id number] Implanted:Qty : 1 on 08/10/2024 by Shane Dietrich MD at [facility] Screw Right: Hip [employer]-[id number] 01/06/2034 [id number] / / [id number] Polarstem Valgus Ti/German 7 - [id number] Implanted:Qty : 1 on 08/10/2024 by Shane Dietrich MD at [facility] Stem Right: Hip [employer]-[id number] 11/09/2029 [id number] / / [id number] Procedures Procedure Name Priority Date/Time Associated Diagnosis Comments XR MSK OUTSIDE IMAGES 05/25/2025 9:20 AM EDT HEMOGLOBIN A1C Routine 07/14/2024 11:52 AM EST Osteoarthritis of right hip, unspecified osteoarthritis type Hip pain, right from Last 3 Months or Most Recently Relevant to Health Maintenance Results * XR MSK OUTSIDE IMAGES (05/25/2025 9:20 AM EDT) Anatomical Region Laterality Modality Radiographic Khushbu ging 05/25/2025 9:20 AM EDT External Provider IMG XR PROCEDURES Edited Resul t - Final * (ABNORMAL) Hemoglobin A1c (07/14/2024 11:52 AM EST) Hemoglobin A1c 5.9(H) <5.7 % 07/14/2024 5:53 PM EST [facility] Blood Venous blood specimen / Unknown Venipuncture / Unknown 07/14/2024 11:52 AM EST 07/14/2024 11:52 AM EST Narrative [facility] - 07/14/2024 5:53 PM EST HA1C Interpretive Data: Diagnosis of Diabetes: Diabetic > or = 6.5% Pre-diabetic 5.7 to 6.4% Non-diabetic < or = 5.6% Glycemic Targets for Type I and Type II Diabetics: Non- Adults <7.0% Adults <6.0% Children and Adolescents <7.5% Source: [place] [employer]. Standards of medical care in diabetes,2017. Diabetes Care.2017:40 (suppl 1):S1-S135. HbA1c assay performed by an ion-exchange chromatography method that is certified traceable to the DCCT. Shane Dietrich MD LAB BLOOD ORDERABLES Final R esult [facility] [address] [place] [address] from Last 3 Months or Most Recently Relevant to Health Maintenance Additional Health Concerns Active Problems Noted Date Diagnosed Date Autogenerated Problem 10/20/2024 Insurance MEDICARE [place] Advance Directives * Full Code (Latest Code Status on File) Date Activated Date Inactivated Comments 09/04/2024 12:49 PM 09/05/2024 12:17 PM Question Answer Comments Patient has decision-making capacity? Yes * Full Code Date Activated Date Inactivated Comments 08/10/2024 6:12 AM 08/11/2024 3:36 PM Question Answer Comments Patient has decision-making capacity? Yes Care Teams Rug Cleaner Relationship Specialty Start Date End Date Neeta Venegas PA [address] [place] [address] PCP - General 05/13/24
--- OUTSIDE RECORDS SUMMARY | 2025-05-31 10:06 | XMS_ITS | Encounter Summary ---
Author Organization Healthcare Address [address] [place] [address] Care Team Providers Care Product Lister Name Role Phone Neeta Venegas Primary Care Provider [phone] Encounter Details Date Type Department Care Team ([facility] st Contact Info) Description 04/08/2024 Orders Only External Location [address] [place] [address] Provider, External Social History Tobacco Use Types [...] on filedocumented in this encounter Care Teams Product Lister Relationship Specialty Start Date End Date Neeta Venegas PA [address] [place] [address] PCP - General 05/13/24 documented as of this encounter
--- OUTSIDE RECORDS SUMMARY | 2025-05-31 10:06 | XMS_ITS | Data Portability ---
Author Organization [email or web address] [place] - [facility] Address [address] [place] [address] Assessment No assessment recorded. Plan of Treatment Reminders Order Date Submit Date Provider Last Modified By Organization Details Last Modified Time Details Appointments None recorded. Lab lipid panel, serum 2024 025 [place] [facility] [address] [place], [address], 12:08:23 CMP, serum or plasma 2024 025 [place] [facility] [address] [place], [address], 12:08:22 CBC w/ auto diff 2024 025 [facility] [address] [place], [address], 12:08:22 TSH, ultra-sensi tive, serum 2024 025 [place] [facility] [address] [place], [address], 12:08:24 erythrocyte sedimentati on rate by westergren method 2024 025 [place] [facility] [address] [place], [address], 12:08:26 C reactive protein, QN, serum or plasma 2024 025 [facility]), [address] [place], [address], 12:08:27 rapid flu (A+B) 2024 025 [facility], [address] [facility], [place], [address], 5 08:45:47 rapid SARS CoV 2 Ag, QL, IA, upper respiratory specimen 2024 025 [facility], [address] [facility], [place], [address], 5 08:45:37 vitamin D, 25-hydroxy, total, serum 2024 025 [facility]), [address] [place], [address], 12:08:25 Hepatitis C IgG Ab, qual, serum 2024 025 [facility]), [address] [place], [address], 5 12:08:24 HIV 1 + 2, meaningful use set 2024 025 [facility]), [address] [place], [address], 5 12:08:25 microorgani sm identificat ion, unspecified specimen 2024 025 [facility]), [address] [place], [address], 5 18:08:46 Referral None recorded. Procedures None recorded. Surgeries None recorded. Imaging XR, hip, unilateral, 2 or 3 view 2024 025 [facility] (X-Ray), [address] [facility] [facility] [address], [place], [address], 5 11:14:15 MAMMO, screening, digital, bilateral 2024 025 [facility] -New Scheduling, [address], [place], [address], 13:00:31 LDCT, chest, for lung cancer screening 2024 025 [facility] (Scheduling), [address] [facility] [address], [place], [address], 09:09:38 Medication Orders Breztri Aerosphere 160 mcg-9mcg-4. 8mcg/actuat ion HFA aerosol inhaler 2024 025 [facility], [address], [place], [address], 08:37:46 doxycycline hyclate 100 mg tablet 2024 025 [facility], [address], [place], [address], 05:02:12 prednisone 20 mg tablet 2024 025 [facility], [address], [place], [address], 5 05:02:01 Mucinex DM 60 mg-1,200 mg tablet,exte nded release 12 hr 2024 025 [facility], [address], [place], [address], 05:01:52 albuterol sulfate HFA 90 mcg/actuati on aerosol inhaler 2024 025 [facility], [address], [place], [address], 5 08:47:45 Breztri Aerosphere 160 mcg-9mcg-4. 8mcg/actuat ion HFA aerosol inhaler [address], [address], [place], [place], [address], 5 09:57:21 Seroquel 100 mg tablet 2024 025 [facility], [address], [place], [place], [address], 5 08:47:53 Horizant ER 300 mg tablet,exte nded release 2024 025 [facility], [address], [place], [address], 5 10:58:16 amoxicillin 875 mg-potassiu m clavulanate 125 mg tablet 2024 025 [facility], [address] [place] [address] [address], [id number], 5 08:19:19 mupirocin 2 % topical ointment 2024 025 [facility], [address] [place] [address] [address], [place], [id number], 5 08:19:19 Diflucan 150 mg tablet 2024 025 [facility], [address] [place] [address] [address], [id number], 5 08:19:18 tramadol 50 mg tablet 2024 025 [facility], [address] [place] [address] [address], [place], [id number], 5 16:35:08 trazodone 100 mg tablet 2024 025 [email or web address] [facility], [address] [place] [address] [place], [id number], 5 08:40:12 Remeron 30 mg tablet 2024 025 [facility], [address] [place] [address] [place], [id number], 5 16:41:20 Seroquel 25 mg tablet 2024 025 [facility], [address] [place] [address] [place], [id number], 5 08:53:25 mirtazapine 15 mg tablet 2024 025 [facility], [address] [place] [address] [place], [id number], 5 08:53:22 Patient TargetsNo targets recorded. Patient Instructions Encounter Date Encounter Id Patient Instructions Last Modified By Organization Details Last Modified Time 10/27/2024 [id number] hip pain: care instructions [email or web address] Not available 10/27/2024 09:35:03 insomnia: care instructions [email or web address] Not available 10/27/2024 09:35:03 restless legs syndrome: care instructions [email or web address] Not available 10/27/2024 09:35:03 infection after surgery: care instructions [email or web address] Not available 10/27/2024 09:35:03 learning about mood disorders [email or web address] Not available 10/27/2024 09:35:03 11/27/2024 [id number] When You Want to Lose Weight: Care Instructions [email or web address] Not available 11/27/2024 14:54:29 01/26/2025 [id number] restless legs syndrome: care instructions Not available 01/26/2025 10:54:21 04/27/2025 [id number] mammogram: about this test [email or web address] Not available 04/27/2025 08:25:27 chronic obstructive pulmonary disease (COPD): care instructions [email or web address] Not available 04/27/2025 08:38:00 learning about copd and how to prevent lung infections Not available 04/27/2025 08:38:00 HIV testing: car e instructions [email or web address] Not available 04/27/2025 09:27:16 05/25/2025 [id number] hip pain: care instructions [email or web address] Not available 05/25/2025 08:31:51 Reason for Referral None Reported. Results Created Date Observation Date Name Description Value Unit Range Abnormal Flag Note LastModifiedBy Organization Detail LastModifiedTime 10/28/1910/30/2024 ANAER OBIC AND AEROB IC CULTU RE aerobic culture Final report abnormal Not Available [facility] ([facility]) [address] [facility], [place], [address], 11/02/2024 18:08:45 10/28/1910/30/2024 ANAER OBIC AND AEROB [...] dered for thera py. Not Available [facility] ([facility]) [address] [facility], [place], [address], 11/02/2024 18:08:45 10/28/19 25 10/30/2024 ANAER OBIC [...] S Vanco mycin S Not Available [facility] ([facility]) [address] [facility], [place], [address], 11/02/2024 18:08:45 10/28/19 25 11/02/2024 ANAER OBIC AND AEROB IC CULTU RE anaerobic culture Final report Not Available [facility] ([facility]) [address] [facility], [place], [address], 11/02/2024 18:08:45 10/28/19 25 11/02/2024 ANAER OBIC AND AEROB IC CULTU RE result 1 COMMEN T No anaer obic growt h in 72 hours . Not Available [facility] ([facility]) [address] [facility], [place], [address], 11/02/2024 18:08:45 10/28/19 25 10/29/2024 AEROB IC BACTE RIAL CULTU RE aerobic bacterial culture COMMEN T Dupli luis miguel proce dure order ed. Not Available [facility] ([facility]) [address] [place], [address], 11/02/2024 18:08:46 04/27/2004/28/2025 CBC WITH DIFFE RENTI AL/PL ATELE T WBC 8.9 x10e3 /uL 3.4-10 .8 normal Not Available [facility] ([facility]) [address] [facility], [place], [address], 04/28/2025 12:08:21 04/27/2004/28/2025 CBC WITH DIFFE RENTI AL/PL ATELE T RBC 5.34 x10e6 /uL 3.77-5 .28 above high normal Not Available [facility] ([facility]) [address] [place], [address], 04/28/2025 12:08:21 04/27/20 25 04/28/2025 CBC WITH DIFFE RENTI AL/PL ATELE T hemoglobin 16.8 g/dL 11.1-1 5.9 above high normal Not Available [facility] ([facility]) [address] [place], [address], 04/28/2025 12:08:21 04/27/20 25 04/28/2025 CBC WITH DIFFE RENTI AL/PL ATELE T hematocrit 52.7 % 34.0-4 6.6 above high normal Not Available [facility] ([facility]) [address] [place], [address], 04/28/2025 12:08:21 04/27/2004/28/2025 CBC WITH DIFFE RENTI AL/PL ATELE T MCV 99 fL 79-97 above high normal Not Available [facility] ([facility]) [address] [place], [address], 04/28/2025 12:08:21 09/30/04/28/2025 CBC WITH DIFFE RENTI AL/PL ATELE T MCH 31.5 pg 26.6-3 3.0 normal Not Available [facility] ([facility]) [address] [place], [address], 04/28/2025 12:08:21 04/27/20 25 04/28/2025 CBC WITH DIFFE RENTI AL/PL ATELE T MCHC 31.9 g/dL 31.5-3 5.7 normal Not Available [facility] ([facility]) [address] [facility], [place], [address], 04/28/2025 12:08:21 04/27/2004/28/2025 CBC WITH DIFFE RENTI AL/PL ATELE T RDW 12.9 % 11.7-1 5.4 Not Available [facility] ([facility]) [address] [facility], [place], [address], 04/28/2025 12:08:21 04/27/20 25 04/28/2025 CBC WITH DIFFE RENTI AL/PL ATELE T platelets 201 x10e3 /uL 150-45 0 normal Not Available [facility] ([facility]) [address] [facility], [place], [address], 04/28/2025 12:08:21 04/27/20 25 04/28/2025 CBC WITH DIFFE RENTI AL/PL ATELE T neutrophils 52 % not estab. normal Not Available [facility] ([facility]) [address] [place], [address], 04/28/2025 12:08:21 04/27/20 25 04/28/2025 CBC WITH DIFFE RENTI AL/PL ATELE T lymphs 35 % not estab. normal Not Available [facility] ([facility]) [address] [place], [address], 04/28/2025 12:08:21 04/27/20 25 04/28/2025 CBC WITH DIFFE RENTI AL/PL ATELE T monocytes 10 % not estab. normal Not Available [facility] ([facility]) [address] [place], [address], 04/28/2025 12:08:21 04/27/20 25 04/28/2025 CBC WITH DIFFE RENTI AL/PL ATELE T eos 2 % not estab. normal Not Available [facility] ([facility]) [address] [facility], [place], [address], 04/28/2025 12:08:21 04/27/20 25 04/28/2025 CBC WITH DIFFE RENTI AL/PL ATELE T basos 1 % not estab. 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 0 normal Not Available [facility] ([facility]) [address] [place], [address], 04/28/2025 12:08:21 04/27/20 25 04/28/2025 CBC WITH DIFFE RENTI AL/PL ATELE T lymphs (absolute) 3.1 x10e3 /uL 0.7-3. 1 normal Not Available [facility] ([facility]) [address] [place], [address], 04/28/2025 12:08:21 04/27/20 25 04/28/2025 CBC WITH DIFFE RENTI AL/PL ATELE T monocytes(ab solute) 0.9 x10e3 /uL 0.1-0. 9 normal Not Available [facility] ([facility]) [address] [facility], [place], [address], 04/28/2025 12:08:21 04/27/20 25 04/28/2025 CBC WITH DIFFE RENTI AL/PL ATELE T eos (absolute) 0.2 x10e3 /uL 0.0-0. 4 normal Not Available [facility] ([facility]) [address] [facility], [place], [address], 04/28/2025 12:08:21 04/27/20 25 04/28/2025 CBC WITH DIFFE RENTI AL/PL ATELE T baso (absolute) 0.1 x10e3 /uL 0.0-0. 2 normal Not Available [facility] ([facility]) [address] [facility], [place], [address], 04/28/2025 12:08:21 04/27/20 25 04/28/2025 CBC WITH DIFFE RENTI AL/PL ATELE T immature granulocytes 0 % not estab. Not Available [facility] ([facility]) [address] [facility], [place], [address], 04/28/2025 12:08:21 04/27/20 25 04/28/2025 CBC WITH DIFFE RENTI AL/PL ATELE T immature grans (abs) 0.0 x10e3 /uL 0.0-0. 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 METAB OLIC PANEL (14) glucose 108 mg/dL 70-99 above high normal Not Available [facility] ([facility]) [address] [facility] [place], [address], 04/28/2025 12:08:22 04/27/20 25 04/28/2025 COMP. METAB OLIC PANEL (14) BUN 17 mg/dL 6-24 normal Not Available [facility] ([facility]) [address] [facility] [place], [address], 04/28/2025 12:08:22 04/27/20 25 04/28/2025 COMP. METAB OLIC PANEL (14) creatinine 1.07 mg/dL 0.57-1 .00 above high normal Not Available [facility] ([facility]) [address] [facility], [place], [address], 04/28/2025 12:08:22 04/27/20 25 04/28/2025 COMP. METAB OLIC PANEL (14) eGFR 60 mL/mi n/1.7 3 >59 normal Not Available [facility] ([facility]) [address] [facility] [place], [address], 04/28/2025 12:08:22 04/27/20 25 04/28/2025 COMP. METAB OLIC PANEL (14) BUN/creatini ne ratio 16 9-23 normal Not Available [facility]) [address] [facility] [place], [address], 04/28/2025 12:08:22 04/27/20 25 04/28/2025 COMP. METAB OLIC PANEL (14) sodium 139 mmol/ L 134-14 4 normal Not Available [facility] ([facility]) [address] [facility] [place], [address], 04/28/2025 12:08:22 04/27/20 25 04/28/2025 COMP. METAB OLIC PANEL (14) potassium 3.6 mmol/ L 3.5-5. 2 normal Not Available [facility] ([facility]) [address] [place], [address], 04/28/2025 12:08:22 04/27/20 25 04/28/2025 COMP. METAB OLIC PANEL (14) chloride 105 mmol/ L 96-106 normal Not Available [facility] ([facility]) [address] [place], [address], 04/28/2025 12:08:22 04/27/20 25 04/28/2025 COMP. METAB OLIC PANEL (14) carbon dioxide, total 17 mmol/ L 20-29 below low normal Not Available [facility] ([facility]) [address] [facility] [place], [address], 04/28/2025 12:08:22 04/27/20 25 04/28/2025 COMP. METAB OLIC PANEL (14) calcium 9.8 mg/dL 8.7-10 .2 normal Not Available [facility] ([facility]) [address] [facility] [place], [address], 04/28/2025 12:08:22 04/27/20 25 04/28/2025 COMP. METAB OLIC PANEL (14) protein, total 7.3 g/dL 6.0-8. 5 normal Not Available [facility] ([facility]) [address] [facility] [place], [address], 04/28/2025 12:08:22 04/27/20 25 04/28/2025 COMP. METAB OLIC PANEL (14) albumin 4.5 g/dL 3.8-4. 9 normal Not Available [facility] ([facility]) [address] [facility] [place], [address], 04/28/2025 12:08:22 04/27/20 25 04/28/2025 COMP. METAB OLIC PANEL (14) globulin, total 2.8 g/dL 1.5-4. 5 Not Available [facility] ([facility]) [address] [facility] [place], [address], 04/28/2025 12:08:22 04/27/20 25 04/28/2025 COMP. METAB OLIC PANEL (14) bilirubin, total 0.4 mg/dL 0.0-1. 2 normal Not Available [facility] ([facility]) [address] [facility] [place], [address], 04/28/2025 12:08:22 04/27/20 25 04/28/2025 COMP. METAB OLIC PANEL (14) alkaline phosphatase 83 IU/L 49-135 normal Not Available [facility]) [address] [facility] [place], [address], 04/28/2025 12:08:22 04/27/20 25 04/28/2025 COMP. METAB OLIC PANEL (14) AST (SGOT) 15 IU/L 0-40 normal Not Available [facility] ([facility]) [address] [facility] [place], [address], 04/28/2025 12:08:22 04/27/20 25 04/28/2025 COMP. METAB OLIC PANEL (14) ALT (SGPT) 17 IU/L 0-32 normal Not Available [facility] ([facility]) [address] [facility] [place], [address], 04/28/2025 12:08:22 04/27/20 25 04/28/2025 LIPID PANEL cholesterol, total 185 mg/dL 100-19 9 normal Not Available [facility] ([facility]) [address] [facility] [place], [address], 04/28/2025 12:08:23 04/27/20 25 04/28/2025 LIPID PANEL triglyceride s 354 mg/dL 0-149 above high normal Not Available [facility] ([facility]) [address] [facility], [place], [address], 04/28/2025 12:08:23 04/27/20 25 04/28/2025 LIPID PANEL HDL cholesterol 34 mg/dL >39 below low normal Not Available [facility] ([facility]) [address] [facility], [place], [address], 04/28/2025 12:08:23 04/27/20 25 04/28/2025 LIPID PANEL VLDL cholesterol dianne 59 mg/dL 5-40 above high normal Not Available [facility] ([facility]) [address] [facility], [place], [address], 04/28/2025 12:08:23 04/27/20 25 04/28/2025 LIPID PANEL LDL chol calc ([facility]) 92 mg/dL 0-99 Not Available [facility]) [address] [facility], [place], [address], 04/28/2025 12:08:23 04/27/20 25 04/28/2025 LIPID PANEL 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 Not Available [facility] ([facility]) [address] [facility], [place], [address], 04/28/2025 12:08:23 04/27/20 25 04/28/2025 HCV ANTIB PHILL CASCA DE(PC R/GEN O) HCV Ab Non Reacti ve non reacti ve Not Available [facility] ([facility]) [address] [facility], [place], [address], 04/28/2025 12:08:24 04/27/20 25 04/28/2025 HCV ANTIB PHILL CASCA DE(PC R/GEN O) interpretati on: Commen t Not infec saman with HCV unles s early or acute infec tion is suspe cted (whic h may be delay ed in an immun ocomp romis ed indiv idual ), or other evide nce exist s to indic ate HCV infec tion. Not Available [facility] ([facility]) [address] [facility], [place], [address], 04/28/2025 12:08:24 04/27/20 25 04/28/2025 TSH TSH 3.090 uIU/m L 0.450- 4.500 normal Not Available [facility] ([facility]) [address] [facility], [place], [address], 04/28/2025 12:08:24 04/27/20 25 04/28/2025 VITAM IN [...] 1. IOM (Inst itute of Medic ine). 2009. Dieta ry refer ence intak es for calci um and D. Vinicius dc [place]: [facility] . 2. Domi davidson [place], Cristi ralph [place], Ted off-F errsergio i RODRIGUEZ, et al. Evalu ation , treat ment, and preve ntion of vitam in D defic iency : an Endoc rine Socie ty clini dianne pract ice guide line. JCEM. 2010; 96(7) :1911 -30. Not Available [facility] ([facility]) [address] [facility], [place], [address], 04/28/2025 12:08:25 04/27/20 25 04/28/2025 HIV AB/P2 4 AG WITH REFLE X HIV Ab/P24 Ag screen Non Reacti ve non reacti ve HIV-1 /HIV- 2 antib odies and HIV-1 p24 antig en were NOT detec saman. There is no labor atory evide nce of HIV infec tion. HIV Negat shanell Not Available [facility] ([facility]) [address] [facility], [place], [address], 04/28/2025 12:08:25 04/27/20 25 04/28/2025 SEDIM ENTAT ION RATE- WESTE RGREN sedimentatio n rate-westerg ascha 23 mm/HR 0-40 normal Not Available [facility] ([facility]) [address] [facility], [place], [address], 04/28/2025 12:08:26 04/27/20 25 04/28/2025 C-EDUARDO CTIVE PROTE IN, QUANT C-reactive protein, quant 3 mg/L 0-10 normal Not Available [facility] ([facility]) [address] [facility], [place], [address], 04/28/2025 12:08:27 04/27/20 25 04/27/2025 rapid SARS CoV 2 Ag, QL, IA, upper respi rator y speci men SARS CoV Ag negati ve Not Available [address], [address], 04/27/2025 08:20:49 04/27/20 25 04/27/2025 rapid flu (A+B) Flu A negati ve Not Available [address], [address], 04/27/2025 08:20:43 04/27/20 25 04/27/2025 rapid flu (A+B) Flu B negati ve Not Available [address], [address], 04/27/2025 08:20:43 07/02/04/2025 LDCT, chest , for lung cance r hernan beauchamp No observ ation record ed. [email or web address] [facility] (Scheduling) [address], [place], [address], 02/11/2025 13:42:19 05/11/2005/06/2025 MAMMO , hernan beauchamp, digit al, bilat eral No observ ation record ed. [facility] [address], [place], [address], 05/11/2025 13:34:42 05/25/2005/25/2025 XR, hip, unila teral , 2 or 3 view No observ ation record ed. [facility] [address], [place], [address], 05/25/2025 13:29:58 Result Notes None recorded. Problems Name Problem SNOMED Code Status Onset Date Resolution Date Notes Provider Name and Address Organization Details Recorded Time Generaliz ed anxiety disorder 57187836 Active 2023 SUSAN Marino [address] [place] [address], [address], [employer] 5 09:32:20 Insomnia 012988877 Active 2023 SUSAN Marino [address] [place] [address], [address] 8, [employer] 5 09:32:25 Spasm of back muscles 765370616 Active 2023 SUSAN Marino [address] [place] [address], [address] 8, [employer] 5 09:32:34 Depressiv e disorder 97488793 Active 2023 SUSAN Marino [address] [place] [address], [address] 8, [employer] 5 09:32:16 Osteoarth ritis of right hip joint 648022227169 107 Active 2023 SUSAN Marino [address] [place] [address], [address] 8, [employer] 5 09:32:28 Pain of hip region 93285045 Active 2023 SUSAN Marino [address] [place] [address], [address] 8, [employer] 5 09:32:23 Restless legs syndrome 34866331 Active 2023 SUSAN Marino [address] [place] [address], [address] 8, [employer] 5 09:32:32 Postopera tive wound infection 26140809 Completed 202405/25/2025 SUSAN Marino [address] [place] [address], [address] 8, [employer] 11:25:56 Dog bite of lower leg 690145379 Active 2024 SUSAN Marino [address] [place] [address], [address] 8, [employer] 14:15:56 Acute exacerbat ion of chronic obstructi ve pulmonary disease 616494441 Completed 202405/25/2025 SUSAN Marino [address] [place] [address], 76[address] 8, [employer] 11:26:01 Chronic obstructi ve pulmonary disease 67623105 Active 2024 SUSAN Marino [address] [place] [address], [address] 8, [employer] 5 08:37:02 Anxiety 67672262 Active 2024 SUSAN Marino [address] [place] [address], 00[address] 8, [email or web address] 5 08:40:54 Primary insomnia 0349236 Active 2024 SUSAN Marino [address] [place] [address], [address] 8, [employer]. 09:58:01 Pain of hip region 06946300 Active 2024 SUSAN Marino [address] [place] [address], 04[address] 8, [employer] 08:31:22 Problem Notes None recorded. Procedures Surgical History Date Name Laterality Status Provider Name and Address Organization Details Recorded Time 05/06/20 25 Most Recent Mammogram completed [employer]. 05/25/2025 08:23:07 04/11/20 15 total abdominal hysterectomy with bilateral salpingo-oophorecto my completed [employer]. 01/26/2025 08:17:22 section completed [employer]. 05/05/2024 14:25:50 operation for glaucoma completed [employer]. 05/05/2024 14:26:38 cervical spinal fusion for pseudoarthrosis completed [employer]. 05/05/2024 14:35:29 Hip Replacement completed [employer]. 10/27/2024 08:24:40 Imaging Results None recorded. Procedure [...] and Address Organization Details Last Updated DateTime 170.18 cm 37.7 kg/m2 577765. 32 g 82 /min 97 % 97 % 98.3 [degF] 136/86 mm[Hg] [employer] 5 08:18:20 Date Recorded Body height Body mass index (BMI) Body weight Heart rate Oxygen saturation Oxygen saturation in Arterial blood by Pulse oximetry Systolic And Diastolic Provider Name and Address Organization Details Last Updated DateTime 5 170.18 cm 37.5 kg/m2 482539. 28 g 67 /min 95 % 95 % 129/78 mm[Hg] [facility] [email or web address] 5 13:55:57 Date Recorded Body height Body mass index (BMI) Body weight Oxygen saturation Oxygen saturation in Arterial blood by Pulse oximetry Heart rate Body temperature Systolic And Diastolic Provider Name and Address Organization Details Last Updated DateTime 5 170.18 cm 36.6 kg/m2 847308. 9 g 95 % 95 % 62 /min 98.1 [degF] 126/84 mm[Hg] [employer] 5 08:14:25 Date Recorded Body height Body mass index (BMI) Body weight Oxygen saturation Oxygen saturation in Arterial blood by Pulse oximetry Heart rate Body temperature Systolic And Diastolic Provider Name and Address Organization Details Last Updated DateTime 5 170.18 cm 35.5 kg/m2 903402. 31 g 94 % 94 % 68 /min 97.9 [degF] 136/88 mm[Hg] [employer] 5 08:15:31 Date Recorded Body height Body mass index (BMI) Body weight Heart rate Oxygen saturation Oxygen saturation in Arterial blood by Pulse oximetry Body temperature Systolic And Diastolic Provider Name and Address Organization Details Last Updated DateTime 5 170.18 cm 36.7 kg/m2 639125. 33 g 62 /min 95 % 95 % 98.2 [degF] 126/82 mm[Hg] [employer] 5 08:24:33 Social History Question Answer Notes LastModified by Organizat ion Details LastModified Time Tobacco Smoking Status Former Smoker [employer] 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 [id number] Information not available 07/06/2024 How Many Days [...] Do You Have A Medical Power Of Medical Records Analyst? No Information not available 05/05/2024 What Was [...] Functional Status Question Answer Note LastModified by [employer] Details LastModified Time Do you use any [...] Mental Status Question Answer Note LastModified by [employer] Details LastModified Time Do you feel stressed (tense, restless, nervous, or anxious, or unable to sleep at night)? [id number] Information not available 07/06/2024 Do you have [...] Lung Disease N COPD Y Depression Y Hypothyroidism N Dermatologic Disorders N Defects or Inherited Disease N Developmental [...] Organ Transplant N Psychiatric/Mental Health Condition N Dialysis N Headaches N Fibromyalgia N Schizophrenia N Kidney Disease N Allergies/Hayfever N Heart [...] Recorded Time Tdap 11/27/2024 completed Leni aden [facility] [employer] 11/27/2024 14:33:44 Tdap 10/21/2007 completed Gissel [facility] [employer] 07/06/2024 08:09:35 Past Encounters Encounter ID Performer Location Encounter Start Date Encounter Closed Date Diagnosis/Indication Diagnosis SNOMED-CT Code Diagnosis ICD10 Code Diagnosis IMO Codes Diagnosis Note [id number] SUSAN Marino [address] [address] 05/05/2024 13:24:24 05/05/2024 15:02:23 Insomnia 871229406 G47.00 [facility] #[id number] reviewedCS A completed today Depressive disorder 3548 9007 F32.A Osteoarthr itis of right hip joint 8163608688 27503 M16.11 Generalize d anxiety disorder 90706334 F41.1 [id number] SUSAN Marino [address] [address] 07/06/2024 07:53:56 07/06/2024 08:44:32 Arthritis of spine 447658266 M46.02 Pain of hip region 64241 002 M25.559 Restless l egs syndrome 31126583 G25.81 [id number] SUSAN Marino [address] [address] 10/27/2024 08:00:40 10/27/2024 08:54:44 Dehiscence of surgical wound 91979070 T81.30XA Depressive disorder 3548 9007 F32.A Generalize d anxiety disorder 75885974 F41.1 Pain of hip region 62474 002 M25.559 handicap parking tag applicatio n given to patient Osteoarthr itis of right hip joint 6961262155 09239 M16.11 Restless l egs syndrome 61742171 G25.81 Insomnia 124173405 G47.0 0 Postoperat shanell wound infection 99075674 T81.40XA wound culture obtained [id number] SUSAN Marino [address] [address] 11/27/2024 13:37:17 11/27/2024 14:23:08 Dog bite of lower leg 873514000 S81.852A W54.0XXA 90355908 Obesity 792386132 E66.01 [id number] SUSAN Marino [address] [address] 01/26/2025 07:46:46 01/26/2025 08:28:17 Restless legs syndrome 69723183 G25.81 Ex-cigarette smoker 2810 71121 Z87.891 683248 [id number] SUSAN Marino [address] [address] 04/27/2025 08:01:42 04/27/2025 08:45:34 Screening mammography 04643154 Z12.31 07580910 Acute cough 5458872071 81017005 R05.9 8791337719 Acute exac erbation of chronic obstructive pulmonary disease 769802606 J44.1 837483 Chronic ob structive pulmonary disease 83290070 J44.9 570745257 Anxiety 04369709 F41.9 61783 Flushing 747934968 R23.2 M25.50 382408 HIV screening 771713257 Z11.4 554624 Viral scre ening status 237616868 Z11.59 714763 Mixed hyperlipidemia 267 478456 E78.2 76706 Vitamin D deficiency 347 79606 E55.9 96001 Primary insomnia 4000695 F51.01 26092 Used Quvivig in the past - didn't helpTrazod one and Remeron not helpingWil l increase Seroquel [id number] SUSAN Marino [address] [address] 05/25/2025 08:02:22 05/25/2025 08:34:11 Pain of hip region 39849966 M25.551 919142 Chronic ob structive pulmonary disease 99185920 J44.9 Primary insomnia 4269286 F51.01 13655 Health Concerns Section Related Observation LastModified by Organization Detai ls LastModified Time None Recorded Concern Status LastModified by Organization Details LastModified Time None Recorded Advance Directives Directive N: Payers Insurance Date Sequence Insurance Name Policy Number Policy Lazo Covered Member ID Lazo Member ID Guarantor Name 05/25/2025 [place] [employer] Laura Hodge [id number] Luara Hodge 05/25/2025 2 [place] Laura Hodge [id number] Laura Hodge 05/25/2025 1 [employer] (MEDICARE REPLACEMENT/AD VANTAGE - PPO) Laura Hodge [id number] Laura Hodge Notes Date Note Type Note Provider Name and Address Organization Details Recorded Time 10/27/2024 text/html ROS as noted in the HPI Patient presents for followup.RIght hip pain. Had right hip replacement in July. Wound dehiscence, infection, reopened in August. Wound still has open spot, draining yellow fluid. No fever. Still has pain. Tramadol helps but not always strong enough.Not sleeping. Quviviq no longer helping. Also takes Trazodone.Would like a handAireum parking tag. SUSAN Marino [address] [place] [address], [phone], [employer] 10/27/2024 09:38:15 11/27/2024 text/html ROS as noted in the HPI Dog bite left ankle 2 days ago. Dog is her own dog, UTD on vaccines. She got in between him and another dog and was bitten. Has cleaned with peroxide and betadine. SUSAN Marino [address] [place], [address], [employer] 11/27/2024 14:57:29 01/26/2025 text/html ROS as noted in the HPI Patient presents for followup. History of RLS. Needs refills on Horizant. States that she is doing well. SUSAN Marino [address] [place] [address], [phone], [employer] 01/26/2025 10:54:45 04/27/2025 text/html ROS as noted in the HPI Cough, congestion, wheezing, shortness of breath X 2 weeks. No fever. Cough minimally productive.States her hips are hurting.Not sleeping. Only sleeps 2-3 hours a night. She was on Quviviq in the past - didn't think it helped. CUrrently on Remeron and Trazodone. Can't tell they are helping. Also states that nerves are shot. SUSAN Marino [address] [place], [address], [employer] 04/27/2025 09:59:02 05/25/2025 text/html ROS as noted in the [...] her breathing quite a bit. SUSAN Marino [address] [place], [address], [employer] 05/25/2025 11:27:13 OBGyn Episode No OBEpisode recorded.
--- OUTSIDE RECORDS SUMMARY | 2025-05-31 10:06 | XMS_ITS | Data Portability ---
Author Organization [facility] [place] [facility] [place] ADMIN Address [address] [place] [address] Assessment Encounter Date Assessment Date Assessment LastModified [...] __ __ __ __ __ _ NICOLE: [id number] I have reviewed patient's NICOLE report prior [...] have reviewed the cervical MRI, which revealed lonw-zp-gfsstmdx foraminal stenosis at C4-C5, residual left foraminal [...] __ __ __ __ __ _ NICOLE: 534839411 I have reviewed patient's NICOLE report prior to prescribing Schedule II, III, and IV medications that require review by law. Not available 04/01/2023 19:08:13 04/22/2023 04/22/2023 The patient presents today for bilateral cervicothoracic trigger point injection. However, upon speaking with the patient, she reports her lower back is more painful. Upon physical exam, there are trigger points present at the longissimus thoracis and thoracis spinalus, so I proceeded with a trigger point injection of the thoracolumbar region. [email or web address] Not available 04/22/2023 08:43:19 05/13/2023 05/13/2023 Mrs. [...] have reviewed the cervical MRI, which revealed jwfz-oy-axztxhwh foraminal stenosis at C4-C5, residual left foraminal [...] __ __ __ __ __ _ NICOLE: 171669078 I have reviewed patient's NICOLE report prior to prescribing Schedule II, III, and IV medications that require review by law. [email or web address] Not available 05/14/2023 10:26:44 Plan of Treatment Reminders Order Date Submit Date Provider Last Modified By Organization Details Last Modified Time Details Appointments None recorded. Lab None recorded. Referral None recorded. Procedures medial branch block, lumbar (PROC) - Bilateral lumbar medial branch block at L4-S1. 26731 and 98147. 2022 023 [email or web address] 7 Nghia Alanis MD, [address], [address], [place], [address], 3 13:39:31 injection, trigger point (PROC) - TPI of the bilateral cervical region, including trapezius, levator scapulae, and supraspina tus. [address]. [address]. 2022 023 [email or web address] 7 Nghia Alanis MD, [address], [address], [place], [address], 3 15:50:55 occipital nerve block (PROC) - bilateral occipital nerve block at the greater/le sser nerves, [address], [address] - in office 03/19/232022 023 [email or web address] 4 Nghai Alanis MD, [address] [facility], [address], [place], [address], 3 14:31:23 Surgeries None recorded. Imaging None recorded. Medication Orders None recorded. Patient TargetsNo targets recorded. Patient InstructionsNo instructions recorded. Reason for Referral None Reported. Problems Name Problem SNOMED Code Status Onset Date Resolution Date Notes Provider Name and Address Organization Details Recorded Time Spinal stenosis in cervical region 88889227 Active 2022 MERRICK Oh - [facility] [place] [facility] [place] 3 09:15:41 History of cervical spine fusion 8249322960596 Active 2022 MERRICK Oh - [facility] [place] [facility] [place] 3 09:15:53 Cervical spondylosis 815649599 Active 2022 MERRICK Oh - [facility] [place] [facility] [place] 3 09:16:01 Spinal stenosis of lumbar region 09108554 Active 2022 Jessica Pedersen null, [place] - [facility] [place] [facility] [place] 3 09:16:20 Lumbar spondylosis 877693821 Active 2022 Jessica Pedersen null, [place] - [facility] [place] [facility] [place] 3 09:16:32 Cervical post-sarah beth ctomy syndrome 306116694 Active 2022 Jessica Pedersen null, [place] - [facility] [place] [facility] [place] 3 09:16:43 Cervico-occ ipital neuralgia 22630748 Active 2022 Jessica Pedersen null, [place] - [facility] [place] [facility] [place] 3 09:19:18 Spinal enthesopath y of cervical region Active 2022 Jessica Pedersen null, [place] - [facility] [place] [facility] [place] 3 09:19:18 Problem Notes None recorded. Procedures Surgical History Date Name Laterality Status Provider Name and Address Organization Details Recorded Time 023 Injection Only completed Joceline Berry [place] - [facility] [place] [facility] [place] 04/22/2023 08:45:47 023 Injection Only completed Brittni Olmos [place] - [facility] [place] [facility] [place] 03/26/2023 09:15:50 023 Injection Only completed Jessica Pedersen [place] - [facility] [place] [facility] [place] 03/19/2023 13:27:55 procedure on lower leg completed Rina South [place] - [facility] [place] [facility] [place] 03/19/2023 08:37:27 Back Surgery completed Rina South [place] - [facility] [place] [facility] [place] 03/19/2023 08:37:39 section completed Rina South [place] - [facility] [place] [facility] [place] 03/19/2023 08:37:47 Hysterectomy completed iRna South [place] - [facility] [place] [facility] [place] 03/19/2023 08:37:57 breast procedure completed Rina South [place] - [facility] [place] [facility] [place] 03/19/2023 08:38:18 cardiac catheterization completed Rina South [place] - [facility] [place] [facility] [place] 03/19/2023 08:38:33 Imaging Results None recorded. Procedure [...] Address Organization Details Last Updated DateTime 3 350278. 51 g 97.3 [degF] 98 % 98 % 60 /min 140/72 mm[Hg] [facility] & [place] 3 08:46:38 Date Recorded Body weight Body temperature Oxygen saturation Oxygen saturation in Arterial blood by Pulse oximetry Heart rate Systolic And Diastolic Provider Name and Address Organization Details Last Updated DateTime 3 236553. 91 g 96.9 [degF] 98 % 98 % 55 /min 134/77 mm[Hg] [facility] & [place] 3 08:20:21 Date Recorded Body weight Body temperature Oxygen saturation Oxygen saturation in Arterial blood by Pulse oximetry Heart rate Systolic And Diastolic Provider Name and Address Organization Details Last Updated DateTime 3 032287. 91 g 96.9 [degF] 98 % 98 % 51 /min 134/76 mm[Hg] [facility] & [place] 3 08:37:32 Date Recorded Body height Body mass index (BMI) Body weight Body temperature Oxygen saturation Oxygen saturation in Arterial blood by Pulse oximetry Heart rate Systolic And Diastolic Provider Name and Address Organization Details Last Updated DateTime 3 167.64 cm 35.2 kg/m2 27689.1 4 g 97.2 [degF] 99 % 99 % 51 /min 142/72 mm[Hg] Peri Hebert [facility] & [place] 08:14:44 Social History Question Answer Notes LastModified by Organizat ion Details LastModified Time Tobacco Smoking Status Current Every Day Smoker Rina South null, [facility] & [place] 03/19/2023 08:36:35 What Is Your Current Pack Years? [email or web address] Information not available 03/19/2023 How Much Tobacco Do You Smoke? 1 PPD Information not available 03/19/2023 Sex: Unknown Functional Status None recorded. Mental Status None recorded. Family History Nothing Reported. Medical History Condition Response Anxiety Disorder Y Arthritis Y Cancer Y Depression Y High Cholesterol Y Headaches Y Hypertension Y Osteoporosis Y Gynecological HistoryNo gynecological history recorded. Obstetrics History GPAL:G 0 P 0 0 0 0 Past Encounters Encounter ID Performer Location Encounter Start Date Encounter Closed Date Diagnosis/Indication Diagnosis SNOMED-CT Code Diagnosis ICD10 Code Diagnosis IMO Codes Diagnosis Note [id number] Nghia Alanis MD [facility] [address] [place] [address] 03/19/2023 08:00:30 03/19/2023 09:52:53 Spinal stenosis in cervical region 50907261 M99.51 History of cervical spine fusion 4512096811 101 Z98.1 Spinal rachel nosis of lumbar region 99113392 M99.53 Lumbar spondylosis 07037 0009 M47.816 Cervical post-laminectomy syndrome 376266232 M96.1 Spinal ent hesopathy of cervical region 0195261250 46319 M46.02 Cervico-oc cipital neuralgia 60184952 M54.81 [id number] ANNALISA REINA PA-C [facility] [address] [address] 03/29/2023 08:00:09 03/29/2023 08:48:28 Cervico-occipital neuralgia 54512764 M54.81 Spinal ent hesopathy of cervical region 5323256781 25642 M46.02 Cervical post-laminectomy syndrome 257384734 M96.1 Spinal rachel nosis of lumbar region 93467662 M99.53 M48.061 Spinal rachel nosis in cervical region 00679280 M99.51 History of cervical spine fusion 3254518604 101 Z98.1 Lumbar spondylosis 74647 0009 M47.816 [id number] Nghia Alanis MD [facility] [address] [place] [place] [address] 04/22/2023 08:06:18 04/22/2023 09:18:02 Spinal enthesopathy of thoracolumbar region 1787088693 76389 M46.05 [id number] ANNALISA REINA PA-C [facility] [address] [place] [place] [address] 05/13/2023 08:05:30 05/13/2023 08:46:22 Cervico-occipital neuralgia 35245586 M54.81 Spinal ent hesopathy of cervical region 1525208842 98833 M46.02 Cervical post-laminectomy syndrome 863131088 M96.1 Spinal rachel nosis of lumbar region 70638844 M99.53 M48.061 Spinal rachel nosis in cervical region 09695404 M99.51 History of cervical spine fusion 0366012395 101 Z98.1 Lumbar spondylosis 57720 0009 M47.816 Health Concerns Section Related Observation LastModified by Organization Detai ls LastModified Time None Recorded Concern Status LastModified by Organization Details LastModified Time None Recorded Advance Directives Directive None Recorded Payers Insurance Date Sequence Insurance Name Policy Number Policy Lazo Covered Member ID Lazo Member ID Guarantor Name 02/15/2024 2 MEDICAID-[facility] HE[facility] CHOICES - FFS/TRADITIO NAL Laura Hodge [id number] Laura Hodge 05/13/2023 1 [place] Laura Hodge [id number] Laura Hodge 02/15/2024 1 [employer] (MEDICARE REPLACEMENT/ ADVANTAGE - PPO) Laura Hodge [id number] Laura Hodge Notes Date Note Type Note [...] cervical and lumbar spine Nghia Alanis MD [address] [place], [address], [facility] [place] [facility] [place] 03/20/2023 11:15:31 03/29/2023 text/html ROS as noted in the HPI Mrs. Hodge was referred by Dr. Dominique [...] Tx: nonePhysical Therapy: currently participating PTInterventional Tx: BRADY x3 - Dr. Garcia 2022Surgery: ACDF C5-7 2020 - Dr. DominiqueImaging/Studies: MRI lumbar and cervical spine, x-ray cervical and lumbar spine ANNALISA REINA PA-C [address] , [place], [address], [facility] - [facility] [place] [facility] [place] 04/01/2023 19:11:17 04/22/2023 text/html ROS as noted in the HPI Nghia Alanis MD [address], [place], [address], [facility] - [facility] [place] [facility] [place] 04/23/2023 13:47:25 05/13/2023 text/html ROS as noted in the HPI Mrs. Hodge was referred by Dr. Dominique [...] Garcia 2022Surgery: ACDF C5-7 2020 - Dr. RiceImaging/Studies: MRI lumbar and cervical spine, x-ray cervical and lumbar spine ANNALISA REINA PA-C [address], [place], [address], [facility] [place] [facility] [place] 05/14/2023 10:27:28 OBGyn Episode No OBEpisode recorded.
== END 2025-05-31 23:59 | disposition home or self-care (01) ==
LOC: RAD 09:53
PROVIDERS: PCP Physician Assistant; Visit Provider Physician Assistant
DX: S70.251A Superficial foreign body, right hip, initial encounter (principal); Z96.641 Presence of right artificial hip joint
CPT/HCPCS: 73700